=== PATIENT | male | born 1950 | race African-American/Black ===

== ENCOUNTER 2022-12-01 08:36 | Outpatient (REF) | payer BC, MEDICARE, SELFPAY ==
--- NOTE | ~2022-12-01 | XR_ITS ---
EXAMINATION: XR KNEE, LEFT CLINICAL INFORMATION: Left knee pain. COMPARISON: None available. TECHNIQUE: Three views of the left knee. FINDINGS: Examination demonstrates moderate to severe tricompartmental osteoarthritis with joint space narrowing, sclerosis, and osteophyte formation, with relative sparing of the lateral compartment. No fracture or dislocation is seen. Bony mineralization appears preserved. No effusion is noted. Severe calcification of the popliteal artery. XR/XR knee LT 3V IMPRESSION: Osteoarthritis. Severe calcification of the popliteal artery.
== END 2022-12-01 08:37 | disposition home or self-care (01) ==
LOC: HO.HOSX 08:36
PROVIDERS: Visit Provider Orthopaedic Surgery
DX: M17.12 Unilateral primary osteoarthritis, left knee (principal); Z96.651 Presence of right artificial knee joint
CPT/HCPCS: 73562

== ENCOUNTER 2022-12-01 12:52 | Outpatient (AMB) | payer MEDICARE, BC, SELFPAY ==
--- NOTE | 2022-12-01 13:19 | MHC.OFFVIS ---
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 Ley with complaints of left knee swelling. Patient reports intermittent swelling in his left knee but no concerns of pain today. Hx of cortisone injection about 4-5 months that has helped. The patient underwent right total knee replacement surgery on 07/07/2022. He reports minimal discomfort in his right knee. He denies any fevers or chills. He does take Tylenol as needed for his left knee pain. Allergies adhesive tape Allergy (Verified 12/01/22 13:24) rash NSAIDS (Non-Steroidal Anti-Inflamma Allergy (Verified 12/01/22 13:24) Kidney replacement [facility] Social History Patient Tobacco Use Status: Former Tobacco user Current occupational status: retired Physical Exam Const Other: Well-nourished well-developed very friendly male awake alert and oriented x3 in no acute distress Extrem Other: Bilateral lower extremity examination shows good capillary refill, no skin lesions noted, normal sensation light touch Left knee examination shows a minimal effusion, palpable crepitus with range of motion, pain with range of motion, range of motion from -3 degrees to 115 degrees Right knee examination shows that the surgical incision is well healed, no erythema, full active extension and flexion to 120 degrees, his patella tracks well Results Reviewed Results Reviewed: X-rays of the patient's left knee show moderate diffuse joint space narrowing, subchondral sclerosis, no acute bony abnormalities Assessment & Plan Assessment & Plan (1) Arthritis of left knee: Code(s): M17.12 - Unilateral primary osteoarthritis, left knee Plan Mr. Birch continues to do well after undergoing right total knee replacement surgery on 07/07/2002. He does have intermittent discomfort in his left knee due to degenerative joint disease. I had a lengthy discussion regarding the treatment options. At this point the patient's symptoms are tolerable to him. He will continue taking Tylenol as needed. He does know to take antibiotics before any dental work. He will call me prior to his annual follow-up appointment should his symptoms worsen in any way. Feel free to call me at any time should questions regarding his orthopedic management arise. I spent 22 minutes in reviewing the patient's records and imaging studies, seeing the patient and documenting in the medical record. Orders: Orders XR knee LT 3V Today M25.562 - Pain in left knee Coding Level of Care Code Est Pt Level 2 (73498) Diagnoses Arthritis of left knee M17.12
[2022-12-01 13:22] VITALS: BMI 29.6
== END 2022-12-01 13:41 | disposition home or self-care (01) ==
PROVIDERS: PCP Internal Medicine; Visit Provider Orthopaedic Surgery
DX: M17.12 Unilateral primary osteoarthritis, left knee (principal)
CPT/HCPCS: 99212

== ENCOUNTER 2023-05-05 13:22 | Outpatient (AMB) | payer MEDICARE, BC, SELFPAY ==
--- NOTE | 2023-05-05 13:23 | MHC.OFFVIS ---
Intake Vital Signs 05/05/23 13:24 Height 5 ft 7 in Weight 189 lb BMI 29.6 Intake Visit Reasons: OV-Back left knee pain-feels like pull muscle Intake Note: Randy is a 73 year old male who presents with Left posterior knee pain as well as pain in his left lower leg when he walks significant distances. The patient denies any locking or giving way. He has taken Tylenol and anti-inflammatory medicines which gave him only mild relief. Allergies adhesive tape Allergy (Verified 05/05/23 13:30) rash NSAIDS (Non-Steroidal Anti-Inflamma Allergy (Verified 05/05/23 13:30) Kidney replacement [facility] Social History (Updated 12/01/22 @ 13:26 by MARIA ELENA Watson) Patient Tobacco Use Status: Former Tobacco user Current occupational status: retired Physical Exam Vital Signs: BMI result Body Mass Index 29.6 Const Other: Well-nourished well-developed very friendly male awake alert and oriented x3 in no acute distress Extrem Other: Bilateral lower extremity examination shows good capillary refill, no skin lesions noted, normal sensation light touch Left knee examination shows a moderate effusion, palpable crepitus with range of motion, pain with range of motion, no instability Office Procedures Joint Injection/Drain Joint Injection/Drain Primary Site: left knee Prep: site was prepped using aseptic technique Injected: 40 mg of, DepoMedrol and 1% plain lidocaine Procedure: The patient tolerated the procedure well Coding 41740 - Large joint Procedure code (CPT) selection complete Results Reviewed Results Reviewed: X-rays of the patient's left knee show joint space narrowing, subchondral sclerosis, calcification of the popliteal artery, no acute bony Assessment & Plan Assessment & Plan (1) Claudication in peripheral vascular disease: Code(s): I73.9 - Peripheral vascular disease, unspecified (2) Arthritis of left knee: Code(s): M17.12 - Unilateral primary osteoarthritis, left knee Plan Mr. Birch presents with left knee pain due to degenerative joint disease as well as symptoms of left lower leg claudication possibly due to calcifications within his popliteal artery. I had a lengthy discussion with the patient regarding the treatment options. The risks and benefits of a left knee cortisone injection were discussed at length with the patient. The patient wished to proceed. Prior to the injection 15 cc of clear fluid were aspirated from the patient's left knee. He tolerated the injection well. He will continue with his activity modifications. I will also arrange for the patient to have an evaluation in the vascular surgery Department here at [facility] for further information regarding possible left lower extremity vascular claudication. The patient will contact me prior to his follow-up appointment in 3 months should any questions or concerns arise. Feel free to call me at any time should questions regarding his orthopedic management arise. I spent 22 minutes in reviewing the patient's records and imaging studies, seeing the patient and documenting in the medical record. Orders: Orders AMB Joint Injection/Aspiration Today M17.12 - Unilateral primary osteoarthritis, left knee Referrals Vascular Surgery Referral I73.9 - Peripheral vascular disease, unspecified Coding Level of Care Code Est Pt Level 2 (66956) Diagnoses Claudication in peripheral vascular disease I73.9 Arthritis of left knee M17.12 CPT Codes Coding - 61289 Large joint: 98662 - Large joint ([id number])
[2023-05-05 13:24] VITALS: BMI 29.6
== END 2023-05-05 14:07 | disposition home or self-care (01) ==
PROVIDERS: PCP Internal Medicine; Visit Provider Orthopaedic Surgery
DX: M17.12 Unilateral primary osteoarthritis, left knee (principal); I73.9 Peripheral vascular disease, unspecified
CPT/HCPCS: 20610; 99213

== ENCOUNTER → 2023-05-05 13:22 | Outpatient (BNVA) | payer MEDICARE, BC, SELFPAY | PROVIDERS: PCP Internal Medicine; Visit Provider Orthopaedic Surgery | DX: M17.12 Unilateral primary osteoarthritis, left knee (principal); I73.9 Peripheral vascular disease, unspecified | CPT/HCPCS: 20610; 99212; J1020 ==

== ENCOUNTER 2023-06-22 14:31 | Outpatient (AMB) | payer MEDICARE, BC, SELFPAY ==
--- NOTE | 2023-06-22 14:35 | MHC.OFFVIS ---
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 Pt states that Left LE has cramping. States its bad when he is more active, states he can go up stairs slowly but going down is more difficult. No certain distance. 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 Reports it is more so on his left lower extremity. He reports that he can walk approximately a block and experiences left lower extremity cramping. It is relieved by rest. He also takes occasional [id number] analgesia including Tylenol. He was seen by Orthopedics. He now presents to us for vascular evaluation. Of note he is being maintained on an aspirin and statin. [facility] Surgical History Prostate cancer (~2011) History of heart bypass surgery (~2010) Social History Patient Tobacco Use Status: Former Tobacco user Current occupational status: retired Review of Systems Const All systems reviewed & are unremarkable except as noted in HPI and below Reports no additional complaints ENT Reports Normal hearing present Card Denies chest pain, Denies chest pain at rest, Denies chest pain with activity and Denies pedal edema Resp Denies cough GI Denies abdominal pain Musc Denies abnormal gait, Denies muscle cramps and Denies radiating pain into limb Skin/Breast Denies skin ulcer and Denies wounds Neuro Reports Normal hearing present and Denies abnormal gait Psych Reports no additional complaints Physical Exam Vital Signs: BMI result Body Mass Index 29.6 Const General: cooperative, healthy appearing and comfortable Orientation/consciousness: oriented to person, oriented to place and oriented to time HEENT Head: Yes normal to inspection Neck Neck: Yes normal visual inspection Carotids: no bruits Chest Chest palpation & inspection: normal inspection of the chest Resp Effort & Inspection: normal respiratory effort and able to speak in complete sentences Auscultation: clear to auscultation bilaterally, no crackles, no rales, no rhonchi and no wheezes Cardio Other: Bilateral DP signals Rate: regular rate Rhythm: regular rhythm Heart sounds: S1 normal heart sound present and S2 normal heart sound present Bruits: no carotid bruits GI Inspection: Yes normal to inspection Skin Wounds: no wounds Hair: normal Neuro General: oriented to person, oriented to place and oriented to time Cranial nerves: Yes CN's II-XII intact bilaterally and Yes Normal hearing present Cognition (Neuro): normal cognition Motor exam (neuro): 5/5 motor strength present throughout Extrem Other: venous exam: No significant superficial varicosities or spider telangiectasias, minimal edema General: No clubbing, No cyanosis and No edema Psych Appearance: grossly normal Mental Status: mental status grossly normal Speech and movement: Normal speech and movement present Assessment & Plan Assessment & Plan (1) Kidney transplant candidate: Code(s): Z76.82 - Awaiting organ transplant status Plan: See below (2) PAD (peripheral artery disease): Code(s): I73.9 - Peripheral vascular disease, unspecified Category: Medical Plan: In short patient has lower extremity pain on ambulation. Does appear to be symptomatology of a claudicant. We did discuss routine risk factor modification. We also did discuss the importance of ambulation. I have taken the liberty of ordering noninvasive arterial testing. He will follow up with us after testing. Thank you for allowing us to assist in his care. If there are any questions or concerns please do not hesitate to contact us Orders: Orders US arterial duplex LE BI 1 Week I73.9 - Peripheral vascular disease, unspecified Coding Level of Care Code Est Pt Level 4 (80558) Diagnoses Kidney transplant candidate Z76.82 PAD (peripheral artery disease) I73.9
[2023-06-22 14:36] VITALS: BMI 29.6
== END 2023-06-22 15:32 | disposition home or self-care (01) ==
PROVIDERS: PCP Internal Medicine; Visit Provider Surgery Vascular Surgery
DX: Z76.82 Awaiting organ transplant status (principal); I73.9 Peripheral vascular disease, unspecified
CPT/HCPCS: 99213

== ENCOUNTER → 2023-06-22 14:31 | Outpatient (BNVA) | payer MEDICARE, BC, SELFPAY | PROVIDERS: PCP Internal Medicine; Visit Provider Surgery Vascular Surgery | DX: I73.9 Peripheral vascular disease, unspecified (principal); Z76.82 Awaiting organ transplant status | CPT/HCPCS: 99212 ==

== ENCOUNTER 2023-07-07 14:40 | Outpatient (REF) | payer MEDICARE, BC, SELFPAY ==
--- NOTE | ~2023-07-07 | US_ITS ---
EXAMINATION: US arterial duplex LE BI, US NANCY complete CLINICAL INFORMATION: PVD COMPARISON: None TECHNIQUE: Ankle pulse volume recordings, ankle pressure measurements and ankle brachial indices were obtained of the lower extremity arterial system bilaterally in addition to duplex Doppler techniques with wave form analysis and measurement of velocities in the common femoral, profunda femoral, superficial femoral, popliteal, tibial and peroneal arteries. The study was performed only at rest. FINDINGS: RIGHT LE. THE RIGHT ANKLE-BRACHIAL INDEX IS: 0.61 noncompressibility/calcification. >0.97-1.25 = normal - no significant arterial disease 0.75-0.96 = mild peripheral arterial disease 0.5-0.74 = moderate peripheral arterial disease <0.50 = severe peripheral arterial disease <0.30 = critical arterial disease 2. SEGMENTAL PRESSURES (mmHg): Ankle: PT 111, DP 103 3. PVR WAVEFORMS: Ankle: Abnormal 4. DIRECT DUPLEX: Common femoral artery: 111 cm/s, biphasic, mild stenosis Profunda femoris artery: 96 cm/s, biphasic, mild stenosis Superficial femoral artery (proximal): 147 cm/s, biphasic, mild stenosis Superficial femoral artery (mid): 109 cm/s, Multiphasic, mild stenosis Superficial femoral artery (distal): 46 cm/s, monophasic, mild stenosis Distal Popliteal artery: 349 cm/s, monophasic, severe stenosis Mid posterior tibial artery: 72 cm/s, monophasic, mild stenosis Peroneal artery: Not visualized Dorsalis pedis artery: 26 cm/sec, monophasic Anterior tibial artery: 21 cm/sec, monophasic LEFT LE. THE LEFT ANKLE-BRACHIAL INDEX IS: 0.74 (higher of the DP/PT) >0.97-1.25 = normal - no significant arterial disease 0.75-0.96 = mild peripheral arterial disease 0.5-0.74 = moderate peripheral arterial disease <0.50 = severe peripheral arterial disease <0.30 = critical arterial disease 2. SEGMENTAL PRESSURES: Ankle: PT 135, DP 105 3. PVR WAVEFORMS: Ankle: Abnormal 4. DIRECT DUPLEX: Common femoral artery: 120 cm/s, biphasic, mild stenosis Profunda femoris artery: 109 cm/s, biphasic, mild stenosis Superficial femoral artery (proximal): 165 cm/s, biphasic, mild stenosis Superficial femoral artery (mid): 110 cm/s, biphasic, mild stenosis Superficial femoral artery (distal): 256 cm/s, monophasic, moderate stenosis Proximal Popliteal artery: 275 cm/s, monophasic, moderate stenosis Mid posterior tibial artery: 93 cm/s, monophasic, mild stenosis Peroneal artery: Not visualized Dorsalis pedis artery: 19 cm/sec, monophasic Anterior tibial artery: 28 cm present, monophasic US/US arterial duplex LE BI IMPRESSION: 1. Right lower extremity with moderate peripheral arterial disease by NANCY. Severe stenosis at the distal popliteal artery. 2. Left lower extremity with moderate peripheral arterial disease by NANCY. Moderate stenosis of the distal superficial femoral artery and proximal popliteal artery. 3. Monophasic waveforms in the below-knee arteries bilaterally.
== END 2023-07-07 14:41 | disposition home or self-care (01) ==
LOC: HO.US 14:40
PROVIDERS: PCP Internal Medicine; Visit Provider Surgery Vascular Surgery
DX: I73.9 Peripheral vascular disease, unspecified (principal)
CPT/HCPCS: 93923; 93925

== ENCOUNTER 2023-07-09 11:21 | Outpatient (AMB) | payer MEDICARE, BC, SELFPAY ==
[2023-07-09 11:26] VITALS: BP 160/68; PULSE 60; O2SAT 98; BMI 30.4
--- NOTE | 2023-07-09 11:26 | HO.NEPHOV ---
Vital Signs 07/09/23 11:26 Height 5 ft 7 in Weight 194 lb BMI 30.4 BP 160/68 H Blood Pressure Location Rt brachial Position Sitting Pulse 60 Pulse Source Pulse Oximeter Pulse Oximetry (%) 98 Oxygen Delivery Method Room Air Intake Visit Reasons: Previous patient/ Confirmed Talcer Required: No Accompanied by: Spouse Allergies adhesive tape Allergy (Verified 07/09/23 11:28) rash NSAIDS (Non-Steroidal Anti-Inflamma Allergy (Verified 07/09/23 11:28) Kidney replacement HPI Comments Details: I had the pleasure of seeing Randy in consultation and transfer care for his kidney transplant. 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 His serum creatinine has been stable around 0.9. He is gained some weight. He has peripheral arterial symptoms and had seen vascular surgeon. He thinks he likely will need stenting of his arteries on the left lower extremity. He continues to have left upper extremity AV fistula. He applies sunscreen when he goes out and maintains good hydration. He does not take any nonsteroidal anti-inflammatories and is compliant with his medications. His appetite is good. He does not have any chest pain, shortness of breath, paroxysmal nocturnal dyspnea, orthopnea, urinary symptoms. He had no recent medication changes. He was accompanied by his Siomara during this office visit. He feels well. [facility] Medical History (Updated 07/09/23 @ 13:32 by Jim Ibrahim MD) FHx: total knee replacement (~06/2022) Osteoarthritis Hyperlipidemia Hypertension History of congestive heart failure Gout GERD (gastroesophageal reflux disease) Surgical History (Updated 07/09/23 @ 12:11 by Jim Ibrahim MD) Prostate cancer (~2011) History of heart bypass surgery (~2010) Social History Patient Tobacco Use Status: Former Tobacco user Current occupational status: retired Physical Exam Vital Signs: Last Vital Signs Pulse 60 07/09/23 11:26 BP 160/68 H 07/09/23 11:26 Pulse Ox 98 07/09/23 11:26 Oxygen Delivery Method Room Air 07/09/23 11:26 BMI result Body Mass Index 30.4 Const General: comfortable and no acute distress Orientation/consciousness: patient oriented x3 HEENT Head: Yes normocephalic Mouth: Normal oral and palatal mucosa present Eyes EOM: EOMs intact bilaterally Neck Neck: Yes supple Resp Auscultation: clear to auscultation bilaterally Cardio Jugular venous distension: no JVD Rate: regular rate GI Palpation (GI): Soft to palpation Auscultation: normal bowel sounds General: Yes no CVA tenderness Back/Spine/Pelvis Back: no CVA tenderness Skin General skin exam: no rashes or lesions noted Neuro General: patient oriented x3 and moves all extremities Extrem General: Yes no pedal edema Results Reviewed Nephrology Results: No Data to Display Assessment & Plan Assessment & Plan (1) Renal transplant recipient: Code(s): Z94.0 - Kidney transplant status Category: Surgical (2) Hypertension: Code(s): I10 - Essential (primary) hypertension Category: Medical Qualifiers: Hypertension type: primary hypertension Qualified Code(s): I10 - Essential (primary) hypertension Plan Randy had ESRD from hypertension and received a donor renal transplant in 2017. His serum creatinine is at baseline of 0.9. He has no history of rejection. His blood pressure is at goal. His hemoglobin A1c is 6.1. His lipid profile is at goal. He clearly needs to lose weight. He has no side effects from calcineurin inhibitor. He is compliant with his medications. 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 He has a follow-up with vascular surgery for his peripheral arterial disease. He is going to discuss with vascular surgeon regarding his left upper extremity AV fistula which can be either reduced in size or tied off. He has no clinical signs of heart failure. I did not make any medication changes today. All his and his 's questions were answered. Follow-up appointment given. Orders: Orders Complete Blood Count Auto Diff Today I10 - Essential (primary) hypertension, Z94.0 - Kidney transplant status Tacrolimus Prograf Today I10 - Essential (primary) hypertension, Z94.0 - Kidney transplant status Calcium Today I10 - Essential (primary) hypertension, Z94.0 - Kidney transplant status Protein Creatinine Ratio, Ur Today I10 - Essential (primary) hypertension, Z94.0 - Kidney transplant status Creatinine Today I10 - Essential (primary) hypertension, Z94.0 - Kidney transplant status Blood Urea Nitrogen Today I10 - Essential (primary) hypertension, Z94.0 - Kidney transplant status Electrolytes Today I10 - Essential (primary) hypertension, Z94.0 - Kidney transplant status Phosphorus Today I10 - Essential (primary) hypertension, Z94.0 - Kidney transplant status Magnesium Today I10 - Essential (primary) hypertension, Z94.0 - Kidney transplant status Alanine Aminotransferase Today I10 - Essential (primary) hypertension, Z94.0 - Kidney transplant status Aspartate Amino Transferase Today I10 - Essential (primary) hypertension, Z94.0 - Kidney transplant status Coding Level of Care Code New Pt Level 4 (60540) Diagnoses Renal transplant recipient Z94.0 Primary hypertension I10 Hypertension type: primary hypertension
== END 2023-07-09 12:19 | disposition home or self-care (01) ==
PROVIDERS: PCP Internal Medicine; Visit Provider Internal Medicine Nephrology
DX: Z94.0 Kidney transplant status (principal); I10 Essential (primary) hypertension
CPT/HCPCS: 99204; 99214

== ENCOUNTER → 2023-07-09 11:21 | Outpatient (BNVA) | payer MEDICARE, BC, SELFPAY | PROVIDERS: PCP Internal Medicine; Visit Provider Internal Medicine Nephrology | DX: I10 Essential (primary) hypertension (principal); Z94.0 Kidney transplant status | CPT/HCPCS: 99202 ==

== ENCOUNTER 2023-08-05 13:06 | Outpatient (AMB) | payer MEDICARE, BC, SELFPAY ==
--- NOTE | 2023-08-05 13:11 | A.OFFVIS_ITS ---
Intake Visit Reasons: OV-Back LT knee pain-follow up Intake Note: Randy is a 73 year old male who presents with complaints of left knee pain and swelling. The patient has had injections in the past which gave him fairly good relief. He did undergo right total knee replacement surgery in the past. He reports minimal discomfort in his right knee. He would like to hold off on left total knee replacement surgery for as long as possible. He has done physical therapy exercises which aggravated his pain. Has also tried Tylenol and aspirin which gave him only mild relief. Allergies adhesive tape Allergy (Verified 08/05/23 13:11) rash NSAIDS (Non-Steroidal Anti-Inflamma Allergy (Verified 08/05/23 13:11) Kidney replacement Medication List - Last Reconciled 08/06/23 by Matthew Ley MD alendronate 70 mg PO QWEEK allopurinol mg PO DAILY aspirin 81 mg PO DAILY coenzyme Q10 (Co Q-10) 50 mg PO DAILY doxazosin 2 mg PO DAILY lorazepam mg PO losartan 100 mg PO DAILY mycophenolate mofetil 750 mg PO DAILY nifedipine ER 60 mg PO BID nitroglycerin mg sublingual PRN omega-3 fatty acids-fish oil 300-500 mg (Fish Oil) 1 cap PO DAILY omeprazole 20 mg PO DAILY prednisone 5 mg PO DAILY rosuvastatin 20 mg PO BEDTIME tacrolimus 5 mg PO DAILY [facility] Medical History (Updated 07/09/23 @ 13:32 by Jim Ibrahim MD) FHx: total knee replacement (~06/2022) Osteoarthritis Hyperlipidemia Hypertension History of congestive heart failure Gout GERD (gastroesophageal reflux disease) Surgical History (Updated 07/09/23 @ 12:11 by Jim Ibrahim MD) Prostate cancer (~2011) History of heart bypass surgery (~2010) Social History Patient Tobacco Use Status: Former Tobacco user Current occupational status: retired Physical Exam Const Other: Well-nourished well-developed very friendly male awake alert and oriented x3 in no acute distress Extrem Other: Bilateral lower extremity examination shows good capillary refill, no skin lesions noted, normal sensation light touch Left knee examination shows a moderate effusion, palpable crepitus with range of motion, pain with range of motion, no instability Office Procedures Joint Injection/Drain Joint Injection/Drain Primary Site: left knee Prep: site was prepped using aseptic technique Injected: 40 mg of, DepoMedrol and 1% plain lidocaine Procedure: The patient tolerated the procedure well Coding 30731 - Large joint Procedure code (CPT) selection complete Results Reviewed Results Reviewed: X-rays of the patient's left knee show joint space narrowing, subchondral sclerosis, no acute bony abnormalities Assessment & Plan Assessment & Plan (1) Arthritis of left knee: Code(s): M17.12 - Unilateral primary osteoarthritis, left knee Category: Medical Plan Mr. Birch presents with progressively worsening left knee pain due to degenerative joint disease. I had a lengthy discussion with the patient regarding the treatment options. He wishes to hold off on left total knee replacement surgery for as long as possible. I agree with this plan. The risks and benefits of a left knee cortisone injection were discussed at length with the patient. The patient wished to proceed. Prior to the injection I aspirated 8 cc of clear fluid from his left knee. He will continue with his activity modifications. He will follow up with me on an as-needed basis should his symptoms not plateau at an unacceptable level over the next few months. Feel free to call me at any time should questions regarding his orthopedic management arise. I spent 20 minutes in reviewing the patient's records and imaging studies, seeing the patient and documenting in the medical record. Orders: Orders AMB Joint Injection/Aspiration 08/05/23 M17.12 - Unilateral primary osteoarthritis, left knee Coding Level of Care Code Est Pt Level 3 (24997) Diagnoses Arthritis of left knee M17.12 CPT Codes Coding - Large joint: 58939 - Large joint ([id number])
== END 2023-08-05 13:46 | disposition home or self-care (01) ==
PROVIDERS: PCP Internal Medicine; Visit Provider Orthopaedic Surgery
DX: M17.12 Unilateral primary osteoarthritis, left knee (principal)
CPT/HCPCS: 20610; 99214

== ENCOUNTER → 2023-08-05 13:06 | Outpatient (BNVA) | payer MEDICARE, BC, SELFPAY | PROVIDERS: PCP Internal Medicine; Visit Provider Orthopaedic Surgery | DX: M17.12 Unilateral primary osteoarthritis, left knee (principal); Z96.651 Presence of right artificial knee joint | CPT/HCPCS: 20610; 99212; J3301 ==

== ENCOUNTER 2023-08-24 14:08 | Outpatient (AMB) | payer MEDICARE, BC, SELFPAY ==
--- NOTE | 2023-08-24 14:12 | A.OFFVIS_ITS ---
Vital Signs 08/24/23 14:13 Height 5 ft 7 in Weight 194 lb BMI 30.4 Intake Visit Reasons: f/u s/p ART US 07/07/23 Intake Note: follow up Arterial US 07/07/23 for Left LE cramping. Pt states he had an injection in his left knee by and states it feels somewhat better. Accompanied by: Self / Same As Patient Allergies adhesive tape Allergy (Verified 08/24/23 14:15) rash NSAIDS (Non-Steroidal Anti-Inflamma Allergy (Verified 08/24/23 14:15) Kidney replacement HPI HPI f/u s/p ART US 07/07/23: Details: Very pleasant 73-year-old gentleman presents for follow-up regarding peripheral vascular disease. Most recently he has undergone left knee cortisone injection on 08/05/2023. He reports his leg has been doing fairly well after that. He is able to ambulate several blocks with no significant difficulty. Of note he has had a renal transplant nearly 7 years ago. Quit smoking over 40 years prior. In addition he currently has a functioning left upper extremity fistula as well. He now presents for routine follow-up. [facility] Medical History FHx: total knee replacement (~06/2022) Osteoarthritis Hyperlipidemia Hypertension History of congestive heart failure Gout GERD (gastroesophageal reflux disease) Surgical History Prostate cancer (~2011) History of heart bypass surgery (~2010) Social History Patient Tobacco Use Status: Former Tobacco user Current occupational status: retired Review of Systems Const All systems reviewed & are unremarkable except as noted in HPI and below Reports no additional complaints ENT Reports Normal hearing present Card Denies chest pain, Denies chest pain at rest, Denies chest pain with activity and Denies pedal edema Resp Denies cough GI Denies abdominal pain Musc Denies abnormal gait, Denies muscle cramps and Denies radiating pain into limb Skin/Breast Denies skin ulcer and Denies wounds Neuro Reports Normal hearing present and Denies abnormal gait Psych Reports no additional complaints Physical Exam Vital Signs: BMI result Body Mass Index 30.4 Const General: cooperative, healthy appearing and comfortable Orientation/consciousness: oriented to person, oriented to place and oriented to time HEENT Head: Yes normal to inspection Neck Neck: Yes normal visual inspection Carotids: no bruits Chest Chest palpation & inspection: normal inspection of the chest Resp Effort & Inspection: normal respiratory effort and able to speak in complete sentences Auscultation: clear to auscultation bilaterally, no crackles, no rales, no rhonchi and no wheezes Cardio Other: Bilateral DP signals Rate: regular rate Rhythm: regular rhythm Heart sounds: S1 normal heart sound present and S2 normal heart sound present Bruits: no carotid bruits GI Inspection: Yes normal to inspection Skin Wounds: no wounds Hair: normal Neuro General: oriented to person, oriented to place and oriented to time Cranial nerves: Yes CN's II-XII intact bilaterally and Yes Normal hearing present Cognition (Neuro): normal cognition Motor exam (neuro): 5/5 motor strength present throughout Extrem Other: venous exam: No significant superficial varicosities or spider telangiectasias, minimal edema General: No clubbing, No cyanosis and No edema Psych Appearance: grossly normal Mental Status: mental status grossly normal Speech and movement: Normal speech and movement present Results Reviewed Results Reviewed: Noninvasive arterial testing dated 07/07/2023 demonstrates NANCY on the right of 0.61 and on the left of 0.74. Written report and images were reviewed. Assessment & Plan Assessment & Plan (1) PAD (peripheral artery disease): Code(s): I73.9 - Peripheral vascular disease, unspecified Category: Medical Plan: In short patient has stable claudication. I did review the pathophysiology of peripheral vascular disease with the patient. In addition we did discuss routine conservative measures including a healthy diet and the importance of exercise and ambulation. We did discuss risk factor modification. I think it would be prudent to manage him as conservatively as possible due to his renal transplant as well. The patient will continue to to follow-up with surveillance follow-up in approximately 6 months. Thank you for allowing us to participate in this patient's care. If there are any questions or concerns please do not hesitate to contact us. (2) Renal transplant recipient: Code(s): Z94.0 - Kidney transplant status Category: Surgical Plan: He does have a very well functioning left upper extremity fistula. There is 1 small aneurysmal portion. When I did examine it and I tried to reduce it it did seem to affect the fistula. At the current time it does appear to be stable. I would not plicate the aneurysmal areas at the current time. We did discuss this in detail should this dialysis become important in the future if his transplant failed. He is in agreement. We will re-evaluate this fistula in approximately 6 months when he comes back for arterial testing. Thank you for allowing us to assist in his care. If there are any questions or concerns please do not hesitate to contact us. Orders: Orders US arterial duplex LE BI 6 Months I73.9 - Peripheral vascular disease, unspecified Coding Level of Care Code Est Pt Level 4 (88286) Diagnoses PAD (peripheral artery disease) I73.9 Renal transplant recipient Z94.0
[2023-08-24 14:13] VITALS: BMI 30.4
== END 2023-08-24 14:45 | disposition home or self-care (01) ==
PROVIDERS: PCP Internal Medicine; Visit Provider Surgery Vascular Surgery
DX: I73.9 Peripheral vascular disease, unspecified (principal); Z94.0 Kidney transplant status
CPT/HCPCS: 99213

== ENCOUNTER → 2023-08-24 14:08 | Outpatient (BNVA) | payer MEDICARE, BC, SELFPAY | PROVIDERS: PCP Internal Medicine; Visit Provider Surgery Vascular Surgery | DX: I73.9 Peripheral vascular disease, unspecified (principal); Z94.0 Kidney transplant status | CPT/HCPCS: 99212 ==

== ENCOUNTER → 2023-11-04 15:26 | Outpatient (BNVA) | payer MEDICARE, BC, SELFPAY | PROVIDERS: PCP Internal Medicine; Visit Provider Orthopaedic Surgery | DX: M17.12 Unilateral primary osteoarthritis, left knee (principal) | CPT/HCPCS: 20610; 99212; J1010 ==

== ENCOUNTER 2023-11-04 15:31 | Outpatient (AMB) | payer MEDICARE, BC, SELFPAY ==
[2023-11-04 15:40] VITALS: BMI 30.4
--- NOTE | 2023-11-04 15:40 | MHC.OFFVIS ---
Vital Signs 11/04/23 15:40 Height 5 ft 7 in Weight 194 lb BMI 30.4 Intake Visit Reasons: Left knee pain and swelling Intake Note: Randy is a 73 year old male that presents with complaints of left knee pain and swelling. The patient describes his pain as sharp in nature. His pain has gotten worse over the last few months in spite of continued non operative treatments. He has done physical therapy exercises which aggravated his pain. He has also tried Tylenol and anti-inflammatory medicines which gave him minimal relief. He would like to hold off on surgery for as long as possible. Allergies adhesive tape Allergy (Verified 11/04/23 15:40) rash NSAIDS (Non-Steroidal Anti-Inflamma Allergy (Verified 11/04/23 15:40) Kidney replacement Medication List - Last Reconciled 11/05/23 by Matthew Ley MD alendronate 70 mg PO QWEEK allopurinol mg PO DAILY aspirin 81 mg PO DAILY coenzyme Q10 (Co Q-10) 50 mg PO DAILY doxazosin 2 mg PO DAILY lorazepam mg PO losartan 100 mg PO DAILY mycophenolate mofetil 750 mg PO DAILY nifedipine ER 60 mg PO BID nitroglycerin mg sublingual PRN omega-3 fatty acids-fish oil 300-500 mg (Fish Oil) 1 cap PO DAILY omeprazole 20 mg PO DAILY prednisone 5 mg PO DAILY rosuvastatin 20 mg PO BEDTIME tacrolimus 5 mg PO DAILY [facility] Medical History FHx: total knee replacement (~06/2022) Osteoarthritis Hyperlipidemia Hypertension History of congestive heart failure Gout GERD (gastroesophageal reflux disease) Surgical History Prostate cancer (~2011) History of heart bypass surgery (~2010) Social History Patient Tobacco Use Status: Former Tobacco user Current occupational status: retired Physical Exam Vital Signs: BMI result Body Mass Index 30.4 Const Other: Well-nourished well-developed very friendly male awake alert and oriented x3 in no acute distress Extrem Other: Bilateral lower extremity examination shows good capillary refill, no skin lesions noted, normal sensation light touch Left knee examination shows a moderate effusion, palpable crepitus with range of motion, pain with range of motion, no instability Office Procedures Joint Injection/Aspiration Joint Injection/Aspiration Primary Site: left knee Injected: 40 mg of, DepoMedrol and 1% plain lidocaine Procedure: The patient tolerated the procedure well Coding - Large joint Procedure code (CPT) selection complete Results Reviewed Results Reviewed: X-rays of the patient's left knee show joint space narrowing, subchondral sclerosis, no acute bony abnormalities Assessment & Plan Assessment & Plan (1) Arthritis of left knee: Code(s): M17.12 - Unilateral primary osteoarthritis, left knee Category: Medical Plan Mr. Birch presents with left knee pain due to degenerative joint disease. I had a lengthy discussion with the patient regarding the treatment options. The risks and benefits of a right knee cortisone injection were discussed at length with the patient. The patient wished to proceed. Prior to the injection I aspirated 9 cc of clear fluid from his left knee. The patient will continue with his activity modifications. He will contact me prior to his follow-up appointment in 3 months should any questions or concerns arise. Feel free to call me at any time should questions regarding his orthopedic management arise. I spent 22 minutes in reviewing the patient's records and imaging studies, seeing the patient and documenting in the medical record. Orders: Orders AMB Joint Injection/Aspiration 11/04/23 M17.12 - Unilateral primary osteoarthritis, left knee Coding Level of Care Code Est Pt Level 3 (76819) Complex EM visit Add On G2211 Diagnoses Arthritis of left knee M17.12 CPT Codes Coding - Large joint: 80722 - Large joint ([id number])
== END 2023-11-04 16:03 | disposition home or self-care (01) ==
PROVIDERS: PCP Internal Medicine; Visit Provider Orthopaedic Surgery
DX: M17.12 Unilateral primary osteoarthritis, left knee (principal)
CPT/HCPCS: 20610; 99213

== ENCOUNTER 2024-02-03 14:59 | Outpatient (AMB) | payer MEDICARE, BC, SELFPAY ==
--- NOTE | 2024-02-03 15:05 | MHC.OFFVIS ---
Vital Signs 02/03/24 15:11 Height 5 ft 7 in Weight 194 lb BMI 30.4 Intake Visit Reasons: OV-Back LT knee pain Intake Note: Randy is a 74 year old male that presents with complaints of left knee pain and swelling. The patient describes his pain as sharp in nature. He has had cortisone injections in the past which gave him fairly good relief. He has undergone right total knee replacement surgery in the past. He reports minimal discomfort in his right knee. Wishes to hold off on left total knee replacement surgery for as long as possible. He has done physical therapy exercises which aggravated his pain. He has also tried Tylenol and anti-inflammatory medicines which gave him minimal relief. Allergies adhesive tape Allergy (Verified 02/03/24 15:12) rash NSAIDS (Non-Steroidal Anti-Inflamma Allergy (Verified 02/03/24 15:12) Kidney replacement Medication List - Last Reconciled 02/04/24 by Matthew Ley MD alendronate 70 mg PO QWEEK allopurinol mg PO DAILY aspirin 81 mg PO DAILY clopidogrel mg PO coenzyme Q10 (Co Q-10) 50 mg PO DAILY doxazosin 2 mg PO DAILY hydralazine mg PO lorazepam mg PO losartan 100 mg PO DAILY mycophenolate mofetil 750 mg PO DAILY nifedipine ER 60 mg PO BID nitroglycerin mg sublingual PRN omega-3 fatty acids-fish oil 300-500 mg (Fish Oil) 1 cap PO DAILY omeprazole 20 mg PO DAILY prednisone 5 mg PO DAILY rosuvastatin 20 mg PO BEDTIME tacrolimus 5 mg PO DAILY [facility] Medical History FHx: total knee replacement (~06/2022) Osteoarthritis Hyperlipidemia Hypertension History of congestive heart failure Gout GERD (gastroesophageal reflux disease) Surgical History Prostate cancer (~2011) History of heart bypass surgery (~2010) Social History Patient Tobacco Use Status: Former Tobacco user Current occupational status: retired Physical Exam Vital Signs: BMI result Body Mass Index 30.4 Extrem Other: Left knee examination shows a moderate effusion, palpable crepitus with range of motion, pain with range of motion, no instability Office Procedures AMB Joint Injection/Aspiration Joint Injection/Aspiration Primary Site: left knee Prep: site was prepped using aseptic technique Injected: 40 mg of, DepoMedrol and 1% plain lidocaine Procedure: The patient tolerated the procedure well Coding 97844 - Large joint Procedure code (CPT) selection complete Results Reviewed Results Reviewed: X-rays of the patient's left knee taken previously show joint space narrowing, subchondral sclerosis, no acute bony abnormalities Assessment & Plan Assessment & Plan (1) Arthritis of left knee: Code(s): M17.12 - Unilateral primary osteoarthritis, left knee Category: Medical Plan Mr. Birch presents with progressively worsening left knee pain and swelling due to degenerative joint disease. The risks and benefits of a left knee cortisone injection were discussed at length with the patient. The patient wished to proceed. The patient tolerated the injection well. Prior to the injection I aspirated 8 cc of clear fluid from his left knee. He will continue with his activity modifications. He will contact me prior to his follow-up appointment in 3 months should any questions or concerns arise. Feel free to call me at any time should questions regarding his orthopedic management arise. I spent 22 minutes in reviewing the patient's records and imaging studies, seeing the patient and documenting in the medical record. Orders: Orders AMB Joint Injection/Aspiration 02/03/24 M17.12 - Unilateral primary osteoarthritis, left knee Coding Level of Care Code Est Pt Level 3 (18081) Complex EM visit Add On G2211 Diagnoses Arthritis of left knee M17.12 CPT Codes Coding - 78072 Large joint: 17521 - Large joint ([id number])
--- OUTSIDE RECORDS SUMMARY | 2024-02-03 15:08 | XMS_ITS | Continuity of Care Document ---
Author Organization [facility] ter Address [address] [place] [id number] Care Team Providers Care Production Team Manager Name Role Phone Shazia GODOY, Maria D D Primary Care Physician [place] [facility] [place] - 01/13/[address] [id number] Discharge Disposition: A-D/C Home Attending Physician: Kirill Ahmadi MD Admitting Physician: Eric Mantilla DO Referring Physician: Not on Staff, Referring MD Encounter Type: Disch IP Allergies, Adverse Reactions, Alerts Substance Criticality Severity Reaction Reaction Severity Status Zestril not sure Active Contrast Dye caused kidney failure Active NSAIDs can not take d/t kidney problems Active Adhesive Bandage skin breakdown Active Latex Unable to assess criticality Persistent Moderate Rash Active Immunizations Given and Recorded Vaccine Date Status Refusal Reason pneumococcal 13-valent vaccine 1 08/01/14 Given influenza virus vaccine, inactivated 11/20/13 Give n Zostavax (oldterm) 09/10/13 Given tetanus/diphtheria/pertussis, acel(Tdap) 05/17/13 Given pneumococcal 23-valent vaccine 02/21/08 Given 1Admin Note: prevnar 13 given by Brad Jones RN Medications alendronate 70 mg oral tablet Every week, 0 Refills, Maintenance, 03/27/21 3:56:00 PM EST, Partial fill upon patient request if theprescription is for a schedule II opioid drug. Start Date: 03/27/21 Status: Ordered Repeat number: 1 allopurinol 100 mg oral tablet 1 tablet = 100 mg, By Mouth, Daily, 0 Refills, Maintenance, 06/02/11 7:52:51 AM EDT Start Date: 06/02/11 Status: Ordered Repeat number: 1 aspirin 81 mg oral delayed release tablet 1 tablet = 81 mg, By Mouth, Daily, take for 90 days only then stop , you do not need to continue aspirin as per Nerurology recommendation, # 90 tablet, 0 Refills, Maintenance, 01/13/24 11:54:00 AM EST, EC Tablet, Partial fill upon patient request if the prescription is for a schedule II opioid drug. Start Date: 01/13/24 Stop Date: 04/12/24 Status: Ordered Quantity: 90.0 Unit: tablet Repeat number: 1 CellCept 250 mg oral capsule 1 capsule = 250 mg, By Mouth, 2 times a day, # 120 capsule, 0 Refills, Maintenance, 04/18/21 10:56:00 AM EST, Capsule, Partial fill upon patient request if the prescription is for a schedule II opioiddrug. Start Date: 04/18/21 Status: Ordered Quantity: 120.0 Unit: capsule Repeat number: 1 Co Q-10 = 100 mg, By Mouth, Daily, 0 Refills, Maintenance, 04/19/13 9:52:48 AM EST Start Date: 04/19/13 Status: Ordered Repeat number: 1 doxazosin 2 mg oral tablet 2 mg, 1, tablet, By Mouth, Daily at bedtime, TAKE 1 TABLET BY MOUTH EVERY DAY AT NIGHT Start Date: 01/11/24 Status: Ordered Repeat number: 1 Fish Oil By Mouth, 0 Refills, Maintenance, 04/19/13 9:52:38 AM EST Start Date: 04/19/13 Status: Ordered Repeat number: 1 lorazepam 1 mg oral tablet 1 tablet = 1 mg, By Mouth, PRN as needed for anxiety, 0 Refills, Maintenance, 09/14/14 3:39:26 PM EDT Start Date: 09/14/14 Status: Ordered Repeat number: 1 losartan 100 mg oral tablet 0 Refills, Maintenance, 03/27/21 3:56:00 PM EST, Partial fill upon patient request if the prescription is for a schedule II opioid drug. Start Date: 03/27/21 Status: Ordered Repeat number: 1 losartan 50 mg oral tablet 100 mg, Tablet, By Mouth, 01/13/24 9:00:00 AM EST Start Date: 01/13/24 Stop Date: 01/13/24 Status: Completed Repeat number: 1 Multivitamin By Mouth, Daily, 0 Refills, Maintenance, 06/02/10 2:37:39 PM EDT Start Date: 06/02/10 Status: Ordered Repeat number: 1 NIFEdipine (Eqv-Procardia XL) 60 mg oral tablet, extended release 1 tablet = 60 mg, By Mouth, Daily, # 90 tablet, 0 Refills, Maintenance, 01/11/24 4:31:00 PM EST, ERTablet, Partial fill upon patient request if the prescription is for a schedule II opioid drug. Start Date: 01/11/24 Status: Ordered Quantity: 90.0 Unit: tablet Repeat number: 1 Nitrostat 0.3 mg sublingual tablet 1 tablet = 0.3 mg, Sublingual, Every 5 minutes, PRN for chest pain, # 100 tablet, 0 Refills, Maintenance, 11/11/11 4:03:21 PM EDT, Tablet Start Date: 11/11/11 Status: Ordered Quantity: 100.0 Unit: tablet Repeat number: 1 omeprazole 20 mg oral enteric coated capsule 1 capsule = 20 mg, By Mouth, Daily, # 30 capsule, 0 Refills, Maintenance, 01/11/24 4:31:00 PM EST, EC Capsule, Partial fill upon patient request if the prescription is for a schedule II opioid drug. Start Date: 01/11/24 Status: Ordered Quantity: 30.0 Unit: capsule Repeat number: 1 Plavix 75 mg oral tablet 75 mg, By Mouth, Daily, # 90 tablet, Refills 0, Tot. Refills 0, Maintenance, 01/13/24 11:53:00 AM EST, Do Not Route, Partial fill upon patient request if the prescription is for a schedule II opioid drug. Start Date: 01/13/24 Stop Date: 04/12/24 Status: Ordered Quantity: 90.0 Unit: tablet Repeat number: 1 Prograf 1 mg oral capsule See Instructions, 3 capsule in morning, 2 capsule in evening, 0 Refills, Maintenance, 04/09/21 9:59:00 AM EST, Partial fill upon patient request if the prescription is for a schedule II opioid drug. Start Date: 04/09/21 Status: Ordered Repeat number: 1 rosuvastatin 20 mg oral tablet 1 tablet = 20 mg, By Mouth, Daily, # 60 tablet, 0 Refills, Maintenance, 01/11/24 4:31:00 PM EST, Tablet, Partial fill upon patient request if the prescription is for a schedule II opioid drug. Start Date: 01/11/24 Status: Ordered Quantity: 60.0 Unit: tablet Repeat number: 1 sildenafil 100 mg oral tablet 0 Refills, Maintenance, 03/27/21 3:56:00 PM EST, Partial fill upon patient request if the prescription is for a schedule II opioid drug. Start Date: 03/27/21 Status: Ordered Repeat number: 1 Problem List Condition Confirmation Course Effective Dates Status H ealth Status Informant Chronic Kidney disease Confirmed Active History of Congestive heart failure Confirmed Active Coronary arteriosclerosis, Coronary artery bypass grafts x 3 Confirmed Active Ex-smoker Confirmed Active Gastroesophageal reflux disease Confirmed Active Gout Confirmed Active HTN - Hypertension Confirmed Active Hyperlipidemia Confirmed Active Old myocardial infarction, Inferolateral Wall, Initial Episode of Care Confirmed 02/17/10 Active Osteoarthritis, knees Confirmed Active Primary malignant neoplasm of prostate Confirmed Active Prostate cancer Confirmed Active Procedures Procedure Date Related Diagnosis Body Site Status CABG - Coronary artery bypass graft Completed Herniorrhaphy Completed Kidney transplant Complet ed Knee replacement Complete d Results Radiology Reports * Exam Date Time Procedure Performing Provider Status 01/12/24 5:33 AM MRI Brain W/O Contrast Dwayne Stone; Tiana (Verified) Notes: (MRI Brain W/O Contrast) Reason For Exam: Right arm weakness, facial droop;TIA RESULT: MRI Brain W/O Contrast MRI Brain W/O Contrast INDICATION / CLINICAL QUESTION: Reason: TIA; Right arm weakness, facial droop; Clinical Question(s): Infarction; Order Comment: Please see Reference Text for complete list of contraindications Infarction TECHNIQUE: MRI of the brain was performed without contrast utilizing sagittal T1, axial T2, axial FLAIR, axial SWAN, and axial DWI sequences. COMPARISON: CT and CTA head 01/11/2024. FINDINGS: BRAIN and EXTRA-AXIAL SPACES: There is linear diffusion restriction in the left bethany, with mild corresponding T2 prolongation. The ventral margin of the bethany bilaterally is somewhat distorted by susceptibility artifact from adjacent gas in the sphenoid sinus, but there is no corresponding T2 prolongation anteriorly. No other site of true diffusion restriction is seen. There is no evidence of intracranial hemorrhage on susceptibility sensitive sequence. There is no mass effect, midline shift, oreffacement of the basal cisterns. Major intracranial flow voids are present. Mild scattered foci of T2 prolongation are seen in the subcortical, deep, and periventricular whitematter. Small chronic lacunar infarcts are present in the left garcia radiata/basal ganglia, as well as small foci in the right thalamus and right putamen. Ventricles, cisterns, and sulci are mildly prominent, consistent with volume loss, without hydrocephalus. No abnormal extra-axial fluid collections are seen. Meningeal surfaces are normal. The midline structures, including sella, corpus callosum, and craniocervical junction, are unremarkable. EXTRACRANIAL SOFT TISSUES: Orbits are unremarkable. There is complete opacification of the right maxillary sinus by a combination of T2 hyperintense mucosal thickening and T2 intermediate inspissatedsecretions. Mild scattered mucosal thickening is seen in the remaining paranasal sinuses. Mastoids are unremarkable. BONES: Marrow signal is preserved. IMPRESSION: 1. Acute infarct in the left paramedian bethany. No mass effect or hemorrhage. 2. Several chronic lacunar infarcts, as above, as well as mild chronic small vessel disease of the white matter. WSN: [id number] Ordering Physician: Zaida Macias Dictated By: Jeni Saldivar MD Dictated Date/Time: 01/12/24 7:58 am Reviewed By: Jeni Saldivar MD Signed By: Jeni Saldivar MD Signed Date/Time: 01/12/24 7:58 am Transcribed By: OWEN Transcribed Date/Time: 01/12/24 7:46 am * Exam Date Time Procedure Performing Provider Status 01/11/24 3:[address] Angio Neck Terri Garcia; Auth (Verified) Notes: (CT Angio Neck) Reason For Exam: Aneurysm, neck vessel(s);Other: RESULT: CT Angio Neck CT Angio Head, CT Angio Neck Reason: Other:; Transient ischemic attack (TIA); Clinical Question(s): Other:; Hematoma Aneurysm; Order Comment: / Other: Additional history per EMR: Right-sided weakness, now resolved. TECHNIQUE: CT angiogram of the head and neck was performed after bolus administration of intravenous contrast. 100 mL of Isovue 300 was administered intravenously. Coronal and sagittal MIP reformatted images were obtained. Additional 3-D images were created on a separate workstation under concurrent supervision by the attending radiologist. All stenoses are measured using NASCET criteria. Weight-based protocol using automatic tube modulation was used to optimize exposure parameters. CTDIvol Body: 16.47 mGy, DLP Body: 660 mGy*cm. COMPARISON: Noncontrast CT head performed concurrently. FINDINGS: CTA OF THE NECK: Arch: There is a three vessel aortic arch. There is moderate atherosclerotic plaque of the aortic arch, but origins of the supra aortic vessels are patent. Right carotid system: The common carotid and cervical internal carotid arteries are patent. There is calcified atherosclerotic plaque at the carotid bifurcation, resulting in mild ICA stenosis (40%) by NASCET criteria. There is moderate narrowing of the proximal external carotid artery. There is no dissection or aneurysm. Left carotid system: The common carotid and cervical internal carotid arteries are patent. There iscalcified atherosclerotic plaque at the carotid bifurcation, resulting in mild ICA stenosis (25%) by NASCET criteria. There is no dissection or aneurysm. There is a right-dominant vertebral artery system. Right vertebral: There is calcified atherosclerotic plaque at the origin with minimal narrowing. Noother significant stenosis. There is no dissection or aneurysm. Left vertebral: The nondominant left vertebral artery is diminutive throughout its course. No superimposed stenosis, dissection, or aneurysm is identified. Other: Soft tissues and bones: No evidence of lymphadenopathy or mass. Subcentimeter thyroid nodularity, not requiring follow-up given the small size. Visualized lungs are blurred by motion artifact, without significant superimposed airspace opacity. Multilevel degenerative changes of the spine are noted,without acute osseous abnormality. Median sternotomy wires are present. CTA OF THE HEAD: Anterior circulation: Bilateral intracranial ICAs demonstrate atherosclerotic calcification, mild during the cavernous ICAs on each side. Bilateral JENNIFER and MCA branches are patent. There is no significant stenosis, proximal cutoff, aneurysm, or vascular malformation. Posterior circulation: The nondominant left vertebral artery is markedly diminutive and poorly visualized in the V4 segment. Left vertebral artery is widely patent. The basilar artery, bilateral AICA-PICA complexes, and bilateral SCA and INTERVENTIONAL PHYSICIAN branches are patent. There is severe stenosis of bilateral aircraft accessories mechanic and the proximal P2 segments, with preserved distal filling. There is predominantly supply to the right INTERVENTIONAL PHYSICIAN with hypoplastic right P1 segment. No high-grade stenosis or proximal cutoff isseen. There is no evidence of aneurysm or vascular malformation. Veins: Major dural venous sinuses are patent. Other: Soft tissues and bones: No midline shift or effacement of the basal cisterns. No space-occupying hemorrhage. No acute territorial loss of beltrán-white matter differentiation. Orbits are unremarkable. The right maxillary sinus is completely opacified, likely due to a combination of mucosal thickening and fluid. Opacity extends to the middle meatus which may reflect antral polyp. There is mild scattered mucosal thickening in the remaining paranasal sinuses without fluid levels. IMPRESSION: 1. No large vessel occlusion in the head or neck. 2. Severe stenosis of bilateral INTERVENTIONAL PHYSICIAN P2 segments, with preserved distal filling. 3. Mild narrowing of bilateral cervical ICAs, as well as mild narrowing of the cavernous ICAs on each side. WSN: [id number] Ordering Physician: Adam Rockwell Dictated By: Jeni Saldivar MD Dictated Date/Time: 01/11/24 4:57 pm Reviewed By: Jeni Saldivar MD Signed By: Jeni Saldivar MD Signed Date/Time: 01/11/24 4:57 pm Transcribed By: OWEN Transcribed Date/Time: 01/11/24 4:13 pm * Exam Date Time Procedure Performing Provider Status 01/11/24 3:[address] Angio Head Terri Garcia; Tiana (Verified) Notes: (CT Angio Head) Reason For Exam: Transient ischemic attack (TIA);Other: RESULT: CT Angio Head CT Angio Head, CT Angio Neck Reason: Other:; Transient ischemic attack (TIA); Clinical Question(s): Other:; Hematoma Aneurysm; Order Comment: / Other: Additional history per EMR: Right-sided weakness, now resolved. TECHNIQUE: CT angiogram of the head and neck was performed after bolus administration of intravenous contrast. 100 mL of Isovue 300 was administered intravenously. Coronal and sagittal MIP reformatted images were obtained. Additional 3-D images were created on a separate workstation under concurrent supervision by the attending radiologist. All stenoses are measured using NASCET criteria. Weight-based protocol using automatic tube modulation was used to optimize exposure parameters. CTDIvol Body: 16.47 mGy, DLP Body: 660 mGy*cm. COMPARISON: Noncontrast CT head performed concurrently. FINDINGS: CTA OF THE NECK: Arch: There is a three vessel aortic arch. There is moderate atherosclerotic plaque of the aortic arch, but origins of the supra aortic vessels are patent. Right carotid system: The common carotid and cervical internal carotid arteries are patent. There is calcified atherosclerotic plaque at the carotid bifurcation, resulting in mild ICA stenosis (40%) by NASCET criteria. There is moderate narrowing of the proximal external carotid artery. There is no dissection or aneurysm. Left carotid system: The common carotid and cervical internal carotid arteries are patent. There iscalcified atherosclerotic plaque at the carotid bifurcation, resulting in mild ICA stenosis (25%) by NASCET criteria. There is no dissection or aneurysm. There is a right-dominant vertebral artery system. Right vertebral: There is calcified atherosclerotic plaque at the origin with minimal narrowing. Noother significant stenosis. There is no dissection or aneurysm. Left vertebral: The nondominant left vertebral artery is diminutive throughout its course. No superimposed stenosis, dissection, or aneurysm is identified. Other: Soft tissues and bones: No evidence of lymphadenopathy or mass. Subcentimeter thyroid nodularity, not requiring follow-up given the small size. Visualized lungs are blurred by motion artifact, without significant superimposed airspace opacity. Multilevel degenerative changes of the spine are noted,without acute osseous abnormality. Median sternotomy wires are present. CTA OF THE HEAD: Anterior circulation: Bilateral intracranial ICAs demonstrate atherosclerotic calcification, mild during the cavernous ICAs on each side. Bilateral JENNIFER and MCA branches are patent. There is no significant stenosis, proximal cutoff, aneurysm, or vascular malformation. Posterior circulation: The nondominant left vertebral artery is markedly diminutive and poorly visualized in the V4 segment. Left vertebral artery is widely patent. The basilar artery, bilateral AICA-PICA complexes, and bilateral SCA and INTERVENTIONAL PHYSICIAN branches are patent. There is severe stenosis of bilateral aircraft accessories mechanic and the proximal P2 segments, with preserved distal filling. There is predominantly supply to the right INTERVENTIONAL PHYSICIAN with hypoplastic right P1 segment. No high-grade stenosis or proximal cutoff isseen. There is no evidence of aneurysm or vascular malformation. Veins: Major dural venous sinuses are patent. Other: Soft tissues and bones: No midline shift or effacement of the basal cisterns. No space-occupying hemorrhage. No acute territorial loss of beltrán-white matter differentiation. Orbits are unremarkable. The right maxillary sinus is completely opacified, likely due to a combination of mucosal thickening and fluid. Opacity extends to the middle meatus which may reflect antral polyp. There is mild scattered mucosal thickening in the remaining paranasal sinuses without fluid levels. IMPRESSION: 1. No large vessel occlusion in the head or neck. 2. Severe stenosis of bilateral INTERVENTIONAL PHYSICIAN P2 segments, with preserved distal filling. 3. Mild narrowing of bilateral cervical ICAs, as well as mild narrowing of the cavernous ICAs on each side. WSN: [id number] Ordering Physician: Adam Rockwell Dictated By: Jeni Saldivar MD Dictated Date/Time: 01/11/24 4:57 pm Reviewed By: Jeni Saldivar MD Signed By: Jeni Saldivar MD Signed Date/Time: 01/11/24 4:57 pm Transcribed By: OWEN Transcribed Date/Time: 01/11/24 4:13 pm * Exam Date Time Procedure Performing Provider Status 01/11/24 1:14 PM Chest 2 Views Frontal and Lat Dereje Eason; Tiana (Verified) Notes: (Chest 2 Views Frontal and Lat) Reason For Exam: TIA, C/Q CHF;Other: RESULT: Chest 2 Views Frontal and Lat Chest 2 Views Frontal and Lat Hx of Present Illness: patient woke up this morning and noticed he had numbness on the R side.; Reason: Other:; TIA, C Q CHF; Clinical Question(s): Pneumonia; Order Comment: pt not ready to come overto xray. DE 01 11 2024 11:12:03 EST COMPARISON: Multiple prior chest radiographs with the most recent dated 05/16/2010. FINDINGS: LINES AND TUBES: None. LUNGS AND PLEURA: Clear lungs. Normal pulmonary vascularity. No pleural effusion. No pneumothorax. HEART, MEDIASTINUM AND WANDY: Heart is normal in size. Status post median sternotomy probably related to prior CABG. BONES AND SOFT TISSUES: No acute abnormality. IMPRESSION: No acute abnormality. WSN: [id number] Ordering Physician: Adam Rockwell Dictated By: Colten Evangelista MD, V Dictated Date/Time: 01/11/24 1:32 pm Reviewed By: Colten Evangelista MD, V Signed By: Colten Evangelista MD, V Signed Date/Time: 01/11/24 1:32 pm Transcribed By: OWEN Transcribed Date/Time: 01/11/24 1:31 pm * Exam Date Time Procedure Performing Provider Status 01/11/24 11:[address] Head/Brain W/O Contrast Regan Lobo; Auth (Verified) Notes: (CT Head/Brain W/O Contrast) Reason For Exam: Transient ischemic attack (TIA);Other: RESULT: CT Head/Brain W/O Contrast Examination: Noncontrast head CT performed on 01/11/2024. History: Right hand numbness. Technique and findings: Contiguous 5 mm axial images were obtained from the skull base to the vertex without intravenous contrast. A dose modulated weight-based protocol was used. Comparison is made to a prior study dated 03/15/10. There is complete opacification of the right maxillary sinus. The ventricular system and subarachnoid spaces are within normal limits. There is no intracranial hemorrhage, mass effect, or midline shift. No intra- or extra-axial fluid collections are identified. The osseous structures are unremarkable. Impression: There is no acute intracranial abnormality. WSN: [id number] Ordering Physician: Adam Rockwell Dictated By: Jennifer Edwards MD Dictated Date/Time: 01/11/24 12:04 p Reviewed By: Jennifer Edwards MD Signed By: Jennifer Edwards MD Signed Date/Time: 01/11/24 12:04 pm Transcribed By: OWEN Transcribed Date/Time: 01/11/24 12:03 pm Vital Signs Most recent to oldest [Reference Range]: 1 2 3 Oxygen Saturation [94-100 %] 97 % (01/13/24 11:04 AM) 98 % (01/13/24 7:08 AM) 97 % (01/13/24 3:25 AM) Pulse Rate [55-90 bpm] 52 bpm *L* (01/13/24 11:04 AM) 60 bpm (01/13/24 7:08 AM) 57 bpm (01/13/24 3:25 AM) Blood Pressure [90-138/55-84 mm Hg] 143/63mm Hg *H* (01/13/24 11:04 AM) 148/79mm Hg *H* (01/13/24 9:53 AM) 148/79mm Hg *H* (01/13/24 7:08 AM) Respiratory Rate [16-30 br/min] 17 br/min (01/13/24 11:13 AM) 16 br/min (01/13/24 11:04 AM) 18 br/min (01/13/24 7:08 AM) Temperature [96.8-100.4 DegF] 97.9 DegF (01/13/24 11:04 AM) 97.6 DegF (01/13/24 7:08 AM) 97.7 DegF (01/13/24 3:25 AM) Mode of Delivery (Oxygen) Room air (01/13/24 11:04 AM) Room air (01/13/24 7:08 AM) Room air (01/13/24 3:25 AM) Blood pressure sites Arm, right (01/13/24 11:04 AM) Arm, right (01/13/24 7:08 AM) Arm, right (01/13/24 3:25 AM) Temperature Route Oral (01/13/24 11:04 AM) Oral (01/13/24 7:08 AM) Oral (01/13/24 3:25 AM) Social History Social History Type Response Smoking Status Former smoker; Type: Cigarettes; Tobacco use times per day: 1 pack per year; Number of years: 18; Total pack years: 18; Started at age: 11; Stopped at age: 29; entered on: 09/16/15 Sex Sex Representation Male (finding) Admission evaluation note * Gilberto SHOEMAKER, Zaida Pagan: PERFORM Event Display: Admission Note Authored Date: Patient: ??RANDY TATE ? Age:??74 Years?Sex:??Male?:??1950?? Chief Complaint/Reason for Consultation Right arm weakness, right sided facial droop, and slurred speech this morning History of Present Illness Mr. Tate is a??74-year-old male with past medical history of prior kidney transplant, hypertension, hyperlipidemia, CAD with prior [place] status post CABG, history of prostate cancer, GERD, gout, who presents to the emergency department today with right upper extremity weakness, right-sided facial droop, and slurred speech.?? He reports that over the past week he has had some cold symptoms, and back pain.?? Yesterday he had a poor appetite, and felt fatigued.?? He woke up at about 2:30 AM this morning to use the bathroom, and felt that he had some trouble walking back to bed, but thought that it was due to being tired.?? This morning at about 9:15 AM he got up and went to the bathroom to shave, and noticed that his right arm was not obeying commands, was very weak, and he was not able to use it normally.?? He called his , who came to the bathroom, and she noticed right-sided facial droop, and slurred speech.?? She called 911, and EMS transported him to the hospital, however by the time they arrived, his symptoms had completely resolved.?? He was not activated as an acute stroke alert due to last known well time being before bed last night, 9:30 PM.?? On arrival, blood pressure was 146/81, pulse 50, laboratory studies showed WBC 3.5, hemoglobin A1c 6.1.?? Head CT showed no acute intracranial normality.?? Chest x- ray showed no acute abnormality.?? CTA of the head and neck showed no large vessel occlusion, did show severe stenosis of bilateral INTERVENTIONAL PHYSICIAN P2 segments, with preserved distal filling, and mild narrowing of bilateral cervical ICAs, as well as mild narrowing of the cavernous ICAs on each side.?? Request was made for admission for TIA versus stroke. At the time of my evaluation, patient is resting comfortably.?? He does also report that he felt dizzy last night.?? His upper respiratory symptoms have resolved from earlier in the week.?? He does endorse that he had some trouble ambulating this morning and felt that his right leg was mildly weak,in addition to his right arm severe weakness, both of which have resolved.?? His facial droop has resolved and he denies trouble swallowing. Review of Systems General: Endorses dizziness HEENT:?? Denies headache, runny nose, sore throat Cardiac:?? Denies chest pain or palpitations Respiratory:?? Denies SOB or cough Abdomen:?? Denies nausea, vomiting, abdominal pain, diarrhea, or constipation :?? Denies hematuria or dysuria Skin:?? Denies rashes or wounds Neuro:?? Endorses right sided facial??droop, right arm weakness, mild right leg weakness, difficulty walking,??slurred speech, denies dysphagia Objective ? Vital Signs?? Temperature: 98 DegF (01/11/24 19:32:00) Temperature Route: Oral (01/11/24 19:32:00) Pulse Rate:??52 bpm??Low (01/11/24 19:32:00) Respiratory Rate: 22 br/min (01/11/24 19:32:00) Systolic Blood Pressure:??176 mm Hg??High (01/11/24 19:58:00) Diastolic Blood Pressure: 62 mm Hg (01/11/24 19:58:00) Blood pressure sites: Arm, right (01/11/24 19:32:00) Mean Arterial Pressure: 100 mm Hg (01/11/24 19:32:00) Pulse Pressure: 114 mm Hg (01/11/24 19:32:00) Oxygen Saturation: 99 % (01/11/24 19:32:00) Mode of Delivery (Oxygen): Room air (01/11/24 19:32:00) Early Warning Score: 8 (01/11/24 19:59:38) ? Intake/Output? 01/10 10:24 01/10 07:00 01/09 07:00 01/08 07:00 01/07 07:00 ?? 01/10 20:10 01/10 20:10 01/10 06:59 01/09 06:59 01/08 06:59 Intake ? 1000 ? 1000 ?0 ?0 ?0 Output ?400 ?400 ?0 ?0 ?0 Net Total ?600 ?600 ?0 ?0 ?0 ? Precautions No Precautions documented.? Physical Exam Physical Exam: General: No apparent distress, appears stated age, awake, alert, cooperative with exam Head/Neck/Throat: Normocephalic, atraumatic, moist mucous membranes Eyes: Sclera anicteric, EOMI, PERRL Thorax: Clear to auscultation bilaterally, no respiratory distress Cardiovascular: Regular rate and rhythm,??systolic murmur present, no peripheral edema Abdomen: Soft, nontender, non-distended, normoactive bowel sounds Musculoskeletal: No gross bony deformities Skin: No rashes or wounds noted on exposed skin Neurologic: Alert and oriented x3, no focal neurological deficits, no facial droop, strength equal in bilateral upper and lower extremities, negative pronator drift Psychiatric: Normal affect Assessment/Plan Diagnoses 1. ??TIA (transient ischemic attack) ??(G45.9) 2. ??Prediabetes ??(R73.03) 3. ??Leukopenia ??(D72.819) 4. ??HTN - Hypertension ??(I10) 5. ??Hyperlipidemia ??(E78.5) 6. ??Coronary arteriosclerosis, Coronary artery bypass grafts x 3 ??(I25.10) 7. ??Chronic Kidney disease ??(N18.9) ?? Assessment:??74-year-old male with past medical history of prior kidney transplant, hypertension, hyperlipidemia, CAD with prior [place] status post CABG, history of prostate cancer, GERD, gout, who presents to the emergency department today with right upper extremity weakness, right-sided facial droop,and slurred speech, admitted for TIA vs stroke ?? TIA (transient ischemic attack) (G45.9):??Patient with??right facial droop, right upper extremity weakness,??mild right lower extremity weakness, slurred speech,??which resolved??while in the ambulance on the way to the ED Suspect TIA, versus stroke CTs??did show??intracranial??stenosis:??severe stenosis of bilateral INTERVENTIONAL PHYSICIAN P2 segments, with preserved distal filling, and mild narrowing of bilateral cervical ICAs, as well as mild narrowing of the cavernous ICAs on each side -Brain MRI??without contrast -Echocardiogram -Cardiac telemetry -Neurochecks -Neurology consult -Continue aspirin 80 mg daily -Continue rosuvastatin 20 mg daily Symptoms have resolved at this time, patient asymptomatic??at time of my physical exam ?? Prediabetes (R73.03):??Patient's A1c is elevated, 6.1,??putting him in the??classification for prediabetes Consider initiating metformin, defer to daytime team ?? Hyperlipidemia (E78.5):??Lipid panel was checked today, within normal limits Continue rosuvastatin 20 mg daily pending neurology recommendations ?? Coronary arteriosclerosis, Coronary artery bypass grafts x 3 (I25.10):??Continue home aspirin and rosuvastatin ?? Chronic Kidney disease (N18.9):??This patient is status post kidney transplant, continue tacrolimus??and??mycophenolate ?? Leukopenia (D72.819):??WBC is 3.5, recheck CBC in the morning ?? HTN - Hypertension (I10):??Continue home losartan 100 mg daily,??nifedipine 60 mg daily at bedtime,doxazosin??2 mg at bedtime ?? VTE Prophylaxis:??Lovenox 40 mg subcu daily ?VTE Prophylaxis Assessment:??VTE Prophylaxis Ordered ?? Discharge Planning:??Pending brain MRI,??neurology consultation ?? Code Status:??Full CODE STATUS, confirmed with patient ?Order Code Status:??Code Status Ordered ?? Patient's and son were at bedside, their questions were answered and plan was discussed. ?? I personally spent a total of??80 minutes reviewing the chart, notes, images, and labs, speakingwith nurses, examining and interviewing the patient, placing orders, reconciling medications, and documenting in the medical record. ? Histories Allergies Allergies ?(Active and Proposed Allergies Only) Contrast Dye? (Severity: Unknown severity, Onset: Unknown) ?Reactions: caused kidney failure Zestril? (Severity: Unknown severity, Onset: Unknown) ?Reactions: not sure NSAIDs? (Severity: Unknown severity, Onset: Unknown) ?Reactions: can not take d/t kidney problems Latex? (Severity: Persistent Moderate, Onset: Unknown) ?Reactions: Rash Adhesive Bandage? (Severity: Unknown severity, Onset: Unknown) ?Reactions: skin breakdown ? Past Medical History/Problem List Active Problems(12) Chronic Kidney disease Coronary arteriosclerosis, Coronary artery bypass grafts x 3 Ex-smoker Gastroesophageal reflux disease Gout History of Congestive heart failure HTN - Hypertension Hyperlipidemia Old myocardial infarction, Inferolateral Wall, Initial Episode of Care Osteoarthritis, knees Primary malignant neoplasm of prostate Prostate cancer ? Past Surgical History Knee replacement Kidney transplant Herniorrhaphy CABG - Coronary artery bypass graft ? Social History Alcohol Details:??Use: Current. ??Frequency: 1-2 times per week. ??Binge drinking: No. Employment/School Details:??Status: Retired. ??Previous employment/school: [employer]. Exercise Details:??Self assessment: Fair condition. Home/Environment Details:??Living situation: Home/Independent. ??Lives with: Spouse. ??Feels unsafe at home: No. ??Safe place to go: Yes. Nutrition/Health Details:??Diet: Renal. ??Feels highly stressed: No. Substance Abuse Details:??Use: Never. ??Substance abuse in household: No. Tobacco Details:??Former smoker, Type: Cigarettes. ??Tobacco use times per day: 1 pack per year. ??18 Number of years:. ??Total pack years: 18. ??Started at age: 11 Years. ??Stopped at age: 29 Years. ? Family History Father: Heart attack Brother: Heart attack Denies family history of stroke ? Medications Home Medications Alendronate (alendronate 70 mg oral tablet)?Every week Allopurinol (allopurinol 100 mg oral tablet)?1?tab(s)?100?Milligram?By Mouth?Daily Aspirin (aspirin 81 mg oral delayed release tablet)?1?tab(s)?81?Milligram?By Mouth?Daily Doxazosin (doxazosin 2 mg oral tablet)?2?Milligram?1?tablet?By Mouth?Daily at bedtime?TAKE 1 TABLET BY MOUTH EVERY DAY AT NIGHT Lorazepam (lorazepam 1 mg oral tablet)?1?tab(s)?1?Milligram?By Mouth?as needed?as needed for anxiety Multivitamin?By Mouth?Daily Mycophenolate Mofetil (CellCept 250 mg oral capsule)?4?capsule?1,000?Milligram?By Mouth?2 times a day?1?250 NIFEdipine (NIFEdipine (Eqv-Procardia XL) 60 mg oral tablet, extended release)?1?tab(s)?60?Milligram?By Mouth?Daily Nitroglycerin (Nitrostat 0.3 mg sublingual tablet)?1?tab(s)?0.3?Milligram?Sublingual?Every 5 minutes?as needed?for chest pain [place]-3 Polyunsaturated Fatty Acids (Fish Oil)?By Mouth Omeprazole (omeprazole 20 mg oral enteric coated capsule)?1?capsule?20?Milligram?By Mouth?Daily Rosuvastatin (rosuvastatin 20 mg oral tablet)?1?tab(s)?20?Milligram?By Mouth?Daily Tacrolimus (Prograf 1 mg oral capsule)?3?capsule?3?Milligram?By Mouth?2 times a day?See Instructions?3 capsule in morning, 2 capsule in evening Ubiquinone (Co Q-10)?100?Milligram?By Mouth?Daily ? Inpatient Medications Medications (19) Active SCHEDULED: (12) Allopurinol 100 mg Tablet (allopurinol 100 mg oral tablet) ??100 mg, By Mouth, Daily Aspirin 81 mg EC Tablet (aspirin 81 mg oral delayed release tablet) ??81 mg, By Mouth, Daily Doxazosin 2 mg Tablet (doxazosin 2 mg oral tablet) ??2 mg, By Mouth, Daily at bedtime Enoxaparin 40 mg Inj (Enoxaparin Inj) ??40 mg 0.4 mL, Subcutaneous Injection, Daily Losartan 50 mg Tablet (losartan 50 mg oral tablet) ??100 mg, By Mouth, Daily Mycophenolate 250 mg Capsule (CellCept 250 mg oral capsule) ??250 mg, By Mouth, 2 times a day NaCl 0.9% Flush 3ml (NaCL 0.9% Flush) ??3 mL, IV Push, Every 8 hours NIFEdipine 60 mg ER Tablet (NIFEdipine 60 mg oral tablet, extended release) ??60 mg, By Mouth, Daily at bedtime Pantoprazole 20 mg EC Tablet (pantoprazole 20 mg oral delayed release tablet) ??20 mg, By Mouth, Daily Rosuvastatin 20 mg Tablet (rosuvastatin 20 mg oral tablet) ??20 mg, By Mouth, Daily at bedtime Tacrolimus 1 mg Capsule (Prograf 1 mg oral capsule) ??3 mg, By Mouth, Daily Tacrolimus 1 mg Capsule (tacrolimus 1 mg oral capsule) ??2 mg, By Mouth, Daily at bedtime CONTINUOUS: (0) PRN: (7) Acetaminophen 325 mg Tablet (Acetaminophen Tablet) ??650 mg, By Mouth, Every 4 hours Docusate Sodium 100 mg Capsule (Docusate Sodium Capsule) ??100 mg 1 capsule, By Mouth, 2 times a day Lorazepam 1 mg Tablet (LORazepam 1 mg oral tablet) ??1 mg, By Mouth, 2 times a day Melatonin 3 mg Tablet (Melatonin Tablet) ??3 mg, By Mouth, Daily at bedtime NaCl 0.9% Flush 3ml (NaCL 0.9% Flush) ??3 mL, IV Push, Every 8 hours Polyethylene Glycol 17 Gm Powder (MiraLax Powder) ??17 Gm 1 pack/packet, By Mouth, Daily Senna Tablet ??8.6 mg 1 tablet, By Mouth, 2 times a day ? Results Recent Labs BLOOD COUNT & DIFF WBC 3.5 k/mm3 (Low)?? 01/11/2024 11:00 RBC 4.92 m/mm3 ()?? 01/11/2024 11:00 Hgb 14.2 Gm/dL ()?? 01/11/2024 11:00 Hct 43.0 % ()?? 01/11/2024 11:00 MCV 87.4 femtoliters ()?? 01/11/2024 11:00 MCH 28.9 pg ()?? 01/11/2024 11:00 MCHC 33.0 Gm/dL ()?? 01/11/2024 11:00 Platelet Count 129 k/mm3 (Low)?? 01/11/2024 11:00 RDW-SD 43.2 femtoliters ()?? 01/11/2024 11:00 MPV 10.7 femtoliters ()?? 01/11/2024 11:00 Nucleated RBC (Automated) 0.0 #/100 WBC'S ()?? 01/11/2024 11:00 Abs. NRBC 0.0 k/mm3 ()?? 01/11/2024 11:00 Abs. Neut 1.8 k/mm3 ()?? 01/11/2024 11:00 Abs. Lymph 0.9 k/mm3 ()?? 01/11/2024 11:00 Abs. Burnet 0.5 k/mm3 ()?? 01/11/2024 11:00 Abs. Eo 0.2 k/mm3 ()?? 01/11/2024 11:00 Abs. Baso 0.0 k/mm3 ()?? 01/11/2024 11:00 Neut % 52.0 % ()?? 01/11/2024 11:00 Lymph % 26.7 % ()?? 01/11/2024 11:00 Burnet % 15.3 % (High)?? 01/11/2024 11:00 Eos % 4.5 % ()?? 01/11/2024 11:00 Baso % 0.9 % ()?? 01/11/2024 11:00 Imm Gran 0.6 % ()?? 01/11/2024 11:00 Abs. Imm Gran 0.0 k/mm3 ()?? 01/11/2024 11:00 ?? CARDIAC High Sensitivity Troponin (HSTnT) 30 ng/L (High)?? 01/11/2024 19:04 ?? CHEM GENERAL Sodium 142 mmol/L ()?? 01/11/2024 11:00 Potassium 3.6 mmol/L ()?? 01/11/2024 11:00 Chloride 107 mmol/L ()?? 01/11/2024 11:00 Bicarbonate Level 21 mmol/L (Low)?? 01/11/2024 11:00 Anion Gap 14 ()?? 01/11/2024 11:00 Glucose Level 109 mg/dL (High)?? 01/11/2024 11:00 Hemoglobin A1C (Monitoring) 6.1 % (High)?? 01/11/2024 11:00 BUN 20 mg/dL ()?? 01/11/2024 11:00 Creatinine-Blood 0.92 mg/dL ()?? 01/11/2024 11:00 Estimated GFR Creatinine 87 ML/MIN/1.73 M2 ()?? 01/11/2024 11:00 Calcium 9.3 mg/dL ()?? 01/11/2024 11:00 ?? COAG INR 1.0 ()?? 01/11/2024 11:00 Protime (PT) 10.9 seconds ()?? 01/11/2024 11:00 ?? LIPID STUDIES Cholesterol 133 mg/dL ()?? 01/11/2024 11:00 Triglycerides 59 mg/dL ()?? 01/11/2024 11:00 HDL Cholesterol 65 mg/dL ()?? 01/11/2024 11:00 LDL Cholesterol 56 mg/dL ()?? 01/11/2024 11:00 Non HDL Cholesterol 68 mg/dL ()?? 01/11/2024 11:00 ?? MISC. CHEMISTRY Hold Gel Top SPECIMEN DISCARDED AFTER 1 WEEK ()?? 01/11/2024 11:00 ? Image ?CT Head/Brain W/O Contrast??01/11/2024 11:53 by Ana Lobo ?Impression: There is no acute intracranial abnormality. ?XR Chest 2 Views Frontal and Lat??01/11/2024 13:14 by Dereje Eason ?IMPRESSION: No acute abnormality. ?12 Lead ECG??01/11/2024 10:28 by Graham Montero MD ?CT Angio Neck??01/11/2024 15:59 by Terri Garcia ?IMPRESSION: 1. No large vessel occlusion in the head or neck. 2. Severe stenosis of bilateral INTERVENTIONAL PHYSICIAN P2 segments, with preserved distal filling. 3. Mild narrowing of bilateral cervical ICAs, as well as mild narrowing of the cavernous ICAs on each side. ?CT Angio Head??01/11/2024 15:59 by Terri Garcia ?IMPRESSION: 1. No large vessel occlusion in the head or neck. 2. Severe stenosis of bilateral INTERVENTIONAL PHYSICIAN P2 segments, with preserved distal filling. 3. Mild narrowing of bilateral cervical ICAs, as well as mild narrowing of the cavernous ICAs on each side. ?? EKG study * Event Display: ECG 12-Lead Authored Date: Please click on pdf link to open report * Event Display: ECG 12-Lead Authored Date: Ventricular Rate: 51 BPM Atrial Rate: 51 BPM P-R Interval: 232 ms QRS Duration: 90 ms Q-T Interval: 452 ms QTC Calculation(Bazett): 416 ms P [place]: 86 degrees R [place]: -2 degrees T [place]: 175 degrees Poor data quality, interpretation may be adversely affected Sinus bradycardia with 1st degree A-V block Left ventricular hypertrophy with repolarization abnormality ( R in aVL , Sokolow-Harman , Henry product , Romhilt-Celeste ) Abnormal ECG When compared with ECG of 18-APR-2021 22:21, ND interval has increased Poor data quality in current ECG precludes serial comparison Confirmed by GRAHAM MONTERO MD ([id number]) on 01/11/2024 5:43:51 PM [place]: GRAHAM MONTERO MD US Heart * Event Display: Echocardiogram - Complete Authored Date: [id number] Transthoracic Echocardiography Report (TTE) Patient Demographics Patient Name RANDY TATE Date of Study 01/12/2024 Corporate Gender Male Facility Race Black Ethnicity Date of 1950 Height: 68.11 inches Age 74 year(s) Weight: 191.8 pounds Accession Number [id number] BSA: 2.01 m2 Room Number [id number] BMI: 29.07 kg/m2 Referring Physician UNASSIGNED Interpreting Cindy Saul UNASSIGNED Physician Soldering Technician Robin Chirinos Fellow Tarun Salazar MD Indications TIA. Clinical History CABG kidney transplant prostate ca. Hyperlipidemia. Hypertension Study Data Type of Study TTE procedure:Echo Complete-Doppler, Colorflow, M-Mode. Study Date01/12/2024 Start Time: 08:39 AM Study [place] [facility] [place] Status: Echo lab Patient Status: Routine Technical Quality: Adequate Blood Pressure:148/82 mmHg EKG: Sinus bradycardia HR: 54 bpm 2D Measurements LV Diastolic Dimension: 4.9 cm LV Systolic Dimension: 3.5 cm LV Septum Diastolic: 1.2 cm LV PW Diastolic: 0.8 cm AO Root Dimension: 4.1 cm LA ESV (BP):86.9 ml LVOT Stroke Volume: 108.97 ml LA ESV Index: 43 ml/m2 Stroke Volume Index54.21 ml/m2 LVOT: 2.4 cm Cardiac Index:2.93 l/min/m2 Ascending Aorta:3.4 cm Doppler Measurements AV Peak Velocity: 221 cm/s MV Peak E-Wave: 60 cm/s AV Peak Gradient: 19.54 mmHg MV Peak A-Wave: 96.4 cm/s AV Mean Gradient: 11 mmHg MV E/A Ratio: 0.62 AV VTI:51.6 cm LVOT Peak Velocity: 95.2 cm/s LVOT VTI24.1 cm MV Deceleration Time: 298 msec AV Area (Continuity):2.11 cm2 TR Velocity:162 cm/s PV Peak Velocity: 126 cm/s TR Gradient:10.5 mmHg PV Peak Gradient: 6.35 mmHg Cardiac Anatomy Left Ventricle/Interventricular Septum The left ventricle is normal in size and wall thickness. Normal LV systolic function. Ejection fraction is 65-70% by Fink's biplane. There are no definite regional wall motion abnormalities. Unable to assess diastolic function due to technical limitation . Left Atrium/Interatrial Septum The left atrium is severely dilated. Aortic Valve The aortic valve is trileaflet . The aortic valve appears sclerosed. There is mild aortic stenosis (V-max 2.3m/s, mean gradient 12 mmHg, aortic valve area by continuity equation 2.1 cm2). No aortic regurgitation. Mitral Valve There is mild to moderate mitral annular calcification. The mitral valve is normal in structure and function. There is no mitral stenosis or insufficiency. Aorta The ascending aorta and aortic root are normal in size. Right Ventricle The right ventricular size is at the upper limits of normal. Right ventricular systolic function is reduced. Right Atrium The right atrium is dilated. Pulmonic Valve The pulmonic valve is normal in function. There is trace pulmonic regurgitation. Tricuspid Valve The tricuspid valve is grossly normal. There is trace severely eccentric tricuspid regurgitation. Pumonary Artery The pulmonary artery pressure is equal to 11 mmHg plus RA pressure. Venous Structures The inferior vena cava is poorly visualized. Pericardium/Extracardiac There is trivial posterior pericardial effusion. Summary -The left ventricle is normal in size and wall thickness. Normal LV systolic function. Ejection fraction is 65-70% by Fink's biplane. There are no definite regional wall motion abnormalities. Unable to assess diastolic function due to technical limitation. -The right ventricle is borderline dilated with mildly reduced systolic function. -The left atrium is severely dilated. The right atrium is dilated. -The aortic valve appears sclerosed and has mild aortic stenosis (V-max 2.3m/s, mean gradient 12 mmHg, aortic valve area by continuity equation 2.1 cm2). -There is trace severely eccentric tricuspid regurgitation. -There is mild to moderate mitral annular calcification without mitral stenosis or regurgitation. -The ascending aorta and aortic root are normal in size. -No significant pulmonary hypertension noted. -The inferior vena cava is poorly visualized. -There is trivial posterior pericardial effusion. Comparison No recent studies for comparison. Signature * Event Display: Echocardiogram - Complete Authored Date: [id number] Hospital Progress note * Lianna Sharif RN: PERFORM, SIGN, VERIFY Event Display: Progress Note Hospital Authored Date: Patient: RANDY TATE Age: 74 years Sex: Male : 1950 Associated Diagnoses: None Author: Lianna Sharif RN Findings Evaluation Assumed care at 0700, A/0x4, SBP in 140's, denies any pain or discomfort. earlier in the after, pt.fammily stated pt had slurred speech and difficulty expressing him self with resolve quickly. MD was made awae and bedside eval as completed. per MAR continue to monitor. medicated per mar. fall and safety protocol maintained.. * Shayy GODOY, Robinson: PERFORM Event Display: Progress Note Hospital Authored Date: [id number] Patient: ??RANDY TATE ? Age:??74 Years?Sex:??Male?:??1950?? Subjective No acute events This patient admitted with concern for a stroke. ??MRI done, which shows acute??stroke in left bethany Discussed with neurology, neurology recommending to monitor overnight Starting on plavix and aspirin Pt mentions his symptoms have been better??than his initial presentation Denies any lightheadedness, dizziness, fever, chills ?? Review of Systems neg ??except above Objective Vital Signs?? Temperature: 98 DegF (01/12/24 10:19:00) Temperature Route: Oral (01/12/24 10:19:00) Pulse Rate:??50 bpm??Low (01/12/24 10:19:00) Respiratory Rate: 20 br/min (01/12/24 10:19:00) Systolic Blood Pressure:??151 mm Hg??High (01/12/24 10:19:00) Diastolic Blood Pressure: 65 mm Hg (01/12/24 10:19:00) Blood pressure sites: Arm, right (01/12/24 10:19:00) Mean Arterial Pressure: 94 mm Hg (01/12/24 10:19:00) Pulse Pressure: 86 mm Hg (01/12/24 10:19:00) Oxygen Saturation: 98 % (01/12/24 10:19:00) Mode of Delivery (Oxygen): Room air (01/12/24 10:19:00) Early Warning Score: 7 (01/12/24 11:) ? Intake/Output? 01/11 11:43 01/11 07:00 01/10 07:00 01/09 07:00 01/08 07:00 ?? 01/11 13:00 01/11 13:00 01/11 06:59 01/10 06:59 01/09 06:59 Intake ? 1000 ?0 ? 1000 ?0 ?0 Output ?400 ?0 ?400 ?0 ?0 Net Total ?600 ?0 ?600 ?0 ?0 ? Physical Exam General: Awake, oriented, not in distress HEENT: No pallor, icterus Respiratory: Normal breath sound. ??No edition Cardiovascular:??Normal rate rhythm. ??No murmur Abdomen: Soft, nontender bowel sound present Extremities:??No peripheral edema.?? Fistula in left upper extremity. Neuro:??EOM intact.?? No facial droop or dysarthria.?? Sensory: Intact in all extremities.?? Shoulder shrug intact. ??Uvula and tongue midline. _ Inpatient Medications Medications (20) Active SCHEDULED: (13) Allopurinol 100 mg Tablet (allopurinol 100 mg oral tablet) ??100 mg, By Mouth, Daily Aspirin 81 mg EC Tablet (aspirin 81 mg oral delayed release tablet) ??81 mg, By Mouth, Daily Clopidogrel 75 mg Tablet (Plavix 75 mg oral tablet) ??75 mg, By Mouth, Daily Doxazosin 2 mg Tablet (doxazosin 2 mg oral tablet) ??2 mg, By Mouth, Daily at bedtime Enoxaparin 40 mg Inj (Enoxaparin Inj) ??40 mg 0.4 mL, Subcutaneous Injection, Daily Losartan 50 mg Tablet (losartan 50 mg oral tablet) ??100 mg, By Mouth, Daily Mycophenolate 250 mg Capsule (CellCept 250 mg oral capsule) ??250 mg, By Mouth, 2 times a day NaCl 0.9% Flush 3ml (NaCL 0.9% Flush) ??3 mL, IV Push, Every 8 hours NIFEdipine 60 mg ER Tablet (NIFEdipine 60 mg oral tablet, extended release) ??60 mg, By Mouth, Daily at bedtime Pantoprazole 20 mg EC Tablet (pantoprazole 20 mg oral delayed release tablet) ??20 mg, By Mouth, Daily Rosuvastatin 20 mg Tablet (rosuvastatin 20 mg oral tablet) ??20 mg, By Mouth, Daily at bedtime Tacrolimus 1 mg Capsule (Prograf 1 mg oral capsule) ??3 mg, By Mouth, Daily Tacrolimus 1 mg Capsule (tacrolimus 1 mg oral capsule) ??2 mg, By Mouth, Daily at bedtime CONTINUOUS: (0) PRN: (7) Acetaminophen 325 mg Tablet (Acetaminophen Tablet) ??650 mg, By Mouth, Every 4 hours Docusate Sodium 100 mg Capsule (Docusate Sodium Capsule) ??100 mg 1 capsule, By Mouth, 2 times a day Lorazepam 1 mg Tablet (LORazepam 1 mg oral tablet) ??1 mg, By Mouth, 2 times a day Melatonin 3 mg Tablet (Melatonin Tablet) ??3 mg, By Mouth, Daily at bedtime NaCl 0.9% Flush 3ml (NaCL 0.9% Flush) ??3 mL, IV Push, Every 8 hours Polyethylene Glycol 17 Gm Powder (MiraLax Powder) ??17 Gm 1 pack/packet, By Mouth, Daily Senna Tablet ??8.6 mg 1 tablet, By Mouth, 2 times a day ? Results Recent Labs BLOOD COUNT & DIFF WBC 3.3 k/mm3 (Low)?? 01/12/2024 04:44 RBC 4.49 m/mm3 (Low)?? 01/12/2024 04:44 Hgb 12.7 Gm/dL (Low)?? 01/12/2024 04:44 Hct 38.7 % (Low)?? 01/12/2024 04:44 MCV 86.2 femtoliters ()?? 01/12/2024 04:44 MCH 28.3 pg ()?? 01/12/2024 04:44 MCHC 32.8 Gm/dL (Low)?? 01/12/2024 04:44 Platelet Count 120 k/mm3 (Low)?? 01/12/2024 04:44 RDW-SD 42.7 femtoliters ()?? 01/12/2024 04:44 MPV 10.5 femtoliters ()?? 01/12/2024 04:44 Nucleated RBC (Automated) 0.0 #/100 WBC'S ()?? 01/12/2024 04:44 Abs. NRBC 0.0 k/mm3 ()?? 01/12/2024 04:44 Abs. Neut 1.8 k/mm3 ()?? 01/11/2024 11:00 Abs. Lymph 0.9 k/mm3 ()?? 01/11/2024 11:00 Abs. [place] 0.5 k/mm3 ()?? 01/11/2024 11:00 Abs. Eo 0.2 k/mm3 ()?? 01/11/2024 11:00 Abs. Baso 0.0 k/mm3 ()?? 01/11/2024 11:00 Neut % 52.0 % ()?? 01/11/2024 11:00 Lymph % 26.7 % ()?? 01/11/2024 11:00 [place] % 15.3 % (High)?? 01/11/2024 11:00 Eos % 4.5 % ()?? 01/11/2024 11:00 Baso % 0.9 % ()?? 01/11/2024 11:00 Imm Gran 0.6 % ()?? 01/11/2024 11:00 Abs. Imm Gran 0.0 k/mm3 ()?? 01/11/2024 11:00 ?? CARDIAC High Sensitivity Troponin (HSTnT) 28 ng/L (High)?? 01/12/2024 04:44 ?? CHEM GENERAL Sodium 139 mmol/L ()?? 01/12/2024 04:44 Potassium 3.9 mmol/L ()?? 01/12/2024 04:44 Chloride 107 mmol/L ()?? 01/12/2024 04:44 Bicarbonate Level 20 mmol/L (Low)?? 01/12/2024 04:44 Anion Gap 12 ()?? 01/12/2024 04:44 Glucose Level 83 mg/dL ()?? 01/12/2024 04:44 Hemoglobin A1C (Monitoring) 6.1 % (High)?? 01/11/2024 11:00 BUN 15 mg/dL ()?? 01/12/2024 04:44 Creatinine-Blood 0.88 mg/dL ()?? 01/12/2024 04:44 Estimated GFR Creatinine 90 ML/MIN/1.73 M2 ()?? 01/12/2024 04:44 Calcium 8.9 mg/dL ()?? 01/12/2024 04:44 Magnesium 1.8 mg/dL ()?? 01/12/2024 04:44 ?? COAG INR 1.0 ()?? 01/11/2024 11:00 Protime (PT) 10.9 seconds ()?? 01/11/2024 11:00 ?? LIPID STUDIES Cholesterol 133 mg/dL ()?? 01/11/2024 11:00 Triglycerides 59 mg/dL ()?? 01/11/2024 11:00 HDL Cholesterol 65 mg/dL ()?? 01/11/2024 11:00 LDL Cholesterol 56 mg/dL ()?? 01/11/2024 11:00 Non HDL Cholesterol 68 mg/dL ()?? 01/11/2024 11:00 ?? MISC. CHEMISTRY Hold Gel Top SPECIMEN DISCARDED AFTER 1 WEEK ()?? 01/11/2024 11:00 ? Assessment/Plan Diagnoses 1. ??TIA (transient ischemic attack) ??(G45.9) 2. ??Prediabetes ??(R73.03) 3. ??Leukopenia ??(D72.819) 4. ??HTN - Hypertension ??(I10) 5. ??Hyperlipidemia ??(E78.5) 6. ??Coronary arteriosclerosis, Coronary artery bypass grafts x 3 ??(I25.10) 7. ??Chronic Kidney disease ??(N18.9) ?? Discharge Planning:? Estimated Discharge Date ?74-year-old male with past medical history of prior kidney transplant, hypertension, hyperlipidemia, CAD with prior [place] status post CABG, history of prostate cancer, GERD, gout, who presents to the emergency department today with right upper extremity weakness, right-sided facial droop, and slurred speech, admitted for TIA vs stroke ?? Acute infarct in the left paramedian bethany Patient with??right facial droop, right upper extremity weakness,??mild right lower extremity weakness, slurred speech,??which resolved??while in the ambulance on the way to the ED CTs??did show??intracranial??stenosis:??severe stenosis of bilateral INTERVENTIONAL PHYSICIAN P2 segments, with preserved distal filling, and mild narrowing of bilateral cervical ICAs, as well as mild narrowing of the cavernous ICAs on each side MRI showed acute infarct in left paramedian bethany and??chronic ischemic changes Neurology consulted. ??Discussed with neurology team today, recommended to start aspirin and Plavix??for 90 days followed by??Plavix only Neurology will set up outpatient Zio patch??following discharge Outpatient neurology follow-up Neurology recommending to monitor??overnight??given the location of his??stroke Continue monitoring with frequent neurochecks Stat CT for any??neurochanges Continue with rosuvastatin 20 Echocardiogram done PT OT evaluation ? Prediabetes (R73.03):??Patient's A1c is elevated, 6.1,??putting him in the??classification for prediabetes Outpatient follow-up ?? Hyperlipidemia (E78.5):??Lipid panel was checked Continue rosuvastatin 20 mg daily? Coronary arteriosclerosis, Coronary artery bypass grafts x 3 (I25.10):??Continue home aspirin and rosuvastatin ?? Chronic Kidney disease (N18.9):??This patient is status post kidney transplant, continue tacrolimus??and??mycophenolate. Check tac level. Outpt follow??up with nephrology ?? Leukopenia (D72.819):??WBC is 3.3. Outpt follow p ?? HTN - Hypertension (I10):??Continue home losartan 100 mg daily,??nifedipine 60 mg daily at bedtime,doxazosin??2 mg at bedtime ?? VTE Prophylaxis:??Lovenox 40 mg subcu daily ?VTE Prophylaxis Assessment:??VTE Prophylaxis Ordered ?? Discharge Planning:??Patient with acute stroke, monitor overnight with frequent neurochecks.?? Obtain PT evaluation. ??Possible discharge tomorrow??if stable from neurology standpoint. ?? Code Status:??Full CODE STATUS, confirmed with patient ?Order Code Status:??Code Status Ordered Note * Event Display: Provider Clarification Note Please click on pdf link to open report * Sejal Leyva RN: PERFORM Event Display: Discharge/Transfer Note Hospital Authored Date: Nursing Discharge Note Entered On: 01/13/2024 15:00 EST Performed On: 01/13/2024 15:00 EST by Sejal Leyva RN Nursing Discharge Note 2 Discharge Time : 01/13/2024 12:02 EST Discharge Level of Care at Discharge : Inpatient Rehab Facility/Unit Discharge Nursing [facility] Patient Left Unit Via : Wheelchair Patient Accompanied Off Unit with : Responsible adult DC Instructions Provided & Signed by Pt : Yes Patient Understands D/C Instructions : Yes Patient Instructions Discharge Signed : Yes Did Pt have Specialty Bed or Wound Vac : No Sejal Leyva RN - 01/13/2024 15:00 EST * Kirill Ahmadi MD: PERFORM Event Display: Discharge/Transfer Note Hospital Authored Date: Patient: ??TATERANDY ? Age:??74 Years?Sex:??Male?:??1950?? Patient Information Discharge Location: [facility] Primary Care Physician: Maria D Mccray MD Admit Date/Time: 01/12/2024 11:43 Discharge Disposition Discharge Disposition: Intermediate Facility/Rehab Discharge Diagnosis TIA (transient ischemic attack) (G45.9) Prediabetes (R73.03) Leukopenia (D72.819) HTN - Hypertension (I10) Hyperlipidemia (E78.5) Coronary arteriosclerosis, Coronary artery bypass grafts x 3 (I25.10) Chronic Kidney disease (N18.9) _ Discharge Medications Alendronate (alendronate 70 mg oral tablet)?Every week Allopurinol (allopurinol 100 mg oral tablet)?1?tab(s)?100?Milligram?By Mouth?Daily Aspirin (aspirin 81 mg oral delayed release tablet)?1?tab(s)?81?Milligram?By Mouth?Daily?for 90?Days?take for 90 days only then stop , you do not need to continue aspirin as per Neurology recommendation Clopidogrel (Plavix 75 mg oral tablet)?75?Milligram?By Mouth?Daily?for 90?Days Doxazosin (doxazosin 2 mg oral tablet)?2?Milligram?1?tablet?By Mouth?Daily at bedtime?TAKE 1 TABLET BY MOUTH EVERY DAY AT NIGHT Lorazepam (lorazepam 1 mg oral tablet)?1?tab(s)?1?Milligram?By Mouth?as needed?as needed for anxiety Multivitamin?By Mouth?Daily Mycophenolate Mofetil (CellCept 250 mg oral capsule)?4?capsule?1,000?Milligram?By Mouth?2 times a day?1?250 NIFEdipine (NIFEdipine (Eqv-Procardia XL) 60 mg oral tablet, extended release)?1?tab(s)?60?Milligram?By Mouth?Daily Nitroglycerin (Nitrostat 0.3 mg sublingual tablet)?1?tab(s)?0.3?Milligram?Sublingual?Every 5 minutes?as needed?for chest pain Newington-3 Polyunsaturated Fatty Acids (Fish Oil)?By Mouth Omeprazole (omeprazole 20 mg oral enteric coated capsule)?1?capsule?20?Milligram?By Mouth?Daily Rosuvastatin (rosuvastatin 20 mg oral tablet)?1?tab(s)?20?Milligram?By Mouth?Daily Tacrolimus (Prograf 1 mg oral capsule)?3?capsule?3?Milligram?By Mouth?2 times a day?See Instructions?3 capsule in morning, 2 capsule in evening Ubiquinone (Co Q-10)?100?Milligram?By Mouth?Daily ? Vaccinations and Immunoprophylaxis influenza virus vaccine, inactivated: 0.5 mL (11/20/13 14:47:00) pneumococcal 13-valent vaccine: 1 mL (08/01/14 12:51:00) pneumococcal 23-valent vaccine: 0.5 mL (02/21/08 14:50:00) tetanus/diphtheria/pertussis, acel(Tdap): 0.5 mL (05/17/13 14:48:00) Zostavax (oldterm): 0.5 mL (09/10/13 14:47:00) ? Medications Started aspirin and plavix Medications Discontinued none Doses Changed none Allergies Allergies ?(Active and Proposed Allergies Only) Contrast Dye? (Severity: Unknown severity, Onset: Unknown) ?Reactions: caused kidney failure Zestril? (Severity: Unknown severity, Onset: Unknown) ?Reactions: not sure NSAIDs? (Severity: Unknown severity, Onset: Unknown) ?Reactions: can not take d/t kidney problems Latex? (Severity: Persistent Moderate, Onset: Unknown) ?Reactions: Rash Adhesive Bandage? (Severity: Unknown severity, Onset: Unknown) ?Reactions: skin breakdown ? Future Appointments Wednesday 1:00 PM EST ?? With: Divina Toledo MD, [facility] Where: [facility] [address] [place] [address], [address] [place], [place] [id number]- Status: Pending Hospital Course ??74-year-old male with past medical history of prior kidney transplant, hypertension, hyperlipidemia, CAD with prior [place] status post [place]G, history of prostate cancer, GERD, gout, who presents to the emergency department today with right upper extremity weakness, right-sided facial droop, and slurred speech, admitted for TIA vs stroke ?? Acute infarct in the left paramedian bethany Patient with??right facial droop, right upper extremity weakness,??mild right lower extremity weakness, slurred speech,??which resolved??while in the ambulance on the way to the ED CTs??did show??intracranial??stenosis:??severe stenosis of bilateral INTERVENTIONAL PHYSICIAN P2 segments, with preserved distal filling, and mild narrowing of bilateral cervical ICAs, as well as mild narrowing of the cavernous ICAs on each side MRI showed acute infarct in left paramedian bethany and??chronic ischemic changes Neurology consulted. ??Discussed with neurology team today, recommended to start aspirin and Plavix??for 90 days followed by??Plavix only Neurology will set up outpatient Zio patch??following discharge Outpatient neurology follow-up Continue with rosuvastatin 20 Echocardiogram done and reviewed PT OT evaluation recommned rehab ? Prediabetes (R73.03):??Patient's A1c is elevated, 6.1,??putting him in the??classification for prediabetes Outpatient follow-up ?? Hyperlipidemia (E78.5):??Lipid panel was checked Continue rosuvastatin 20 mg daily? Coronary arteriosclerosis, Coronary artery bypass grafts x 3 (I25.10):??Continue home aspirin and rosuvastatin ?? Chronic Kidney disease (N18.9):??This patient is status post kidney transplant, continue tacrolimus??and??mycophenolate. Check tac level. Outpt follow??up with nephrology ?? Leukopenia (D72.819):??WBC is 3.3. Outpt follow p ?? HTN - Hypertension (I10):??Continue home losartan 100 mg daily,??nifedipine 60 mg daily at bedtime,doxazosin??2 mg at bedtime ? I discussed plan of care to the patient at bedside,??although he would like to go home??he is okay to go to a rehab. ??He verbalized understanding and agrees to it I called Siomara,??she did not answer. Objective Assessment and Plan Discharge Planning:? Vital Signs?? Temperature: 97.9 DegF (01/13/24 11:04:00) Temperature Route: Oral (01/13/24 11:04:00) Pulse Rate:??52 bpm??Low (01/13/24 11:04:00) Respiratory Rate: 17 br/min (01/13/24 11:13:00) Systolic Blood Pressure:??143 mm Hg??High (01/13/24 11:04:00) Diastolic Blood Pressure: 63 mm Hg (01/13/24 11:04:00) Blood pressure sites: Arm, right (01/13/24 11:04:00) Mean Arterial Pressure: 90 mm Hg (01/13/24 11:04:00) Pulse Pressure: 80 mm Hg (01/13/24 11:04:00) Oxygen Saturation: 97 % (01/13/24 11:04:00) Mode of Delivery (Oxygen): Room air (01/13/24 11:04:00) Early Warning Score: 8 (01/13/24 11:14:02) ? . Physical Exam General: Awake, oriented, not in distress HEENT: No pallor, icterus Respiratory: Normal breath sound. ??No edition Cardiovascular:??Normal rate rhythm. ??No murmur Abdomen: Soft, nontender bowel sound present Extremities:??No peripheral edema.?? Fistula in left upper extremity. Neuro:??EOM intact.?? No facial droop or dysarthria.?? Sensory: Intact in all extremities.?? Shoulder shrug intact. ??Uvula and tongue midline. Pending Results Add On Lab Order ordered on 01/13/2024 Tacrolimus Level ordered on 01/12/2024 Follow-Up Appointments Added Follow Up ?Time Frame ?Comments Divina Toledo MD, Lynette Patient Instructions You were evaluated for stroke and found to have?? left paramedian pontine ischemic stroke which likely started sometime Wednesday night, 01/09. 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 Neurology evaluated and recommend aspirin and plavix for??next 90 days and only Plavix??there after? Neurology will arrange for Zio patch outpatient I did not change any other medication please continue taking all the medication prescribed by PCP and follow-up with PCP ?? Transplant team already aware Home Health Face to Face ^HomeHealthFTF Results Discharge Labs BLOOD COUNT & DIFF WBC 3.3 k/mm3 (Low)?? 01/12/2024 04:44 RBC 4.49 m/mm3 (Low)?? 01/12/2024 04:44 Hgb 12.7 Gm/dL (Low)?? 01/12/2024 04:44 Hct 38.7 % (Low)?? 01/12/2024 04:44 MCV 86.2 femtoliters ()?? 01/12/2024 04:44 MCH 28.3 pg ()?? 01/12/2024 04:44 MCHC 32.8 Gm/dL (Low)?? 01/12/2024 04:44 Platelet Count 120 k/mm3 (Low)?? 01/12/2024 04:44 RDW-SD 42.7 femtoliters ()?? 01/12/2024 04:44 MPV 10.5 femtoliters ()?? 01/12/2024 04:44 Nucleated RBC (Automated) 0.0 #/100 WBC'S ()?? 01/12/2024 04:44 Abs. NRBC 0.0 k/mm3 ()?? 01/12/2024 04:44 Abs. Neut 1.8 k/mm3 ()?? 01/11/2024 11:00 Abs. Lymph 0.9 k/mm3 ()?? 01/11/2024 11:00 Abs. Burnet 0.5 k/mm3 ()?? 01/11/2024 11:00 Abs. Eo 0.2 k/mm3 ()?? 01/11/2024 11:00 Abs. Baso 0.0 k/mm3 ()?? 01/11/2024 11:00 Neut % 52.0 % ()?? 01/11/2024 11:00 Lymph % 26.7 % ()?? 01/11/2024 11:00 Burnet % 15.3 % (High)?? 01/11/2024 11:00 Eos % 4.5 % ()?? 01/11/2024 11:00 Baso % 0.9 % ()?? 01/11/2024 11:00 Imm Gran 0.6 % ()?? 01/11/2024 11:00 Abs. Imm Gran 0.0 k/mm3 ()?? 01/11/2024 11:00 ?? CARDIAC High Sensitivity Troponin (HSTnT) 28 ng/L (High)?? 01/12/2024 04:44 ? CHEM GENERAL Sodium 139 mmol/L ()?? 01/12/2024 04:44 Potassium 3.9 mmol/L ()?? 01/12/2024 04:44 Chloride 107 mmol/L ()?? 01/12/2024 04:44 Bicarbonate Level 20 mmol/L (Low)?? 01/12/2024 04:44 Anion Gap 12 ()?? 01/12/2024 04:44 Glucose Level 83 mg/dL ()?? 01/12/2024 04:44 Hemoglobin A1C (Monitoring) 6.1 % (High)?? 01/11/2024 11:00 BUN 15 mg/dL ()?? 01/12/2024 04:44 Creatinine-Blood 0.88 mg/dL ()?? 01/12/2024 04:44 Estimated GFR Creatinine 90 ML/MIN/1.73 M2 ()?? 01/12/2024 04:44 Calcium 8.9 mg/dL ()?? 01/12/2024 04:44 Magnesium 1.8 mg/dL ()?? 01/12/2024 04:44 ?? COAG INR 1.0 ()?? 01/11/2024 11:00 Protime (PT) 10.9 seconds ()?? 01/11/2024 11:00 ?? LIPID STUDIES Cholesterol 133 mg/dL ()?? 01/11/2024 11:00 Triglycerides 59 mg/dL ()?? 01/11/2024 11:00 HDL Cholesterol 65 mg/dL ()?? 01/11/2024 11:00 LDL Cholesterol 56 mg/dL ()?? 01/11/2024 11:00 Non HDL Cholesterol 68 mg/dL ()?? 01/11/2024 11:00 ? MISC. CHEMISTRY Hold Gel Top SPECIMEN DISCARDED AFTER 1 WEEK ()?? 01/11/2024 11:00 ? TOXICOLOGY/TDM Tacrolimus Level 4.7 ng/mL (Low)?? 01/12/2024 04:44 ? Image ?CT Head/Brain W/O Contrast??01/11/2024 11:53 by Ana Loob ?Impression: There is no acute intracranial abnormality. ?XR Chest 2 Views Frontal and Lat??01/11/2024 13:14 by Dereje Eason ?IMPRESSION: No acute abnormality. ?CT Angio Neck??01/11/2024 15:59 by Terri Garcia ?IMPRESSION: 1. No large vessel occlusion in the head or neck. 2. Severe stenosis of bilateral INTERVENTIONAL PHYSICIAN P2 segments, with preserved distal filling. 3. Mild narrowing of bilateral cervical ICAs, as well as mild narrowing of the cavernous ICAs on each side. ?CT Angio Head??01/11/2024 15:59 by Terri Garcia ?IMPRESSION: 1. No large vessel occlusion in the head or neck. 2. Severe stenosis of bilateral INTERVENTIONAL PHYSICIAN P2 segments, with preserved distal filling. 3. Mild narrowing of bilateral cervical ICAs, as well as mild narrowing of the cavernous ICAs on each side. ?? _32 minutes spent on discharge * Sejal Leyva RN: PERFORM Event Display: Patient Education/Instruction Authored Date: [id number] Inpatient Adult Discharge Instructions. [address] [address] Name: RANDY TATE : 1950?? Visit: 01/12/2024 11:43?? Current Date: 01/13/2024 12:45 ?? Account: [id number]?? Inpatient Adult Discharge Instructions We would like to thank you for allowing us to assist you with your healthcare needs. The following includes patient education materials and information regarding your injury/illness. Our entire staffstrives to provide an excellent experience for our patients and their families. PLEASE ENSURE YOU FOLLOW-UP PER THE INSTRUCTIONS BELOW! ?? YOUR OPINION IS IMPORTANT TO US! Please complete the survey you may receive by mail or email. Your feedback will be used to make improvements to the healthcare experiences of our patients and their families. Surveys are administered by [employer] ?? If further treatment with your primary care physician or another doctor is recommended, it is important for you to keep the appointment. Call your primary care physician or return to the Emergency Department immediately if your condition worsens, fails to improve, or new symptoms develop. If you need to find a doctor, you can call [facility] [employer] for a referral at [phone] or toll free at [phone] [phone]) or log in to [email or web address].. ?? [facility], in keeping with [facility] guidance, no longer requires face masks for staff, patientsor visitors in most situations. Similiar to time spent indoors at other locations, there is the chance that you were exposed to repiratory viruses during your time with us (such as flu or COVID-19). If you develop symptoms concerning for a viral respiratory infection, please seek testing (and treatment if indicated) from your medical provider or home test kit. ?? You can view and manage your care through the patient portal or by using a health care jatin of your choosing. [email or web address] is a website that allows you to securely view your medical information including your hospital discharge summary, office visit summaries, medications and follow-up visits. You can also request appointments, renew medications, and request access to your medical information using a health care jatin of your choosing, or just ask a question. You can enroll at [email or web address] or register during your next office visit. You have been discharged from [facility], Patient Care Unit: D3B??. If you have any questions regarding these instructions, including results of studies pending, afteryou leave, please call us and we will be happy to assist you 14/09. [facility] Your Care Team Attending Physician Kirill Ahmadi MD?? Consulting Providers Kirill Ahmadi MD?? Discharging Providers Kirill Ahmadi MD Reason for Your Visit Right arm weakness, right sided facial droop, and slurred speech this morning?? Your Diagnosis TIA (transient ischemic attack) Prediabetes Leukopenia HTN - Hypertension Hyperlipidemia Coronary arteriosclerosis, Coronary artery bypass grafts x 3 Chronic Kidney disease Tests Performed Below is a partial list of the tests performed during your hospitalization. You may have had other tests and procedures not included in this list. Please discuss all test results with your provider. Basic Metabolic Panel CBC CBC w/ Differential Hemoglobin A1C (Monitoring) High??Sensitivity??Troponin T HOLD GEL TUBE HOMOCYSTEINE, PLASMA?-- Results Pending -- Lipid Panel Magnesium Level PT (INR) Tacrolimus Level?-- Results Pending -- Troponin T, High Sensitivity Brain MRI W/O Contrast CT Angio Head CT Angio Neck CT Head/Brain W/O Contrast XR Chest 2 Views Frontal and Lat Add On Lab Order?? Basic Metabolic Panel?? CBC?? CBC w/ Differential?? CT Angio Head?? CT Angio Neck?? CT Head/Brain W/O Contrast?? Hemoglobin A1C (Monitoring)?? High??Sensitivity??Troponin T (Troponin T, High Sensitivity)?? Hold Gel Top Tube (HOLD GEL TUBE)?? Homocysteine Level (HOMOCYSTEINE, PLASMA)?? INR (PT (INR))?? Lipid Panel?? MRI Brain W/O Contrast (Brain MRI W/O Contrast)?? Magnesium Level?? Tacrolimus Level (TACROLIMUS)?? Chest 2 Views Frontal and Lat (XR Chest 2 Views Frontal and Lat)?? Primary Care Provider Maria D Mccray MD? Advance Directive Health Care Proxy on File Yes - Health Care Proxy Discharge Vitals Temperature: 97.9 DegF Pulse Rate:??52 bpm??Low Respiratory Rate: 17 br/min Systolic Blood Pressure:??143 mm Hg??High Diastolic Blood Pressure: 63 mm Hg Oxygen Saturation: 97 % Studies Pending All studies ordered during this hospital stay have been completed unless listed below. Please discuss all pending results with your provider listed above in these instructions. ?? Add On Lab Order?? Homocysteine Level (HOMOCYSTEINE, PLASMA)?? Tacrolimus Level?? What to do next Instructions From Your Doctor You were evaluated for stroke and found to have?? left paramedian pontine ischemic stroke which likely started sometime Wednesday night, 01/09. 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 Neurology evaluated and recommend aspirin and plavix for??next 90 days and only Plavix??there after? Neurology will arrange for Zio patch outpatient I did not change any other medication please continue taking all the medication prescribed by PCP and follow-up with PCP ?? Transplant team already aware ?? Orders? 01/13/24 12:02:00 EST?? Scheduled Follow-Up Appointments Wednesday 1:00 PM EST ?? With: Lynette Pablo MD Where: [facility] [address] [facility] 3rd Floor, [address] [place] [id number] Status: Pending You Need to Schedule the Following Appointments Follow Up with??Lynette Pablo MD Where: [address] [place] [address], 3rd Floor, [address] [place] [id number]- Discharge Medications RANDY TATE :1950 Visit Date:01/12/2024 Medications: Please continue your medications until treatment is completed or stopped by your provider. Medications not listed below should be discontinued. Discuss any questions related to medications with your provider. What How Much When Instructions Next Dose New Clopidogrel (Plavix 75 mg oral tablet) 75 Milligram Oral Daily Duration: 90 Days 01/13 AM Changed Aspirin (aspirin 81 mg oral delayed release tablet) 1 tab(s) Oral Daily Duration: 90 Days take for 90 days only then stop , you do not need to continue aspirin as per Nerurology recommendation ?? 01/13 AM Unchanged Alendronate (alendronate 70 mg oral tablet) Every week Resume as Taken previously Unchanged Allopurinol (allopurinol 100 mg oral tablet) 1 tab(s) Oral Daily 01/13 Unchanged Doxazosin (doxazosin 2 mg oral tablet) 1 tab(s) Oral Daily at Bedtime TAKE 1 TABLET BY MOUTH EVERY DAY AT NIGHT ?? 01/12 PM Unchanged Lorazepam (lorazepam 1 mg oral tablet) 1 tab(s) Oral As needed for as needed for anxiety As Needed Unchanged Losartan (losartan 100 mg oral tablet) 01/13 AM Unchanged Multivitamin Oral Daily 01/13 Unchanged Mycophenolate Mofetil (CellCept 250 mg oral capsule) 1 capsule Oral Twice a day 01/12 PM Unchanged NIFEdipine (NIFEdipine (Eqv-Procardia XL) 60 mg oral tablet, extended release) 1 tab(s) Oral Daily 01/13 Unchanged Nitroglycerin (Nitrostat 0.3 mg sublingual tablet) 1 tab(s) Sublingual Every 5 minutes as needed for for chest pain As Needed Unchanged Newington-3 Polyunsaturated Fatty Acids (Fish Oil) Oral 01/12 AM Unchanged Omeprazole (omeprazole 20 mg oral enteric coated capsule) 1 capsule Oral Daily 01/13 AM Unchanged Rosuvastatin (rosuvastatin 20 mg oral tablet) 1 tab(s) Oral Daily 01/13 AM Unchanged Sildenafil (sildenafil 100 mg oral tablet) Unchanged Tacrolimus (Prograf 1 mg oral capsule) See instructions 3 capsule in morning, 2 capsule in evening ?? 01/12 PM Unchanged Ubiquinone (Co Q-10) 100 Milligram Oral Daily 01/13 AM Prescription Given During Visit Aspirin (aspirin 81 mg oral delayed release tablet) - 1 tablet = 81 mg, By Mouth, Daily, # 90 tablet, 0 Refills, take for 90 days only then stop , you do not need to continue aspirin as per Nerurology recommendation?? Clopidogrel (Plavix 75 mg oral tablet) - 75 mg, By Mouth, Daily, # 90 tablet, 0 Refills?? Laboratory Results Below is a partial list of the most recent Laboratory test results done prior to this discharge. You may have had other tests and procedures not included in this list. Please discuss all test resultswith your provider. Basic Metabolic Panel (01/12/2024) ???Sodium - 139 mmol/L???Potassium - 3.9 mmol/L???Chloride - 107 mmol/L???Bicarbonate Level - 20 mmol/L???Anion Gap - 12???Glucose Level - 83 mg/dL???BUN - 15 mg/dL???Creatinine-Blood - 0.88 mg/dL???Estimated GFR Creatinine - 90 ML/MIN/1.73 M2???Calcium - 8.9 mg/dL CBC (01/12/2024) ???WBC - 3.3 k/mm3???RBC - 4.49 m/mm3???Hgb - 12.7 Gm/dL???Hct - 38.7 %???MCV - 86.2 femtoliters???MCH - 28.3 pg???MCHC - 32.8 Gm/dL???Platelet Count - 120 k/mm3???RDW-SD - 42.7 femtoliters???MPV - 10.5 femtoliters???Nucleated RBC (Automated) - 0.0 #/100 WBC'S???Abs. NRBC - 0.0 k/mm3 CBC w/ Differential (01/11/2024) ???WBC - 3.5 k/mm3???RBC - 4.92 m/mm3???Hgb - 14.2 Gm/dL???Hct - 43.0 %???MCV - 87.4 femtoliters???MCH - 28.9 pg???MCHC - 33.0 Gm/dL???Platelet Count - 129 k/mm3???RDW-SD - 43.2 femtoliters???MPV - 10.7 femtoliters???Nucleated RBC (Automated) - 0.0 #/100 WBC'S???Abs. NRBC - 0.0 k/mm3???Abs. Neut - 1.8 k/mm3???Abs. Lymph - 0.9 k/mm3???Abs. Burnet - 0.5 k/mm3???Abs. Eo - 0.2 k/mm3???Abs. Baso - 0.0 k/mm3???Neut % - 52.0 %???Lymph % - 26.7 %???Burnet % - 15.3 %???Eos % - 4.5 %???Baso % - 0.9 %???Imm Gran - 0.6 %???Abs. Imm Gran - 0.0 k/mm3 Hemoglobin A1C (Monitoring) (01/11/2024) ???Hemoglobin A1C (Monitoring) - 6.1 % High??Sensitivity??Troponin T (01/11/2024) ???High Sensitivity Troponin (HSTnT) - 30 ng/L HOLD GEL TUBE (01/11/2024) ???Hold Gel Top - SPECIMEN DISCARDED AFTER 1 WEEK Lipid Panel (01/11/2024) ???Cholesterol - 133 mg/dL???Triglycerides - 59 mg/dL???HDL Cholesterol - 65 mg/dL???LDL Cholesterol - 56 mg/dL???Non HDL Cholesterol - 68 mg/dL Magnesium Level (01/12/2024) ???Magnesium - 1.8 mg/dL PT (INR) (01/11/2024) ???INR - 1.0???Protime (PT) - 10.9 seconds Troponin T, High Sensitivity (01/12/2024) ???High Sensitivity Troponin (HSTnT) - 28 ng/L You will be contacted within 72 hours with your results. Allergies (NKA means No Known Allergies) Latex??(Rash) Adhesive Bandage??(skin breakdown) Contrast Dye??( caused kidney failure ) NSAIDs??(can not take d/t kidney problems) Zestril??( not sure ) Problems Active Problems??(15) Chronic Kidney disease?? Coronary arteriosclerosis, Coronary artery bypass grafts x 3?? diverticulosis?? Ex-smoker?? fialed avf?? Gastroesophageal reflux disease?? Gout?? History of Congestive heart failure?? History of polyps?? HTN - Hypertension?? Hyperlipidemia?? Old myocardial infarction, Inferolateral Wall, Initial Episode of Care?? Osteoarthritis, knees?? Primary malignant neoplasm of prostate?? Prostate cancer?? Education Materials Below is the list of Educational Leaflet Providered with your Discharge Instructions. Valuables and Belongings I fully understand and agree that [facility] accepts no responsibility for all my personal property including clothing, toilet articles, radios, jewelry, dentures, hearing aids, rings, money, or any other property that is in my possession or is brought to me after admission. I understand certain valuables may be placed in a hospital safe for a short period of time. I understand that the hospital is not liable for loss or damage due to accident, fire, or other natural occurrence while said property is in the safe. I accept full responsibility for any personal property that I keep with me, and will not hold the hospital responsible in case of loss or disappearance. I acknowledge that i have been encouraged to send valuables and belongings home. ?? Date for Pt to Sign Valuables/Belongings: 01/11/24 16:51:00 ?? Other Discharge Information ? Case Management Discharge Plan?? Discharge Plan?? Discharge Agency Information?? Discharge Level of Care at Discharge: Inpatient Rehab Facility/Unit [facility] of [facility] ??Ady Service Comments #1: [facility]. ?? Pulmonary Rehab Status?? Pulmonary Rehab Discharge Status?? Respiratory Rate: 17 br/min ? Common Emergency Awareness Tips IS IT A STROKE? Act FAST and Check for these signs: FACE Does the face look uneven? ARM Does one arm drift down? SPEECH Does their speech sound strange? TIME Call at any sign of stroke ?? Heart Attack Signs Chest discomfort: Most heart attacks involve discomfort in the center of the chest and lasts more than a few minutes, or goes away and comes back. It can feel like uncomfortable pressure, squeezing, fullness or pain. Discomfort in upper body: Symptoms can include pain or discomfort in one or both arms, back, neck, jaw or stomach. Shortness of breath: With or without discomfort. Other signs: Breaking out in a cold sweat, nausea, or lightheaded. Remember, MINUTES DO MATTER. If you experience any of these heart attack warning signs, call to get immediate medical attention! ?? Smoking can increase your chances of developing chronic health problems and can cause harmful effects to other family members in your house. If you smoke, you are strongly encouraged to quit. Please call [facility] [employer] [facility] at [phone] or [phone] ([phone]) or log in to [email or web address] for referrals to smoking cessation programs. ?? 451 Suicide & Crisis Lifeline is available 14/09 if you or someone you know needs to find a reason to keep living. By calling 139 you'll be connected to a skilled, trained counselor at a crisis center in your area. INPATIENT DISCHARGE INSTRUCTIONS SIGNATURE PAGE TATE RANDY Location:[facility] Registration Date and Time:01/12/2024 11:43 EST Primary Care Physician: Shazia GODOY, Maria D Kapadia, Attending Physician: Kirill Ahmadi MD, I ARNDY TATE, have received the above patient education materials/instructions and have verbalized understanding. If ambulance or transport services are being used I further acknowledge being given a choice of service. ?? If you need to contact me, please call me at this number: . Patient/Supervisor [employer] Name: Patient/Supervisor [employer] Signature: Relationship to Patient: Witness Name/Signature: Date: Consult note * Yuli Poon MD: MODIFY Yuli Poon MD: ADEN MODIFY Event Display: Consultation Note Authored Date: Patient: ??RANDY TATE ? Age:??74 Years?Sex:??Male?:??1950?? Chief Complaint/Reason for Consult Right arm weakness, right sided facial droop, and slurred speech this morning History of Present Illness Randy Tate is a 74 year old male with a past medical history of kidney transplant on tacrolimus and mycophenolate, HTN, HLD, CAD w/ prior [place] s/p CABG, prostate cancer, GERD, and gout who originally presented to the ED on 01/10 for right upper extremity weakness, right facial droop, and slurred speech. His last known well was the night prior, 01/09 at around 9:30 pm. The family stated that he had a poor appetite and was feeling fatigued that night, so went to bed earlier than usual. He reports waking up around 2:30 am to use the bathroom and feeling off with some difficulty walking, but thought it was due to being tired and went back to sleep. The next morning he noted at around 9:15 am that he was unable to hold his razor with his right hand, and his noticed that he had a rightfacial droop and slurred speech, which prompted her to call an ambulance. He states that his symptoms completely resolved while in the ambulance. Code stroke was not called due to last known well being the night prior.??On arrival, blood pressure was 146/81, pulse 50, laboratory studies showed WBC 3.5, hemoglobin A1c 6.1.??Head CT showed no acute intracranial normality.??Chest x- ray showed no acute abnormality.?? CTA??head/neck showed no large vessel occlusion, but??did show severe stenosis of bilateral INTERVENTIONAL PHYSICIAN P2 segments with preserved distal filling, and mild narrowing of bilateral cervical and cavernous ICAs.?? Request was made for admission for TIA versus stroke, for which neurology was consulted. ?? MRI brain w/o contrast overnight showed acute infarct in the left paramedian bethany with no mass effect or hemorrhage. ?? Patient was seen resting comfortably this morning 01/11. His , son, granddaughter, and grandson are all in the room with him. He corroborated the same history as mentioned above. He reports not sleeping too well overnight but has no new complaints otherwise. He believes that he is back to baseline at this point. He reports that he had been having some back pain for the past week which had made him feel more fatigued than usual. His family reports he is usually constantly up and moving, so this past week was unusual for him. He was able to do some house and yard work on Sunday 01/07, but felt very tired after that.??He has been taking his medications as prescribed and reports his blood pressure has been well controlled at home. Denies any chest pain or??palpitations leading up to the onset of symptoms. Currently denies headache, dizziness, numbness, weakness, tingling, changes in vision or hearing. Review of Systems Pertinent positives as listed in subjective. Otherwise, remainder of review of systems negative. Physical Exam Vitals & Measurements T:??98.0?F?? HR:??50??(Peripheral)?? RR:??20?? BP:??151/65?? SpO2:??98%?? Constitutional: Sitting comfortably in the room in no acute distress. Good nutritional status. Appears stated age.?? Psych: Calm and cooperative. Maintains good eye contact. Good insight Skin: Warm and dry. No rashes, lesions or ulcers Eyes: [place] conjunctiva, no ptosis. Sclera anicteric. PERRLA ENMT: Moist mucus membranes, oropharynx clear CV: AV fistula noted on left posterior forearm.?? MSK: No swelling or tenderness of the joints, neck supple. No clubbing, cyanosis or edema of the extremities. ?? Neurologic Examination ?? Mental Status: Alert and oriented to person, place, and time with fluent and appropriate language. No neglect or left/right confusion. Attention, registration and recall intact. Fund of knowledge good.? Cranial Nerves: Pupils 4??mm react to 2 mm, equal and round bilaterally. Visual giron full. EOMI with no nystagmus or diplopia. Facial sensation intact. Face activates symmetrically, palate elevatessymmetrically and tongue protrudes midline. Hearing is intact to friction rub on right sight, not on left side due to chronic deafness.??No weakness in SCM or trapezius muscles.? Motor: Normal muscle bulk and tone throughout. No adventitious movements. No pronator drift. Mild decreased??orbiting of right extremity noted. Symmetric rapid movements. Strength 4/5 at right shoulder abduction, otherwise 5/5 to manual muscle testing everywhere else. does have mild orbiting of theleft hand over the right. ?? Reflexes: 2+ at right triceps, 1+ at left triceps, bilateral biceps,??brachioradialis,??patella andankle. Plantar response flexor bilaterally. Barajas's negative bilaterally. ?? Sensory:??Decreased temperature sensation in lower extremities to mid??broussard bilaterally, likely dueperipheral neuropathy.??Otherwise sensation intact to light touch, pin prick, vibration and proprioception. ?? Coordination: Finger to nose and heel to broussard testing within normal. ?? Gait:??Not visualized ambulating. Assessment/Plan Assessment:??Randy Tate is a 74 year old male with a past medical history of kidney transplant on tacrolimus and mycophenolate, HTN, HLD, CAD w/ prior [place] s/p CABG, prostate cancer, GERD, and gout who originally presented to the ED on 01/10 for right upper extremity weakness, right facial droop, and slurred speech. His last known well was the night prior, 01/09 at around 9:30 pm. The family stated that he had a poor appetite and was feeling fatigued that night, so went to bed earlier than usual. He reports waking up around 2:30 am to use the bathroom and feeling off with some difficulty walking, but thought it was due to being tired and went back to sleep. The next morning he noted at around 9:15 am that he was unable to hold his razor with his right hand, and his noticed that he had a right facial droop and slurred speech, which prompted her to call an ambulance. He states that his symptoms completely resolved while in the ambulance. Code stroke was not called due to last known well being the night prior.??On arrival, blood pressure was 146/81, pulse 50, laboratory studies showed WBC 3.5, hemoglobin A1c 6.1.??Head CT showed no acute intracranial normality.??Chest x-ray showed no acute abnormality.??CTA??head/neck showed no large vessel occlusion, but??did show severe stenosis of bilateral INTERVENTIONAL PHYSICIAN P2 segments with preserved distal filling, and mild narrowing of bilateralcervical and cavernous ICAs.??MRI brain w/o contrast overnight showed acute infarct in the left paramedian bethany with no mass effect or hemorrhage.??Patient was admitted for TIA versus stroke, for which neurology was consulted. ?? Based on our evaluation, the patient's presentation is consistent with a left paramedian pontine ischemic stroke which likely started sometime Wednesday night, 01/09. Right sided hemiplegia with dysarthria is consistent with median pontine syndrome, and MRI showed evidence of infarction suggestive of stroke over TIA. The patient's neurological exam today was mostly unremarkable other than mild weakness of the right shoulder and mild right sided orbiting, however symptoms can commonly fluctuate over the first few days with a pontine stroke, so we would recommend the patient remain in the hospitalfor one more day to continue to monitor for changes in neurological symptoms. He no longer requirespermissive hypertension. Prior to discharge, we recommend checking homocysteine levels and having PT/OT evaluate the patient. ?? For management, he should remain on aspirin 81 mg and be started on Plavix 75 mg daily. He should stay on aspirin and Plavix for the next 90 days, then discontinue aspirin and remain on Plavix only going forward. He should also continue rosuvastatin 20 mg daily. ?? Additionally, given evidence of atrial dilation on TTE, neurology will set him up with a two week Zio patch to monitor for evidence of a-fib. The patient should follow-up in the outpatient stroke clinic in two weeks. ?? Diagnoses: Paramedian pontine infarction- Likely etiology of small vessel disease. ?? Recommendations: -Overnight monitoring of symptoms -Check homocysteine levels. -PT/OT evaluation. -Continue aspirin 81 mg and start Plavix 75 mg daily x 90 days. Then discontinue aspirin??and remain on Plavix only going forward. ? - If appropriate based on platelet levels -Continue rosuvastatin 20 mg daily. -Zio patch cardiac monitoring (Neurology will manage). -Follow-up in outpatient stroke clinic in two weeks. (Neurology will reach out to schedule with patient.) ?? Thank you for allowing us to participate in this patient???s care. We will sign off at this time. ?? Note written with assistance from Dereje Boothe, MS3. Case and plan discussed with attending neurologist,??Dr. Yuli Poon. Recommendations??conveyed to Dr. Robinson Lucas via [employer]. ?? Reggie Connors D.O. PGY-1 Department of Psychiatry [facility] [employer] Pager [phone] ?Attending Attestation:??This note was completed with the aid of a resident. ??I personally performed all components of the visit including the history of present illness, examination and medical decision making. ? Yuli Poon M.D Vascular Neurology Department of Neurosciences Problem List/Past Medical History Ongoing Chronic Kidney disease Coronary arteriosclerosis, Coronary artery bypass grafts x 3 Ex-smoker Gastroesophageal reflux disease Gout History of Congestive heart failure HTN - Hypertension Hyperlipidemia Old myocardial infarction, Inferolateral Wall, Initial Episode of Care Osteoarthritis, knees Primary malignant neoplasm of prostate Prostate cancer Procedure/Surgical History Knee replacement Kidney transplant Herniorrhaphy CABG - Coronary artery bypass graft Home Medications Alendronate: Every week Allopurinol: 100 mg = 1 tablet, By Mouth, Daily Aspirin: 81 mg = 1 tablet, By Mouth, Daily Doxazosin: 2 mg = 1 tablet, By Mouth, Daily at bedtime, TAKE 1 TABLET BY MOUTH EVERY DAY AT NIGHT Lorazepam: 1 mg = 1 tablet, By Mouth, PRN (as needed for anxiety) Losartan Multivitamin: By Mouth, Daily Mycophenolate Mofetil: 250 mg = 1 capsule, By Mouth, 2 times a day NIFEdipine: 60 mg = 1 tablet, By Mouth, Daily Nitroglycerin: 0.3 mg = 1 tablet, Sublingual, Every 5 minutes, PRN (for chest pain) [place]-3 Polyunsaturated Fatty Acids: By Mouth Omeprazole: 20 mg = 1 capsule, By Mouth, Daily Rosuvastatin: 20 mg = 1 tablet, By Mouth, Daily Sildenafil Tacrolimus: See Instructions, 3 capsule in morning, 2 capsule in evening Ubiquinone: 100 mg, By Mouth, Daily Allergies Latex??(Rash) Adhesive Bandage??(skin breakdown) Contrast Dye??( caused kidney failure ) NSAIDs??(can not take d/t kidney problems) Zestril??( not sure ) Social History Alcohol Use: Current. Frequency: 1-2 times per week. Binge drinking: No. Employment/School Status: Retired. Previous employment/school: [employer]. Exercise Self assessment: Fair condition. Home/Environment Living situation: Home/Independent. Lives with: Spouse. Feels unsafe at home: No. Safe place to go:Yes. Nutrition/Health Diet: Renal. Feels highly stressed: No. Substance Abuse Use: Never. Substance abuse in household: No. Tobacco Former smoker, Type: Cigarettes. Tobacco use times per day: 1 pack per year. 18 Number of years:. Total pack years: 18. Started at age: 11 Years. Stopped at age: 29 Years. Family History Father: Heart attack Brother: Heart attack Patient Care team information Care Team Personnel Name: Lianna Sharif RN Position: [facility] RN Member Role: Primary Care Nurse Name: Maria D Mccray MD Position: Reference Physician Member Role: PCP Address: [address] [place] [address], [address] [place] [address]- [place] [employer]: Name: Jim Ibrahim MD Position: [facility] Renal MD Member Role: Lifetime Consulting Physician Address: [address] [place] [address] [address] [facility] [address]- Telecom: Name: Guille Dennis RN Position: S RN Member Role: Primary Care Nurse Name: Teri Stoll NP Position: [facility] Associate Professional Member Role: Primary Care Nurse Address: [address] [place] [address], [place] [address]- Telecom: Name: Ambrocio Foley RN Position: [facility] RN Member Role: Primary Care Nurse Care Team Related Persons Name: LEA RANDY Name: LEA RANDY ELLIOTT Name: SIOMARA TATE Insurance Providers Guarantor name: RANDY TATE Health Plan Information #: 3 Payer: MEDICARE HMO BLUE 65 REPLC Member Number: [id number] Policy Number: NA Group Number: NA Health Plan Information #: 4 Payer: BLUE MEDICARE SUPPL Member Number: [id number] Policy Number: NA Group Number: [id number] Health Plan Information #: 5 Payer: BLUE MEDICARE SUPPL Member Number: [id number] Policy Number: NA Group Number: [id number] Health Plan Information #: 2 Payer: MEDICARE PART B OUTPT Member Number: [id number] Policy Number: NA Group Number: NA Health Plan Information #: 1 Payer: MEDICARE A INPT 25 Member Number: [id number] Policy Number: NA Group Number: NA Health Plan Information #: 6 Payer: BLUE CARE ELECT Member Number: NA Policy Number: NA Group Number: NA
--- OUTSIDE RECORDS SUMMARY | 2024-02-03 15:08 | XMS_ITS ---
Author Name [facility] Organization Unknown History of Medication Use Medication Directions Dispensed Refills Start Date End Date Stat omeprazole 20 mg capsule,delayed release 07/19/2022 active rosuvastatin 20 mg tablet 07/12/2022 active naloxone 4 mg/actuation nasal spray ADMINISTER 1 SPRAY INTO ONE NOSTRIL. CALL 911. REPEAT AFTER 2-3 MIN IF NO OR MINIMAL RESPONSE 07/19/2022 active allopurinol 100 mg tablet 07/19/2022 active alendronate 70 mg tablet 07/19/2022 active alendronate 70 mg tablet 07/12/2022 active naloxone 4 mg/actuation nasal spray ADMINISTER 1 SPRAY INTO ONE NOSTRIL. CALL 911. REPEAT AFTER 2-3 MIN IF NO OR MINIMAL RESPONSE 07/12/2022 active amoxicillin 500 mg tablet Take 4 tablets 1 hour prior to dental appointment 07/19/2022 active rosuvastatin 20 mg tablet 07/19/2022 active lidocaine (PF) 10 mg/mL (1 %) injection solution Take 2 mL by injection route. 07/19/2022 active oxycodone 5 mg tablet Take 1-2 tabs p.o. every 4 to 6 hours as needed for pain. May fill for lesser quantity. 07/19/2022 active alendronate 70 mg tablet 07/19/2022 active alendronate 70 mg tablet 07/12/2022 active doxazosin 2 mg tablet TAKE 1 TABLET BY MOUTH EVERY NIGHT. 07/12/2022 active methocarbamol 750 mg tablet Take 1 tablet 3 times a day by oral route. 07/19/2022 active oxycodone 5 mg tablet Take 1-2 tabs p.o. every 4 to 6 hours as needed for pain. May fill for lesser quantity. 07/12/2022 active lidocaine (PF) 10 mg/mL (1 %) injection solution Take 2 mL by injection route. 07/12/2022 active docusate sodium 100 mg capsule TAKE 1 CAPSULE BY MOUTH EVERY DAY 07/12/2022 active losartan 100 mg tablet 07/19/2022 active lorazepam 1 mg tablet TAKE 1 TABLET BY MOUTH EVERY DAY AT BEDTIME NEEDED ANXIETY 07/19/2022 active Kenalog 40 mg/mL suspension for injection Take 1 mL by injection route. 07/19/2022 active amoxicillin 500 mg capsule TAKE ONE CAPSULE BY MOUTH THREE TIMES DAILY 07/19/2022 active losartan 100 mg tablet 07/12/2022 active doxazosin 2 mg tablet TAKE 1 TABLET BY MOUTH EVERY NIGHT. 07/19/2022 active docusate sodium 100 mg capsule TAKE 1 CAPSULE BY MOUTH EVERY DAY 07/19/2022 active omeprazole 20 mg capsule,delayed release 07/12/2022 active lorazepam 1 mg tablet TAKE 1 TABLET BY MOUTH EVERY DAY AT BEDTIME NEEDED ANXIETY 07/12/2022 active nifedipine ER 60 mg tablet,extended release 24 hr 07/19/2022 active amoxicillin 500 mg tablet Take 4 tablets 1 hour prior to dental appointment 07/12/2022 active methocarbamol 750 mg tablet Take 1 tablet 3 times a day by oral route. 07/12/2022 active amoxicillin 500 mg capsule TAKE ONE CAPSULE BY MOUTH THREE TIMES DAILY 07/12/2022 active allopurinol 100 mg tablet 07/12/2022 active Adult Low Dose Aspirin 81 mg tablet,delayed release Take 1 tablet twice a day by oral route for 30 days. 07/12/2022 active Adult Low Dose Aspirin 81 mg tablet,delayed release Take 1 tablet twice a day by oral route for 30 days. 07/19/2022 active Kenalog 40 mg/mL suspension for injection Take 1 mL by injection route. 07/12/2022 active nifedipine ER 60 mg tablet,extended release 24 hr 07/12/2022 active Problems Problem Status Onset Date Problem Type Date of Resolution Source Effusion of right knee joint active 2022-07-21 ProblemAct [facility] Pain of right calf active 2022-05-21 ProblemAct [facility] Kidney replaced by transplant active EncounterDiagnosisAct [facility] Abscess of skin and/or subcutaneous tissue active 2022-07-21 ProblemAct [facility] Postoperative pain active 2022-05-08 ProblemAct [facility] Osteoarthritis of left knee joint active 2022-07-10 ProblemAct [facility]
[2024-02-03 15:11] VITALS: BMI 30.4
== END 2024-02-03 15:41 | disposition home or self-care (01) ==
PROVIDERS: PCP Internal Medicine; Visit Provider Orthopaedic Surgery
DX: M17.12 Unilateral primary osteoarthritis, left knee (principal)
CPT/HCPCS: 20610; 99213

== ENCOUNTER → 2024-02-03 14:59 | Outpatient (BNVA) | payer MEDICARE, BC, SELFPAY | PROVIDERS: PCP Internal Medicine; Visit Provider Orthopaedic Surgery | DX: M17.12 Unilateral primary osteoarthritis, left knee (principal) | CPT/HCPCS: 20610; 99212; J1010; J2003 ==

== ENCOUNTER 2024-02-24 12:02 | Outpatient (AMB) | payer MEDICARE, BC, SELFPAY ==
--- NOTE | 2024-02-24 12:22 | HO.NEPHOV ---
Vital Signs 02/24/24 12:32 Height 5 ft 7 in Weight 190 lb 6 oz BMI 29.8 BP 140/60 H Blood Pressure Location Rt brachial Position Sitting Intake Visit Reasons: Oneal lora w/ labs- Kidney transpalnt-Conf Control Supervisor Required: No Accompanied by: Spouse Allergies adhesive tape Allergy (Verified 02/24/24 12:25) rash NSAIDS (Non-Steroidal Anti-Inflamma Allergy (Verified 02/24/24 12:25) Kidney replacement HPI Comments Details: Randy was seen in follow up of his kidney transplant. 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 His BP medications have been adjusted recently. He monitors his BP closely. 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 His serum creatinine has been stable around 0.9. He has been having edema from Nifedipine. He had peripheral arterial symptoms and had seen vascular surgeon. He thinks he likely will need stenting of his arteries on the left lower extremity. He continues to have left upper extremity AV fistula. He applies sunscreen when he goes out and maintains good hydration. He does not take any nonsteroidal anti-inflammatories and is compliant with his medications. His appetite is good. He does not have any chest pain, shortness of breath, paroxysmal nocturnal dyspnea, orthopnea, urinary symptoms. He was accompanied by his Siomara during this office visit. He feels well. [facility] Medical History FHx: total knee replacement (~06/2022) Osteoarthritis Hyperlipidemia Hypertension History of congestive heart failure Gout GERD (gastroesophageal reflux disease) Surgical History Prostate cancer (~2011) History of heart bypass surgery (~2010) Social History Patient Tobacco Use Status: Former Tobacco user Current occupational status: retired Review of Systems Const All systems reviewed & are unremarkable except as noted in HPI and below Physical Exam Vital Signs: Last Vital Signs BP 140/60 H 02/24/24 12:32 BMI result Body Mass Index 29.8 Const General: comfortable and no acute distress Orientation/consciousness: patient oriented x3 HEENT Head: Yes normocephalic Mouth: Normal oral and palatal mucosa present Eyes EOM: EOMs intact bilaterally Neck Neck: Yes supple Resp Auscultation: clear to auscultation bilaterally Cardio Jugular venous distension: no JVD Rate: regular rate GI Palpation (GI): Soft to palpation Auscultation: normal bowel sounds General: Yes no CVA tenderness Back/Spine/Pelvis Back: no CVA tenderness Skin General skin exam: no rashes or lesions noted Neuro General: patient oriented x3 and moves all extremities Extrem Other: UE AVF + General: Yes edema Results Reviewed Nephrology Results: No Data to Display Assessment & Plan Assessment & Plan (1) Hypertension: Code(s): I10 - Essential (primary) hypertension Category: Medical Qualifiers: Hypertension type: primary hypertension Qualified Code(s): I10 - Essential (primary) hypertension (2) Renal transplant recipient: Code(s): Z94.0 - Kidney transplant status Category: Surgical (3) Edema: Code(s): R60.9 - Edema, unspecified Category: Medical Qualifiers: Edema type: unspecified Qualified Code(s): R60.9 - Edema, unspecified Plan Randy had ESRD from hypertension and received a donor renal transplant in 2017. His serum creatinine is at baseline of 0.9. He has no history of rejection. His blood pressure is at goal. His hemoglobin A1c is good. His lipid profile is at goal. He clearly needs to lose weight. He has no side effects from calcineurin inhibitor. He is compliant with his medications. He applies sunscreen when he goes out and follows up with a event operations manager once a year. He has a follow-up with vascular surgery for his peripheral arterial disease. He is going to discuss with vascular surgeon regarding his left upper extremity AV fistula which can be either reduced in size or tied off. He has no clinical signs of heart failure. I started him on lasix 20 mg daily. His tacrolimus dose has been adjusted recently. I may back off on Nifedipine if edema persists . All his and his 's questions were answered. Follow-up appointment given Orders: Orders Tacrolimus Prograf 1 Month I10 - Essential (primary) hypertension, Z94.0 - Kidney transplant status Blood Urea Nitrogen 1 Month I10 - Essential (primary) hypertension, Z94.0 - Kidney transplant status Electrolytes 1 Month I10 - Essential (primary) hypertension, Z94.0 - Kidney transplant status Creatinine 1 Month I10 - Essential (primary) hypertension, Z94.0 - Kidney transplant status Medications: New furosemide (Lasix) 20 mg PO DAILY 30 tabs 3RF Changed From hydralazine 100 mg PO TID To hydralazine 100 mg (2 x 50 mg) PO TID 30 days 180 tabs 5RF Coding Level of Care Code Est Pt Level 4 (84391) Diagnoses Primary hypertension I10 Hypertension type: primary hypertension Renal transplant recipient Z94.0 Edema, unspecified type R60.9 Edema type: unspecified
[2024-02-24 12:32] VITALS: BP 140/60; BMI 29.8
--- OUTSIDE RECORDS SUMMARY | 2024-02-24 13:12 | XMS_ITS | Data Portability ---
Author Organization [place] [facility] Valentine [address] Address [address] [place] [address] Care Team Providers Care Outdoor Studies Professor Name Role Phone PRATIBHA MERAZ Primary Care Provider Assessment Encounter Date Assessment Date Assessment LastModified by Organization Details LastModified Time 07/08/2022 07/08/2022 This is a pleasant 72-year-old male following up on his right knee replacement for which she is doing well. He will continue his stretching exercise regimen. I would like to see him back in 3 months time for repeat clinical exam. He understands will take antibiotic prophylaxis. Regarding his left knee he opted for cortisone injection at today's visit. After verbal consent was obtained. The procedure was carried out the left knee. The patient tolerated the procedure well. Aftercare instructions were discussed in detail. Indirect care and treatment in conjunction with Dr. Schilling Additional treatment plan discussed with the patient in detail included the following; - Provider focused nonsteroidal anti-inflammator y regimen (discussed were the pros, cons, benefits and risks as well as any black box warnings) in patients over 60 years old they should be very cautious in taking these medications due to potential decreased kidney function and or elevated blood pressure. - Analgesic pain medication for pain suppression (discussed were the pros, cons, benefits and risks as well as any black box warnings) - The use of topical pain relieving medication were discussed - The use of ice to decrease inflammation and pain - The use of assistive ambulatory devices for ambulation and fall prevention - Formal specific guided physical therapy program I reviewed my findings at length with the patient today. ??We discussed the nature and etiology of this problem along with current treatment options. We discussed the expected course and outcomes and what to expect. We also discussed risks and benefits. ?? All of their questions were answered today, and there was exhibited understanding and comprehension of all that was discussed. Time Spent: 10 minutes were spent reviewing previous imaging and charting. ??10 minutes were spent obtaining patient history. ??5 minutes were spent on physical exam. ??5??minutes were spent explaining diagnosis and assessment. Today's documentation was made using voice recognition software. This note may contain grammatical errors secondary to the software. Not available 07/10/2022 07:57:40 07/16/2022 07/16/2022 Randy is status post right total knee replacement by Dr. Ley on 05/07/2022. He felt a tearing sensation under his skin and has had an area bloody discharge. He does have swelling in his leg with mild redness. He does continue on daily aspirin. The skin around the drainage point was cleaned with alcohol. After the alcohol dried, a culture was obtained. Call despite a Steri-Strip and bandage, he did have ongoing slow bleeding. He will continue with his aspirin. He will follow-up with Dr. Schilling tomorrow for recheck. All questions answered to his satisfaction. [email or web address] Not available 07/16/2022 13:44:10 07/17/2022 07/17/2022 Assessment & Plan Status post right total knee replacement by Dr. Ley on 05/07/2022. He felt a tearing sensation under his skin and has had an area bloody discharge. He does have swelling in his leg with mild redness. He does continue on daily aspirin. Seen in our orthopedic urgent care 07/16/2022 with cultures pending. This is likely due to a suture abscess with small seroma. Suture tail was erupted this is then removed without complication. Silver nitrate was applied for chemical cautery with satisfactory hemostasis. Dry sterile bandage was applied. Aspiration with Synovasure was carried out by Dr. Schilling which was sent off for analysis. Patient will have a follow-up appointment accordingly if surgical intervention is required he will be seen by Dr. Schilling. Should the patient occur any signs of fevers, chills, flulike symptoms or warmth overlying the right knee joint he should contact our office immediately. Patient agrees with the above-noted plan he was discharged in stable condition. Indirect care and treatment in conjunction with Dr. Schilling Additional treatment plan discussed with the patient in detail included the following; - Provider focused nonsteroidal anti-inflammator y regimen (discussed were the pros, cons, benefits and risks as well as any black box warnings) in patients over 60 years old they should be very cautious in taking these medications due to potential decreased kidney function and or elevated blood pressure. - Analgesic pain medication for pain suppression (discussed were the pros, cons, benefits and risks as well as any black box warnings) - The use of topical pain relieving medication were discussed - The use of ice to decrease inflammation and pain - The use of assistive ambulatory devices for ambulation and fall prevention - Formal specific guided physical therapy program I reviewed my findings at length with the patient today. ??We discussed the nature and etiology of this problem along with current treatment options. We discussed the expected course and outcomes and what to expect. We also discussed risks and benefits. ?? All of their questions were answered today, and there was exhibited understanding and comprehension of all that was discussed. Time Spent: 10 minutes were spent reviewing previous imaging and charting. ??10 minutes were spent obtaining patient history. ??5 minutes were spent on physical exam. ??5??minutes were spent explaining diagnosis and assessment. Today's documentation was made using voice recognition software. This note may contain grammatical errors secondary to the software. Not available 07/21/2022 06:35:08 07/22/2022 07/22/2022 Status post right total knee replacement by Dr. Ley on 05/07/2022. Patient with notable improvement regarding his suture abscess. His Synovasure came back negative. He has notable improvement regarding his range of motion since his aspiration on 07/17/2022. He will continue with his physical therapy as well as his home exercise program. I would like to see him back in 2 weeks for wound check reevaluation. Should he have return or worsening of symptoms he should contact my office immediately. The patient agrees with the above-noted plan. Indirect care and treatment in conjunction with Dr. Schilling Additional treatment plan discussed with the patient in detail included the following; - Provider focused nonsteroidal anti-inflammator y regimen (discussed were the pros, cons, benefits and risks as well as any black box warnings) in patients over 60 years old they should be very cautious in taking these medications due to potential decreased kidney function and or elevated blood pressure. - Analgesic pain medication for pain suppression (discussed were the pros, cons, benefits and risks as well as any black box warnings) - The use of topical pain relieving medication were discussed - The use of ice to decrease inflammation and pain - The use of assistive ambulatory devices for ambulation and fall prevention - Formal specific guided physical therapy program I reviewed my findings at length with the patient today. ??We discussed the nature and etiology of this problem along with current treatment options. We discussed the expected course and outcomes and what to expect. We also discussed risks and benefits. ?? All of their questions were answered today, and there was exhibited understanding and comprehension of all that was discussed. Time Spent: 10 minutes were spent reviewing previous imaging and charting. ??10 minutes were spent obtaining patient history. ??5 minutes were spent on physical exam. ??5??minutes were spent explaining diagnosis and assessment. Today's documentation was made using voice recognition software. This note may contain grammatical errors secondary to the software. Not available 07/23/2022 07:30:39 08/05/2022 08/05/2022 Status post right total knee replacement by Dr. Ley on 05/07/2022. Has been followed for suture abscess. He returns with complete resolution. He has a well-healed surgical scar he can resume his full physical therapy regimen. We will see him back in 3 months for repeat exam should he have any questions or concerns he should contact my office. The patient agrees with the above-noted plan. Indirect care and treatment in conjunction with Dr. Schilling Additional treatment plan discussed with the patient in detail included the following; - Provider focused nonsteroidal anti-inflammator y regimen (discussed were the pros, cons, benefits and risks as well as any black box warnings) in patients over 60 years old they should be very cautious in taking these medications due to potential decreased kidney function and or elevated blood pressure. - Analgesic pain medication for pain suppression (discussed were the pros, cons, benefits and risks as well as any black box warnings) - The use of topical pain relieving medication were discussed - The use of ice to decrease inflammation and pain - The use of assistive ambulatory devices for ambulation and fall prevention - Formal specific guided physical therapy program I reviewed my findings at length with the patient today. ??We discussed the nature and etiology of this problem along with current treatment options. We discussed the expected course and outcomes and what to expect. We also discussed risks and benefits. ?? All of their questions were answered today, and there was exhibited understanding and comprehension of all that was discussed. Time Spent: 10 minutes were spent reviewing previous imaging and charting. ??10 minutes were spent obtaining patient history. ??5 minutes were spent on physical exam. ??5??minutes were spent explaining diagnosis and assessment. Today's documentation was made using voice recognition software. This note may contain grammatical errors secondary to the software. Not available 08/07/2022 07:39:15 Plan of Treatment Reminders Order Date Submit Date Provider Last Modified By Organization Details Last Modified Time Details Appointments None recorded. Lab culture, wound 2022 023 LUC Not available 07:55:24 Referral None recorded. Procedures None recorded. Surgeries None recorded. Imaging None recorded. Medication Orders Kenalog 40 mg/mL suspension for injection [address]/[id number], [address] [place], [address], 3 07:59:15 lidocaine (PF) 10 mg/mL (1 %) injection solution [id number], [address] [place], [address], 3 07:59:15 Patient TargetsNo targets recorded. Patient Instructions Encounter Date Encounter Id Patient Instructions Last Modified By Organization Details Last Modified Time 07/08/2022 [id number] You have been provided with a cortisone injection in order to reduce the pain and inflammation that you are experiencing. The injection consists of two medications. Cortisone (an anti-inflammatory that will take 48-72 hours to take effect) and Lidocaine (a numbing agent that will last 2-3 hours). Please note that not everyone will have a lasting response following the injection. PATIENT INSTRUCTIONS Once the Lidocaine wears off, you may have an increase in your pain. I recommend icing the affected area for 20 minutes 3-4 times per day. It is recommended that you refrain from any high level activities using the joint or limb that was injected for approximately 24-48 hours. Normal day-to-day activities are generally not a problem. POSSIBLE SIDE EFFECTS Individuals with dark complexions may experience some skin discoloration locally at the site of the injection. There is the possibility of an increase in discomfort within 48 hours following the injection. This is called a ? flare? . To help minimize the chances of this, please see the post-injection instructions above. There is a less than 1% chance of an infection. If you notice any signs of infection (redness, warmth, drainage, fever greater than 100 degrees) please call our office or contact us through the portal DANDRE. Not available 07/10/2022 07:57:44 Reason for Referral None Reported. Results Created Date Observation Date Name Description Value Unit Range Abnormal Flag Note LastModifiedBy Organization Detail LastModifiedTime Result Notes None recorded. Problems Name Problem SNOMED Code Status Onset Date Resolution Date Notes Provider Name and Address Organization Details Recorded Time Pain of right calf 8140637233999 103 Active 2022 JAKE PEARSON PA-C [address], [place], [address], [place] [facility] 3 13:30:23 Postoperati ve pain 377809501 Active 2022 JAKE PEARSON PA-C [address], [place], [address], [place] [facility] 3 16:05:43 Acute postoperati ve pain 4505991946567 05 Active 2022 JAKE PEARSON PA-C [address], [place], [address], [place] [facility] 3 16:10:11 Osteoarthri tis of left knee joint 6237666438454 09 Active 2022 JAKE PEARSON PA-C [address], [place], [address], [place] [facility] 3 07:58:19 Abscess of skin and/or subcutaneou s tissue 94450955 Active 2022 JAKE PEARSON PA-C [address], [place], [address], [facility] 3 06:35:15 Effusion of joint of right knee 4551035554086 04 Active 2022 JAKE PEARSON PA-C [address], [place], [address], [facility] 3 06:35:29 Problem Notes None recorded. Procedures Surgical History Date Name Laterality Status Provider Name and Address Organization Details Recorded Time 07/18/19 23 Knee Joint/Bursa Asp & Inj completed JAKE PEARSON PA-C [address], [place], [address], [facility] 07/21/2022 06:31:55 07/09/19 23 Knee Joint/Bursa Asp & Inj completed JAKE PEARSON PA-C [address], [place], [address], [facility] 07/10/2022 07:56:35 transplant of kidney completed [facility] 05/21/2022 12:53:39 operation on prostate completed [facility] 05/21/2022 12:53:55 coronary artery bypass graft completed [facility] 05/21/2022 12:54:04 Total knee arthroplasty [facility], 05/21/2022 12:54:13 Imaging Results None recorded. Procedure Notes None recorded. Medical Equipment None Reported. Allergies No known drug allergies Medications Name Sig Start Date Stop Date Status Note LastModified by Organization Details LastModified Time amoxicillin 500 mg capsule TAKE ONE CAPSULE BY MOUTH THREE TIMES DAILY active Not Available Not Available Not Available alendronate 70 mg tablet active Not Available Not Available Not Available allopurinol 100 mg tablet active Not Available Not Available Not Available amoxicillin 500 mg tablet Take 4 tablets 1 hour prior to dental appointment active Not Available Not Available Not Available Kenalog 40 mg/mL suspension for injection Take 1 mL by injection route. 2022 active Not Available Not Available Not Avai lable methocarbamo l 750 mg tablet Take 1 tablet 3 times a day by oral route. active Not Available Not Available No t Available nifedipine ER 60 mg tablet,exten ded release 24 hr active Not Available Not Available Not Available docusate sodium 100 mg capsule TAKE 1 CAPSULE BY MOUTH EVERY DAY active Not Available Not Available No t Available omeprazole 20 mg capsule,bereket yed release active Not Available Not Available Not Available lorazepam 1 mg tablet TAKE 1 TABLET BY MOUTH EVERY DAY AT BEDTIME NEEDED ANXIETY active Not Available Not Available No t Available losartan 100 mg tablet active Not Available Not Available No t Available doxazosin 2 mg tablet TAKE 1 TABLET BY MOUTH EVERY NIGHT. active Not Available Not Available No t Available oxycodone 5 mg tablet Take 1-2 tabs p.o. every 4 to 6 hours as needed for pain. May fill for lesser quantity. active Not Available Not Available No t Available Adult Low Dose Aspirin 81 mg tablet,delay ed release Take 1 tablet twice a day by oral route for 30 days. active Not Available Not Available No t Available rosuvastatin 20 mg tablet active Not Available Not Available Not Available lidocaine (PF) 10 mg/mL (1 %) injection solution Take 2 mL by injection route. 2022 active Not Available Not Available Not Avai lable naloxone 4 mg/actuation nasal spray ADMINISTER 1 SPRAY INTO ONE NOSTRIL. CALL 911. REPEAT AFTER 2-3 MIN IF NO OR MINIMAL RESPONSE active Not Available Not Available No t Available Vitals Date Recorded Body height Provider Name an d Address Organization Details Last Updated DateTime 07/08/[address] [place] [facility] 07/08/2022 15:20:28 Date Recorded Body height Provider Name an d Address Organization Details Last Updated DateTime 07/16/[address] [facility] 07/16/2022 11:24:57 Date Recorded Body height Provider Name an d Address Organization Details Last Updated DateTime 07/17/[address] [facility] 07/17/2022 13:09:43 Date Recorded Body height Provider Name an d Address Organization Details Last Updated DateTime 07/22/[address] [facility] 07/22/2022 11:41:07 Date Recorded Body height Provider Name an d Address Organization Details Last Updated DateTime 08/05/[address] [facility] 08/05/2022 11:32:48 Social History None recorded. Functional Status None recorded. Mental Status None recorded. Family History Relationship Description Onset Age of this Age Resolved Age Notes LastModified by Organization Details LastModified Time Brother Heart disease [email or web address] Not available 2022 12:53:26 Father Heart disease [email or web address] Not available 2022 12:53:26 Mother Heart disease [email or web address] Not available 2022 12:53:26 Medical History Condition Response Gout Y Heart Disease Y Cancer Y Hypertension Y Kidney Disease Y Past Encounters Encounter ID Performer Location Encounter Start Date Encounter Closed Date Diagnosis/Indication Diagnosis SNOMED-CT Code Diagnosis ICD10 Code [id number] [address] [facility] [address] [facility] [address] [place] [address] 05/21/2022 12:47:49 05/21/2022 13:31:03 History of right total knee replacement 0001362093 002535 Z96.651 Postoperative pain 99583 9007 G89.18 Pain of right calf 39801 11106 837585 M79.661 [id number] MD RYLAN Cochranjuni claudio [address] [place] [address] 07/08/2022 15:09:11 07/08/2022 16:00:05 Postoperative pain 153416271 G89.18 Osteoarthr itis of left knee joint 1933121793 08821 M17.12 [id number] MD RYLAN Cochran [place] [address] [facility] [address] [place] [address] 07/16/2022 11:11:01 07/16/2022 13:26:06 History of total knee arthroplasty 2534380198 105 Z96.651 Postoperative care 77005 9007 Z48.89 [id number] [facility] [address] [facility] [address] [place] [address] 07/17/2022 13:06:16 07/17/2022 13:54:06 Acute postoperative pain 3812177984 34484 G89.18 Abscess of skin and/or subcutaneous tissue 69144284 L02.91 Effusion o f joint of right knee 5112602314 50954 M25.461 [id number] [facility] [address] [facility] [address] [place] [address] 07/22/2022 11:35:32 07/22/2022 11:53:12 Follow-up visit [id number] Z09 [id number] [facility] [address] [facility] [address] [place] [address] 08/05/2022 11:29:31 08/05/2022 11:38:15 Postoperative visit 906762610 Z09 Health Concerns Section Related Observation LastModified by Organization Detai ls LastModified Time None Recorded Concern Status LastModified by Organization Details LastModified Time None Recorded Advance Directives Directive None Recorded Payers Encounter Date Sequence Insurance Name Policy Number Policy Motta Covered Member ID Motta Member ID Guarantor Name 07/08/2022 1 [place] [employer] Randy Pena Eyal [id number] Randy Pena Eyal 07/08/2022 2 [place] [id number] K Randy Jean Eyal [id number] Randy Pena Eyal 07/16/2022 2 [place] [id number] K Randy Jean Eyal [id number] Randy Pena Eyal 07/16/2022 1 [place] Randy Pena Eyal [id number] Randy Pena Eyal 07/17/2022 1 [place] Randy Jean Eyal [id number] Randy Pena Eyal 07/17/2022 2 [place] [id number] K Randy Jean Eyal [id number] Randy Pena Eyal 07/22/2022 1 [place] Randy Jean Eyal [id number] Randy Pena Eyal 07/22/2022 2 [place] [id number] K Randy Birch [id number] Randy Birch 08/05/2022 1 [place] Randy Birch [id number] Randy Birch 08/05/2022 2 [place] [id number] K Randy Birch [id number] Randy Birch Notes Date Note Type Note Provider Name and Address Organization Details Recorded Time 07/08/2022 text/html This is a pleasa nt 72-year-old male here for follow-up on his right total knee arthroplasty was performed by Dr. Ley on 05/07/2022. He states that he tends to do his stretching exercises as much as possible. He does feel stiff when he does not perform these. He is doing physical therapy once per week approximately 3 days ago he had an area of his incision that appeared to be scabbed over however there is no oozing at this point. He also complains of left knee pain for which she compensates for his right operative knee. He does have arthritis in the left knee is inquiring about a cortisone injection at today's visit. Denies fevers chills flulike symptoms JAKE PEARSON PA-C [address] [place] [address], [address], [place] [facility] 07/10/2022 07:59:18 07/16/2022 text/html Patient is a ple asant 72-year-old male who presents today for follow-up of right total knee replacement. Procedure was performed by Dr. Correa on 05/07/2022. Overall the patient been doing well. He was seen on 07/08/2022 by Jake Pearson PA-C. He was noted to have a small scab over the inner aspect of his knee which was very small with no drainage. He had noted some swelling in the area, and only mild discomfort. Unfortunate since that visit, the scab came off and he has had ongoing drainage from his knee. He admits he felt some type of a tearing sensation under his skin. He states that it is more bloody without any white or apparent purulent drainage. Unfortunately he is soaking through bandage quickly. He presents today for evaluation. No fever or chills. No focal calf pain. He does feel his leg has swollen to some degree. WAYNE COVARRUBIAS PA-C [address], [place], [address], [place] [facility] 07/16/2022 13:45:14 07/17/2022 text/html Assessment & Sangita n: Patient seen by Wayne Covarrubias PA-C on 07/16/2022 urgent care Randy is status post right total knee replacement by Dr. Ley on 05/07/2022. He felt a tearing sensation under his skin and has had an area bloody discharge. He does have swelling in his leg with mild redness. He does continue on daily aspirin.The skin around the drainage point was cleaned with alcohol. After the alcohol dried, a culture was obtained. Call despite a Steri-Strip and bandage, he did have ongoing slow bleeding.He will continue with his aspirin. He will follow-up with Dr. Schilling tomorrow for recheck. All questions answered to his satisfaction.postopera tive carehistory of total knee arthroplastyCheck culture, wound HPI: Patient notes decrease in bloody discharge from his right total knee arthroplasty here for reevaluation Labs pending. Patient denies fevers, chills, flulike symptoms denies any warmth overlying the knee operative right knee joint. Denies calf pain. States some swelling JAKE PEARSON PA-C 299 [facility] [address], [place], [phone], [place] - [facility] 07/21/2022 06:36:13 07/22/2022 text/html Assessment & Sangita n: Date of visit 07/17/2022Status post right total knee replacement by Dr. Ley on 05/07/2022. He felt a tearing sensation under his skin and has had an area bloody discharge. He does have swelling in his leg with mild redness. He does continue on daily aspirin. Seen in our orthopedic urgent care 07/16/2022 with cultures pending. This is likely due to a suture abscess with small seroma. Suture tail was erupted this is then removed without complication. Silver nitrate was applied for chemical cautery with satisfactory hemostasis. Dry sterile bandage was applied. Aspiration with Synovasure was carried out by Dr. Schilling which was sent off for analysis. Patient will have a follow-up appointment accordingly if surgical intervention is required he will be seen by Dr. Schilling. Should the patient occur any signs of fevers, chills, flulike symptoms or warmth overlying the right knee joint he should contact our office immediately. Patient agrees with the above-noted plan he was discharged in stable condition. HPI: 72-year-old male seen on 07/17/2022 with suture abscess of right total knee replacement with wound care at that time. He also had a Synovasure aspiration by Dr. Schilling which came back negative. He is here for follow-up. Patient states notable improvement with only occasional very scant drainage noted on small Band-Aid. Region of suture abscess on the distal third of the incision. He states notable improvement regarding swelling. Denies fevers, chills, flulike symptoms or warmth overlying the right knee.. JAKE PEARSON PA-C [address], [phone], [place] - [facility] 07/23/2022 07:33:21 08/05/2022 text/html Status post righ t total knee replacement by Dr. Ley on 05/07/2022. Patient has been followed for suture abscess here for follow-up. Patient states he is completely healed he is doing well. JAKE PEARSON PA-C 299 [facility],[place] [address], [place], [phone], [place] - [facility] 08/07/2022 07:41:00
== END 2024-02-24 13:04 | disposition home or self-care (01) ==
PROVIDERS: PCP Internal Medicine; Visit Provider Internal Medicine Nephrology
DX: I10 Essential (primary) hypertension (principal); Z94.0 Kidney transplant status; R60.9 Edema, unspecified
CPT/HCPCS: 99214

== ENCOUNTER → 2024-02-24 12:02 | Outpatient (BNVA) | payer MEDICARE, BC, SELFPAY | PROVIDERS: PCP Internal Medicine; Visit Provider Internal Medicine Nephrology | DX: I10 Essential (primary) hypertension (principal); R60.9 Edema, unspecified; Z94.0 Kidney transplant status | CPT/HCPCS: 99212 ==

== ENCOUNTER 2024-04-11 11:22 | Outpatient (AMB) | payer MEDICARE, BC, SELFPAY ==
--- NOTE | 2024-04-11 11:36 | HO.NEPHOV ---
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 His BP medications have been adjusted recently. He monitors his BP closely. 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 His serum creatinine has been stable around 0.9. He has been having edema from Nifedipine. He had peripheral arterial symptoms and had seen vascular surgeon. He thinks he likely will need stenting of his arteries on the left lower extremity. He continues to have left upper extremity AV fistula. He applies sunscreen when he goes out and maintains good hydration. He does not take any nonsteroidal anti-inflammatories and is compliant with his medications. His appetite is good. He does not have any chest pain, shortness of breath, paroxysmal nocturnal dyspnea, orthopnea, urinary symptoms. He was accompanied by his Siomara during this office visit. He feels well. [facility] Medical History FHx: total knee replacement (~06/2022) Osteoarthritis Hyperlipidemia Hypertension History of congestive heart failure Gout GERD (gastroesophageal reflux disease) Surgical History Prostate cancer (~2011) History of heart bypass surgery (~2010) Social History Patient Tobacco Use Status: Former Tobacco user Current occupational status: retired Review of Systems Const All systems reviewed & are unremarkable except as noted in HPI and below Physical Exam Vital Signs: Last Vital Signs Pulse 57 04/11/24 11:37 BP 162/70 H 04/11/24 11:37 Pulse Ox 96 04/11/24 11:37 Oxygen Delivery Method Room Air 04/11/24 11:37 BMI result Body Mass Index 28.7 Const General: comfortable and no acute distress Orientation/consciousness: patient oriented x3 HEENT Head: Yes normocephalic Mouth: Normal oral and palatal mucosa present Eyes EOM: EOMs intact bilaterally Neck Neck: Yes supple Resp Auscultation: clear to auscultation bilaterally Cardio Jugular venous distension: no JVD Rate: regular rate GI Palpation (GI): Soft to palpation Auscultation: normal bowel sounds General: Yes no CVA tenderness Back/Spine/Pelvis Back: no CVA tenderness Skin General skin exam: no rashes or lesions noted Neuro General: patient oriented x3 and moves all extremities Results Reviewed Nephrology Results: No Data to Display Assessment & Plan Assessment & Plan (1) Renal transplant recipient: Code(s): Z94.0 - Kidney transplant status Category: Surgical (2) Hypertension: Code(s): I10 - Essential (primary) hypertension Category: Medical Qualifiers: Hypertension type: primary hypertension Qualified Code(s): I10 - Essential (primary) hypertension Plan Randy had ESRD from hypertension and received a donor renal transplant in 2017. His serum creatinine is at baseline of 0.9. He has no history of rejection. His blood pressure is at goal. His hemoglobin A1c is good. His lipid profile is at goal. He clearly needs to lose weight. He has no side effects from calcineurin inhibitor. He is compliant with his medications. He applies sunscreen when he goes out and follows up with a brush holder assembler once a year. He has a follow-up with vascular surgery for his peripheral arterial disease. He is going to discuss with vascular surgeon regarding his left upper extremity AV fistula which can be either reduced in size or tied off. He has no clinical signs of heart failure. I started him on lasix 20 mg daily. His tacrolimus dose has been adjusted recently. I increased his Doxazosin to 4 mg daily. All his and his 's questions were answered. Follow-up appointment given Orders: Orders Complete Blood Count Auto Diff 2 Months I10 - Essential (primary) hypertension, Z94.0 - Kidney transplant status Creatinine 2 Months I10 - Essential (primary) hypertension, Z94.0 - Kidney transplant status Blood Urea Nitrogen 2 Months I10 - Essential (primary) hypertension, Z94.0 - Kidney transplant status Electrolytes 2 Months I10 - Essential (primary) hypertension, Z94.0 - Kidney transplant status Protein Creatinine Ratio, Ur 2 Months I10 - Essential (primary) hypertension, Z94.0 - Kidney transplant status Tacrolimus Prograf 2 Months I10 - Essential (primary) hypertension, Z94.0 - Kidney transplant status Coding Level of Care Code Est Pt Level 4 (73449) Diagnoses Renal transplant recipient Z94.0 Primary hypertension I10 Hypertension type: primary hypertension
[2024-04-11 11:37] VITALS: BP 162/70; PULSE 57; O2SAT 96; BMI 28.7
--- OUTSIDE RECORDS SUMMARY | 2024-04-11 12:37 | XMS_ITS | Clinical Summary ---
Author Organization [facility] Address [address] [place] [address] Care Team Providers Care Wardrobe Attendant Name Role Phone Maria D Mccray MD Primary Care Provider [phone] Social History Tobacco Use Types Packs/Day Years Used Date Smoking Tobacco: Never Assessed Sex and Gender Information Value Date Recorded Sex Assigned at Not on file Gender Identity Not on file Sexual Orientation Not on file Plan of Treatment Health Maintenance Due Date Last Done Comments Hepatitis C Virus Screening 1950 DTaP/Tdap/Td Vaccines (1 - Tdap) 01/06/1968 Colonoscopy 1994 Pneumococcal Vaccines 50+ (1 of 1 - PCV) 1999 Zoster (Shingles) Vaccine (1 of 2) 1999 Influenza Vaccine 09/23/2023 12/12/2020, 10/29/2019, 11/20/2013 COVID-19 Vaccine ( - 2023-2 5 season) 2023 RSV Vaccine 60 years and older and Patients (1 - 1-dose 75+ series) 01/06/2024 Hepatitis B Vaccines Aged Out No long er eligible based on patient's age to complete this topic Care Teams Wardrobe Attendant Relationship Specialty Start Date End Date Maria D Mccray MD [address] [place] [address] PCP - General 03/19/22
--- OUTSIDE RECORDS SUMMARY | 2024-04-11 12:38 | XMS_ITS | Encounter Summary ---
Author Organization [facility] Address [address] [place] [address] Care Team Providers Care Front Attendant Name Role Phone Maria D Mccray MD Primary Care Provider Encounter Details Date Type Department Care Team (Late st Contact Info) Description 01/19/[address] [facility] - Main Lab [address] [place] [phone] Keri Cuevas MD [address] [place] [id number] Encounter for other general examination Social History Tobacco Use Types Packs/Day Years Used Date Smoking Tobacco: Former Cigarettes Smokeless Tobacco: Never Alcohol Use Standard Drinks/Week Comments Yes 0 (1 standard drink = 0.6 oz pur e alcohol) Sex and Gender Information Value Date Recorded Sex Assigned at Not on file Legal Sex Male 4:23 AM EST Gender Identity Not on file Sexual Orientation Not on file documented as of this encounter Plan of Treatment Upcoming Encounters Date Type Department Care Team (Late st Contact Info) Description 07/12/2024 10:45 AM EDT Office Visit Internal Medicine - [place] [address] [facility] [address] [place] [phone] Amado [facility] NP [address] [facility] [address] [place] [address] documented as of this encounter Procedures Procedure Name Priority Date/Time Associated Diagnosis Comments MYCOPHENOLIC ACID Routine 01/19/2024 7:1 7 AM EST Encounter for other general examination TACROLIMUS LEVEL Routine 01/19/2024 7:17 AM EST Encounter for other general examination COMPLETE BLOOD COUNT Routine 01/19/2024 7:17 AM EST Encounter for other general examination COMPREHENSIVE METABOLIC PANEL Routine 01/19/2024 7:17 AM EST Encounter for other general examination documented in this encounter Results * (ABNORMAL) Mycophenolic acid and metabolite (01/19/2024 7:17 AM EST) [facility] Mycophenolic Acid 1.1 1.0 - 3.5 ug/mL 01/25/2024 7:36 AM EST [facility] Mycophenolic Acid Glucuronide 13(L) 35 - 100 ug/mL 01/25/2024 7:36 AM EST [facility] Comment: ?Combined Therapy with ??Trough Level (ug/mL) Mycophenolic Acid ?Cyclosporine ? 1.0 - 3.5 ? Tacrolimus ? 1.9 - 4.0 Toxic Level ? >25 ng/mL Mycophenolic Acid Glucuronide ? 35 - 100 Toxic level ?Not established Mycophenolic acid and mycophenolic acid glucuronide determined by a LC-MS/MS procedure. If applicable, any drug confirmation testing reported here was developed and the performance characteristics determined by [facility]. This confirmation testing has not been cleared or approved by the FDA. The laboratory is regulated under CLIA as qualified to perform high-complexity testing. This test is used for patient testing purposes. It should not be regarded as investigational or for research. Test performed at [facility], [address], [place], [place] ??[address] ? [phone] Cassie Aguiar MD, PhD - Mussel [employer]er Blood Venous blood specimen / Unknown Venipuncture / Unknown 01/19/2024 7:17 AM EST 01/19/2024 10:47 AM EST us Keri Cuevas MD LAB BLOOD ORDERABLES Final Res ult [facility] [address] [place] [address] * Tacrolimus level (01/19/2024 7:17 AM EST) Tacrolimus Level 5.9 5.0 - 20.0 ng/mL 01/24/2024 12:27 PM EST [facility] Comment: Additional Information: Toxic Level ?> 26 ng/mL Organ ?Post Transp. (months) ?Trough Level (ng/mL) Kidney ? Up to 3 ?7.0 - 20.0 ? >3 ? 5.0 - 15.0 Heart ?Up to 3 ?10.0 - 20.0 ? >3 ? 5.0 - 15.0 Liver ?Up to 12 ? 5.0 - 20.0 Tacrolimus determined by a LC-MS/MS procedure. If applicable, any drug confirmation testing reported here was developed and the performance characteristics determined by [facility]. This confirmation testing has not been cleared or approved by the FDA. The laboratory is regulated under CLIA as qualified to perform high-complexity testing. This test is used for patient testing purposes. It should not be regarded as investigational or for research. Test performed at [facility], [address] , [place], [place] ??[address] ? [phone] Cassie Aguiar MD, PhD - Mussel Opener Blood Venous blood specimen / Unknown Venipuncture / Unknown 01/19/2024 7:17 AM EST 01/19/2024 10:47 AM EST us Krei Cuevas MD LAB BLOOD ORDERABLES Final Res ult [facility] [address] [place] [address] * (ABNORMAL) Complete blood count (01/19/2024 7:17 AM EST) WBC 3.4(L) 4.8 - 10.8 K/mcL LAB HEMETOLOGY METHOD 01/19/2024 2:45 PM [facility] RBC 4.70 4.50 - 5.50 M/[facility] LAB HEMETOLOGY METHOD 01/19/2024 2:45 PM [facility] Hemoglobin 13.4(L) 13.5 - 17.5 g/dL LAB HEMETOLOGY METHOD 01/19/2024 2:45 PM [facility] Hematocrit 41.3(L) 42.0 - 54.0 % LAB HEMETOLOGY METHOD 01/19/2024 2:45 PM [facility] MCV 88.4 79.0 - 98.0 FL LAB HEMETOLOGY METHOD 01/19/2024 2:45 PM [facility] MCH 28.7 27.0 - 32.0 pcg LAB HEMETOLOGY METHOD 01/19/2024 2:45 PM [facility] MCHC 32.4 32.0 - 37.0 g/dL LAB HEMETOLOGY METHOD 01/19/2024 2:45 PM EST [facility] RDW 13.6 11.0 - 15.0 % LAB HEMETOLOGY METHOD 01/19/2024 2:45 PM [facility] Platelets 150 130 - 400 K/mcL LAB HEMETOLOGY METHOD 01/19/2024 2:45 PM EST [facility] MPV 11.6(H) 7.0 - 11.0 FL LAB HEMETOLOGY METHOD 01/19/2024 2:45 PM EST [facility] NRBC 0.0 <1.0 % LAB HEMETOLOGY METHOD 01/19/2024 2:45 PM EST [facility] NRBC Absolute 0.00 <0.10 K/mcL LAB HEMETOLOGY METHOD 01/19/2024 2:45 PM EST [facility] Blood Venous blood specimen / Unknown Venipuncture / Unknown 01/19/2024 7:17 AM EST 01/19/2024 10:47 AM EST us Keri Cuevas MD LAB BLOOD ORDERABLES Final Res ult [facility] [address] [place] [address], * Comprehensive metabolic panel (01/19/2024 7:17 AM EST) Sodium 141 133 - 145 mmol/L LAB CHEMISTRY METHOD 01/19/2024 1:42 PM EST [facility] Potassium 3.7 3.5 - 5.5 mmol/L LAB CHEMISTRY METHOD 01/19/2024 1:42 PM [facility] Chloride 110 96 - 110 mmol/L LAB CHEMISTRY METHOD 01/19/2024 1:42 PM EST [facility] CO2 22 21 - 32 mmol/L LAB CHEMISTRY METHOD 01/19/2024 1:42 PM [facility] Anion Gap 9 3 - 11 LAB CHEMISTRY METHOD 01/19/2024 1:42 PM [facility] Glucose 77 70 - 100 mg/dL LAB CHEMISTRY METHOD 01/19/2024 1:42 PM [facility] BUN 13 5 - 25 mg/dL LAB CHEMISTRY METHOD 01/19/2024 1:42 PM [facility] Creatinine 0.82 0.70 - 1.30 mg/dL LAB CHEMISTRY METHOD 01/19/2024 1:42 PM [facility] eGFR 92 >=60 mL/min/1. 73m2 LAB CHEMISTRY METHOD 01/19/2024 1:42 PM [facility] Comment:Calculation based on the??Chronic Kidney Disease Epidemiology Collaboration (CKD-EPI) equation refit??without adjustment for race. BUN/Creatinine Ratio 15.9 LAB CHEMISTRY METHOD 01/19/2024 1:42 PM [facility] Calcium 9.1 8.5 - 10.5 mg/dL LAB CHEMISTRY METHOD 01/19/2024 1:42 PM [facility] AST (SGOT) 30 10 - 42 unit/L LAB CHEMISTRY METHOD 01/19/2024 1:42 PM [facility] ALT (SGPT) 29 10 - 60 unit/L LAB CHEMISTRY METHOD 01/19/2024 1:42 PM [facility] Alkaline Phosphatase 59 42 - 121 unit/L LAB CHEMISTRY METHOD 01/19/2024 1:42 PM [facility] Total Protein 6.1 6.0 - 8.0 g/dL LAB CHEMISTRY METHOD 01/19/2024 1:42 PM [facility] Albumin 3.8 3.2 - 5.0 g/dL LAB CHEMISTRY METHOD 01/19/2024 1:42 PM [facility] Total Bilirubin 1.2 0.0 - 1.4 mg/dL LAB CHEMISTRY METHOD 01/19/2024 1:42 PM EST [facility] Blood Venous blood specimen / Unknown Venipuncture / Unknown 01/19/2024 7:17 AM EST 01/19/2024 10:47 AM EST us Keri Cuevas MD LAB BLOOD ORDERABLES Final Res ult [facility] [address] [place] [address], documented in this encounter Visit Diagnoses Diagnosis Encounter for other general examination documented in this encounter Additional Health Concerns Assessment Noted Time PHQ-9 Depression Total Score: 0 01/10/20 24 2:13 PM EST A fall risk assessment has been complete d for the patient 01/10/2024 2:13 PM EST documented as of this encounter Care Teams Front Attendant Relationship Specialty Start Date End Date Maria D Mccray MD [address] [place] [phone] PCP - General Internal Medicine 02/01/12 documented as of this encounter
--- OUTSIDE RECORDS SUMMARY | 2024-04-11 12:38 | XMS_ITS | Data Portability ---
Author Organization [place] [facility] Brad Valentine AONE Larsen Address [address] [place] [address] Care Team Providers Care Restaurant Lead Name Role Phone PRATIBHA MERAZ Primary Care [...] findings at length with the patient today. ? ? ?We discussed the nature and etiology of this problem along with current treatment options. We discussed the expected course and outcomes and what to expect. We also discussed risks and benefits. ? ? ? All of their questions were answered today, and there was exhibited understanding and comprehension of all that was discussed. Time Spent: 10 minutes were spent reviewing previous imaging and charting. ? ? ?10 minutes were spent obtaining patient history. ? ? ?5 minutes were spent on physical exam. ? ? ?5? ? ?minutes were spent explaining diagnosis and assessment. Today's [...] recheck. All questions answered to his satisfaction. Not available 07/16/2022 13:44:10 07/17/2022 07/17/2022 Assessment [...] findings at length with the patient today. ? ? ?We discussed the nature and etiology of this problem along with current treatment options. We discussed the expected course and outcomes and what to expect. We also discussed risks and benefits. ? ? ? All of their questions were answered today, and there was exhibited understanding and comprehension of all that was discussed. Time Spent: 10 minutes were spent reviewing previous imaging and charting. ? ? ?10 minutes were spent obtaining patient history. ? ? ?5 minutes were spent on physical exam. ? ? ?5? ? ?minutes were spent explaining diagnosis and assessment. Today's [...] findings at length with the patient today. ? ? ?We discussed the nature and etiology of this problem along with current treatment options. We discussed the expected course and outcomes and what to expect. We also discussed risks and benefits. ? ? ? All of their questions were answered today, and there was exhibited understanding and comprehension of all that was discussed. Time Spent: 10 minutes were spent reviewing previous imaging and charting. ? ? ?10 minutes were spent obtaining patient history. ? ? ?5 minutes were spent on physical exam. ? ? ?5? ? ?minutes were spent explaining diagnosis and assessment. Today's [...] findings at length with the patient today. ? ? ?We discussed the nature and etiology of this problem along with current treatment options. We discussed the expected course and outcomes and what to expect. We also discussed risks and benefits. ? ? ? All of their questions were answered today, and there was exhibited understanding and comprehension of all that was discussed. Time Spent: 10 minutes were spent reviewing previous imaging and charting. ? ? ?10 minutes were spent obtaining patient history. ? ? ?5 minutes were spent on physical exam. ? ? ?5? ? ?minutes were spent explaining diagnosis and assessment. Today's [...] 40 mg/mL suspension for injection 2022 023 [id number], [address] [place], [address], 3 07:59:15 lidocaine (PF) 10 mg/mL (1 %) injection solution 2022 023 [employer] [facility] #[id number], [address] [place], [address], 3 07:59:15 Patient TargetsNo targets recorded. Patient Instructions Encounter Date Encounter Id Patient Instructions Last Modified By Organization Details Last Modified Time 07/08/2022 [id number] You have been provided with a cortisone [...] the injection. This is called a ? f lare? . To help minimize the chances of [...] Details Recorded Time Pain of right calf 6820387236474 103 Active 2022 AJKE PEARSON PA-C [address], [place], [address], [place] [facility] [place] 3 13:30:23 Postoperati ve pain 817402207 Active 2022 JAKE PEARSON PA-C [address], [place], [address], [place] [facility] [place], [facility] 3 16:05:43 Acute postoperati ve pain 4198766334369 05 Active 2022 JAKE PEARSON PA-C [address], [place], [address], [place] [facility] [place] [facility], [facility] 3 16:10:11 Osteoarthri tis of left knee joint 9367098063011 09 Active 2022 JAKE PEARSON PA-C [address], [place], [address], [place] [facility] [place], [facility] 3 07:58:19 Abscess of skin and/or subcutaneou s tissue 34052794 Active 2022 JAKE PEARSON PA-C [address], [place], [address], [place] [facility] [place] [facility], [facility] 3 06:35:15 Effusion of joint of right knee 2884978371496 04 Active 2022 JAKE PEARSON PA-C [address], [place], [address], [place] [facility], [facility] 3 06:35:29 Problem Notes None recorded. Procedures Surgical History Date Name Laterality Status Provider Name and Address Organization Details Recorded Time 07/18/19 23 Knee Joint/Bursa Asp & Inj completed JAKE PEARSON PA-C [address] [facility], [place], [address], [place] [facility], [facility] 07/21/2022 06:31:55 07/09/19 23 Knee Joint/Bursa Asp & Inj completed JAKE PEARSON PA-C [address], [place], [address], [facility] [place] [facility] 07/10/2022 07:56:35 transplant of kidney [facility] 05/21/2022 12:53:39 operation on prostate completed [facility] [place] 05/21/2022 12:53:55 coronary artery bypass graft completed [facility] [place] [facility] [place], [facility] 05/21/2022 12:54:04 Total knee arthroplasty completed [facility] [place] 05/21/2022 12:54:13 Imaging Results None recorded. Procedure [...] Updated DateTime 07/08/2022 172.72 cm [place] - [facility], [facility] 07/08/2022 15:20:28 Date Recorded Body height Provider Name an d Address Organization Details Last Updated DateTime 07/16/2022 172.72 cm [place] - [facility], [facility] 07/16/2022 11:24:57 Date Recorded Body height Provider Name an d Address Organization Details Last Updated DateTime 07/17/2022 172.72 cm Peri Figuero[place] - [facility] [place], [facility] 07/17/2022 13:09:43 Date Recorded Body height Provider Name an d Address Organization Details Last Updated DateTime 07/22/2022 [address] [place] - [facility] [place] [facility], [facility] 07/22/2022 11:41:07 Date Recorded Body height Provider Name an d Address Organization Details Last Updated DateTime 08/05/2022 172[address] [place] - [facility], [facility] 08/05/2022 11:32:48 Social History None recorded. Functional Status None recorded. Mental Status None recorded. Family History Relationship Description Onset Age of this Age Resolved Age Notes LastModified by Organization Details LastModified Time Brother Heart disease [email or web address] Not available 2022 12:53:26 Father Heart disease [email or web address] Not available 2022 12:53:26 Mother Heart disease [email or web address] Not available 2022 12:53:26 Medical History Condition Response Gout Y Cancer Y Kidney Disease Y Heart Disease Y Hypertension Y Past Encounters Encounter ID Performer Location Encounter Start Date Encounter Closed Date Diagnosis/Indication Diagnosis SNOMED-CT Code Diagnosis ICD10 Code Diagnosis Note [id number] MD RYLAN Mylesjuni [address] [address] 05/21/2022 12:47:49 05/21/2022 13:31:03 History of right total knee replacement 0603451230 356677 Z96.651 Postoperative pain 07939 9007 G89.18 Pain of right calf 21837 40600 025766 M79.661 [id number] MD RYLAN Cochranjuni [address] [address] 07/08/2022 15:09:11 07/08/2022 16:00:05 Postoperative pain 471913725 G89.18 Osteoarthr itis of left knee joint 1559352985 98744 M17.12 [id number] MD RYLAN Cochran [place] [address] [facility] [address] [place] [address] 07/16/2022 11:11:01 07/16/2022 13:26:06 History of total knee arthroplasty 7708167491 105 Z96.651 Postoperative care 59223 9007 Z48.89 [id number] MD RYLAN Cochran [place] 299 [facility] [address] [place] [address] 07/17/2022 13:06:16 07/17/2022 13:54:06 Acute postoperative pain 6221104365 63895 G89.18 Abscess of skin and/or subcutaneous tissue 93932172 L02.91 Effusion o f joint of right knee 6656617937 14401 M25.461 [id number] MD [facility]YLAN [facility] 299 [facility] [address] [place] [address] 07/22/2022 11:35:32 07/22/2022 11:53:12 Follow-up visit [id number] Z09 [id number] MD RYLAN Cochran [facility] 299 [facility] [address] [place] [address] 08/05/2022 11:29:31 08/05/2022 11:38:15 Postoperative visit 691039680 Z09 Health Concerns Section Related Observation LastModified by Organization Detai ls LastModified Time None Recorded Concern Status LastModified by Organization Details LastModified Time None Recorded Advance Directives Directive None Recorded Payers Encounter Date Sequence Insurance Name Policy Number Policy Motta Covered Member ID Motta Member ID Guarantor Name 07/08/2022 1 [place] [employer] Randy Birch [id number] Randy Jean Eyal 07/08/2022 2 [place] [id number] K Randy Birch [id number] Randy Jean Eyal 07/16/2022 2 [place] [id number] K Randy Birch [id number] Randy Birch 07/16/2022 1 MED[place]ARE [place]: [place] Randy Birch [id number] Randy Birch 07/17/2022 1 [place] [facility] Randy Birch [id number] Randy Birch 07/17/2022 2 [place] [id number] K Randy Birch [id number] Randy Birch 07/22/2022 1 [place] [employer] Randy Birch [id number] Randy Birch 07/22/2022 2 [place] [id number] K Randy Birch [id number] Randy Birch 08/05/2022 1 [place] [facility] Randy Birch [id number] Randy Birch 08/05/2022 2 [place] [id number] K Randy Birch [id number] Randy Birch Notes Date Note Type Note Provider Name and Address Organization Details Recorded Time 07/08/2022 text/html This is a theresa nt 72-year-old male here for follow-up on [...] fevers chills flulike symptoms JAKE PEARSON PA-C [address] [place] [address], [address], [place] [facility] 07/10/2022 07:59:18 07/16/2022 text/html Patient is [...] to some degree. WAYNE COVARRUBIAS PA-C [address], [place], [address], [place] [facility], [facility] 07/16/2022 13:45:14 07/17/2022 text/html Assessment & [...] States some swelling JAKE PEARSON PA-C [address] [facility],[address], [place], [address], [place] [facility], [facility] 07/21/2022 06:36:13 07/22/2022 text/html Assessment & [...] the right knee.. JAKE PEARSON PA-C [address], [place], [address], [place] [facility], [facility] 07/23/2022 07:33:21 08/05/2022 text/html Status post righ t total knee replacement by Dr. Ley on 05/07/2022. Patient has been followed for suture abscess here for follow-up. Patient states he is completely healed he is doing well. JAKE PEARSON PA-C [address], [place], [address], [place] [facility], [facility] 08/07/2022 07:41:00
--- OUTSIDE RECORDS SUMMARY | 2024-04-11 12:38 | XMS_ITS | Encounter Summary ---
[facility] Organization [facility] Address [address] [place] [address] Care Team Providers Care Message And Delivery Service Pricer Name Role Phone Maria D Mccray MD Primary Care Provider [phone] Encounter Details Date Type Department Care Team (Late st Contact Info) Description 01/14/2024 Lab Requisition [facility] - Main Lab [address] [place] [phone] Keri Cuevas MD [address] [place] [address] Encounter for other general examination Social History [...] AM EDT Office Visit Internal Medicine - [place] [address] [facility] [address] [place] [phone] Amado Morgan NP 175 [facility] [address] [place] [address] documented as of this encounter Procedures Procedure Name Priority Date/Time Associated Diagnosis Comments MYCOPHENOLIC ACID Routine 01/14/2024 5:2 3 AM EST Encounter for other general examination CBC WITH AUTO DIFFERENTIAL Routine 01/14/2024 5:23 AM EST Encounter for other general examination TACROLIMUS LEVEL Routine 01/14/2024 5:23 AM EST Encounter for other general examination CBC AND DIFFERENTIAL Routine 01/14/2024 5:23 AM EST Encounter for other general examination MAGNESIUM Routine 01/14/2024 5:23 AM EST Encounter for other general examination COMPREHENSIVE METABOLIC PANEL Routine 01/14/2024 5:23 AM EST Encounter for other general examination documented in this encounter Results * (ABNORMAL) CBC auto differential (01/14/2024 5:23 AM EST) [facility] WBC 3.0(L) 4.8 - 10.8 K/mcL LAB HEMETOLOGY METHOD 01/14/2024 8:36 AM [facility] RBC 4.50 4.50 - 5.50 M/mcL LAB HEMETOLOGY METHOD 01/14/2024 8:36 AM [facility] Hemoglobin 12.9(L) 13.5 - 17.5 g/dL LAB HEMETOLOGY METHOD 01/14/2024 8:36 AM [facility] Hematocrit 40.2(L) 42.0 - 54.0 % LAB HEMETOLOGY METHOD 01/14/2024 8:36 AM [facility] MCV 89.1 79.0 - 98.0 FL LAB HEMETOLOGY METHOD 01/14/2024 8:36 AM [facility] MCH 28.6 27.0 - 32.0 pcg LAB HEMETOLOGY METHOD 01/14/2024 8:36 AM [facility] MCHC 32.1 32.0 - 37.0 g/dL LAB HEMETOLOGY METHOD 01/14/2024 8:36 AM [facility] RDW 13.7 11.0 - 15.0 % LAB HEMETOLOGY METHOD 01/14/2024 8:36 AM [facility] Platelets 129(L) 130 - 400 K/mcL LAB HEMETOLOGY METHOD 01/14/2024 8:36 AM [facility] MPV 11.3(H) 7.0 - 11.0 FL LAB HEMETOLOGY METHOD 01/14/2024 8:36 AM [facility] NRBC 0.0 <1.0 % LAB HEMETOLOGY METHOD 01/14/2024 8:36 AM [facility] NRBC Absolute 0.00 <0.10 K/mcL LAB HEMETOLOGY METHOD 01/14/2024 8:36 AM [facility] Neutrophils Relative 48.6 % LAB HEMETOLOGY METHOD 01/14/2024 8:36 AM [facility] Lymphocytes Relative 23.2 % LAB HEMETOLOGY METHOD 01/14/2024 8:36 AM [facility] Monocytes Relative 20.9 % LAB HEMETOLOGY METHOD 01/14/2024 8:36 AM [facility] Eosinophils Relative 5.6 % LAB HEMETOLOGY METHOD 01/14/2024 8:36 AM [facility] Basophils Relative 1.0 % LAB HEMETOLOGY METHOD 01/14/2024 8:36 AM [facility] Immature Granulocytes Relative 0.7 % LAB HEMETOLOGY METHOD 01/14/2024 8:36 AM [facility] Neutrophils Absolute 1.47(L) 1.50 - 7.00 K/mcL LAB HEMETOLOGY METHOD 01/14/2024 8:36 AM [facility] Lymphocytes Absolute 0.70(L) 1.00 - 5.00 K/mcL LAB HEMETOLOGY METHOD 01/14/2024 8:36 AM [facility] Monocytes Absolute 0.63 0.20 - 1.00 K/mcL LAB HEMETOLOGY METHOD 01/14/2024 8:36 AM EST [facility] Eosinophils Absolute 0.17 0.00 - 0.50 K/[facility] LAB HEMETOLOGY METHOD 01/14/2024 8:36 AM EST [facility] Basophils Absolute 0.03 0.00 - 0.20 K/[facility] LAB HEMETOLOGY METHOD 01/14/2024 8:36 AM EST [facility] Immature Granulocytes Absolute 0.02 0.00 - 0.03 K/[facility] LAB HEMETOLOGY METHOD 01/14/2024 8:36 AM EST [facility] Blood Venous blood specimen / Unknown Venipuncture / Unknown 01/14/2024 5:23 AM EST 01/14/2024 7:39 AM EST Keri Cuevas MD LAB BLOOD ORDERABLES Final Res ult [facility]) [facility] [address] [place] [address], * (ABNORMAL) Mycophenolic acid and metabolite (01/14/2024 5:23 AM EST) Mycophenolic Acid 0.8(L) 1.0 - 3.5 ug/mL 01/18/2024 5:50 AM EST [facility] Mycophenolic Acid Glucuronide 11(L) 35 - 100 ug/mL 01/18/2024 5:50 AM EST [facility] Comment: ?Combined Therapy with ??Trough Level [...] developed and the performance characteristics determined by [facility]. This confirmation testing has not been cleared or approved by the FDA. The laboratory is regulated under CLIA as qualified to perform high-complexity testing. This test is used for patient testing purposes. It should not be regarded as investigational or for research. Test performed at [facility], [address], [place], [place] ??[address] ? [phone] Cassie Aguiar MD, PhD - Lead Assistant Manager Blood Venous blood specimen / Unknown Venipuncture / Unknown 01/14/2024 5:23 AM EST 01/14/2024 7:39 AM EST us Keri Cuevas MD LAB BLOOD ORDERABLES Final Res ult [facility] [address] [place] [address] * Tacrolimus level (01/14/2024 5:23 AM EST) Tacrolimus Level 6.1 5.0 - 20.0 ng/mL 01/17/2024 12:22 PM EST [facility] Comment: Additional Information: Toxic Level ?> 26 [...] developed and the performance characteristics determined by [facility]. This confirmation testing has not been cleared or approved by the FDA. The laboratory is regulated under CLIA as qualified to perform high-complexity testing. This test is used for patient testing purposes. It should not be regarded as investigational or for research. Test performed at [facility], [address] [place] ? [phone] Cassie Aguiar MD, PhD - Lead Assistant Manager Blood Venous blood specimen / Unknown Venipuncture / Unknown 01/14/2024 5:23 AM EST 01/14/2024 7:39 AM EST Keri Cuevas MD LAB BLOOD ORDERABLES Final Res ult [facility] [address] [place] [address] * Magnesium (01/14/2024 5:23 AM EST) [facility] Magnesium 1.9 1.9 - 2.6 mg/dL LAB CHEMISTRY METHOD 01/14/2024 9:45 AM EST [facility] Blood Venous blood specimen / Unknown Venipuncture / Unknown 01/14/2024 5:23 AM EST 01/14/2024 7:39 AM EST us Keri Cuevas MD LAB BLOOD ORDERABLES Final Res ult [facility] [address] [place] [address], [place] [phone] * (ABNORMAL) Comprehensive metabolic panel (01/14/2024 5:23 AM EST) Sodium 140 133 - 145 mmol/L LAB CHEMISTRY METHOD 01/14/2024 9:46 AM EST [facility] Potassium 3.8 3.5 - 5.5 mmol/L LAB CHEMISTRY METHOD 01/14/2024 9:46 AM [facility] Chloride 111(H) 96 - 110 mmol/L LAB CHEMISTRY METHOD 01/14/2024 9:46 AM [facility] CO2 22 21 - 32 mmol/L LAB CHEMISTRY METHOD 01/14/2024 9:46 AM [facility] Anion Gap 7 3 - 11 LAB CHEMISTRY METHOD 01/14/2024 9:46 AM [facility] Glucose 77 70 - 100 mg/dL LAB CHEMISTRY METHOD 01/14/2024 9:46 AM [facility] BUN 16 5 - 25 mg/dL LAB CHEMISTRY METHOD 01/14/2024 9:46 AM [facility] Creatinine 0.84 0.70 - 1.30 mg/dL LAB CHEMISTRY METHOD 01/14/2024 9:46 AM [facility] eGFR 91 >=60 mL/min/1. 73m2 LAB CHEMISTRY METHOD 01/14/2024 9:46 AM [facility] Comment:Calculation based on the??Chronic Kidney Disease Epidemiology Collaboration (CKD-EPI) equation refit??without adjustment for race. BUN/Creatinine Ratio 19.0 LAB CHEMISTRY METHOD 01/14/2024 9:46 AM [facility] Calcium 8.6 8.5 - 10.5 mg/dL LAB CHEMISTRY METHOD 01/14/2024 9:46 AM [facility] AST (SGOT) 19 10 - 42 unit/L LAB CHEMISTRY METHOD 01/14/2024 9:46 AM [facility] ALT (SGPT) 16 10 - 60 unit/L LAB CHEMISTRY METHOD 01/14/2024 9:46 AM [facility] Alkaline Phosphatase 59 42 - 121 unit/L LAB CHEMISTRY METHOD 01/14/2024 9:46 AM [facility] Total Protein 5.8(L) 6.0 - 8.0 g/dL LAB CHEMISTRY METHOD 01/14/2024 9:46 AM [facility] Albumin 3.5 3.2 - 5.0 g/dL LAB CHEMISTRY METHOD 01/14/2024 9:46 AM [facility] Total Bilirubin 1.1 0.0 - 1.4 mg/dL LAB CHEMISTRY METHOD 01/14/2024 9:46 AM [facility] Blood Venous blood specimen / Unknown Venipuncture / Unknown 01/14/2024 5:23 AM EST 01/14/2024 7:39 AM EST us Keri Cuevas MD LAB BLOOD ORDERABLES Final Res ult [facility] [address] [place] [address], documented in this encounter Visit Diagnoses Diagnosis Encounter for other general examination documented in this encounter Additional Health Concerns Assessment Noted Time PHQ-9 Depression Total Score: 0 01/10/20 24 2:13 PM EST A fall risk assessment has been complete d for the patient 01/10/2024 2:13 PM EST documented as of this encounter Care Teams Message And Delivery Service Pricer Relationship Specialty Start Date End Date Maria D Mccray MD [address] [address] PCP - General Internal Medicine 02/01/12 documented as of this encounter
--- OUTSIDE RECORDS SUMMARY | 2024-04-11 12:38 | XMS_ITS | Clinical Summary ---
Author Organization [facility] Address [address] [place] [address] Care Team Providers Care Fire Claims Adjuster Name Role Phone Maria D Mccray Primary Care Provider [phone] Allergies Active Allergy Reactions Criticality Noted Date Comments Adhesive Tape-Silicones Rash 11/25/2016 Latex Rash 12/03/2021 Lisinopril Unknown,Other (see comments) 05/13/2020 Other reaction(s): not sure Nsaids (Non-Steroidal Anti-Inflammatory Drug) Liver disorder,Other (see comments) 05/13/2020 Medications omega-3 fatty acids 300 mg capsule Take 550 mg by mouth daily. 4 Active nitroglycerin (NITROSTAT) 0.[address] 0.4 mg under the tongue as needed for chest pain. 2 Active acetaminophen (TYLENOL) 500 mg tablet Take 500 mg by mouth every 6 hours as needed for mild pain (pain score 1-3). Active LORazepam (ATIVAN) 1 mg tablet Take 1 mg by mouth. 5 7 Active sildenafiL (VIAGRA) 100 mg tablet 0 Refills, Maintenance, 03/27/21 15:56:00 EST, Partial fill upon patient request if the prescription is for a schedule II opioid drug. 1 Active coenzyme Q10 400 mg capsule Take 400 mg (1 capsule) by mouth daily. 30 each 1 2 Active multivitamin (THERAGRAN) tablet Take 1 tablet by mouth daily. 30 tablet 1 2 Active NIFEdipine XL (PROCARDIA XL) 60 mg tablet Take 1 Tablet by mouth 2 times daily for 360 days. 180 tablet 3 12/31/2022 7:09 AM EST 2 Active nitroglycerin (NITROSTAT) 0.[address] 1 Tablet under the tongue every 5 minutes as needed for Chest pain (take every 5 min for 3 doses for chest pain). 50 tablet 2 Active rosuvastatin (CRESTOR) 20 mg tablet Take 1 tablet (20 mg total) by mouth daily. 30 tablet 1 07/10/2022 6:55 AM EDT 3 Active aspirin 81 mg EC tablet Take 1 Tablet by mouth daily. 30 tablet 1 02/08/2023 11:28 AM EST 3 Active LORazepam (ATIVAN) 1 mg tablet Take 1 tablet (1 mg total) by mouth at bed time as needed for anxiety. 28 tablet 08/16/2023 9:00 AM EDT 4 Active predniSONE (DELTASONE) 5 mg tabletIndication s:Kidney transplant recipient Take 1 tablet (5 mg total) by mouth daily. 30 tablet 11 04/11/2024 12:18 PM EST 4 025 Active alendronate (FOSAMAX) 70 mg tablet Take 1 tablet (70 mg total) by mouth once a week (every 7 days) 12 tablet 1 04/11/2024 12:18 PM EST 4 Active NIFEdipine XL (PROCARDIA XL) 60 mg tabletIndication s:Essential hypertension Take 1 tablet (60 mg total) by mouth 2 times a day. 60 tablet 11 04/11/2024 12:18 PM EST 4 025 Active mycophenolate mofetil (CELLCEPT) 250 mg capsuleIndicatio ns:Kidney replaced by transplant Take 2 capsules (500 mg total) by mouth every morning AND 1 capsule (250 mg total) every evening. 90 capsule 11 04/11/2024 12:18 PM EST 4 Active omeprazole (PriLOSEC) 20 mg capsule Take 1 capsule (20 mg total) by mouth daily. 30 capsule 5 04/11/2024 12:18 PM EST 4 Active losartan (COZAAR) 100 mg tablet Take 1 tablet (100 mg total) by mouth daily. 30 tablet 5 04/11/2024 12:18 PM EST 4 Active allopurinoL (ZYLOPRIM) 100 mg tablet Take 1 tablet (100 mg total) by mouth 1 (one) time each day. 30 tablet 5 04/11/2024 12:18 PM EST 4 Active famotidine (PEPCID) 20 mg tablet Take 1 tablet (20 mg total) by mouth 2 (two) times a day. 60 tablet 3 4 Active rosuvastatin (CRESTOR) 20 mg tablet Take 1 tablet (20 mg total) by mouth 1 (one) time each day. 30 tablet 5 04/11/2024 12:18 PM EST 4 Active Prograf 1 mg capsuleIndicatio ns:Kidney replaced by transplant Take 4 capsules (4 mg total) by mouth in the morning AND 3 capsules (3 mg total) every evening. 210 capsule 11 04/11/2024 12:18 PM EST 4 Active LORazepam (ATIVAN) 1 mg tablet Take 1 tablet (1 mg total) by mouth at bedtime as needed for anxiety, max daily amount: 1mg 28 tablet 04/11/2024 12:18 PM EST 5 Active doxazosin (CARDURA) 2 mg tablet Take 1 tablet (2 mg total) by mouth nightly. 90 tablet 04/11/2024 12:18 PM EST 5 Active Active Problems Problem Noted Date Diagnosed Date COVID 07/25/2021 Nasal congestion 07/25/2021 Cough 07/25/2021 Fever 07/25/2021 Sore throat 07/25/2021 Current chronic use of systemic steroids 018 Throat mass 03/03/2017 Mixed hyperlipidemia 12/21/2016 Overview (12/21/2016): Patient on statin pre transplant. Assessment & Plan (01/20/2017 2:34 PM EST): Continue with Crestor. Assessment & Plan (2017 9:25 AM EST): Start crestor 20 mg at bedtime. Assessment & Plan (12/21/2016 12:47 PM EDT): Statins on hold for now. Will resume during next visit. LDL 116 on 11/30. Chronic kidney disease-mineral and bone disorder 12/21/2016 Assessment & Plan (12/21/2016 12:46 PM EDT): Ca x phos stable. Will check Vitamin D and PTH level during next visit. Increased infection risk sta tus post immunosuppressive therapy 12/16/2016 Overview (12/21/2016): CMV status: D-/R+ EBV status: D-/R+ Assessment & Plan (01/20/2017 2:34 PM EST): He is intermediate risk for CMV. Valcyte 900 mg daily for 3 months and Bactrim DS 1 tablets daily for 1 year. Assessment & Plan (2017 9:24 AM EST): Patient is intermediate risk for CMV. Valcyte 900 daily for 3 months and bactrim DS for 1 year. Assessment & Plan (12/21/2016 12:42 PM EDT): Patient is on bactrim DS daily and Valcyte for 3 months(D-/R+). Kidney transplant recipient 12/16/2016 Overview (12/21/2016): Donor Information: The UNOS donor ID number is [id number]. The match run ID number is [id number]. The donor ABO is O. The donor is a 37 year old male with a KDPI (Kidney Donor Profile Index) of 41%. The donor is a PHS high risk, DCD (donor after cardiac ). Terminal Cr 1.0. Donor serologies include: CMV negative, EBV positive, all hepatitis and HIV serologies negative. A right kidney is being offered from this donor.This was a right kidney with 1 artery and 1 vein. There was surgical damage in the middle of the renal artery with bruise and arteriotomy or arterial tear of 30% of the artery circumference. This kidney was not biopsied. The pump parameters are 75 mL per minute with a resistance of 0.3. Crossclamp time was 2024 on 11/06/2016. Crossmatch results were negative. 18 minutes of relative warm ischemia and 8 minutes of absolute warm ischemia. Recipient Information: Randy Birch is a 66 year old male with hypertensive nephropathy and a history of prostate cancer, s/p prostatectomy and coronary artery disease, s/p coronary artery bypass grafting. His ABO is O and was confirmed X 2. His CMV and EBV serologies are positive. His hepatitis serologies are negative. The referring physician is Jim Ibrahim MD. The recipient panel reactive antibody is 0%. 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 Assessment & Plan (01/20/2017 1:54 PM EST): Currently allograft function stable. Continue follow-up labs every week. No fluid overload or uremic features. Not requiring any diuretics. Currently labs every week, we will spaced out every 2 weeks. Assessment & Plan (2017 9:19 AM EST): Allograft function stable. Continue to monitor every week for now. Will plan to space out labs after next visit. Assessment & Plan (12/21/2016 12:31 PM EDT): Allograft function stable. Continue to monitor weekly at this time. Immunosuppression 11/12/2016 Overview (12/21/2016): Thymo induction Assessment & Plan (01/20/2017 2:36 PM EST): On triple immunosuppressive therapy. We will continue with tacrolimus 4 mg twice daily. His recent tacrolimus level 11.2, we will adjust his dose with next level of tacrolimus. TAC goal 8-10. He just reduced his dose from 10 mg to 8 mg on last Wednesday. Continue with CellCept 500 mg twice daily and prednisone 5 mg daily. Assessment & Plan (2017 9:14 AM EST): Triple IS; Continue tac 5 BID( tac goal 8-10), MMF 500 BID and prednisone 5 mg daily. Assessment & Plan (12/21/2016 2:46 PM EDT): On Tac, MMF and prednisone. Will reduce the dose of prednisone to 5 mg daily. Tac goal 8-10. MMF 500 BID CMV (cytomegalovirus infection) status positive 11/11/2016 Essential hypertension 06/02/2013 Assessment & Plan (01/20/2017 1:57 PM EST): Blood pressure currently stable and repeat blood pressure in the office was 140/65. Continue with Procardia 30 mg twice daily, metoprolol 25 twice a day. Request to keep blood pressure measurement at home to show in next visit. No change of medications today Assessment & Plan (2017 9:20 AM EST): BP stable on current regimen. I have discontinued lasix for now and advised patient to monitor for edema or weight gain. Assessment & Plan (12/21/2016 12:43 PM EDT): BP stable on current regimen. Goal <140/90. Coronary artery disease 06/01/2013 Prostate cancer 06/01/2013 Resolved Problems Problem Noted Date Diagnosed Date Resolved Date Kidney transplant recipient 11/08/2016 12/16/2016 History of end stage renal disease 04/29/2016 12/16/2016 CKD (chronic kidney disease), stage 5 07/31/2015 12/16/2016 Awaiting organ transplant 02/08/2014 Screening examination for infectious disease 4 12/21/2016 Chronic kidney disease, stage IV (severe) 07/14/2013 12/16/2016 Pre-transplant evaluation fo r chronic kidney disease 07/14/2013 11/25/2016 Hypertensive nephrosclerosis 06/01/2013 12/16/2016 Encounters Date Type Department Care Team Description 04/06/2024 Refill [facility] Transplant Department [address] [place] [id number] Tessy Walton Kidney transplant recipient (Primary Dx) 02/18/2024 Orders Only [facility] [address] [place] [id number] [place]: Gurjit Conroy MD 02/11/2024 Refill [facility] Department [address] [place] [address] Tessy Walton Kidney transplant recipient (Primary Dx); Kidney replaced by transplant 02/10/2024 Telephone [facility] Department [address] [place] [address] Renée Sahu, MISA 01/28/2024 Telephone [facility] Department [address] [place] [address] Renée Sahu, MISA 01/11/2024 Telephone [facility]plant Department [address] [place] [address] Indy Prince, MISA from Last 3 Months Immunizations Immunization Administration Dates Next Due Hepatitis B Vaccine, Dialysis Patient Dosage Influenza, High Dose Seasonal, Preservative Free 11/20/2018,11/24/2017 Influenza, Injectable, Quadrivalent Preservative Free 12/12/2020,10/29/2019 Pneumococcal Conjugate Vaccine, 13 Valent 2014,07/14/2013 Pneumococcal Polysaccharide Vaccine, 23 Valent 0 02/22/2009 Zoster Vaccine, Live 08/13/2013 Family History Medical History Relation Name Comments Other Brother 1 Family History of cardiac disorder Other Brother 2 Family history of High cholesterol Other Brother 3 Family History of cerebrovascular accident Other Father Family history of Other Mother Family history of Other Sister Family History of cardiac disorder Relation Name Status Comments Brother 1 Brother 2 Brother 3 Father Mother Sister Social History Tobacco Use Types Packs/Day Years Used Date Smoking Tobacco: Former Smokeless Tobacco: Never Comments:: Alcohol Use Standard Drinks/Week Comments Yes 0 (1 standard drink = 0.6 oz pur e alcohol) occasional glass of wine Sex and Gender Information Value Date Recorded Sex Assigned at Male 01/03/2021 8:23 AM EST Legal Sex Male 10:14 AM EDT Gender Identity Male 01/03/2021 8:23 AM EST Sexual Orientation Straight 01/03/2021 8: 23 AM EST Last Filed Vital Signs Vital Sign Reading Time Taken Comments Blood Pressure 160/61 10/05/2023 11:11 AM EDT Pulse 58 10/05/2023 11:11 AM EDT Temperature 36.3 ??C (97.3 ??F) 10/05/2023 11:11 AM E DT Respiratory Rate 18 10/05/2023 11:11 AM EDT Oxygen Saturation 97% 10/05/2023 11:11 AM EDT Inhaled Oxygen Concentration - - Weight 85.7 kg (188 lb 15 oz) 10/05/2023 11:11 A M EDT Height 172.7 cm (5' 8 ) 02/28/2019 11:21 AM EST Body Mass Index 28.73 02/28/2019 11:21 AM EST Plan of Treatment Upcoming Encounters Date Type Department Care Team (Late st Contact Info) Description 07/18/2024 11:40 AM EDT Follow-Up [facility] Transplant [address] [place] [address] Gurjit Olsen MD [address] [place] [address] Health Maintenance Due Date Last Done Comments Cologuard 1950 Colon Cancer Screening 1950 Colonoscopy 1949 FOBT / Fit Test [address] Lung Cancer Screening (Baseline) 1999 Hepatitis B Vaccines (2 of 3 - 19+ 3-dose series) 08/11/2013 07/14/2013 Zoster Vaccines (1 of 2) 11/05/2013 09/10/2013, 07/24 Abdominal Aortic Aneurysm (A AA) Screening 2014 DTaP,Tdap,and Td Vaccines (3 - Td or Tdap) 05/18/2023 05/17/2013, 05/17/2013 Alcohol/Substance Use Screening 02/23/2024 Depression Screening and Follow-Up 02/23/2024 Fall Risk Screening 02/23/2024 Health Care Proxy Review 02/23/2024 Social Drivers of Health Shweta ual Screening 02/23/2024 COVID-19 Vaccine (9 - Modern a risk season) 2024 11/29/2023, 05/26/2023, 05/26/2023, Additional history exists Basic Metabolic Panel 03/24/2025 03/24/2024 , 02/18/2024, 02/07/2024, Additional history exists Tobacco Screening 02/22/2042 10/05/2023 Hepatitis C Screening Completed 10/27/2017 , 10/27/2017, 12/30/2016, Additional history exists Pneumococcal Vaccine: 50+ Years Completed 01/15/2021, 02/21/2016, 11/27/2014, Additional history exists RSV Vaccine (60+ years old a nd patients) Completed 11/11/2022 Influenza Vaccine Completed 10/27/2023, , 10/28/2021, Additional history exists Statin Therapy Completed 01/28/2024 Procedures * Due to [place] state law, this organization might not be sharing negative HIV tests. Procedure Name Priority Date/Time Associated Diagnosis Comments TACROLIMUS LEVEL Routine 03/24/2024 8:33 AM EST Kidney transplant recipient Immunosuppression (HCC) CBC AUTO DIFFERENTIAL Routine 03/24/2024 8:33 AM EST Kidney transplant recipient Immunosuppression (HCC) PHOSPHORUS Routine 03/24/2024 8:33 AM EST Kidney transplant recipient Immunosuppression (HCC) MAGNESIUM Routine 03/24/2024 8:33 AM EST Kidney transplant recipient Immunosuppression (HCC) COMPREHENSIVE METABOLIC PANEL Routine 03/24/2024 8:33 AM EST Kidney transplant recipient Immunosuppression (HCC) TACROLIMUS LEVEL Routine 02/18/2024 8:39 AM EST CBC AUTO DIFFERENTIAL Routine 02/18/2024 8:39 AM EST PHOSPHORUS Routine 02/18/2024 8:39 AM EST MAGNESIUM Routine 02/18/2024 8:39 AM EST COMPREHENSIVE METABOLIC PANEL Routine 02/18/2024 8:39 AM EST TACROLIMUS LEVEL Routine 02/07/2024 8:52 AM EST Kidney transplant recipient Immunosuppression (HCC) CBC AUTO DIFFERENTIAL Routine 02/07/2024 8:52 AM EST Kidney transplant recipient Immunosuppression (HCC) PHOSPHORUS Routine 02/07/2024 8:52 AM EST Kidney transplant recipient Immunosuppression (HCC) MAGNESIUM Routine 02/07/2024 8:52 AM EST Kidney transplant recipient Immunosuppression (HCC) COMPREHENSIVE METABOLIC PANEL Routine 02/07/2024 8:52 AM EST Kidney transplant recipient Immunosuppression (HCC) HEPATITIS C RNA, QUANTITATIVE, PCR Routine 10/27/2017 2:34 PM EDT Increased infection risk status post immunosuppressive therapy from Last 3 Months or Most Recently Relevant to Health Maintenance Results * Due to [place] state law, this organization might not be sharing negative HIV tests. * (ABNORMAL) CBC Auto Differential (03/24/2024 8:33 AM EST) Only the most recent of3 resultswithin the time period is included. White Blood Cell Count 3.5(L) 3.8 - 10.8 Thousand/ uL 03/24/2024 8:44 PM EST [facility] Red Blood Cell Count 4.29 4.20 - 5.80 Million/u L 03/24/2024 8:44 PM EST [facility] Hemoglobin 12.1(L) 13.2 - 17.1 g/dL 03/24/2024 8:44 PM EST [facility] Hematocrit 37.8(L) 38.5 - 50.0 % 03/24/2024 8:44 PM EST [facility] MCV 88.1 80.0 - 100.0 fL 03/24/2024 8:44 PM EST [facility] MCH 28.2 27.0 - 33.0 pg 03/24/2024 8:44 PM EST [facility] MCHC 32.0 32.0 - 36.0 g/dL 03/24/2024 8:44 PM EST [facility] Comment: For adults, a slight decrease in the calculated MCHC value (in the range of 30 to 32 g/dL) is most likely not clinically significant; however, it should be interpreted with caution in correlation with other red cell parameters and the patient's clinical condition. RDW 12.5 11.0 - 15.0 % 03/24/2024 8:44 PM EST [facility] Platelet Count 133(L) 140 - 400 Thousand/ uL 03/24/2024 8:44 PM EST [facility] MPV 12.1 7.5 - 12.5 fL 03/24/2024 8:44 PM EST [facility] Absolute Neutrophils 1,691 1,500 - 7,800 cells/uL 03/24/2024 8:44 PM EST [facility] Absolute Lymphocytes 921 850 - 3,900 cells/uL 03/24/2024 8:44 PM EST [facility] Absolute Monocytes 728 200 - 950 cells/uL 03/24/2024 8:44 PM EST [facility] Absolute Eosinophils 112 15 - 500 cells/uL 03/24/2024 8:44 PM EST [facility] Absolute Basophils 49 0 - 200 cells/uL 03/24/2024 8:44 PM EST [facility] Neutrophils 48.3 % 03/24/2024 8:44 PM EST [facility] Lymphocytes 26.3 % 03/24/2024 8:44 PM EST [facility] Monocytes 20.8 % 03/24/2024 8:44 PM EST [facility] Eosinophils 3.2 % 03/24/2024 8:44 PM EST [facility] Basophils 1.4 % 03/24/2024 8:44 PM EST [facility] Blood Structure of peripheral vein / Unknown 03/24/2024 8:33 AM EST 03/24/2024 7:45 PM EST N[facility] - 03/25/2024 8:10 AM EST FASTING:YES ?? CONTACT HISTORY: DATE ?TIME ? CONTACT 03/25/2024 ?12:32 AM ? TEST NAME ?ACTION TAKEN ?DO NOT NOTIFY CLIENT WHEN RESULTS RELEASED us Gurjit Olsen MD LAB BLOOD ORDERABLES Chiqui jarvis Result [facility] [address] [facility] [address], [place] [address], [facility] [address] [place] [address] * (ABNORMAL) Tacrolimus Level (03/24/2024 8:33 AM EST) Only the most recent of3 resultswithin the time period is included. [facility] Tacrolimus, Highly Sensitive 3.7(L) mcg/L 03/25/2024 12:32 AM EST [facility] Comment: No definitive therapeutic or toxic ranges have been established. Optimal blood drug levels are influenced by type of transplant, patient response, time post- transplant, co-administration of other drugs, and drug formulation. The following trough range is a suggested guideline: 5.0-20.0 mcg/L. This test was developed and its analytical performance characteristics have been determined by [employer]. It has not been cleared or approved by the FDA. This assay has been validated pursuant to the CLIA regulations and is used for clinical purposes. Blood Structure of peripheral vein / Unknown 03/24/2024 8:33 AM EST 03/24/2024 7:57 PM EST Narrative [facility] - 03/25/2024 8:10 AM EST FASTING:YES ?? CONTACT HISTORY: DATE ?TIME ? CONTACT 03/25/2024 ?12:32 AM ? TEST NAME ?ACTION TAKEN ?DO NOT NOTIFY CLIENT WHEN RESULTS RELEASED Gurjit Olsen MD LAB BLOOD ORDERABLES Chiqui l Result Performing Organization Address [facility] de Phone Number [facility] [address], [place] [address], [place] [phone] [facility] [address] [place] [address] * Phosphorus (03/24/2024 8:33 AM EST) Only the most recent of3 resultswithin the time period is included. Phosphate 2.9 2.1 - 4.3 mg/dL 03/25/2024 8:05 AM EST [facility] Blood Structure of peripheral vein / Unknown 03/24/2024 8:33 AM EST 03/25/2024 3:46 AM EST Narrative [facility] - 03/25/2024 8:10 AM EST FASTING:YES ?? CONTACT HISTORY: DATE ?TIME ? CONTACT 03/25/2024 ?12:32 AM ? TEST NAME ?ACTION TAKEN ?DO NOT NOTIFY CLIENT WHEN RESULTS RELEASED Gurjit Olsen MD LAB BLOOD ORDERABLES Chiqui jarvis Result Performing Organization Address [facility] Co de Phone Number [facility] [address], [place] [address], [place] [phone] [facility] [address] [place] [address] * Magnesium (03/24/2024 8:33 AM EST) Only the most recent of3 resultswithin the time period is included. Magnesium 1.9 1.5 - 2.5 mg/dL 03/25/2024 8:05 AM EST [facility] Blood Structure of peripheral vein / Unknown 03/24/2024 8:33 AM EST 03/25/2024 3:46 AM EST Narrative [facility] - 03/25/2024 8:10 AM EST FASTING:YES ?? CONTACT HISTORY: DATE ?TIME ? CONTACT 03/25/2024 ?12:32 AM ? TEST NAME ?ACTION TAKEN ?DO NOT NOTIFY CLIENT WHEN RESULTS RELEASED us Gurjit Olsen MD LAB BLOOD ORDERABLES Chiqui jarvis Result [facility] [address] [facility] [address], [place] [address], [facility] [address] [place] [address] * (ABNORMAL) Comprehensive Metabolic Panel (03/24/2024 8:33 AM EST) Only the most recent of3 resultswithin the time period is included. Pathologist [facility] Glucose 83 65 - 99 mg/dL 03/25/2024 8:05 AM EST [facility] Comment: ? Fasting reference interval BUN 20 7 - 25 mg/dL 03/25/2024 8:05 AM EST [facility] Creatinine 0.94 0.70 - 1.28 mg/dL 03/25/2024 8:05 AM EST [facility] eGFR 85 > OR = 60 mL/min/1. 73m2 03/25/2024 8:05 AM [facility] Bun/Creatinine Ratio SEE NOTE: 6 - 22 (calc) 03/25/2024 8:05 AM [facility] Comment: ?? Not Reported: BUN and Creatinine are within ?? reference range. ? Sodium 139 135 - 146 mmol/L 03/25/2024 8:05 AM [facility] Potassium 3.8 3.5 - 5.3 mmol/L 03/25/2024 8:05 AM [facility] Chloride 106 98 - 110 mmol/L 03/25/2024 8:05 AM [facility] Carbon Dioxide 23 20 - 32 mmol/L 03/25/2024 8:05 AM [facility] Calcium 9.2 8.6 - 10.3 mg/dL 03/25/2024 8:05 AM [facility] Protein, Total 6.4 6.1 - 8.1 g/dL 03/25/2024 8:05 AM [facility] Albumin 4.6 3.6 - 5.1 g/dL 03/25/2024 8:05 AM [facility] Globulin 1.8(L) 1.9 - 3.7 g/dL (calc) 03/25/2024 8:05 AM [facility] Albumin/Globuli n Ratio 2.6(H) 1.0 - 2.5 (calc) 03/25/2024 8:05 AM [facility] Bilirubin, Total 1.2 0.2 - 1.2 mg/dL 03/25/2024 8:05 AM [facility] Alkaline Phosphatase 46 35 - 144 U/L 03/25/2024 8:05 AM [facility] AST 19 10 - 35 U/L 03/25/2024 8:05 AM [facility] ALT 12 9 - 46 U/L 03/25/2024 8:05 AM [facility] Blood Structure of peripheral vein / Unknown 03/24/2024 8:33 AM EST 03/25/2024 3:46 AM EST [facility] 03/25/2024 8:10 AM EST FASTING:YES ?? CONTACT HISTORY: DATE ?TIME ? CONTACT 03/25/2024 ?12:32 AM ? TEST NAME ?ACTION TAKEN ?DO NOT NOTIFY CLIENT WHEN RESULTS RELEASED us Gurjit Olsen MD LAB BLOOD ORDERABLES Chiqui jarvis Result [facility] [address] [facility] [address], [place] [address], [facility] [address] [place] [address] * Hepatitis C RNA, quantitative, PCR (10/27/2017 2:34 PM EDT) [facility] Hcv RNA, Quantitative Real Time PCR <15 NOT DETECTED NOT DETECTED IU/mL 10/28/2017 12:53 PM EDT [facility] Hepatitis C Quantitative PCR Log IU/mL <1.18 NOT DETECTED NOT DETECTED Log IU/mL 10/28/2017 12:53 PM EDT [facility] Comment: This test was performed using Real-Time Polymerase Chain Reaction. Reportable Range: 15 IU/mL to 100,000,000 IU/mL (1.18 Log IU/mL to 8.00 Log IU/mL). The analytical performance characteristics of this assay have been determined by [employer]. The modifications have not been cleared or approved by the FDA. This assay has been validated pursuant to the CLIA regulations and is used for clinical purposes. ?? For more information on this test, go to: http://education.Face-Me/faq/HVJ15w7 (This link is being provided for informational/ educational purposes only.) Blood specimen (specimen) Structure of peripheral vein / Unknown Venipuncture / Unknown 10/27/2017 2:34 PM EDT 10/27/2017 2:44 PM EDT [facility] 10/28/2017 12:53 PM EDT [facility] Received Date: Destiny Noel MD LAB BLOOD ORDERABLES Final R esult [facility] [address] [facility] [address], [place] [address], [place] [phone] [facility] [address] [facility] [address], [place] [address], [place] [phone] from Last 3 Months or Most Recently Relevant to Health Maintenance Insurance MEDICARE [facility] OUT OF STATE O MEDICARE Advance Directives Documents on File Type Date Recorded Patient Artificial Glass Eye Maker Expl anation Advance Directive 02/07/2014 12:00 AM sf Medical Dec Making (Adv.Dir) Advance Directive 06/30/2010 12:00 AM sf Me dical Dec Making (Adv.Dir) Care Teams Fire Claims Adjuster Relationship Specialty Start Date End Date Maria D Mccray [address] [place] [address] PCP - General Internal Medicine 05/05/17
--- OUTSIDE RECORDS SUMMARY | 2024-04-11 12:38 | XMS_ITS | Clinical Summary ---
Author Organization [facility] Address [address] [place] [address] Phone Care Team Providers Care Switchboard Mechanic Name Role Phone Maria D Mccray MD Primary Care Provider [phone] Allergies Active Allergy Reactions Criticality Noted Date Comments Adhesive Tape Rash Low 12/31/2017 rash Latex Rash,Other (see comments) Low 12/03/2021 Lisinopril Other (see comments) 05/13/2020 Nsaids Other (see comments) 05/13/2020 Medications Calcium Acetate 667 MG tablet Comments: Filled Date: Sep 24 2016 12:00AM Patient Notes: TAKE 3 TABS BY MOUTH 3 TIMES A DAY WITH MEALS AND 1 TABLET BY MOUTH WI TH SNACKS Duration: 30 06/22/2016 Active omega-3 (FISH OIL) 1000 MG capsule Take 1 capsule by mouth 1 (one) time each day Active alendronate (FOSAMAX) 70 MG tablet Take 1 tablet by mouth 1 (one) time per week Active allopurinol (ZYLOPRIM) 100 MG tablet Take 1 tablet by mouth 1 (one) time each day 06/15/2016 Active aspirin (ST REMEDIOS) 81 MG EC tablet Take 1 tablet by mouth 1 (one) time each day Active LORazepam (ATIVAN) 0.5 MG tablet Take by mouth 1 (one) time each day Active losartan (COZAAR) 100 MG tablet Take 1 tablet by mouth 1 (one) time each day 02/06/2019 Active mycophenolate (CELLCEPT) 250 MG capsule Take 2 capsules by mouth in the morning and 2 capsules in the evening. Take 3 tablets in morning and 2 tabs in evening. Active nitroglycerin (NITROSTAT) 0.[address] 1 tablet under the tongue 1 (one) time Active omeprazole (PriLOSEC) [address] capsule Take 1 capsule by mouth 1 (one) time each day Active predniSONE (DELTASONE) 5 MG tablet Take 1 tablet by mouth 1 (one) time each day Active LORazepam (ATIVAN) 1 MG tablet TAKE 1 TABLET BY MOUTH EVERY DAY AT BEDTIME NEEDED FOR ANXIETY 04/26/2020 Active NIFEdipine XL (PROCARDIA XL) 60 MG 24 hr tablet 04/30/2020 Active sildenafil (VIAGRA) 100 MG tablet Take 100 mg by mouth 1 (one) time each day if needed 12/18/2020 Active rosuvastatin (CRESTOR) 20 MG tabletIndicatio ns:Kidney replaced by transplant Take 1 tablet (20 mg total) by mouth 1 (one) time each day 30 tablet 1 01/06/2022 Active tacrolimus (PROGRAF) 1 MG capsule Take 1 mg by mouth in the morning and 1 mg in the evening. 3 tablets in the am and 2 tablets in the pm . Active doxazosin (CARDURA) 2 MG tablet TAKE 1 TABLET BY MOUTH EVERY NIGHT. 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 Will check Vitamin D and PTH level during next visit. At increased risk for infection 12/16/2016 Overview (07/08/2022): CMV status: D-/R+ EBV status: D-/R+ Last Assessment & Plan: He is intermediate risk for CMV. Valcyte 900 mg daily for 3 months and Bactrim DS 1 tablets daily for 1 year. Cytomegalovirus infection 11/11/2016 Gastroesophageal reflux disease 10/27/2016 Hyperlipidemia 10/27/2016 Osteoarthritis 10/27/2016 Polyp 10/27/2016 Benign hypertensive renal disease 02/20/2016 Coronary bypass graft finding 02/20/2016 Ex-smoker 02/20/2016 Gout 02/20/2016 Kidney replaced by transplant 02/20/2016 Atherosclerotic heart diseas e of algaaciq coronary artery without angina pectoris 06/01/2013 Carcinoma of prostate 02/24/2011 Prostatectomy 02/24/2011 Old myocardial infarction 02/19/2010 Resolved Problems Problem Noted Date Diagnosed Date Resolved Date Anemia of chronic disease 02/20/2016 Immunizations Name Administration Dates Next Due Hep B, Dialysis 07/14/2013 Influenza Split High Dose Preservative Free IM 0 11/20/2018,11/22/2017 Influenza Vaccine, Quadrivalent, Adjuvanted 11/23,10/29/2019 Influenza, Unspecified 11/20/2013 Pneumococcal Conjugate 13-Valent 08/01/2014,06/23 Pneumococcal Polysaccharide 02/22/2009, 8 Tdap 05/17/2013 Zoster 09/10/2013,08/13/2013 Family History Medical History Relation Comments Hypertension Father Stroke Father Hypertension Mother Heart disease Sibling 1 brother and sist er Cancer Sibling 2 brother - stomac h Stroke Sibling 3 2 brothers Hypertension Sibling 4 Relation Status Comments Father Mother Sibling 1 Sibling 2 Sibling 3 Sibling 4 Social History Tobacco Use Types Packs/Day Years Used Date Smoking Tobacco: Former Cigarettes 0 02/22/1959 - 02/22/1969 Smokeless Tobacco: Never Tobacco Cessation:Counseling Given: Not Answered Alcohol Use Standard Drinks/Week Comments Yes 0 (1 standard drink = 0.6 oz pure alcohol) Alcoholic Drinks/day: 1-2 drinks per day Sex and Gender Information Value Date Recorded Sex Assigned at Not on file Legal Sex Male 5:03 PM EST Gender Identity Not on file Sexual Orientation Not on file Occupation Industry Job Start Date Job End Date Retired Not on file Not on file Not on file Last Filed Vital Signs Vital Sign Reading Time Taken Comments Blood Pressure 138/64 03/10/2023 10:34 AM EST Pulse 59 03/10/2023 10:34 AM EST Temperature - - Respiratory Rate - - Oxygen Saturation 97% 03/10/2023 10:34 AM EST Inhaled Oxygen Concentration - - Weight 88.1 kg (194 lb 3.2 oz) 03/10/2023 10:34 AM EST Height 172.7 cm (5' 8 ) 01/06/2023 10:59 AM EST Body Mass Index 29.53 01/06/2023 10:59 AM EST Plan of Treatment Health Maintenance Due Date Last Done Comments Pneumococcal Vaccine: 65+ Years (4 of 4 - PPSV23 or PCV20) 08/02/2015 08/01/2014, 07/14/2013, 02/22/2009, Additional history exists Colonoscopy (Post-Transplant Patient) 05/13/2020 Influenza Vaccine (#1) 2023 , 10/29/2019, 11/20/2018, Additional history exists Hepatitis B Vaccine Aged Out 07/14/2013 No longe r eligible based on patient's age to complete this topic Insurance MEDICARE [facility] MEDICARE [facility] Care Teams Switchboard Mechanic Relationship Specialty Start Date End Date Maria D Mccray MD [address] [phone] PCP - General 03/04/20
--- OUTSIDE RECORDS SUMMARY | 2024-04-11 12:38 | XMS_ITS | Encounter Summary ---
Author Organization [facility] Address [address] [place] [address] Care Team Providers Care Services Tech Name Role Phone Maria D Mccray MD Primary Care Provider [phone] Reason for Visit * Reason Onset Date Comments VNA 02/22/2024 VNA reported mis sed visit Encounter Details Date Type Department Care Team (Late st Contact Info) Description 02/22/2024 Telephone Internal Medicine [facility] [address] [phone] Maria D Mccray MD 175 [facility] [address] [address] [phone] VNA (VNA reported missed visit) Social History Tobacco Use Types Packs/Day Years [...] on file documented as of this encounter Progress Notes * Aida Johnson - 02/22/2024 1:58 PM EST Fyi missed visit today - reported from Cinthia BYNUM @ [facility] documented in this encounter Plan of Treatment Upcoming Encounters Date Type Department Care Team (Late st Contact Info) Description 07/12/2024 10:45 AM EDT Office Visit Internal Medicine [facility] 175 [facility] [address] [place] [address] Amado Morgan, JEANIE 175 [facility] [address] [place] [phone] documented as of this encounter Visit Diagnoses Not on filedocumented in this encounter Additional Health Concerns Assessment Noted Time PHQ-9 Depression Total Score: 0 01/10/20 2:13 PM EST A fall risk assessment has been complete d for the patient 01/10/2024 2:13 PM EST documented as of this encounter Care Teams Services Tech Relationship Specialty Start Date End Date Marai D Mccray MD 175 [facility] [address] [place] [phone] PCP - General Internal Medicine 02/01/12 documented as of this encounter
--- OUTSIDE RECORDS SUMMARY | 2024-04-11 12:38 | XMS_ITS | Continuity of Care Document ---
Author Organization [facility] Address [address] [facility], [address] d Floor, [address] [place] [address]- Care Team Providers Care Tube Cutter Name Role Phone Shazia GODOY, Maria D D Primary Care Physician Encounter [facility] Date(s): 01/13/24 - 04/09/24 [facility] [address], [address] [place] [address]- Attending Physician: Lynette Pablo MD Admitting Physician: Lynette Pablo MD Encounter Type: Pre-OutPatient One Time Allergies, Adverse Reactions, Alerts Substance Criticality Severity Reaction Reaction Severity Status Zestril not sure Active Adhesive Bandage skin breakdown Active Contrast Dye caused kidney failure Active Latex Unable to assess criticality Persistent Moderate Rash Active NSAIDs can not take d/t kidney problems Active Immunizations Given and Recorded Vaccine Date [...] Date: 03/27/21 Status: Ordered Repeat number: 1 Multivitamin By Mouth, Daily, [...] prostate Confirmed Active Prostate cancer Confirmed Active Social History Social History Type Response Smoking Status Former smoker; Type: Cigarettes; Tobacco use times per day: 1 pack per year; Number of years: 18; Total pack years: 18; Started at age: 11; Stopped at age: 29; entered on: 09/16/15 Sex Sex Representation Male (finding) Patient Care team information Care Team Personnel Name: Shazia GODOY, Maria D Kapadia Position: Reference Physician Member Role: PCP Address: [address] [place] [address], [facility] [address] [place] [address]- Telecom: Name: Jim Ibrahim MD Position: [facility] Renal MD Member Role: Lifetime Consulting Physician Address: [address] [place] [address] [address] [facility] [place] [address]- Telecom: Name: Guille Dennis RN Position: [facility] RN Member Role: Primary Care Nurse Name: Teri Stoll NP Position: [facility] Associate Professional Member Role: Primary Care Nurse Address: [address] [place] [address]- Telecom: Name: Ambrocio Foley RN Position: [facility] RN Member Role: Primary Care Nurse Care Team Related Persons Name: KAT TATE Name: KAT TATE JR Name: JUNIE TATE Insurance Providers Guarantor name: KAT TATE Health Plan Information #: 1 Payer: MEDICARE PART B OUTPT Member Number: [id number] Policy Number: ECTOR Group Number: NA Health Plan Information #: 4 Payer: [employer] ELECT Member Number: [id number] Policy Number: ECTOR Group Number: [id number] Health Plan Information #: 3 Payer: [address] Member Number: [id number] Policy Number: ECTOR Group Number: NA Health Plan Information #: 2 Payer: [employer]UE MED[employer]ARE SUPPL Member Number: [id number] Policy Number: ECTOR Group Number: [id number]
--- OUTSIDE RECORDS SUMMARY | 2024-04-11 12:38 | XMS_ITS | Encounter Summary ---
Author Organization [facility] Address [address] [place] [address] Care Team Providers Care Income Tax Investigator Name Role Phone Maria D Mccray Primary Care Provider [phone] Encounter Details Date Type Department Care Team (Late st Contact Info) Description 07/25/2021 Documentation [facility] [address] [place] [address] Whitney Moon RN Social History Tobacco Use Types Packs/Day Years [...] Orientation Straight 01/03/2021 8: 23 AM EST documented as of this encounter Progress Notes * Whitney Moon RN - 07/25/2021 3:10 PM EDT Called to screen for COVID treatment, confirmed COVID positive. Sx onset: 07/23 Positive test: 07/25 DPH criteria: Age, HTN Vaccination status: Vac & boosted 1x Pt agreeable to treatment, will come in 07/26 for Bebtelovimab documented in this encounter Plan of Treatment Upcoming Encounters Date Type Department Care Team (Late st Contact Info) Description 07/18/2024 11:40 AM EDT Follow-Up [facility] [address] [place] [address] Gurjit Olsen MD [address] [place] [address] documented as of this encounter Visit Diagnoses Not on filedocumented in this encounter Additional Health Concerns Infection Onset Date Last Indicated Resolved Time COVID-19 - Confirmed infecti on Comment:Received hard copied of negative PCR testing done 08/13/2021 and 08/14/2021 at an outside facility. Patient meet criteria for immunosuppressed patient to be cleared in system. 07/25/2021 07/25/2021 08/15/2021 3:13 PM E DT COVID-19 - Confirmed infecti on Comment:Dates of re test 02/18 and 02/19-Neg [facility] X 08/1502/08/2023 02/08/2023 02/23/2023 2: 40 PM EST documented as of this encounter Care Teams Income Tax Investigator Relationship Specialty Start Date End Date Maria D Mccray [address] [place] [address] PCP - General Internal Medicine 05/05/17 documented as of this encounter
--- OUTSIDE RECORDS SUMMARY | 2024-04-11 12:38 | XMS_ITS | Referral Summary ---
Author Organization [facility] Address [address] [place] [address] Care Team Providers Care Hiv Prevention Specialist Name Role Phone Maria D Mccray Steffi Primary Care Provider [phone] Encounters Date Type Department Care Team Description 04/06/2024 Refill [facility] Transplant Department [address] [place] [address] [phone] Tessy Walton Kidney transplant recipient (Primary Dx) 02/18/2024 Orders Only [facility] [address] [place] [phone] Social Science Instructor: Gurjit Conroy MD 02/11/2024 Refill [facility] Transplant Department [address] [place] [address] [phone] Tessy Walton Kidney transplant recipient (Primary Dx); Kidney replaced by transplant 02/10/2024 Telephone [facility] [address] [place] [address] [phone] Renée Sahu, RN 01/28/2024 Telephone [facility] [address] [place] [address] [phone] Renée Sahu, RN 01/11/2024 Telephone [facility] [address] [place] [address] [phone] Indy Prince, MISA from Last 3 Months Allergies Active Allergy Reactions Criticality Noted Date [...] Information: The UNOS donor ID number is [id number]. The match run ID number is [id number]. The donor ABO is O. 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 12/16/2016 Immunizations Immunization Administration Dates Next Due Hepatitis B Vaccine, Dialysis Patient Dosage Influenza, High Dose Seasonal, Preservative Free 11/20/2018,11/24/2017 Influenza, Injectable, Quadrivalent Preservative Free 12/12/2020,10/29/2019 Pneumococcal Conjugate Vaccine, 13 Valent 2014,07/14/2013 Pneumococcal Polysaccharide Vaccine, 23 Valent 0 02/22/2009 Zoster Vaccine, Live 08/13/2013 Social History Tobacco Use Types Packs/Day Years [...] Info) Description 07/18/2024 11:40 AM EDT Follow-Up [facility] Renal Transplant [address] [place] [address] Gurjit Olsen MD [address] [place] [address] Procedures * Due to [place] state law, this organization might not be [...] to Health Maintenance Results * Due to [place] state law, this organization might not be sharing negative HIV tests. * (ABNORMAL) CBC Auto Differential (03/24/2024 8:33 AM EST) Only the most recent of3 resultswithin the time period is included. White Blood Cell Count 3.5(L) 3.8 - 10.8 Thousand/ uL 03/24/2024 8:44 PM EST [facility] Red Blood Cell Count 4.29 4.20 - 5.80 Million/u L 03/24/2024 8:44 PM EST [facility] Hemoglobin 12.1(L) 13.2 - 17.1 g/dL 03/24/2024 8:44 PM EST [facility] Hematocrit 37.8(L) 38.5 - 50.0 % 03/24/2024 8:44 [address] [facility] MCV 88.1 80.0 - 100.0 fL 03/24/2024 8:[address] [facility] MCH 28.2 27.0 - 33.0 pg 03/24/2024 8:44 PM EST [facility] MCHC 32.0 32.0 - 36.0 g/dL 03/24/2024 8:44 PM [address] [facility] Comment: For adults, a slight decrease in the calculated MCHC value (in the range of 30 to 32 g/dL) is most likely not clinically significant; however, it should be interpreted with caution in correlation with other red cell parameters and the patient's clinical condition. RDW 12.5 11.0 - 15.0 % 03/24/2024 8:44 PM EST [facility] Platelet Count 133(L) 140 - 400 Thousand/ uL 03/24/2024 8:44 PM EST [facility] MPV 12.1 7.5 - 12.5 fL 03/24/2024 8:44 PM EST [facility] Absolute Neutrophils 1,691 1,500 - 7,800 cells/uL 03/24/2024 8:44 PM EST [facility] Absolute Lymphocytes 921 850 - 3,900 cells/uL 03/24/2024 8:44 PM EST [facility] Absolute Monocytes 728 200 - 950 cells/uL 03/24/2024 8:44 PM EST [facility] Absolute Eosinophils 112 15 - 500 cells/uL 03/24/2024 8:44 PM EST [facility] Absolute Basophils 49 0 - 200 cells/uL 03/24/2024 8:44 PM EST [facility] Neutrophils 48.3 % 03/24/2024 8:44 PM EST [facility] Lymphocytes 26.3 % 03/24/2024 8:44 PM EST [facility] Monocytes 20.8 % 03/24/2024 8:44 PM EST [facility] Eosinophils 3.2 % 03/24/2024 8:44 PM EST [facility] Basophils 1.4 % 03/24/2024 8:44 PM EST [facility] Blood Structure of peripheral vein / Unknown 03/24/2024 8:33 AM EST 03/24/2024 7:45 PM EST Narrative [facility] - 03/25/2024 8:10 AM EST FASTING:YES ?? CONTACT HISTORY: DATE ?TIME ? CONTACT 03/25/2024 ?12:32 AM ? TEST NAME ?ACTION TAKEN ?DO NOT NOTIFY CLIENT WHEN RESULTS RELEASED Gurjit Olsen MD LAB BLOOD ORDERABLES Chiqui jarvis Result [facility] [address] [facility] 3rd Floor, [place] [address], [place] [phone] [facility] [address] [place] [address] * (ABNORMAL) Tacrolimus Level (03/24/2024 8:33 AM EST) Only the most recent of3 resultswithin the time period is included. [facility] Tacrolimus, Highly Sensitive 3.7(L) mcg/L 03/25/2024 12:32 AM EST [facility] Comment: No definitive therapeutic or toxic ranges have been established. Optimal blood drug levels are influenced by type of transplant, patient response, time post- transplant, co-administration of other drugs, and drug formulation. The following trough range is a suggested guideline: 5.0-20.0 mcg/L. This test was developed and its analytical performance characteristics have been determined by [facility]. It has not been cleared or approved [...] ORDERABLES Chiqui l Result Performing Organization Address [facility] de Phone Number [facility] [address], [place] [address], [facility] [address] [place] [address] * Phosphorus (03/24/2024 8:33 AM EST) Only the most recent of3 resultswithin the time period is included. Phosphate 2.9 2.1 - 4.3 mg/dL 03/25/2024 8:05 AM EST [facility] Blood Structure of peripheral vein / Unknown 03/24/2024 8:33 AM EST 03/25/2024 3:46 AM EST Narrative [facility] - 03/25/2024 8:10 AM EST FASTING:YES ?? CONTACT HISTORY: DATE ?TIME ? CONTACT 03/25/2024 ?12:32 AM ? TEST NAME ?ACTION TAKEN ?DO NOT NOTIFY CLIENT WHEN RESULTS RELEASED Gurjit Olsen MD LAB BLOOD ORDERABLES Chiqui jarvis Result Performing Organization Address [facility] Co de Phone Number [facility] [address], [place] [address], [facility] [address] [place] [address] * Magnesium (03/24/2024 8:33 AM EST) Only the most recent of3 resultswithin the time period is included. Magnesium 1.9 1.5 - 2.5 mg/dL 03/25/2024 8:05 AM EST [facility] Blood Structure of peripheral vein / Unknown 03/24/2024 8:33 AM EST 03/25/2024 3:46 AM EST Narrative [facility] - 03/25/2024 8:10 AM EST FASTING:YES ?? CONTACT HISTORY: DATE ?TIME ? CONTACT 03/25/2024 ?12:32 AM ? TEST NAME ?ACTION TAKEN ?DO NOT NOTIFY CLIENT WHEN RESULTS RELEASED Gurjit Olsen MD LAB BLOOD ORDERABLES Chiqui jarvis Result [facility] [address] [facility] [address]rd Floor, [place] [address], [facility] [address] [place] [address] * (ABNORMAL) Comprehensive Metabolic Panel (03/24/2024 8:33 AM EST) Only the most recent of3 resultswithin the time period is included. Glucose 83 65 - 99 mg/dL 03/25/2024 8:05 AM EST [facility] Comment: ? Fasting reference interval BUN 20 7 - 25 mg/dL 03/25/2024 8:05 AM EST [facility] Creatinine 0.94 0.70 - 1.28 mg/dL 03/25/2024 8:05 AM EST [facility] eGFR 85 > OR = 60 mL/min/1. 73m2 03/25/2024 8:05 AM [facility] Bun/Creatinine Ratio SEE NOTE: 6 - 22 (calc) 03/25/2024 8:05 AM [facility] Comment: ?? Not Reported: BUN and Creatinine are within ?? reference range. ? Sodium 139 135 - 146 mmol/L 03/25/2024 8:05 AM [facility] Potassium 3.8 3.5 - 5.3 mmol/L 03/25/2024 8:05 AM [facility] Chloride 106 98 - 110 mmol/L 03/25/2024 8:05 AM [facility] Carbon Dioxide 23 20 - 32 mmol/L 03/25/2024 8:05 AM [facility] Calcium 9.2 8.6 - 10.3 mg/dL 03/25/2024 8:05 AM [facility] Protein, Total 6.4 6.1 - 8.1 g/dL 03/25/2024 8:05 AM [facility] Albumin 4.6 3.6 - 5.1 g/dL 03/25/2024 8:05 AM [facility] Globulin 1.8(L) 1.9 - 3.7 g/dL (calc) 03/25/2024 8:05 AM [facility] Albumin/Globuli n Ratio 2.6(H) 1.0 - 2.5 (calc) 03/25/2024 8:05 AM [facility] Bilirubin, Total 1.2 0.2 - 1.2 mg/dL 03/25/2024 8:05 AM [facility] Alkaline Phosphatase 46 35 - 144 U/L 03/25/2024 8:05 AM [facility] AST 19 10 - 35 U/L 03/25/2024 8:05 AM [facility] ALT 12 9 - 46 U/L 03/25/2024 8:05 AM [facility] Blood Structure of peripheral vein / Unknown 03/24/2024 8:33 AM EST 03/25/2024 3:46 AM EST Narrative [facility] - 03/25/2024 8:10 AM EST FASTING:YES ?? CONTACT HISTORY: DATE ?TIME ? CONTACT 03/25/2024 ?12:32 AM ? TEST NAME ?ACTION TAKEN ?DO NOT NOTIFY CLIENT WHEN RESULTS RELEASED us Gurjit Olsen MD LAB BLOOD ORDERABLES Chiqui jarvis Result [facility] [address] [facility] [address]rd [address], [place] [address], [facility] [address] [place] [address] * Hepatitis C RNA, quantitative, PCR (10/27/2017 2:34 PM EDT) [facility] Hcv RNA, Quantitative Real Time PCR <15 NOT DETECTED NOT DETECTED IU/mL 10/28/2017 12:53 PM EDT [facility] Hepatitis C Quantitative PCR Log IU/mL <1.18 NOT DETECTED NOT DETECTED Log IU/mL 10/28/2017 12:53 PM EDT [facility] Comment: This test was performed using Real-Time Polymerase Chain Reaction. Reportable Range: 15 IU/mL to 100,000,000 IU/mL (1.18 Log IU/mL to 8.00 Log IU/mL). The analytical performance characteristics of this assay have been determined by [facility]. The modifications have not been cleared or approved by the FDA. This assay has been validated pursuant to the CLIA regulations and is used for clinical purposes. ?? For more information on this test, go to: http://education.Goomeo/faq/SPQ51s0 (This link is being provided for informational/ educational purposes only.) Blood specimen (specimen) Structure of peripheral vein / Unknown Venipuncture / Unknown 10/27/2017 2:34 PM EDT 10/27/2017 2:44 PM EDT Narrative [facility] - 10/28/2017 12:53 PM EDT [facility] Received Date: Destiny Noel MD LAB BLOOD ORDERABLES Final R esult SON[facility] ORDONEZ [address] [facility] [address]rd Floor, [place] [address], [place] [phone] [facility] [address] [facility] [address]rd [address], [place] [address], [place] [phone] from Last 3 Months or Most Recently Relevant to Health Maintenance Insurance MEDICARE BCBS OUT OF STATE PPO MEDICARE Advance Directives Documents on File Type Date Recorded Patient Anesthesiologist And Critical Care Expl anation Advance Directive 02/07/2014 12:00 AM sf Medical Dec Making (Adv.Dir) Advance Directive 06/30/2010 12:00 AM Me dical Dec Making (Adv.Dir) Care Teams Hiv Prevention Specialist Relationship Specialty Start Date End Date Maria D Mccray [address] [place] [address] PCP - General Internal Medicine 05/05/17
--- OUTSIDE RECORDS SUMMARY | 2024-04-11 12:39 | XMS_ITS | Encounter Summary ---
Author Organization [facility] Address [address] [place] [address] Care Team Providers Care Mortgage Field Inspector Name Role Phone Maria D Mccray Primary Care Provider [phone] Encounter Details Date Type Department Care Team (Late st Contact Info) Description 11/25/2016 Transplant Conversio n Encounter [facility] Health Information Management [address] [place] [address] Provider, Historical [facility] Social History Tobacco Use Types Packs/Day Years Used Date Smoking Tobacco: Former Smokeless Tobacco: Never Comments:: Sex and Gender Information Value Date Recorded Sex Assigned at Male 01/03/2021 8:23 AM EST Legal Sex Male 10:14 AM EDT Gender Identity Male 01/03/2021 8:23 AM EST Sexual Orientation Straight 01/03/2021 8: 23 AM EST documented as of this encounter Plan of Treatment Upcoming Encounters Date Type Department Care Team (Late st Contact Info) Description 07/18/2024 11:40 AM EDT Follow-Up [facility] Renal Transplant [address] [place] [address] Gurjit Olsen MD [address] [place] [address] documented as of this encounter Visit Diagnoses [...] documented as of this encounter Care Teams Mortgage Field Inspector Relationship Specialty Start Date End Date Maria D Mccray [address] [place] [address] PCP - General Internal Medicine 05/05/17 documented as of this encounter
--- OUTSIDE RECORDS SUMMARY | 2024-04-11 12:39 | XMS_ITS | Encounter Summary ---
Author Organization [facility] Address [address] [place] [address] Care Team Providers Care Parachute Line Tier Name Role Phone Maria D Mccray MD Primary Care Provider [phone] Reason for Visit * Reason Onset Date Comments Shazia: DIPAK 03/03/2024 Encounter Details Date Type Department Care Team ([facility] st Contact Info) Description 03/03/2024 Telephone Internal Medicine - [place] [address] [place] [phone] Maria D Mccray MD [address] [place] [address] [place] [phone] Shazia: Social History Tobacco Use Types Packs/Day Years [...] encounter Progress Notes * Aida Johnson - 03/09/2024 10:00 AM EST Patient called reached his limits from [facility]-physical Question will she refer him to AT to continue Out patient physical therapy * Paulina Laurent - 03/03/2024 4:30 PM EST Claudia from [facility] called to report that they are discharging the patient next week for speech therapy because patient would like outpatient services for PT and speech therapy. Cb# [phone] documented in this encounter Plan of Treatment Upcoming Encounters Date Type Department Care Team (Late st Contact Info) Description 07/12/2024 10:45 AM EDT Office Visit Internal Medicine - [place] [address] [address] Amado Morgan NP [address] [address] documented as of this encounter Visit Diagnoses Not on filedocumented in this encounter Additional Health Concerns Assessment Noted Time PHQ-9 Depression Total Score: 0 01/10/20 24 2:13 PM EST A fall risk assessment has been complete d for the patient 01/10/2024 2:13 PM EST documented as of this encounter Care Teams Parachute Line Tier Relationship Specialty Start Date End Date Maria D Mccray MD [address] [address] PCP - General Internal Medicine 02/01/12 documented as of this encounter
--- OUTSIDE RECORDS SUMMARY | 2024-04-11 12:39 | XMS_ITS | Clinical Summary ---
Author Organization [facility] Address [address] [place] [address] Phone Care Team Providers Care Hand Funnel Coater Name Role Phone Maria D Mccray MD Primary Care Provider [phone] Allergies Active Allergy Reactions Criticality Noted Date Comments Adhesive Tape-Silicones Rash Low 12/31/2017 rash Lisinopril Unknown Medium 05/13/2020 Other reaction(s): cough Nsaids (Non-Steroidal Anti-Inflammatory Drug) Unknown 12/31/2017 Medications alendronate (FOSAMAX) 70 mg tablet Take 1 tablet (70 mg total) by mouth once a week (every 7 days) 05/19/19 24 Active nitroglycerin (NITROSTAT) 0.[address] 1 Tablet under the tongue every 5 minutes as needed for Chest pain (take every 5 min for 3 doses for chest pain). 12/04/19 23 Active NIFEdipine CC (ADALAT CC) 60 mg 24 hr tablet Take 1 Tablet by mouth 2 times daily for 360 days. 01/12/20 22 Active multivitamin (Multiple Vitamins) tablet Take 1 Tablet by mouth daily. 01/03/20 22 Active acetaminophen (TYLENOL) 500 mg tablet Take 1 Tablet by mouth every 6 hours as needed (Take 1 tablet every 6 hours as neeeded for pain.). Active mycophenolate (CELLCEPT) 250 mg capsule Take 1 capsule (250 mg total) by mouth 2 (two) times a day. 2 caps in the morning & 1 cap in the evening 01/03/20 22 Active tacrolimus (PROGRAF) 1 mg capsule Take 1 capsule (1 mg total) by mouth 2 (two) times a day. 3 caps in the morning & 2 caps in the afternoon 03/12/19 22 Active coenzyme Q10 400 mg capsule Take 1 capsule by mouth 1 (one) time each day. 01/03/20 22 Active docosahexaeno ic acid/epa (FISH OIL ORAL) 1 Tablet daily. Active aspirin 81 mg EC tablet Take 1 Tablet by mouth daily. 30 tablet 1 01/05/20 24 Active allopurinoL (ZYLOPRIM) 100 mg tablet Take 1 tablet (100 mg total) by mouth 1 (one) time each day. 30 tablet 5 01/28/20 24 Active omeprazole (PriLOSEC) [address] capsule Take 1 capsule (20 mg total) by mouth daily. 30 capsule 5 01/28/20 24 Active losartan (COZAAR) 100 mg tablet Take 1 tablet (100 mg total) by mouth daily. 30 tablet 5 01/28/20 24 Active rosuvastatin (CRESTOR) 20 mg tablet Take 1 tablet (20 mg total) by mouth 1 (one) time each day. 30 tablet 5 01/28/20 24 Active famotidine (Pepcid) 20 mg tablet Take 1 tablet (20 mg total) by mouth 2 (two) times a day. 60 each 3 01/30/20 24 025 Active Additional Information Patient not taking.Reported on 03/14/2024 clopidogreL (PLAVIX) 75 mg tablet Take 1 tablet (75 mg total) by mouth 1 (one) time each day. 90 tablet 1 02/09/20 24 Active predniSONE (DELTASONE) 5 mg tablet Take 1 tablet (5 mg total) by mouth 1 (one) time each day. Active furosemide (LASIX) 20 mg tablet Take 1 tablet (20 mg total) by mouth 1 (one) time each day. 02/23/19 25 Active hydrALAZINE (APRESOLINE) 50 mg tablet Take 2 tablets (100 mg total) by mouth 3 (three) times a day. Active doxazosin (CARDURA) 2 mg tablet Take 1 tablet (2 mg total) by mouth at bedtime. 30 tablet 1 03/18/19 25 Active LORazepam (ATIVAN) 1 mg tablet Take 1 tablet (1 mg total) by mouth daily at bedtime as needed for anxiety. Max Daily Amount: 1mg 28 tablet 04/12/19 25 Active bisacodyL (DULCOLAX) 5 mg EC tablet Take 2 tablets by mouth right before your first dose of liquid prep. 08/02/19 24 025 Discontinued(Ex pired) polyethylene glycol (GoLYTELY) 236-22.74-6.7 4 -5.86 gram solution Take 240 mL by mouth once for 1 dose. Take 4L by mouth once for one dose. May substitue any PEG. Starting at 6PM the night before your procedure drink 1 8oz glasses at your own pace until rectals run clear. 08/02/19 24 025 Discontinued(Ex pired) doxazosin (CARDURA) 2 mg tablet Take 1 tablet (2 mg total) by mouth daily. 03/02/19 24 025 Discontinued(Re order) hydrALAZINE (APRESOLINE) 50 mg tablet Take 1 tablet (50 mg total) by mouth every 6 (six) hours. 30 tablet 2 02/18/20 24 025 Discontinued(Ex pired) LORazepam (ATIVAN) 1 mg tablet Take 1 tablet (1 mg total) by mouth at bedtime as needed for anxiety. 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 02/18/2024 Dysarthria following cerebral infarction 024 Facial weakness following cerebral infarction Hypertensive chronic kidney disease with stage 1 through stage 4 chronic kidney disease, or unspecified chronic kidney disease 02/18/2024 Kidney transplant status 02/18/2024 Atherosclerotic heart diseas e of [place] coronary artery without angina pectoris 02/18/2024 Nonrheumatic aortic valve stenosis 04/21/2022 Aneurysm of ascending aorta without rupture 03/26 Hypertension 05/14/2017 Assessment & Plan (01/10/2024 2:15 PM EST): Hyperlipidemia 05/14/2017 Assessment & Plan (01/10/2024 2:15 PM EST): Renal transplant, status post 05/14/2017 Edema 01/29/2017 End stage renal disease on dialysis 11/27/2016 GERD (gastroesophageal reflux disease) 7 Assessment & Plan (01/10/2024 2:15 PM EST): Coronary artery disease invo lving [place] heart without angina pectoris 07/26/2016 Anemia 02/21/2016 Leukopenia 02/04/2016 Thrombocytopenia 02/04/2016 Anxiety 11/27/2014 Erectile dysfunction 05/17/2013 Internal hemorrhoids 10/27/2012 Benign colonic polyp 10/27/2012 Diverticulosis 10/27/2012 Gouty arthropathy 09/09/2010 Assessment & Plan (01/10/2024 2:15 PM EST): Encounters Date Type Department Care Team Description 03/28/2024 Telephone Internal Medicine [address] [phone] Karyna Graham MA faxed form (ATI) 03/21/2024 Telephone Internal Medicine [address] [phone] Rebecca Moody MA Request For Order(s) ([facility] Missed Visit /) 03/14/2024 9:45 AM EST Office Visit Internal Medicine [address] [phone] Maria D Mccray MD Hemiplga following cerebral infrc aff right dominant side (CMS/HCC) (Primary Dx); Speech disturbance, unspecified type; Mixed hyperlipidemia; Primary hypertension; End stage renal disease on dialysis (CMS/HCC) 03/06/2024 Telephone Internal Medicine [address] [address] Maria D Mccray MD Hypertension (Elevated blood pressure reading this am) 03/03/2024 Telephone Internal Medicine [address] [address] Maria D Mccray MD [place]: FYI 02/22/2024 Telephone Internal Medicine [address] [phone] Maria D Mccray MD VNA (VNA reported missed visit) 02/22/[address] [facility] [address] [phone] Rebecca Moody MA Request For Order(s) ([facility] Order # [id number]/) 02/18/2024 Billing Patient Not Present Internal [address] [address] Maria D Mccray MD Hemiplga following cerebral infrc aff right dominant side (CMS/HCC) (Primary Dx); Dysarthria following cerebral infarction; Facial weakness following cerebral infarction; Hypertensive chronic kidney disease with stage 1 through stage 4 chronic kidney disease, or unspecified chronic kidney disease; Kidney transplant status; Atherosclerosis of [place] coronary artery of [place] heart without angina pectoris 02/11/2024 [place] Internal [address] [phone] Maria D Mccray MD VNA 02/11/2024 [place] Internal [address] [phone] Maria D Mccray MD vna (Vna called with bp reading) 02/09/2024 [facility] Internal [address] [phone] Maria D Mccray MD Hypertension 02/07/2024 [facility] Internal [address] [phone] Maria D Mccray MD 02/07/[address] [facility] [address] [phone] Maria D Mccray MD Hypertension (Reading from RN Claudia-) 02/07/2024 [place] Internal [address] [phone] Rebecca Moody MA Request For Order(s) ([facility] Cert 01/27/24-03/26/24 Plan of Care /) 02/04/2024 Telephone Internal Medicine [address] [place] [address] Maria D Mccray MD VNA 01/31/2024 2:15 PM EST Office Visit Internal [address] [phone] Maria D Mccray MD Left pontine stroke (CMS/HCC) (Primary Dx); Edema, unspecified type; Primary hypertension; Renal transplant, status post 01/31/[address] [facility] [address] [phone] Maria D Mccray MD VNA 01/28/2024 Telephone Internal [address] [phone] Maria D Mccray MD VNA; Hypertension 01/28/[address] [address] Maria D Mccray MD VNA; Medication interaction 01/25/2024 Telephone Internal [address] [phone] Maria D Mccray MD Hospital Follow-up 01/19/2024 Lab Requisition [facility] [address] [place] [address] Keri Cuevas MD Encounter for other general examination 01/14/2024 Lab Requisition [facility] [address] [place] [address] Keri Cuevas MD Encounter for other general examination 01/10/2024 1:15 PM EST Office Visit Internal [address] [phone] Maria D Mccray MD Primary hypertension (Primary Dx); Mixed hyperlipidemia; Gastroesophageal reflux disease with esophagitis and hemorrhage; Encounter for subsequent annual wellness visit (AWV) in Medicare patient; Gouty arthropathy from Last 3 Months Immunizations Name Administration Dates Next Due Influenza trivalent, 0.5mL ( Fluzone High-dose) 65yo and older 11/20/2018 Pneumococcal conjugate 13 va lent (Prevnar 13, PCV13) 2mo and older 02/21/2016,08/01/2014 Pneumococcal polysaccharide 23 valent (Pneumovax 23) 2yo and older 01/15/2021,11/27/2014,01/23/2008 Td Tetanus diptheria (Tdvax) 7yo and older 05/17 Zoster Live 08/11/2013 Surgical History Surgery Date Site/Laterality Comments OTHER SURGICAL HISTORY PROCEDURE: AV FISTULA OR GRAFT VENOUS CORONARY ARTERY BYPASS GRAFT PROCEDURE: HISTORICAL CABG OTHER SURGICAL HISTORY PROCEDURE: ID RENAL [id number] GRF W/O BLOCK SEALER NEPHRECTOMY HERNIA REPAIR PROCEDURE: ID REPAIR FIRST ABDOMINAL WALL HERNIA Medical History Medical History Date Comments Anemia 02/21/2016 DX:Anemia Anxiety 11/27/2014 DX:Anxiety Benign colonic polyp 10/27/2012 DX:Benign c olonic polyp Coronary artery disease 07/26/2016 DX:Coron maxwell artery disease Diverticulosis 10/27/2012 DX:Diverticulosi s Edema 01/29/2017 DX:Edema End stage renal disease on d ialysis ([facility]/HCC) 11/27/2016 DX:End stage renal disease o n dialysis ([facility]) Erectile dysfunction 05/17/2013 DX:Erectile dysfunction GERD (gastroesophageal reflux disease) 09/23/2016 DX:GERD (gastroesophageal reflux disease) Gouty arthropathy 09/09/2010 DX:Gouty arthr opathy History of prostate cancer 02/08/2012 DX:Hi story of prostate cancer Hyperlipidemia 05/14/2017 DX:Hyperlipidemi a Hypertension 05/14/2017 DX:Hypertension Internal hemorrhoids 10/27/2012 DX:Internal hemorrhoids Kidney transplant recipient 05/14/2017 DX:K idney transplant recipient Leukopenia 02/04/2016 DX:Leukopenia Thrombocytopenia ([facility]/HCC) 02/04/2016 DX:Th rombocytopenia ([facility]) Social History Tobacco Use Types Packs/Day Years Used Date Smoking Tobacco: Former Cigarettes Smokeless Tobacco: Never Tobacco Cessation:Counseling Given: Not Answered Alcohol Use Standard Drinks/Week Comments Yes 0 (1 standard drink = 0.6 oz pur e alcohol) Sex and Gender Information Value Date Recorded Sex Assigned at Not on file Legal Sex Male 4:23 AM EST Gender Identity Not on file Sexual Orientation Not on file Obstetrics History Last Filed Vital Signs Vital Sign Reading Time Taken Comments Blood Pressure 130/60 03/14/2024 9:29 AM EST Pulse 61 03/14/2024 9:29 AM EST Temperature 36.4 ??C (97.5 ??F) 03/14/2024 9:29 AM ES T Respiratory Rate - - Oxygen Saturation 97% 03/14/2024 9:29 AM EST Inhaled Oxygen Concentration - - Weight 81.2 kg (179 lb) 03/14/2024 9:29 AM EST Height 172.7 cm (5' 8 ) 01/31/2024 3:29 PM EST Body Mass Index 27.22 01/31/2024 3:29 PM EST Plan of Treatment Upcoming Encounters Date Type Department Care Team (Late st Contact Info) Description 07/12/2024 10:45 AM EDT Office Visit Internal Medicine - [place] [address] [facility] [address] [place] [address] Amado Morgan, JEANIE [address] [facility] [address] [place] [address] Health Maintenance Due Date Last Done Comments Hepatitis B Vaccines (2 of 3 - 19+ 3-dose series) 08/11/2013 07/14/2013 Zoster Vaccines (1 of 2) 11/05/2013 09/10/2013, 07/24 Abdominal Aortic Aneurysm (AAA) Screen 01/31/2022 Colorectal Cancer Screening: Colonoscopy 01/31/2022 Social Influencers of Health Screening 01/31/2022 DTaP,Tdap,and Td Vaccines (2 - Td or Tdap) 05/18/2023 05/17/2013, 05/17/2013 Depression Screening 01/09/2025 01/10/2024 Falls Risk Assessment 01/09/2025 01/10/2024 Medicare Annual Wellness Visit 01/09/2025 01/10/2024 Hypertension/CHF/CAD Annual BMP Blood Test 02/17/2025 02/18/2024, 02/07/2024, 01/19/2024, Additional history exists Cholesterol Screening (Lipid Panel) 05/16/2028 05/17/2023 Hepatitis C Screening Completed 10/27/2017 Pneumococcal Vaccine: 50+ Years Completed 01/15/2021, 02/21/2016, 11/27/2014, Additional history exists RSV Immunization Patients 60+ Years Old Completed 11/11/2022 Influenza Vaccine Completed 10/27/2023, , 10/28/2021, Additional history exists COVID-19 Vaccine Completed 11/29/2023, 04/2023, 11/16/2022, Additional history exists HIB Vaccines Aged Out No longer eligi ble based on patient's age to complete this topic HPV Vaccines Aged Out No longer eligi ble based on patient's age to complete this topic Hepatitis A Vaccines Aged Out No long er eligible based on patient's age to complete this topic IPV Vaccines Aged Out No longer eligi ble based on patient's age to complete this topic MMR Vaccines Aged Out No longer eligi ble based on patient's age to complete this topic Meningococcal ACWY Vaccine Aged Out N o longer eligible based on patient's age to complete this topic Meningococcal B Vacine Aged Out No lo nger eligible based on patient's age to complete this topic RSV Immunization Patients Under 20 months Aged Out No longer eligible based on patient's age to complete this topic Varicella Vaccines Aged Out No longer eligible based on patient's age to complete this topic Medical Devices Implanted Type Area Package Worker Device Identifier Shelf Expiration Date Model / Serial / Lot Cement Bone Surg Simplex Radiopq Stry-Howm [id number] Implanted:Qty: 1 on 05/07/2022 by Matthew Ley MD Right: Knee [employer] 08/21/2024 6191-1-010 / / [id number] Cement Bone Surg Simplex Radiopq Stry-Howm [id number] Implanted:Qty: 1 on 05/07/2022 by Matthew Ley MD Right: Knee [employer] 08/21/2024 6191-1-010 / / [id number] Knee Fem Joao Ps Trthln Rt #5 Stry-Howm [id number] Implanted:Qty: 1 on 05/07/2022 by Matthew Ley MD Right: Knee [employer] [id number] 11/13/2026 5515-F-502 / / [id number] Knee Baseplt Tib Cmnt Sz5 Stry-Howm 3120-[id number]-[id number] 191 Implanted:Qty: 1 on 05/07/2022 by Matthew Ley MD Right: Knee [employer] [id number] 01/07/2027 5520-B-500 / / [id number] Peg Fix Femoral Distal Stry-Howm [id number]-[id number] Implanted:Qty: 1 on 05/07/2022 by Matthew Ley MD Right: Knee [employer] [id number] 12/21/2026 5575-X-000 / / [id number] Knee Tib Insrt Ps-X3 2f8c15ol Stry-Howm 1855-[id number] [id number] Implanted:Qty: 1 on 05/07/2022 by Matthew Ley MD Right: Knee [employer] [id number] 12/09/2026 5532-G-513 / / [id number] Knee Pat Asymmetric X3 [id number] Stry-Howm 9950-[id number]-[id number] Implanted:Qty: 1 on 05/07/2022 by Matthew Ley MD Right: Knee [employer] [id number] 01/20/2027 5551-G-320 -E / / [id number] Procedures Procedure Name Priority Date/Time Associated Diagnosis [...] AM EST Encounter for other general examination MYCOPHENOLIC ACID Routine 01/14/2024 5:2 3 AM EST Encounter for other general examination TACROLIMUS LEVEL Routine 01/14/2024 5:23 AM EST Encounter for other general examination MAGNESIUM Routine 01/14/2024 5:23 AM EST Encounter for other general examination CBC AND DIFFERENTIAL Routine 01/14/2024 5:23 AM EST Encounter for other general examination COMPREHENSIVE METABOLIC PANEL Routine 01/14/2024 5:23 AM EST Encounter for other general examination LIPID PANEL Routine 05/17/2023 from Last 3 Months or Most Recently Relevant to Health Maintenance Results * (ABNORMAL) Mycophenolic acid and metabolite (01/19/2024 7:17 AM EST) Only the most recent of2 resultswithin the time period is included. Mycophenolic Acid 1.1 1.0 - 3.5 ug/mL 01/25/2024 7:36 AM EST [facility] Mycophenolic Acid Glucuronide 13(L) 35 - 100 ug/mL 01/25/2024 7:36 AM EST [facility] Comment: ?Combined Therapy [...] developed and the performance characteristics determined by [facility]. This confirmation testing has not been cleared or approved by the FDA. The laboratory is regulated under CLIA as qualified to perform high-complexity testing. This test is used for patient testing purposes. It should not be regarded as investigational or for research. Test performed at [facility], [address], [place], [place] ??[address] ? [phone] Cassie Aguiar MD, PhD - Coffee Sommelier Blood Venous blood specimen / Unknown Venipuncture / Unknown 01/19/2024 7:17 AM EST 01/19/2024 10:47 AM EST us Keri Cuevas MD LAB BLOOD ORDERABLES Final Res ult [facility] [address] [place] [address] * Tacrolimus level (01/19/2024 7:17 AM EST) Only the most recent of2 resultswithin the time period is included. Tacrolimus Level 5.9 5.0 - 20.0 ng/mL 01/24/2024 12:27 PM EST [facility] Comment: Additional Information: Toxic Level ?> [...] developed and the performance characteristics determined by [facility]. This confirmation testing has not been cleared or approved by the FDA. The laboratory is regulated under CLIA as qualified to perform high-complexity testing. This test is used for patient testing purposes. It should not be regarded as investigational or for research. Test performed at [facility], [address] , [place], [place] ??[address] ? [phone] Cassie Aguiar MD, PhD - Coffee Sommelier Blood Venous blood specimen / Unknown Venipuncture / Unknown 01/19/2024 7:17 AM EST 01/19/2024 10:47 AM EST us Keri Cuevas MD LAB BLOOD ORDERABLES Final Res ult [facility] [address] [place] [address] * (ABNORMAL) Complete blood count (01/19/2024 7:17 AM EST) WBC 3.4(L) 4.8 - 10.8 K/mcL LAB HEMETOLOGY METHOD 01/19/2024 2:45 PM EST [facility] RBC 4.70 4.50 - 5.50 M/mcL LAB HEMETOLOGY METHOD 01/19/2024 2:45 PM EST [facility] Hemoglobin 13.4(L) 13.5 - 17.5 g/dL LAB HEMETOLOGY METHOD 01/19/2024 2:45 PM EST [facility] Hematocrit 41.3(L) 42.0 - 54.0 % LAB HEMETOLOGY METHOD 01/19/2024 2:45 PM EST [facility] MCV 88.4 79.0 - 98.0 FL LAB HEMETOLOGY METHOD 01/19/2024 2:45 PM EST [facility] MCH 28.7 27.0 - 32.0 pcg LAB HEMETOLOGY METHOD 01/19/2024 2:45 PM EST [facility] MCHC 32.4 32.0 - 37.0 g/dL LAB HEMETOLOGY METHOD 01/19/2024 2:45 PM EST [facility] RDW 13.6 11.0 - 15.0 % LAB HEMETOLOGY METHOD 01/19/2024 2:[address] [facility] Platelets 150 130 - 400 K/mcL LAB HEMETOLOGY METHOD 01/19/2024 2:45 PM EST [facility] MPV 11.6(H) 7.0 - 11.0 FL LAB HEMETOLOGY METHOD 01/19/2024 2:45 PM EST [facility] NRBC 0.0 <1.0 % LAB HEMETOLOGY METHOD 01/19/2024 2:45 PM EST [facility] NRBC Absolute 0.00 <0.10 K/mcL LAB HEMETOLOGY METHOD 01/19/2024 2:45 PM EST [facility] Blood Venous blood specimen / Unknown Venipuncture / Unknown 01/19/2024 7:17 AM EST 01/19/2024 10:47 AM EST us Keri Cuevas MD LAB BLOOD ORDERABLES Final Res ult [facility] [address] [place] [address], * Comprehensive metabolic panel (01/19/2024 7:17 AM EST) Only the most recent of2 resultswithin the time period is included. Sodium 141 133 - 145 mmol/L LAB CHEMISTRY METHOD 01/19/2024 1:[address] [facility] Potassium 3.7 3.5 - 5.5 mmol/L LAB CHEMISTRY METHOD 01/19/2024 1:[address] [facility] Chloride 110 96 - 110 mmol/L LAB CHEMISTRY METHOD 01/19/2024 1:[address] [facility] CO2 22 21 - 32 mmol/L LAB CHEMISTRY METHOD 01/19/2024 1:[address] [facility] Anion Gap 9 3 - 11 LAB CHEMISTRY METHOD 01/19/2024 1:[address] [facility] Glucose 77 70 - 100 mg/dL LAB CHEMISTRY METHOD 01/19/2024 1:[address] [facility] BUN 13 5 - 25 mg/dL LAB CHEMISTRY METHOD 01/19/2024 1:[address] [facility] Creatinine 0.82 0.70 - 1.30 mg/dL LAB CHEMISTRY METHOD 01/19/2024 1:[address] [facility] eGFR 92 >=60 mL/min/1. 73m2 LAB CHEMISTRY METHOD 01/19/2024 1:[address] [facility] Comment:Calculation based on the??Chronic Kidney Disease Epidemiology Collaboration (CKD-EPI) equation refit??without adjustment for race. BUN/Creatinine Ratio 15.9 LAB CHEMISTRY METHOD 01/19/2024 1:[address] [facility] Calcium 9.1 8.5 - 10.5 mg/dL LAB CHEMISTRY METHOD 01/19/2024 1:[address] [facility] AST (SGOT) 30 10 - 42 unit/L LAB CHEMISTRY METHOD 01/19/2024 1:[address] [facility] ALT (SGPT) 29 10 - 60 unit/L LAB CHEMISTRY METHOD 01/19/2024 1:42 PM EST [facility] Alkaline Phosphatase 59 42 - 121 unit/L LAB CHEMISTRY METHOD 01/19/2024 1:[address] [facility] Total Protein 6.1 6.0 - 8.0 g/dL LAB CHEMISTRY METHOD 01/19/2024 1:[address] [facility] Albumin 3.8 3.2 - 5.0 g/dL LAB CHEMISTRY METHOD 01/19/2024 1:[address] [facility] Total Bilirubin 1.2 0.0 - 1.4 mg/dL LAB CHEMISTRY METHOD 01/19/2024 1:[address] [facility] Blood Venous blood specimen / Unknown Venipuncture / Unknown 01/19/2024 7:17 AM EST 01/19/2024 10:47 AM EST Keri Cuevas MD LAB BLOOD ORDERABLES Final Res ult [facility] [address] [place] [address], [place] [phone] * (ABNORMAL) CBC auto differential (01/14/2024 5:23 AM EST) WBC 3.0(L) 4.8 - 10.8 K/mcL LAB HEMETOLOGY METHOD 01/14/2024 8:[address] [facility] RBC 4.50 4.50 - 5.50 M/[facility] HEMETOLOGY METHOD 01/14/2024 8:[address] [facility] Hemoglobin 12.9(L) 13.5 - 17.5 g/dL LAB HEMETOLOGY METHOD 01/14/2024 8:[address] [facility] Hematocrit 40.2(L) 42.0 - 54.0 % LAB HEMETOLOGY METHOD 01/14/2024 8:[address] [facility] MCV 89.1 79.0 - 98.0 FL LAB HEMETOLOGY METHOD 01/14/2024 8:[address] [facility] MCH 28.6 27.0 - 32.0 pcg LAB HEMETOLOGY METHOD 01/14/2024 8:[address] [facility] MCHC 32.1 32.0 - 37.0 g/dL LAB HEMETOLOGY METHOD 01/14/2024 8:[address] [facility] RDW 13.7 11.0 - 15.0 % LAB HEMETOLOGY METHOD 01/14/2024 8:[address] [facility] Platelets 129(L) 130 - 400 K/mcL LAB HEMETOLOGY METHOD 01/14/2024 8:[address] [facility] MPV 11.3(H) 7.0 - 11.0 FL LAB HEMETOLOGY METHOD 01/14/2024 8:[address] [facility] NRBC 0.0 <1.0 % LAB HEMETOLOGY METHOD 01/14/2024 8:[address] [facility] NRBC Absolute 0.00 <0.10 K/mcL LAB HEMETOLOGY METHOD 01/14/2024 8:[address] [facility] Neutrophils Relative 48.6 % LAB HEMETOLOGY METHOD 01/14/2024 8:[address] [facility] Lymphocytes Relative 23.2 % LAB HEMETOLOGY METHOD 01/14/2024 8:[address] [facility] Monocytes Relative 20.9 % LAB HEMETOLOGY METHOD 01/14/2024 8:[address] [facility] Eosinophils Relative 5.6 % LAB HEMETOLOGY METHOD 01/14/2024 8:[address] [facility] Basophils Relative 1.0 % LAB HEMETOLOGY METHOD 01/14/2024 8:[address] [facility] Immature Granulocytes Relative 0.7 % LAB HEMETOLOGY METHOD 01/14/2024 8:36 AM EST [facility] Neutrophils Absolute 1.47(L) 1.50 - 7.00 K/[facility] HEMETOLOGY METHOD 01/14/2024 8:36 AM EST [facility] Lymphocytes Absolute 0.70(L) 1.00 - 5.00 K/mcL LAB HEMETOLOGY METHOD 01/14/2024 8:36 AM EST [facility] Monocytes Absolute 0.63 0.20 - 1.00 K/[facility] HEMETOLOGY METHOD 01/14/2024 8:36 AM EST [facility] Eosinophils Absolute 0.17 0.00 - 0.50 K/[facility] HEMETOLOGY METHOD 01/14/2024 8:36 AM EST [facility] Basophils Absolute 0.03 0.00 - 0.20 K/mcL LAB HEMETOLOGY METHOD 01/14/2024 8:36 AM EST [facility] Immature Granulocytes Absolute 0.02 0.00 - 0.03 K/[facility] HEMETOLOGY METHOD 01/14/2024 8:36 AM EST [facility] Blood Venous blood specimen / Unknown Venipuncture / Unknown 01/14/2024 5:23 AM EST 01/14/2024 7:39 AM EST us Keri Cuevas MD LAB BLOOD ORDERABLES Final Res ult [facility] [address] [place] [address], * Magnesium (01/14/2024 5:23 AM EST) Magnesium 1.9 1.9 - 2.6 mg/dL LAB CHEMISTRY METHOD 01/14/2024 9:45 AM EST [facility] Blood Venous blood specimen / Unknown Venipuncture / Unknown 01/14/2024 5:23 AM EST 01/14/2024 7:39 AM EST Keri Cuevas MD LAB BLOOD ORDERABLES Final Res ult [facility] ([facility] [address] [place] [address], * Lipid panel (05/17/2023) Triglycerides 0 mg/dL Comment:no interpretation Cholesterol 0 mg/dL Comment:no interpretation HDL 0 mg/dL Comment:no interpretation LDL Cholesterol 0 mg/dL Comment:no interpretation Blood Venous blood specimen / Unknown Historical Provider LAB BLOOD ORDERABLES Chiqui l Result from Last 3 Months or Most Recently Relevant to Health Maintenance Insurance MEDICARE [facility]) MEDICARE ADVANTAGE Advance Directives Documents on File Type Date Recorded Patient Cashier Credit Expl anation Health Care Decision (hx) 05/07/2022 ADVANCE DIRECTIVE AN D LIVING WILL Care Teams Hand Funnel Coater Relationship Specialty Start Date End Date Chaganti, Maria D D, MD [address] [place] [phone] PCP - General Internal Medicine 02/01/12
--- OUTSIDE RECORDS SUMMARY | 2024-04-11 12:39 | XMS_ITS | Encounter Summary ---
Author Organization [facility] Address [address] [place] [address] Care Team Providers Care Senior It Project Manager Name Role Phone Maria D Mccray MD Primary Care Provider [phone] Reason for Visit * Reason Onset Date Comments Request For Order(s) 03/21/2024 [facility] Missed Visit Encounter Details Date Type Department Care Team (Late st Contact Info) Description 03/21/2024 Telephone Internal Medicine - [place] [address] [place] [phone] Rebecca Moody MA Request For Order(s) ([facility] Missed Visit /) Social History Tobacco Use Types Packs/Day Years [...] as of this encounter Progress Notes * Rebecca Moody MA - 03/23/2024 12:14 PM EST Scanned into chart and faxed to [facility] [phone] * Rebecca Moody MA - 03/21/2024 7:10 AM EST [facility] Missed Visit Please sign & fax [phone] documented in this encounter Plan of Treatment Upcoming Encounters Date Type Department Care Team (Late st Contact Info) Description 07/12/2024 10:45 AM EDT Office Visit Internal Medicine - [place] [address] [place] [phone] Amado Morgan, JEANIE [address] [place] [address] documented as of this encounter Visit Diagnoses Not on filedocumented in this encounter Additional Health Concerns Assessment Noted Time PHQ-9 Depression Total Score: 0 01/10/20 2:13 PM EST A fall risk assessment has been complete d for the patient 01/10/2024 2:13 PM EST documented as of this encounter Care Teams Senior It Project Manager Relationship Specialty Start Date End Date Maria D Mccray MD [address] [place] [phone] PCP - General Internal Medicine 02/01/12 documented as of this encounter
--- OUTSIDE RECORDS SUMMARY | 2024-04-11 12:39 | XMS_ITS | Encounter Summary ---
Author Organization [facility] Address [address] [place] [address] Care Team Providers Care Unit Controller Name Role Phone Maria D Mccray MD Primary Care Provider Reason for Referral * Consultation (Routine) - Authorized Specialty Diagnoses / Procedures Referred By Mark ferguson Referred To Contact Speech Pathology / Speech Therapy Diagnoses Hemiplga following cerebral infrc aff right dominant side (CMS/HCC) Speech disturbance, unspecified type Maria D Mccray MD [address] [address] Phone: tel: fax: Referral ID Status Reason Start Date Expiration Date Visits Requested Visits Authorized [id number] Authorized Specialty Services Required 03/14/2024 03/14/2025 1 1 * Consultation (Routine) - Authorized Specialty Diagnoses / Procedures Referred By Mark efrguson Referred To Contact Physical Therapy Diagnoses Hemiplga following cerebral infrc aff right dominant side (CMS/HCC) Maria D Mccray MD [address] [address] Phone: tel: fax: Referral ID Status Reason Start Date Expiration Date Visits Requested Visits Authorized [id number] Authorized Specialty Services Required 03/14/2024 03/14/2025 1 1 Reason for Visit * Reason Comments Follow-up Encounter Details Date Type Department Care Team ([facility] st Contact Info) Description 03/14/2024 9:45 AM EST Office Visit Internal Medicine - [place] [address] [place] [address] Maria D Mccray MD [address] [place] [address] Hemiplga following cerebral infrc aff right dominant side (CMS/HCC) (Primary Dx); Speech disturbance, unspecified type; Mixed hyperlipidemia; Primary hypertension; End stage renal disease on dialysis (CMS/HCC) Social History Tobacco Use Types Packs/Day Years [...] on file documented as of this encounter Last Filed Vital Signs Vital Sign Reading Time Taken Comments Blood Pressure 130/60 03/14/2024 9:29 AM EST Pulse 61 03/14/2024 9:29 AM EST Temperature 36.4 ??C (97.5 ??F) 03/14/2024 9:29 AM ES T Respiratory Rate - - Oxygen Saturation 97% 03/14/2024 9:29 AM EST Inhaled Oxygen Concentration - - Weight 81.2 kg (179 lb) 03/14/2024 9:29 AM EST Height - - Body Mass Index 27.22 01/31/2024 3:29 PM EST documented in this encounter Progress Notes * Maria D Mccray MD - 03/14/2024 9:45 AM EST CHIEF COMPLAINT: Follow-up IDENTIFIER: Randy Birch is a 74 y.o. old male. HPI:S/p kidney transplant 2017, osteoporosis, gout, hypertension, hyperlipidemia, history of CABG, anxiety, GERD, history of prostate cancer. Recent pontine stroke with residual balance issues and difficulty with motor speech Patient was evaluated by neurology, follow-up in 3 months again. Patient is waiting for a physical therapy appointment ROS: GENERAL: No malaise, significant weight loss or fever NECK: No lumps, goiter, pain or significant neck swelling RESPIRATORY: No cough, wheezing or shortness of breath CARDIOVASCULAR: No chest pain, leg swelling or palpitations GI: No abdominal discomfort, blood in stools or black stools PSYCH: No sleep disturbance, mood disorder or recent psychosocial stressors. PAST MEDICAL HISTORY: Patient Active Problem List Diagnosis Date Noted Hemiplga following cerebral infrc aff right dominant side ([facility]) 02/18/2024 Dysarthria following cerebral infarction 02/18/2024 Facial weakness following cerebral infarction 02/18/2024 Hypertensive chronic kidney disease with stage 1 through stage 4 chronic kidney disease, or unspecified chronic kidney disease 02/18/2024 Kidney transplant status 02/18/2024 Atherosclerotic heart disease of [place] coronary artery without angina pectoris 02/18/2024 Nonrheumatic aortic valve stenosis 04/21/2022 Aneurysm of ascending aorta without rupture ([facility]) 04/21/2022 Hypertension 05/14/2017 Hyperlipidemia 05/14/2017 Renal transplant, status post 05/14/2017 Edema 01/29/2017 End stage renal disease on dialysis ([facility]) 11/27/2016 GERD (gastroesophageal reflux disease) 09/23/2016 Coronary artery disease involving [place] heart without angina pectoris 07/26/2016 Anemia 02/21/2016 Leukopenia 02/04/2016 Thrombocytopenia ([facility]) 02/04/2016 Anxiety 11/27/2014 Erectile dysfunction 05/17/2013 Internal hemorrhoids 10/27/2012 Benign colonic polyp 10/27/2012 Diverticulosis 10/27/2012 Gouty arthropathy 09/09/2010 Past Surgical History: Procedure Laterality Date CORONARY ARTERY BYPASS GRAFT PROCEDURE: HISTORICAL CABG HERNIA REPAIR PROCEDURE: OR REPAIR FIRST ABDOMINAL WALL HERNIA OTHER SURGICAL HISTORY PROCEDURE: AV FISTULA OR GRAFT VENOUS OTHER SURGICAL HISTORY PROCEDURE: OR RENAL ALTRNSPLJ IMPLTJ GRF W/O PURCHASE ORDER CHECKER NEPHRECTOMY SOCIAL HISTORY: Social History Tobacco Use Smoking status: Former Current packs/day: 1.00 Types: Cigarettes Smokeless tobacco: Never Substance Use Topics Alcohol use: Yes FAMILY HISTORY: No family history on file. No family status information on file. MEDICATIONS DISCONTINUED/REORDERED: Medications Discontinued During This Encounter Medication Reason bisacodyL (DULCOLAX) 5 mg EC tablet hydrALAZINE (APRESOLINE) 50 mg tablet polyethylene glycol (GoLYTELY) 236-22.74-6.74 -5.86 gram solution ACTIVE MEDICATIONS: Outpatient Medications Marked as Taking for the 03/14/24 encounter (Office Visit) with Maria D Mccray MD Medication Sig Dispense Refill alendronate (FOSAMAX) 70 mg tablet Take 1 tablet (70 mg total) by mouth once a week (every 7 days) allopurinoL (ZYLOPRIM) 100 mg tablet Take 1 tablet (100 mg total) by mouth 1 (one) time each day. 30 tablet 5 aspirin 81 mg EC tablet Take 1 Tablet by mouth daily. 30 tablet 1 clopidogreL (PLAVIX) 75 mg tablet Take 1 tablet (75 mg total) by mouth 1 (one) time each day. 90 tablet 1 doxazosin (CARDURA) 2 mg tablet Take 1 tablet (2 mg total) by mouth daily. furosemide (LASIX) 20 mg tablet Take 1 tablet (20 mg total) by mouth 1 (one) time each day. LORazepam (ATIVAN) 1 mg tablet Take 1 tablet (1 mg total) by mouth at bedtime as needed for anxiety. Take 1 tablet (1 mg total) by mouth nightly as needed for anxiety Max Daily Amount: 1 mg 28 tablet0 losartan (COZAAR) 100 mg tablet Take 1 tablet (100 mg total) by mouth daily. 30 tablet 5 mycophenolate (CELLCEPT) 250 mg capsule Take 1 capsule (250 mg total) by mouth 2 (two) times a day.2 caps in the morning & 1 cap in the evening NIFEdipine CC (ADALAT CC) 60 mg 24 hr tablet Take 1 Tablet by mouth 2 times daily for 360 days. nitroglycerin (NITROSTAT) 0.[address] 1 Tablet under the tongue every 5 minutes as needed for Chest pain (take every 5 min for 3 doses for chest pain). omeprazole (PriLOSEC) [address] capsule Take 1 capsule (20 mg total) by mouth daily. 30 capsule 5 predniSONE (DELTASONE) 5 mg tablet Take 1 tablet (5 mg total) by mouth 1 (one) time each day. rosuvastatin (CRESTOR) 20 mg tablet Take 1 tablet (20 mg total) by mouth 1 (one) time each day. 30 tablet 5 tacrolimus (PROGRAF) 1 mg capsule Take 1 capsule (1 mg total) by mouth 2 (two) times a day. 3 caps in the morning & 2 caps in the afternoon [DISCONTINUED] hydrALAZINE (APRESOLINE) 50 mg tablet Take 1 tablet (50 mg total) by mouth every 6 (six) hours. 30 tablet 2 ALLERGIES: Allergies Allergen Reactions Lisinopril Unknown Other reaction(s): cough Nsaids (Non-Steroidal Anti-Inflammatory Drug) Unknown Adhesive Tape-Silicones Rash rash PHYSICAL EXAM: Visit Vitals BP 130/60 (BP Location: Right arm, Patient Position: Sitting, BP Cuff Size: Large adult) Pulse 61 Temp 36.4 ??C (97.5 ??F) (Temporal) Wt 81.2 kg (179 lb) SpO2 97% BMI 27.22 kg/m?? Smoking Status Former BSA 1.95 m?? APPEARANCE: Alert and in no acute distress NECK: Neck supple, no adenopathy, thyroid symmetric and of normal size HEART: RRR with normal S1 and S2, no murmurs, no gallops, no JVD appreciated LUNG: clear to auscultation ABDOMEN: Bowel sounds normoactive, no bruits, soft, non-tender, without organomegaly or palpable masses SKIN: Skin color, texture, turgor normal. No rashes or lesions. LABS/IMAGING: Lab Requisition on 01/19/2024 Component Date Value Ref Range Status Sodium 01/19/2024 141 133 - 145 mmol/L Final Potassium 01/19/2024 3.7 3.5 - 5.5 mmol/L Final Chloride 01/19/2024 110 96 - 110 mmol/L Final CO2 01/19/2024 22 21 - 32 mmol/L Final Anion Gap 01/19/2024 9 3 - 11 Final Glucose 01/19/2024 77 70 - 100 mg/dL Final BUN 01/19/2024 13 5 - 25 mg/dL Final Creatinine 01/19/2024 0.82 0.70 - 1.30 mg/dL Final eGFR 01/19/2024 92 >=60 mL/min/1.73m2 Final BUN/Creatinine Ratio 01/19/2024 15.9 Final Calcium 01/19/2024 9.1 8.5 - 10.5 mg/dL Final AST (SGOT) 01/19/2024 30 10 - 42 unit/L Final ALT (SGPT) 01/19/2024 29 10 - 60 unit/L Final Alkaline Phosphatase 01/19/2024 59 42 - 121 unit/L Final Total Protein 01/19/2024 6.1 6.0 - 8.0 g/dL Final Albumin 01/19/2024 3.8 3.2 - 5.0 g/dL Final Total Bilirubin 01/19/2024 1.2 0.0 - 1.4 mg/dL Final WBC 01/19/2024 3.4 (L) 4.8 - 10.8 K/mcL Final RBC 01/19/2024 4.70 4.50 - 5.50 M/mcL Final Hemoglobin 01/19/2024 13.4 (L) 13.5 - 17.5 g/dL Final Hematocrit 01/19/2024 41.3 (L) 42.0 - 54.0 % Final MCV 01/19/2024 88.4 79.0 - 98.0 FL Final MCH 01/19/2024 28.7 27.0 - 32.0 pcg Final MCHC 01/19/2024 32.4 32.0 - 37.0 g/dL Final RDW 01/19/2024 13.6 11.0 - 15.0 % Final Platelets 01/19/2024 150 130 - 400 K/mcL Final MPV 01/19/2024 11.6 (H) 7.0 - 11.0 FL Final NRBC 01/19/2024 0.0 <1.0 % Final NRBC Absolute 01/19/2024 0.00 <0.10 K/mcL Final Tacrolimus Level 01/19/2024 5.9 5.0 - 20.0 ng/mL Final Mycophenolic Acid 01/19/2024 1.1 1.0 - 3.5 ug/mL Final Mycophenolic Acid Glucuronide 01/19/2024 13 (L) 35 - 100 ug/mL Final Lab Requisition on 01/14/2024 Component Date Value Ref Range Status Sodium 01/14/2024 140 133 - 145 mmol/L Final Potassium 01/14/2024 3.8 3.5 - 5.5 mmol/L Final Chloride 01/14/2024 111 (H) 96 - 110 mmol/L Final CO2 01/14/2024 22 21 - 32 mmol/L Final Anion Gap 01/14/2024 7 3 - 11 Final Glucose 01/14/2024 77 70 - 100 mg/dL Final BUN 01/14/2024 16 5 - 25 mg/dL Final Creatinine 01/14/2024 0.84 0.70 - 1.30 mg/dL Final eGFR 01/14/2024 91 >=60 mL/min/1.73m2 Final BUN/Creatinine Ratio 01/14/2024 19.0 Final Calcium 01/14/2024 8.6 8.5 - 10.5 mg/dL Final AST (SGOT) 01/14/2024 19 10 - 42 unit/L Final ALT (SGPT) 01/14/2024 16 10 - 60 unit/L Final Alkaline Phosphatase 01/14/2024 59 42 - 121 unit/L Final Total Protein 01/14/2024 5.8 (L) 6.0 - 8.0 g/dL Final Albumin 01/14/2024 3.5 3.2 - 5.0 g/dL Final Total Bilirubin 01/14/2024 1.1 0.0 - 1.4 mg/dL Final Magnesium 01/14/2024 1.9 1.9 - 2.6 mg/dL Final Tacrolimus Level 01/14/2024 6.1 5.0 - 20.0 ng/mL Final Mycophenolic Acid 01/14/2024 0.8 (L) 1.0 - 3.5 ug/mL Final Mycophenolic Acid Glucuronide 01/14/2024 11 (L) 35 - 100 ug/mL Final WBC 01/14/2024 3.0 (L) 4.8 - 10.8 K/mcL Final RBC 01/14/2024 4.50 4.50 - 5.50 M/mcL Final Hemoglobin 01/14/2024 12.9 (L) 13.5 - 17.5 g/dL Final Hematocrit 01/14/2024 40.2 (L) 42.0 - 54.0 % Final MCV 01/14/2024 89.1 79.0 - 98.0 FL Final MCH 01/14/2024 28.6 27.0 - 32.0 pcg Final MCHC 01/14/2024 32.1 32.0 - 37.0 g/dL Final RDW 01/14/2024 13.7 11.0 - 15.0 % Final Platelets 01/14/2024 129 (L) 130 - 400 K/mcL Final MPV 01/14/2024 11.3 (H) 7.0 - 11.0 FL Final NRBC 01/14/2024 0.0 <1.0 % Final NRBC Absolute 01/14/2024 0.00 <0.10 K/mcL Final Neutrophils Relative 01/14/2024 48.6 % Final Lymphocytes Relative 01/14/2024 23.2 % Final Monocytes Relative 01/14/2024 20.9 % Final Eosinophils Relative 01/14/2024 5.6 % Final Basophils Relative 01/14/2024 1.0 % Final Immature Granulocytes Relative 01/14/2024 0.7 % Final Neutrophils Absolute 01/14/2024 1.47 (L) 1.50 - 7.00 K/mcL Final Lymphocytes Absolute 01/14/2024 0.70 (L) 1.00 - 5.00 K/mcL Final Monocytes Absolute 01/14/2024 0.63 0.20 - 1.00 K/mcL Final Eosinophils Absolute 01/14/2024 0.17 0.00 - 0.50 K/mcL Final Basophils Absolute 01/14/2024 0.03 0.00 - 0.20 K/mcL Final Immature Granulocytes Absolute 01/14/2024 0.02 0.00 - 0.03 K/mcL Final Abstract on 11/29/2023 Component Date Value Ref Range Status Annual BMP Blood Test 04/15/2022 abstracted Final Triglycerides 05/17/2023 0 mg/dL Final Cholesterol 05/17/2023 0 mg/dL Final HDL 05/17/2023 0 mg/dL Final LDL Cholesterol 05/17/2023 0 mg/dL Final Hemoglobin A1C 06/04/2023 0.0 % Final Medication and lab orders: Orders Placed This Encounter Procedures Ambulatory referral to Physical Therapy and Athletic Training Ambulatory referral to Speech Therapy Other orders: AMB REFERRAL TO PHYSICAL THERAPY AND ATHLETIC TRAINING AMB REFERRAL TO SPEECH THERAPY IMPRESSION: 1. Hemiplga following cerebral infrc aff right dominant side ([facility]) 2. Speech disturbance, unspecified type 3. Mixed hyperlipidemia 4. Primary hypertension 5. End stage renal disease on dialysis ([facility]) PLAN: Stroke--patient is having imbalance while walking and also speech difficulty, will refer to physical therapy and speech therapy Patient is following neurology at [facility] Will continue hydralazine 100 mg 3 times a day managed by nephrology Will continue aspirin and Plavix for 90 days and then only Plavix per neurology recommendation at [facility]. Imaging and labs reviewed Will follow-up in 4 months Maria D Mccray MD on 03/14/2024 at 11:06 AM EST documented in this encounter Plan of Treatment Upcoming Encounters Date Type Department Care Team (Late st Contact Info) Description 07/12/2024 10:45 AM EDT Office Visit Internal Medicine - [place] [address] [place] [address] Amado Morgan NP [address] [place] [address] Scheduled Referrals Name Type Priority Associated Diagnoses Order Schedule Ambulatory referral to Physical Therapy and Athletic Training Outpatient Referral Routine Hemiplga following cerebral infrc aff right dominant side (CMS/HCC) 1 Occurrences starting 03/14/2024 until 03/14/2025 Ambulatory referral to Speech Therapy Outpatient Referral Routine Hemiplga following cerebral infrc aff right dominant side (CMS/HCC) Speech disturbance, unspecified type 1 Occurrences starting 03/14/2024 until 03/14/2025 documented as of this encounter Visit Diagnoses Diagnosis Hemiplga following cerebral infrc aff right dominant side (CMS/HCC)- Primary Speech disturbance, unspecified type Mixed hyperlipidemia Primary hypertension Unspecified essential hypertension End stage renal disease on dialysis (CMS/HCC) End stage renal disease documented in this encounter Discontinued Medications Medication Sig Discontinue Reason Start Date End Da te bisacodyL (DULCOLAX) 5 mg EC tablet Take 2 tablets by mouth right before your first dose of liquid prep. 08/02/2023 03/14/2024 hydrALAZINE (APRESOLINE) 50 mg tablet Take 1 tablet (50 mg total) by mouth every 6 (six) hours. 02/18/2024 03/14/2024 polyethylene glycol (GoLYTELY) 236-22.74-6.74 -5.86 gram solution Take 240 mL by mouth once for 1 dose. Take 4L by mouth once for one dose. May substitue any PEG. Starting at 6PM the night before your procedure drink 1 8oz glasses at your own pace until rectals run clear. 08/02/2023 03/14/2024 documented as of this encounter Historical Medications * This list may reflect changes made after this encounter. hydrALAZINE (APRESOLINE) 50 mg tablet Take 2 tablets (100 mg total) by mouth 3 (three) times a day. furosemide (LASIX) 20 mg tablet Take 1 tablet (20 mg total) by mouth 1 (one) time each day. 02/24/2024 predniSONE (DELTASONE) 5 mg tablet Take 1 tablet (5 mg total) by mouth 1 (one) time each day. added in this encounter Additional Health Concerns Assessment Noted Time PHQ-9 Depression Total Score: 0 01/10/20 24 2:13 PM EST A fall risk assessment has been complete d for the patient 01/10/2024 2:13 PM EST documented as of this encounter Care Teams Unit Controller Relationship Specialty Start Date End Date Maria D Mccray MD [address] [place] [phone] PCP - General Internal Medicine 02/01/12 documented as of this encounter
--- OUTSIDE RECORDS SUMMARY | 2024-04-11 12:39 | XMS_ITS | Encounter Summary ---
Author Organization [facility] Address [address] [place] [address] Care Team Providers Care Drywall Finisher Foreman Name Role Phone Maria D Mccray Steffi Primary Care Provider [phone] Reason for Visit * Reason Onset Date Comments Med Refill 04/06/2024 Encounter Details Date Type Department Care Team (Late st Contact Info) Description 04/06/2024 Refill [facility] Transplant Department [address] [place] [address] Tessy Walton Kidney transplant recipient (Primary Dx) Social History Tobacco Use Types Packs/Day Years [...] Info) Description 07/18/2024 11:40 AM EDT Follow-Up [facility] Renal Transplant [address] [place], [place] [phone] Gurjit Olsen MD [address] [place] [address] documented as of this encounter Visit Diagnoses Diagnosis Kidney transplant recipient- Primary Kidney transplant recipient- Primary documented in this encounter Care Teams Drywall Finisher Foreman Relationship Specialty Start Date End Date Maria D Mccray [address] [place] [address] PCP - General Internal Medicine 05/05/17 documented as of this encounter
--- OUTSIDE RECORDS SUMMARY | 2024-04-11 12:39 | XMS_ITS | Encounter Summary ---
Author Organization [facility] Address [address] [place] [address] Care Team Providers Care Customer Engagement Manager Name Role Phone Maria D Mccray Primary Care Provider Encounter Details Date Type Department Care Team (Late st Contact Info) Description 07/25/2021 Orders Only [facility] [address] [place] [address] Nancy Ovalle, JEANIE [address] [place] [address] Social History Tobacco Use Types Packs/Day Years [...] Info) Description 07/18/2024 11:40 AM EDT Follow-Up [facility] Renal Transplant [address] [place] [address] Gurjit Olsen MD [address] [place] [address] documented as of this encounter Visit Diagnoses [...] documented as of this encounter Care Teams Customer Engagement Manager Relationship Specialty Start Date End Date Maria D Mccray [address] [place] [address] PCP - General Internal Medicine 05/05/17 documented as of this encounter
--- OUTSIDE RECORDS SUMMARY | 2024-04-11 12:39 | XMS_ITS ---
Author Organization [facility] Address [address] [place] [address] Care Team Providers Care Reverse Logistics Analyst Name Role Phone Maria D Mccray Primary Care Provider [phone] Transplant Episode Kidney Recipient [facility] ([place], [place]) - [facility] Organ Received: Right Kidney Transplanted on 11/07/2016 Marked as Active Follow-up on 11/07/2016 Kidney CoordinatorRenée Sahu RN Phone: N/A Fax: N/A Email: N/A [place] Organ Diagnosis Organ Primary Contributory Kidney Hypertensive Nephrosclerosis Infection History Noted Survival Infection Treatment Organism Resolved 07/25/2021 4 years 8 months COVID 11/11/2016 4 days CMV (cytomegalov irus infection) status positive (HCC) Donor Information Organ ABO Source Meets Risk Criteria HLA Match Mismatches Cross Match Right Kidney Transplanted O DCD Yes A: B: DR: Right Kidney Donor Serology Results Anti-CMV CMV IgG: Negative EBV IgG EBV VCA IgG: Positive Anti-HBcAb HBC Total: Negative HBsAg HBsAg: Negative HBV DNA No results on file Anti-HCV HCV: Negative Anti-HIV I/II HIV-1: Negative Anti-HTLV I/II HTLV: Not Done RPR/VDRL RPR: Negative EBV IgM EBV VCA IgM: Negative HBsAb HBsAb: Not Done EBNA No results on file HBC Total HBC Total: Negative SARS CoV-2 No results on file Care Team Name Role Phone Fax Email Renée Sahu RN Kidney Coordinator N/A N/A N/A Gurjit Olsen MD Upper And Bottom Lacer Hand [phone] [email or web address] Referring Physician [phone] N/A Events Post-Transplant Pre-Transplant Admitted: 11/07/2016 Referred: 06/13/2010 Transplanted: 11/07/2016 Evaluation began: 1 Discharged: 11/16/2016 Committee: 07/30/2010 Center waitlisted: 1 Dialysis History Dialysis History Start End Type Comments Center 02/20/2016 11/06/2016 Maintenance (Type Unknown)
--- OUTSIDE RECORDS SUMMARY | 2024-04-11 12:39 | XMS_ITS | Encounter Summary ---
Author Organization [facility] Address [address] [place] [address] Care Team Providers Care Fnp Name Role Phone Maria D Mccray MD Primary Care Provider [phone] Reason for Visit * Reason Onset Date Comments faxed form 03/28/2024 [facility] Encounter Details Date Type Department Care Team (Late st Contact Info) Description 03/28/2024 Telephone Internal Medicine - [place] [address] [facility] [address] [place] [phone] Karyna Graham MA faxed form (ATI) Social History Tobacco Use Types Packs/Day Years [...] as of this encounter Progress Notes * Karyna Graham MA - 03/29/2024 1:36 PM EST Faxed [phone] * Karyna Graham MA - 03/28/2024 1:50 PM EST [facility] physical therapy, initial evaluation 03/14/2024 Placed in providers folder for signature. documented in this encounter Plan of Treatment Upcoming Encounters Date Type Department Care Team (Late st Contact Info) Description 07/12/2024 10:45 AM EDT Office Visit Internal Medicine - [place] [address] [facility] [address] [place] [phone] Amado Morgan NP 175 [facility] 200 [place] [address] documented as of this encounter Visit Diagnoses Not on filedocumented in this encounter Additional Health Concerns Assessment Noted Time PHQ-9 Depression Total Score: 0 01/10/20 2:13 PM EST A fall risk assessment has been complete d for the patient 01/10/2024 2:13 PM EST documented as of this encounter Care Teams Fnp Relationship Specialty Start Date End Date Maria D Mccray MD 175 [facility] 200 [place] [address] PCP - General Internal Medicine 02/01/12 documented as of this encounter
== END 2024-04-11 12:04 | disposition home or self-care (01) ==
PROVIDERS: PCP Internal Medicine; Visit Provider Internal Medicine Nephrology
DX: Z94.0 Kidney transplant status (principal); I10 Essential (primary) hypertension
CPT/HCPCS: 99214

== ENCOUNTER → 2024-04-11 11:22 | Outpatient (BNVA) | payer MEDICARE, BC, SELFPAY | PROVIDERS: PCP Internal Medicine; Visit Provider Internal Medicine Nephrology | DX: I10 Essential (primary) hypertension (principal); Z94.0 Kidney transplant status; Z86.73 Personal history of transient ischemic attack (TIA), and cerebral infarction without residual deficits | CPT/HCPCS: 99212 ==

== ENCOUNTER 2024-05-31 14:09 | Outpatient (AMB) | payer MEDICARE, BC, SELFPAY ==
[2024-05-31 14:13] VITALS: BMI 28.7
--- NOTE | 2024-05-31 14:13 | MHC.OFFVIS ---
Vital Signs 05/31/24 14:13 Height 5 ft 7 in Weight 183 lb BMI 28.7 Intake Visit Reasons: OV-LT knee pain follow up, last inj 02/03/24 Intake Note: Randy is a 74 year old male who presents today with complaints of left knee pain. At their last visit, 02/03/24, the patient was given a steroid injection. He states that he got temporary relief from the injection. His pain has returned. He has tried Tylenol which gives him mild relief. He is not able to tolerate anti-inflammatory medicines. He wishes to hold off on surgery if at all possible. Allergies adhesive tape Allergy (Verified 05/31/24 14:13) rash NSAIDS (Non-Steroidal Anti-Inflamma Allergy (Verified 05/31/24 14:13) Kidney replacement Medication List - Last Reconciled 06/01/24 by Matthew Ley MD alendronate 70 mg PO QWEEK allopurinol mg PO DAILY clopidogrel mg PO DAILY coenzyme Q10 (Co Q-10) 50 mg PO DAILY doxazosin 4 mg (2 x 2 mg) PO DAILY 90 days furosemide 20 mg PO DAILY hydralazine 100 mg (2 x 50 mg) PO TID 30 days lorazepam mg PO losartan 100 mg PO DAILY mycophenolate mofetil 750 mg PO DAILY nifedipine ER 60 mg PO BID nitroglycerin mg sublingual PRN omega-3 fatty acids-fish oil 300-500 mg (Fish Oil) 1 cap PO DAILY omeprazole 20 mg PO DAILY prednisone 5 mg PO DAILY rosuvastatin 20 mg PO BEDTIME tacrolimus 7 mg PO DAILY [facility], [facility] Medical History FHx: total knee replacement (~06/2022) Osteoarthritis Hyperlipidemia Hypertension History of congestive heart failure Gout GERD (gastroesophageal reflux disease) Surgical History Prostate cancer (~2011) History of heart bypass surgery (~2010) Social History Patient Tobacco Use Status: Former Tobacco user Current occupational status: retired Physical Exam Vital Signs: BMI result Body Mass Index 28.7 Const Other: Well-nourished well-developed very friendly male awake alert and oriented x3 in no acute distress Extrem Other: Bilateral lower extremity examination shows good capillary refill, no skin lesions noted, normal sensation light touch Left knee examination shows a minimal effusion, palpable crepitus with range of motion, pain with range of motion, no instability Office Procedures AMB Joint Injection/Aspiration Joint Injection/Aspiration Primary Site: left knee Injected: 40 mg of, DepoMedrol and 1% plain lidocaine Procedure: The patient tolerated the procedure well Coding - Large joint Procedure code (CPT) selection complete Results Reviewed Results Reviewed: X-rays of the patient's left knee show joint space narrowing, subchondral sclerosis, no acute bony abnormalities Assessment & Plan Assessment & Plan (1) Arthritis of left knee: Code(s): M17.12 - Unilateral primary osteoarthritis, left knee Category: Medical Plan Mr. Birch presents with left knee pain due to degenerative joint disease. The risks and benefits of a left knee cortisone injection were discussed at length with the patient. The patient wished to proceed. He tolerated the injection well. He will continue with his home exercise program. He will contact me prior to his follow-up appointment in 3 months should any questions or concerns arise. Feel free to call me at any time should questions regarding his orthopedic management arise. I spent 21 minutes in reviewing the patient's records and imaging studies, seeing the patient and documenting in the medical record. Orders: Orders AMB Joint Injection/Aspiration 05/31/24 M17.12 - Unilateral primary osteoarthritis, left knee Coding Level of Care Code Est Pt Level 3 (18098) Complex EM visit Add On G2211 Diagnoses Arthritis of left knee M17.12 CPT Codes Coding - Large joint: 90673 - Large joint ([id number])
--- OUTSIDE RECORDS SUMMARY | 2024-05-31 16:28 | XMS_ITS | Clinical Summary ---
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
--- OUTSIDE RECORDS SUMMARY | 2024-05-31 16:28 | XMS_ITS | Encounter Summary ---
Author Organization [facility] Address [address] [place] [address] Care Team Providers Care Senior Linux Engineer Name Role Phone Maria D Mccray Primary Care Provider [phone] Encounter Details Date Type Department Care Team (Late st Contact Info) Description 05/31/2024 Telephone [facility] Transplant Department [address] [place] [phone] Renée Sahu RN Social History Tobacco Use Types Packs/Day [...] AM EST documented as of this encounter Miscellaneous Notes * Telephone Encounter - Renée Sahu RN - 05/31/2024 1:27 PM EDT I returned call to Randy and reviewed his lab results with him. He reports his local [employer] did prescribe him 20 mg daily of Lasix for lower extremity swelling. I told Randy that the slight bump in his creatinine could be due to the Lasix and that I would pass the update along to Dr. Olsen. ----- Message from Elana Corbett sent at 05/31/2024 12:17 PM EDT ----- Contact: Hi Renée, Pt returning your call Elana documented in this encounter Plan of Treatment Upcoming Encounters Date Type Department Care Team (Late st Contact Info) Description 07/18/2024 11:40 AM EDT Follow-Up [facility] Renal Transplant [address] [place], [place] [phone] Gurjit Olsen MD [address] [place], [place] [phone] documented as of this encounter Visit Diagnoses Diagnosis Kidney transplant recipient (HCC)- Primary Kidney transplant recipient (HCC)- Primary documented in this encounter Care Teams Senior Linux Engineer Relationship Specialty Start Date End Date Maria D Mccray [address] [place] [id number] PCP - General Internal Medicine 05/05/17 documented as of this encounter
--- OUTSIDE RECORDS SUMMARY | 2024-05-31 16:28 | XMS_ITS | Clinical Summary ---
Author Organization [facility] Address [address] [place] [address] Care Team Providers Care Security Specialist Name Role Phone Maria D Mccray MD Primary Care Provider [phone] Social History Tobacco Use Types Packs/Day Years [...] age to complete this topic Care Teams Security Specialist Relationship Specialty Start Date End Date Maria D Mccray MD [address] [place] [address] PCP - General 03/19/22
--- OUTSIDE RECORDS SUMMARY | 2024-05-31 16:28 | XMS_ITS | Encounter Summary ---
Author Organization [facility] Address [address] [place] [address] Care Team Providers Care Technology Training Associate Name Role Phone Maria D Mccray Primary Care Provider [phone] Encounter Details Date Type Department Care Team (Late st Contact Info) Description 05/26/2024 Orders Only [facility] [address] [place] [phone] Senior Branch Manager: Gurjit Conroy MD [address] [place] [address] Social History Tobacco Use Types Packs/Day Years [...] Info) Description 07/18/2024 11:40 AM EDT Follow-Up [facility] Renal Transplant [address] [place] [address] Gurjit Olsen MD [address] [place] [phone] documented as of this encounter Procedures * Due to [facility] law, this organization might not be sharing negative HIV tests. Procedure Name Priority Date/Time Associated Diagnosis Comments CBC AUTO DIFFERENTIAL Routine 05/26/2024 8:24 AM EDT TACROLIMUS LEVEL Routine 05/26/2024 8:24 AM EDT PHOSPHORUS Routine 05/26/2024 8:24 AM EDT MAGNESIUM Routine 05/26/2024 8:24 AM EDT COMPREHENSIVE METABOLIC PANEL Routine 05/26/2024 8:24 AM EDT documented in this encounter Results * Due to [employer] law, this organization might not be sharing negative HIV tests. * (ABNORMAL) Tacrolimus Level (05/26/2024 8:24 AM EDT) Tacrolimus, Highly Sensitive 4.8(L) mcg/L 05/27/2024 3:35 AM EDT [employer] [facility] Comment: No definitive therapeutic or toxic ranges have been established. Optimal blood drug levels are influenced by type of transplant, patient response, time post- transplant, co-administration of other drugs, and drug formulation. The following trough range is a suggested guideline: 5.0-20.0 mcg/L. This test was developed and its analytical performance characteristics have been determined by [employer]. It has not been cleared or approved by the FDA. This assay has been validated pursuant to the CLIA regulations and is used for clinical purposes. 05/26/2024 8:24 AM EDT 05/26/2024 10:56 PM EDT Narrative [facility] - 05/27/2024 3:43 AM EDT FASTING:YES Your request to have a duplicate copy faxed has been acknowledged. ? Queued to: ??[id number] ? Queued to: ??[id number] us Gurjit Olsen MD LAB BLOOD ORDERABLES Chiqui jarvis Result [facility] [address] [facility] 3rd Floor, [place] [address], [employer] [facility] [address] [place] [address] * (ABNORMAL) CBC Auto Differential (05/26/2024 8:24 AM EDT) [facility] White Blood Cell Count 3.8 3.8 - 10.8 Thousand/ uL 05/26/2024 10:39 PM EDT [employer] [facility] Red Blood Cell Count 4.00(L) 4.20 - 5.80 Million/u L 05/26/2024 10:39 PM EDT [employer] [facility] Hemoglobin 11.4(L) 13.2 - 17.1 g/dL 05/26/2024 10:39 PM EDT [employer] [facility] Hematocrit 36.5(L) 38.5 - 50.0 % 05/26/2024 10:39 PM EDT [employer] [facility] MCV 91.3 80.0 - 100.0 fL 05/26/2024 10:39 PM EDT [employer] [facility] MCH 28.5 27.0 - 33.0 pg 05/26/2024 10:39 PM EDT [employer] [facility] MCHC 31.2(L) 32.0 - 36.0 g/dL 05/26/2024 10:39 PM EDT [employer] [facility] Comment: For adults, a slight decrease in the calculated MCHC value (in the range of 30 to 32 g/dL) is most likely not clinically significant; however, it should be interpreted with caution in correlation with other red cell parameters and the patient's clinical condition. RDW 12.3 11.0 - 15.0 % 05/26/2024 10:39 PM EDT [employer] [facility] Platelet Count 153 140 - 400 Thousand/ uL 05/26/2024 10:39 PM EDT [employer] [facility] MPV 11.0 7.5 - 12.5 fL 05/26/2024 10:39 PM [employer] [facility] Absolute Neutrophils 1,900 1,500 - 7,800 cells/uL 05/26/2024 10:39 PM EDT [employer] [facility] Absolute Lymphocytes 904 850 - 3,900 cells/uL 05/26/2024 10:39 PM [employer] [facility] Absolute Monocytes 768 200 - 950 cells/uL 05/26/2024 10:39 PM EDT [employer] [facility] Absolute Eosinophils 190 15 - 500 cells/uL 05/26/2024 10:39 PM EDT [employer] [facility] Absolute Basophils 38 0 - 200 cells/uL 05/26/2024 10:39 PM EDT [employer] [facility] Neutrophils 50 % 05/26/2024 10:39 PM EDT [employer] [facility] Lymphocytes 23.8 % 05/26/2024 10:39 PM EDT [employer] [facility] Monocytes 20.2 % 05/26/2024 10:39 PM EDT [employer] [facility] Eosinophils 5.0 % 05/26/2024 10:39 PM EDT [employer] [facility] Basophils 1.0 % 05/26/2024 10:39 PM EDT [employer] [facility] 05/26/2024 8:24 AM EDT 05/26/2024 10:26 PM EDT Narrative [facility] - 05/27/2024 3:43 AM EDT FASTING:YES Your request to have a duplicate copy faxed has been acknowledged. ? Queued to: ??[id number] ? Queued to: ??[id number] Gurjit Olsen MD LAB BLOOD ORDERABLES Chiqui jarvis Result [facility] [address] [facility] [address]rd Floor, [place] [address], [employer] [facility] [address] [place] [address] * Phosphorus (05/26/2024 8:24 AM EDT) Phosphate 3.3 2.1 - 4.3 mg/dL 05/27/2024 12:47 AM EDT [employer] [facility] 05/26/2024 8:24 AM EDT 05/26/2024 11:18 PM EDT Narrative [facility] - 05/27/2024 3:43 AM EDT FASTING:YES Your request to have a duplicate copy faxed has been acknowledged. ? Queued to: ??[id number] ? Queued to: ??[id number] Gurjit Olsen MD LAB BLOOD ORDERABLES Chiqui simona Result [facility] [address], [place] [address], [place] [phone] [employer] [facility] [address] [place] [address] * Magnesium (05/26/2024 8:24 AM EDT) Pathologist [facility] Magnesium 1.9 1.5 - 2.5 mg/dL 05/27/2024 12:47 AM EDT [facility] 05/26/2024 8:24 AM EDT 05/26/2024 11:18 PM EDT N[address]ative [facility] - 05/27/2024 3:43 AM EDT FASTING:YES Your request to have a duplicate copy faxed has been acknowledged. ? Queued to: ??[id number] ? Queued to: ??[id number] Gurjit Olsen MD LAB BLOOD ORDERABLES Chiqui l Result [facility] [address], [place] [address], [place] [phone] [employer] [facility] [address] [place] [address] * (ABNORMAL) Comprehensive Metabolic Panel (05/26/2024 8:24 AM EDT) Glucose 96 65 - 99 mg/dL 05/27/2024 12:47 AM EDT [facility] Comment: ? Fasting reference interval BUN 24 7 - 25 mg/dL 05/27/2024 12:47 AM EDT [facility] Creatinine 1.17 0.70 - 1.28 mg/dL 05/27/2024 12:47 AM EDT [facility] eGFR 65 > OR = 60 mL/min/1. 73m2 05/27/2024 12:47 AM [employer] [facility] Bun/Creatinine Ratio SEE NOTE: 6 - 22 (calc) 05/27/2024 12:47 AM [employer] [facility] Comment: ?? Not Reported: BUN and Creatinine are within ?? reference range. ? Sodium 135 135 - 146 mmol/L 05/27/2024 12:47 AM [employer] [facility] Potassium 3.9 3.5 - 5.3 mmol/L 05/27/2024 12:47 AM [employer] [facility] Chloride 105 98 - 110 mmol/L 05/27/2024 12:47 AM [employer] [facility] Carbon Dioxide 22 20 - 32 mmol/L 05/27/2024 12:47 AM [employer] [facility] Calcium 9.0 8.6 - 10.3 mg/dL 05/27/2024 12:47 AM [employer] [facility] Protein, Total 6.0(L) 6.1 - 8.1 g/dL 05/27/2024 12:47 AM [employer] [facility] Albumin 4.1 3.6 - 5.1 g/dL 05/27/2024 12:47 AM [employer] [facility] Globulin 1.9 1.9 - 3.7 g/dL (calc) 05/27/2024 12:47 AM [employer] [facility] Albumin/Globuli n Ratio 2.2 1.0 - 2.5 (calc) 05/27/2024 12:47 AM [employer] [facility] Bilirubin, Total 0.8 0.2 - 1.2 mg/dL 05/27/2024 12:47 AM [employer] [facility] Alkaline Phosphatase 45 35 - 144 U/L 05/27/2024 12:47 AM [employer] [facility] AST 16 10 - 35 U/L 05/27/2024 12:47 AM [employer] [facility] ALT 9 9 - 46 U/L 05/27/2024 12:47 AM [employer] [facility] 05/26/2024 8:24 AM EDT 05/26/2024 11:18 PM EDT Narrative [facility] - 05/27/2024 3:43 AM EDT FASTING:YES Your request to have a duplicate copy faxed has been acknowledged. ? Queued to: ??[id number] ? Queued to: ??[id number] us Gurjit Olsen MD LAB BLOOD ORDERABLES Chiqui jarvis Result [facility] [address] [facility] 3rd Floor, [place] [address], [employer] [facility] [address] [place] [address] documented in this encounter Visit Diagnoses Not on filedocumented in this encounter Care Teams Technology Training Associate Relationship Specialty Start Date End Date Maria D Mccray [address] [place] [address] PCP - General Internal Medicine 05/05/17 documented as of this encounter
--- OUTSIDE RECORDS SUMMARY | 2024-05-31 16:28 | XMS_ITS | Encounter Summary ---
Author Organization [facility] Address [address] [place] [address] Care Team Providers Care Residential Housekeeper Name Role Phone Maria D Mccray Primary Care Provider [phone] Encounter Details Date Type Department Care Team (Late st Contact Info) Description 05/30/2024 Results Follow-Up [facility] Renal Transplant [address] [place] [address] Renée Sahu RN Social History Tobacco Use [...] Encounter - Renée Sahu RN - 05/31/2024 8:53 AM EDT Called patient and left a message for him to return my call to review his labs and see if he as been feeling okay. I will await for him to return my call back. ----- Message from Gurjit Olsen MD sent at 05/30/2024 3:26 PM EDT ----- ok ----- Message ----- From: Renée Sahu RN Sent: 05/30/2024 11:43 AM EDT To: Gurjit Olsen MD BUN and Creatinine up slightly. I was not able to reach patient to ask if he has been having any vomiting or diarrhea. I will cont to try and reach him. The rest of labs appear relatively stable documented in this encounter Plan of Treatment Upcoming Encounters Date Type Department Care Team (Late st Contact Info) Description 07/18/2024 11:40 AM EDT Follow-Up [facility] Renal Transplant [address] [place], [place] [phone] Gurjit Olsen MD [address] [place], [place] [phone] documented as of this encounter Visit Diagnoses Diagnosis Kidney transplant recipient (HCC)- Primary Kidney transplant recipient (HCC)- Primary documented in this encounter Care Teams Residential Housekeeper Relationship Specialty Start Date End Date Maria D Mccray [address] [place] [id number] PCP - General Internal Medicine 05/05/17 documented as of this encounter
--- OUTSIDE RECORDS SUMMARY | 2024-05-31 16:28 | XMS_ITS | Continuity of Care Document ---
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 Name Role Phone Shazia GODOY, Maria D D Primary Care Physician Encounter [facility] Date(s): 05/29/24 - 05/30/[address] [id number] Encounter Diagnosis Weakness(Final) - 05/29/24 Swelling of extremity(Final) - 05/29/24 Discharge Disposition: A-D/C Home Attending Physician: Ginna Khalil MD Admitting Physician: Erica Keith MD Referring Physician: Not on Staff, Referring MD Encounter Type: Disch Obv Allergies, Adverse Reactions, Alerts Substance Criticality Severity Reaction Reaction Severity Status Zestril not sure Active NSAIDs can not take d/t kidney problems Active Adhesive Bandage skin breakdown Active Contrast [...] alendronate 70 mg oral tablet Every week, Once a week on Saturdays, 0 Refills, Maintenance, 03/27/21 3:56:00 PM EST, [...] number: 1 CellCept 250 mg oral capsule See Instructions, 2 capsule in AM, 1 capsule at bedtime, 0 Refills, Maintenance, 04/18/21 10:56:00 AM EST, Capsule, Partial fill upon patient request if the prescription is for a schedule II opioid drug. Start Date: 04/18/21 Status: Ordered Repeat number: 1 Co Q-10 = 100 mg, By Mouth, Daily, 0 Refills, Maintenance, 04/19/13 9:52:48 AM EST Start Date: 04/19/13 Status: Ordered Repeat number: 1 doxazosin 2 mg oral tablet 4 mg, 2, tablet, By Mouth, Daily at bedtime, TAKE 1 TABLET BY MOUTH EVERY DAY AT NIGHT Start Date: 01/11/24 Status: Ordered Repeat number: 1 Fish Oil By Mouth, 0 Refills, Maintenance, 04/19/13 9:52:38 AM EST Start Date: 04/19/13 Status: Ordered Repeat number: 1 furosemide 20 mg oral tablet 20 mg, 1, tablet, By Mouth, Daily, please take 1 tablet daily and if there is increasing swelling in legs /hands take one additional dose in jose afternoon and call primary care provider if no improvement, # 30 tablet, Refills 0, Maintenance, 05/29/24 10:11:00 PM EDT, Partial fill upon patient requestif the prescription is for a schedule II opioid drug. Start Date: 05/29/24 Status: Ordered Quantity: 30.0 Unit: tablet Repeat number: 1 hydrALAZINE 50 mg oral tablet 2 tablet = 100 mg, By Mouth, 3 times a day, # 120 tablet, 0 Refills, Maintenance, 05/29/24 10:10:00 PM EDT, Tablet, Partial fill upon patient request if the prescription is for a schedule II opioid drug. Start Date: 05/29/24 Status: Ordered Quantity: 120.0 Unit: tablet Repeat number: 1 lorazepam 1 mg oral [...] oral tablet 100 mg, Tablet, By Mouth, 05/30/24 9:00:00 AM EDT Start Date: 05/30/24 Stop Date: 05/30/24 Status: Completed Repeat number: 1 Multivitamin By Mouth, Daily, 0 Refills, Maintenance, 06/02/10 2:37:39 PM EDT Start Date: 06/02/10 Status: Ordered Repeat number: 1 NIFEdipine (Eqv-Procardia XL) 60 mg oral tablet, extended release 1 tablet = 60 mg, By Mouth, 2 times a day, # 90 tablet, 0 Refills, Maintenance, 01/11/24 4:31:00 PMEST, ER Tablet, Partial fill upon patient request if the prescription is for a schedule II opioid drug. Start Date: 01/11/24 Status: Ordered Quantity: 90.0 Unit: tablet Repeat number: 1 NIFEdipine 60 mg oral tablet, extended release 60 mg, ER Tablet, By Mouth, 05/30/24 9:00:00 AM EDT Start Date: 05/30/24 Stop Date: 05/30/24 Status: Completed Repeat number: 1 Nitrostat 0.3 mg sublingual [...] Quantity: 90.0 Unit: tablet Repeat number: 1 predniSONE 5 mg oral tablet 5 tablet = 25 mg, By Mouth, Daily, # 50 tablet, 0 Refills, Maintenance, 05/29/24 10:52:00 PM EDT, Tablet, Partial fill upon patient request if the prescription is for a schedule II opioid drug. Start Date: 05/29/24 Status: Ordered Quantity: 50.0 Unit: tablet Repeat number: 1 Prograf 1 mg oral capsule See Instructions, 4 capsule in morning, 3 capsule in evening, 0 Refills, Maintenance, 04/09/21 9:59:00 AM EST, Partial fill upon patient request if the prescription is for a schedule II opioid drug. Start Date: 04/09/21 Status: Ordered Repeat number: 1 rosuvastatin 20 mg oral tablet 1 tablet = 20 mg, By Mouth, Daily at bedtime, # 60 tablet, 0 Refills, Maintenance, 01/11/24 4:31:00PM EST, Tablet, Partial fill upon patient request [...] Effective Dates Status H ealth Status Informant CVA (cerebrovascular accident) Confirmed Active Chronic Kidney disease Confirmed Active History of Congestive heart failure Confirmed Active Coronary arteriosclerosis, Coronary artery bypass grafts x 3 Confirmed Active CAD in red devil artery Confirmed Active Ex-smoker Confirmed Active Gastroesophageal reflux disease Confirmed Active VIDA (generalized anxiety disorder) Confirmed Active Gout Confirmed Active S/P kidney transplant Confirmed Active HTN - Hypertension Confirmed Active Hyperlipidemia Confirmed Active Old myocardial infarction, Inferolateral Wall, Initial Episode of Care Confirmed 02/17/10 Active Osteoarthritis, knees Confirmed Active Primary malignant neoplasm of prostate Confirmed Active Prostate cancer Confirmed Active Results Radiology Reports * Exam Date Time Procedure Performing Provider Status 05/30/24 10:04 AM US Doppler Ext Lower Venous Bilat Fent on , Florinda; Auth (Verified) Notes: (US Doppler Ext Lower Venous Bilat) Reason For Exam: swelling per RN;Other: RESULT: US Doppler Ext Lower Venous Bilat US Doppler Ext Lower Venous Bilat Reason: swelling per RN; Clinical Question(s): Thrombosis COMPARISON: 12/07/2014 IMAGING TECHNIQUE: Ultrasound of the veins from the groin through the calf was performed using grayscale, color, and spectral Doppler ultrasound assessing for complete compressibility and normal flowcharacteristics. FINDINGS: RIGHT LOWER EXTREMITY: Common femoral vein: Patent. No thrombosis. Femoral vein: Patent. No thrombosis. Popliteal vein: Patent. No thrombosis. Gastrocnemius veins: The visualized portions are patent without evidence of thrombosis. Peroneal veins: The visualized portions are patent without evidence of thrombosis. Posterior tibial veins: The visualized portions are patent without evidence of thrombosis. LEFT LOWER EXTREMITY: Common femoral vein: Patent. No thrombosis. Femoral vein: Patent. No thrombosis. Popliteal vein: Patent. No thrombosis. Gastrocnemius veins: The visualized portions are patent without evidence of thrombosis. Peroneal veins: The visualized portions are patent without evidence of thrombosis. Posterior tibial veins: The visualized portions are patent without evidence of thrombosis. OTHER FINDINGS: None. IMPRESSION: No evidence of deep venous thrombosis. WSN: [id number] Ordering Physician: Domenico Armijo Dictated By: Patrice Anguiano MD Dictated Date/Time: 05/30/24 10:14 a Reviewed By: Patrice Anguiano MD Signed By: Patrice Anguiano MD Signed Date/Time: 05/30/24 10:14 am Transcribed By: OWEN Transcribed Date/Time: 05/30/24 10:13 am * Exam Date Time Procedure Performing Provider Status 05/29/24 3:07 PM Chest 2 Views Frontal and Lat Jean Contreras; Tiana (Verified) Notes: (Chest 2 Views Frontal and Lat) Reason For Exam: Shortness of Breath RESULT: Chest 2 Views Frontal and Lat Chest 2 Views Frontal and Lat Reason: Shortness of Breath; Clinical Question(s): Pneumonia COMPARISON: Multiple priors, most recent 01/11/2024. FINDINGS: LINES AND TUBES: None. LUNGS AND PLEURA: Clear lungs. Normal pulmonary vascularity. No pleural effusion. No pneumothorax. HEART, MEDIASTINUM AND WANDY: Heart is normal in size. Normal mediastinal and hilar contour. Median sternotomy with sternal wires intact. Status post CABG. BONES AND SOFT TISSUES: No acute abnormality. Moderate multilevel degenerative change lower thoracic spine. IMPRESSION: No acute cardiopulmonary abnormality. I have personally reviewed the images and I agree with this report. WSN: [id number] Ordering Physician: Kelvin Zuñiga Dictated By: Shelia Barnard DO Dictated Date/Time: 05/29/24 3:55 pm Reviewed By: Colten Evangelista MD, V Signed By: Colten Evangelista MD, V Signed Date/Time: 05/29/24 4:00 pm Transcribed By: OWEN Transcribed Date/Time: 05/29/24 3:25 pm * Exam Date Time Procedure Performing Provider Status 05/29/24 3:[address] Head/Brain W/O Contrast Pasha Egan; Tiana (Verified) Notes: (CT Head/Brain W/O Contrast) Reason For Exam: Hemiparesis RESULT: CT Head/Brain W/O Contrast CT Head/Brain W/O Contrast INDICATION: Hx of Present Illness: Pt reports he is s p stroke and has ongoing weakness in his R arm. states he has increased swelling and discomfort in R arm over last few days as well as a general decline in functionality over last week including intermittent slurring of speech.; Reason: Hemiparesis; Clinical Question(s): Progression Regression; Order Comment: TECHNIQUE: Noncontrast head CT using axial technique and reconstructed in axial and coronal planes.Iterative reconstruction techniques are used to optimize dose and image quality. COMPARISON: January 11, 2024. FINDINGS: Truss Designer view findings, lines and tubes: None. BRAIN AND EXTRA-AXIAL SPACES: No parenchymal hemorrhage, midline shift, or mass effect. Browning-white matter differentiation is wellpreserved. No acute infarct. Negative insular ribbon sign. Atherosclerotic vascular calcification of the carotid arteries but negative hyperdense vessel sign. Mild prominence of the ventricles and sulci consistent with parenchymal volume loss. Mild low-density white matter changes. No subarachnoid hemorrhage. No subdural or epidural collection. CALVARIUM, SKULL BASE, AND SOFT TISSUES: No fractures or suspicious bony lesions. Partially imaged opacification of the right maxillary sinus with mild anterior ethmoid air cell mucosal thickening. Visualized orbits and globes are intact. The extracranial soft tissues are unremarkable. IMPRESSION: No acute intracranial pathology. WSN: [id number] Ordering Physician: Kelvin Zuñiga Dictated By: Calvin Mcarthur MD Dictated Date/Time: 05/29/24 3:14 pm Reviewed By: Calvin Mcarthur MD Signed By: Calvin Mcarthur MD Signed Date/Time: 05/29/24 3:14 pm Transcribed By: OWNE Transcribed Date/Time: 05/29/24 3:11 pm Vital Signs Most recent to oldest [Reference Range]: 1 2 3 Height 174 cm (05/30/24 4:23 AM) 174 cm (05/30/24 2:18 AM) 174 cm (05/30/24 12:52 AM) Weight 78.9 kg (05/30/24 2:18 AM) 78.9 kg (05/29/24 9:57 PM) 79.5 kg (05/29/24 1:21 PM) Oxygen Saturation [94-100 %] 97 % (05/30/24 10:00 AM) 96 % (05/30/24 6:00 AM) 97 % (05/30/24 4:23 AM) Pulse Rate [55-90 bpm] 52 bpm *L* (05/30/24 10:00 AM) 54 bpm *L* (05/30/24 6:00 AM) 54 bpm *L* (05/30/24 4:23 AM) Body Mass Index [18.5-24.99 kg/m2] 26.06 kg/m2 *H* (05/29/24 9:57 PM) Blood Pressure [90-138/55-84 mm Hg] 170/62mm Hg *H* (05/30/24 10:00 AM) 163/62mm Hg *H* (05/30/24 8:51 AM) 163/62mm Hg *H* (05/30/24 8:50 AM) Respiratory Rate [16-30 br/min] 18 br/min (05/30/24 10:00 AM) 18 br/min (05/30/24 6:00 AM) 20 br/min (05/30/24 4:23 AM) Temperature [96.8-100.4 DegF] 97.9 DegF (05/30/24 10:00 AM) 98 DegF (05/30/24 6:00 AM) 97.9 DegF (05/30/24 4:23 AM) Mode of Delivery (Oxygen) Room air (05/30/24 10:00 AM) Room air (05/30/24 6:00 AM) Room air (05/30/24 4:23 AM) Blood pressure sites Arm, right (05/30/24 10:00 AM) Arm, left (05/30/24 6:00 AM) Arm, right (05/30/24 4:23 AM) Temperature Route Oral (05/30/24 10:00 AM) Oral (05/30/24 6:00 AM) Oral (05/30/24 4:23 AM) Dry Weight 78.9 kg (05/29/24 9:57 PM) Social History Social History Type Response Smoking Status Former smoker; Type: Cigarettes; Tobacco use times per day: 1 pack per year; Number of years: 18; Total pack years: 18; Started at age: 11; Stopped at age: 29; entered on: 09/16/15 Sex Sex Representation Male (finding) History and physical note * Zofia GODOY, Domenico: MODIFY, PERFORM, MODIFY Event Display: History and Physical Hospital Authored Date: [id number] Patient: ??KAT TATE ? Age:??74 Years?Sex:??Male?:??1950?? Chief Complaint/Reason for Consultation Swelling, weakness History of Present Illness 74-year-old male with past medical history significant for CAD status post CABG x 3, hypertension, hyperlipidemia, ESRD status post kidney transplant with CKD on new transplant, left paramedian bethany CVA, GERD, gout, prostate cancer ?? After his CVA in December, he was able to regain back his right hand weakness 4 weeks ago, he redeveloped right-sided weakness 2 weeks ago, he was presumed to have pneumonia and was treated with amoxicillin 1 week ago, he developed bipedal edema right greater than left Today, he thought he had increased swelling that included his right hand.?? He called his neurologist who recommended that he present to the emergency room ?? ER course: Vital signs: Normal Exam: 3/5 strength of right lower extremity, 4/5 strength of right upper extremity, pitting edema of bilateral lower extremity, swelling of right upper extremity and hand. ?? Workup: EKG: Sinus bradycardia with 1st degree A-V block Possible Left atrial enlargement Left ventricular hypertrophy with repolarization abnormality ( R in aVL , Sokolow-Harman , Romhilt-Celeste ) Abnormal ECG When compared with ECG of 11-Jan-2024 10:28, Non-specific change in ST segment in Anterior leads Confirmed by SERA MAZARIEGOS ([id number]) on 05/29/2024 2:43:15 PM ?? CBC: Mild pancytopenia Chemistry: Positive metabolic acidosis LFTs: Normal CRP: 11 proBNP: 932 High-sensitivity troponin: 33-31-24 TSH: Normal Alysis: No evidence of a UTI Bedside ultrasound: Moderately reduced LV contractility ?? Chest 2 views frontal and lateral: No acute cardiopulmonary abnormality ?? CT brain without contrast: No acute intracranial pathology ?? Interventions performed: Neurology consultation: Suspected recrudescence of his stroke with very mild right-sided weakness and subtle?? RFD. Admission for presumed new onset CHF ?? On my evaluation @ [facility]: VS Normal except for htn He has no complaints Noted right facial droop and right sided weakness + bipedal edema R>> L Review of Systems Constitutional: No weight loss, fever, chills HEENT: No visual loss. No hearing loss, congestion, runny nose , sore throat. Skin: No rash?? Cardiovascular: No chest discomfort. No palpitations. Respiratory: No shortness of breath, cough. Gastrointestinal: No nausea, vomiting or diarrhea. No abdominal pain or blood in stool. Genitourinary: No burning micturition. No urinary frequency or incontinence. Musculoskeletal: No muscle pain, back pain, joint pain or stiffness. Endocrine: No reports of sweating. No cold or heat intolerance. No polyuria or polydipsia. Hematologic: No bleeding or bruising. Immunologic/Allergic: No itchy eyes/Itchy nose/Sneezing/Watery eyes Lymphatics: No enlarged lymph nodes. Neurologic: No headache,?? change in bowel or bladder control. Psychiatric: No depression or anxiety. Objective Measurements?? Height: 174 cm (05/29/24) Weight: 78.9 kg (05/29/24) Dry Weight: 78.9 kg (05/29/24) Body Mass Index:??26.06 kg/m2??High (05/29/24) ? Vital Signs?? Temperature: 98.1 DegF (05/29/24 21:57:00) Temperature Route: Oral (05/29/24 21:57:00) Pulse Rate: 56 bpm (05/29/24 21:57:00) Respiratory Rate: 18 br/min (05/29/24 21:57:00) Systolic Blood Pressure:??183 mm Hg??High (05/29/24 21:57:00) Diastolic Blood Pressure: 66 mm Hg (05/29/24 21:57:00) Blood pressure sites: Arm, right (05/29/24 21:57:00) Mean Arterial Pressure: 105 mm Hg (05/29/24 21:57:00) Pulse Pressure: 117 mm Hg (05/29/24 21:57:00) Oxygen Saturation: 96 % (05/29/24 21:57:00) Mode of Delivery (Oxygen): Room air (05/29/24 21:57:00) Early Warning Score: 6 (05/29/24 22:08:11) ? Intake/Output? 05/29 12:38 05/29 07:00 04 07:00 05/27 07:00 05/26 07:00 ?? 05/29 22:22 05/29 22:22 05/29 06:59 04 06:59 05/27 06:59 Intake ?120 ?120 ?0 ?0 ?0 Output ?0 ?0 ?0 ?0 ?0 Net Total ?120 ?120 ?0 ?0 ?0 ? Urine Count ?1 ?1 ?0 ?0 ?0 ? Physical Exam GENERAL: Non acutely ill-appearing, no acute cardiorespiratory distress HEAD: Normocephalic, atraumatic. EYES: No conjunctival injection. No scleral icterus.?[place]low conjunctiva EARS: No tenderness, no discharge. NOSE: No asymmetry. MOUTH AND THROAT: No oral thrush.?Moist mucous membranes NECK: No JVP elevation, No masses. Range of motion full. HEART: Regular rate?? and?? regular rhythm, no murmurs, no clicks, no rubs , no gallops. CHEST: Symmetric with respirations. No accessory muscle use, No wheezes, crackles. ABDOMEN: Normoactive bowel sounds. No tenderness without guarding. No increase in liver or spleen size. No masses palpable. GENITOURINARY: No CV angle tenderness. No suprapubic tenderness. No Tracy catheter in place. Rectal exam is deferred. MUSCULOSKELETAL: Range of motion full in all extremities , no obvious deformity , no increased warmth , no effusion + bipedal edema R>>L L upper extremity with AV fistula with good thrill VASCULAR: All pulses brisk and equal, Capillary refill time < 2sec LYMPHATIC: No cervical, axillary or inguinal adenopathy. Skin: Dry and thin. No evidence of cellulitis, no other major skin lesions NEUROLOGIC:?? Alert and oriented to person, place, time, and situation CNI: Able to smell. CN II:?? Pupils are 3 mm and briskly reactive to light. CN III, IV, : Extraocular muscles grossly intact. CN V:?? Facial sensation intact to light touch. CN VII:?? Right facial droop. CN VII: Bilateral hearing intact CN IX, X:?? Palate elevates symmetrically. Phonation is normal. CN XI:?? Head turning and shoulder shrug are intact. CN XII:?? Tongue is midline with normal movements and no atrophy. Motor:?? Muscle bulk and tone are normal. Strength is?? decreased on right upper and right lower extremity Reflexes: Patellar +2 bilaterally.?? Flexor plantar response bilaterally. Sensory: Detects light touch and pinprick Coordination:?? Rapid alternating movements and fine finger movements are intact.?? Psychiatric: No delusions, hallucinations, SI or HI Assessment/Plan Assessment:??74-year-old male with past medical history significant for CAD status post CABG x 3, hypertension, hyperlipidemia, ESRD status post kidney transplant with CKD on new transplant, left paramedian bethany CVA, GERD, gout, prostate cancer After his CVA in December, he was able to regain back his right hand weakness 4 weeks ago, he redeveloped right-sided weakness 2 weeks ago, he was presumed to have pneumonia and was treated with amoxicillin 1 week ago, he developed bipedal edema right greater than left Today, he thought he had increased swelling that included his right hand.??He called his neurologist who recommended that he present to the emergency roomNeurology suspected that the weakness is a recrudescence of his stroke. Admission was requested to workup his new swelling presumed to be CHF ? Acute CHF (I50.9):? Admitted under observation Reviewing his echocardiogram from 2023 which showed his EF was 65 to 70% with no definite regional wall abnormalities. Given that the bedside echocardiogram seen by the emergency provider was depressed, will need to perform a new echocardiogram to check on his cardiac structure and function Given the asymmetry of his edema, will order DVT US to rule out thrombus He has been prescribed furosemide 20 mg daily in the outpatient, will increase to bid dosing for now?? Will continue for now Keep on a cardiac diet Avoid unnecessary IV fluids ?? CVA (cerebrovascular accident) (I63.9):? Weakness (R53.1):? Appreciate neurology consult Suspect this is recrudescence of his stroke No further neurological??recommendations. Continue dual antiplatelet therapy Continue rosuvastatin ?? S/P kidney transplant (Z94.0):? Chronic Kidney disease (N18.9):? Metabolic acidosis (E87.20):? Continue CellCept Continue Prograf Continue prednisone ? CAD in red devil artery (I25.10):? Continue dual antiplatelet therapy ?? HTN - Hypertension (I10):? Continue doxazosin Continue hydralazine Continue losartan Continue nifedipine ?? Hyperlipidemia (E78.5):? Continue rosuvastatin [place]-3 fatty acids is nonformulary ?? Gastroesophageal reflux disease (K21.9):? Continue PPI ?? Gout (M10.9):? Continue allopurinol ?? VIDA (generalized anxiety disorder) (F41.1):? Continue lorazepam ? VTE Prophylaxis:? On dual antiplatelet therapy Await DVT US ?? CODE STATUS: Full code ?? Ongoing medical necessity: IV supportive care CHF workup Surveillance of symptoms ?? Discharge Planning: Anticipate at least 1 night hospital stay The above document was completed by performing history, physical examination, reconciling multiple medications, review of laboratory and imaging All assessment and plan were discussed with the patient??and requested feedback with attempts to maximize understanding for the care provided. This required approximately 75 minutes to complete. ? Histories Allergies Allergies ?(Active and Proposed [...] breakdown ? Past Medical History/Problem List Active Problems(16) CAD in red devil artery Chronic Kidney disease Coronary arteriosclerosis, Coronary artery bypass grafts x 3 CVA (cerebrovascular accident) Ex-smoker VIDA (generalized anxiety disorder) Gastroesophageal reflux disease Gout History of Congestive heart failure HTN - Hypertension Hyperlipidemia Old myocardial infarction, Inferolateral Wall, Initial Episode of Care Osteoarthritis, knees Primary malignant neoplasm of prostate Prostate cancer S/P kidney transplant ? Past Surgical History Knee replacement Kidney transplant CABG - Coronary artery bypass graft Herniorrhaphy ? Social History Alcohol Details:??Use: Current. ??Frequency: 1-2 times per week. ??Binge drinking: No. Employment/School Details:??Status: Retired. ??Previous employment/school: [employer]. Exercise Details:??Self assessment: Fair condition. Home/Environment Details:??Living [...] History Father: Heart attack Brother: Heart attack ? Medications Home Medications Alendronate (alendronate 70 mg oral tablet)??Every week Once a week on Saturdays Allopurinol (allopurinol 100 mg oral tablet)??1 tab(s) 100 Milligram By Mouth Daily Aspirin (aspirin 81 mg oral delayed release tablet)??1 tab(s) 81 Milligram By Mouth Daily for 90 Days take for 90 days only then stop , you do not need to continue aspirin as per Nerurology recommendation Clopidogrel (Plavix 75 mg oral tablet)??75 Milligram By Mouth Daily for 90 Days Doxazosin (doxazosin 2 mg oral tablet)??4 Milligram 2 tablet By Mouth Daily at bedtime TAKE 1 TABLET BY MOUTH EVERY DAY AT NIGHT Furosemide (furosemide 20 mg oral tablet)??20 Milligram 1 tablet By Mouth Daily Furosemide (furosemide 20 mg oral tablet)??20 Milligram 1 tablet By Mouth Daily hydrALAZINE (hydrALAZINE 50 mg oral tablet)??2 tab(s) 100 Milligram By Mouth 3 times a day Lorazepam (lorazepam 1 mg oral tablet)??1 tab(s) 1 Milligram By Mouth as needed as needed for anxiety Multivitamin??By Mouth Daily Mycophenolate Mofetil (CellCept 250 mg oral capsule)??See Instructions 2 capsule in AM, 1 capsule ??at bedtime NIFEdipine (NIFEdipine (Eqv-Procardia XL) 60 mg oral tablet, extended release)??1 tab(s) 60 Milligram By Mouth 2 times a day Nitroglycerin (Nitrostat 0.3 mg sublingual tablet)??1 tab(s) 0.3 Milligram Sublingual Every 5 minutes as needed for chest pain [place]-3 Polyunsaturated Fatty Acids (Fish Oil)??By Mouth Omeprazole (omeprazole 20 mg oral enteric coated capsule)??1 capsule 20 Milligram By Mouth Daily Rosuvastatin (rosuvastatin 20 mg oral tablet)??1 tab(s) 20 Milligram By Mouth Daily at bedtime Tacrolimus (Prograf 1 mg oral capsule)??See Instructions 4 capsule in morning, 3 capsule in evening Ubiquinone (Co Q-10)??100 Milligram By Mouth Daily ? Results Recent Labs BLOOD COUNT & DIFF WBC 3.1 k/mm3 (Low)?? 05/29/2024 15:51 RBC 3.88 m/mm3 (Low)?? 05/29/2024 15:51 Hgb 11.0 Gm/dL (Low)?? 05/29/2024 15:51 Hct 33.3 % (Low)?? 05/29/2024 15:51 MCV 85.8 femtoliters ()?? 05/29/2024 15:51 MCH 28.4 pg ()?? 05/29/2024 15:51 MCHC 33.0 Gm/dL ()?? 05/29/2024 15:51 Platelet Count 142 k/mm3 (Low)?? 05/29/2024 15:51 RDW-SD 43.8 femtoliters ()?? 05/29/2024 15:51 MPV 10.9 femtoliters ()?? 05/29/2024 15:51 Nucleated RBC (Automated) 0.0 #/100 WBC'S ()?? 05/29/2024 15:51 Abs. NRBC 0.0 k/mm3 ()?? 05/29/2024 15:51 Abs. Neut 2.1 k/mm3 ()?? 05/29/2024 15:51 Abs. Lymph 0.4 k/mm3 (Low)?? 05/29/2024 15:51 Abs. Morris 0.5 k/mm3 ()?? 05/29/2024 15:51 Abs. Eo 0.1 k/mm3 ()?? 05/29/2024 15:51 Abs. Baso 0.0 k/mm3 ()?? 05/29/2024 15:51 Neut % 67.2 % ()?? 05/29/2024 15:51 Lymph % 12.1 % (Low)?? 05/29/2024 15:51 Morris % 17.0 % (High)?? 05/29/2024 15:51 Eos % 2.3 % ()?? 05/29/2024 15:51 Baso % 0.7 % ()?? 05/29/2024 15:51 Imm Gran 0.7 % ()?? 05/29/2024 15:51 Abs. Imm Gran 0.0 k/mm3 ()?? 05/29/2024 15:51 ?? CARDIAC Nt-Probnp 932 pg/mL (High)?? 05/29/2024 15:51 High Sensitivity Troponin (HSTnT) 34 ng/L (High)?? 05/29/2024 20:04 ?? CHEM GENERAL Sodium 140 mmol/L ()?? 05/29/2024 15:51 Potassium 4.1 mmol/L ()?? 05/29/2024 15:51 Chloride 107 mmol/L ()?? 05/29/2024 15:51 Bicarbonate Level 19 mmol/L (Low)?? 05/29/2024 15:51 Anion Gap 14 mmol/L ()?? 05/29/2024 15:51 Glucose Level 104 mg/dL (High)?? 05/29/2024 15:51 BUN 17 mg/dL ()?? 05/29/2024 15:51 Creatinine-Blood 0.87 mg/dL ()?? 05/29/2024 15:51 Estimated GFR Creatinine 90 ML/MIN/1.73 M2 ()?? 05/29/2024 15:51 Calcium 8.7 mg/dL ()?? 05/29/2024 15:51 Protein, Total 6.2 Gm/dL ()?? 05/29/2024 15:51 Albumin 4.1 Gm/dL ()?? 05/29/2024 15:51 AG Ratio 2.0 ()?? 05/29/2024 15:51 Alkaline Phosphatase 61 units/L ()?? 05/29/2024 15:51 AST (SGOT) 22 units/L ()?? 05/29/2024 15:51 ALT (SGPT) 9 units/L ()?? 05/29/2024 15:51 Bilirubin, Total 0.6 mg/dL ()?? 05/29/2024 15:51 C-Reactive Protein 0.6 mg/dL (High)?? 05/29/2024 15:51 ?? ENDOCRINE/TUMOR MARKER TSH 0.55 uIU/mL ()?? 05/29/2024 15:51 ?? UA/URINALYSIS Appear/Color, Urine YELLOW ()?? 05/29/2024 18:15 Specific [place], Urine 1.017 ()?? 05/29/2024 18:15 pH, Urine 6.0 ()?? 05/29/2024 18:15 Albumin, Urine NEGATIVE ()?? 05/29/2024 18:15 Glucose, Urine NEGATIVE ()?? 05/29/2024 18:15 Ketones, Urine NEGATIVE ()?? 05/29/2024 18:15 Bilirubin, Urine NEGATIVE ()?? 05/29/2024 18:15 Hemoglobin, Urine NEGATIVE ()?? 05/29/2024 18:15 Nitrite, Urine NEGATIVE ()?? 05/29/2024 18:15 Leukocyte, Urine NEGATIVE ()?? 05/29/2024 18:15 Urobilinogen NORMAL mg/dL ()?? 05/29/2024 18:15 WBC's, Urine NONE SEEN /HPF ()?? 05/29/2024 18:15 RBC's, Urine NONE SEEN /HPF ()?? 05/29/2024 18:15 Squamous Epith <1 /HPF ()?? 05/29/2024 18:15 Mucus SLIGHT /LPF ()?? 05/29/2024 18:15 Hold Urine Culture Testing available 48 hours from time of collection. ()?? 05/29/2024 18:15 ?? URINE OTHER Est Creatinine Clearance 72.18 mL/min ()?? 05/29/2024 21:59 ? EKG study * Event Display: ECG 12-Lead Authored Date: Please click on pdf link to open report * Event Display: ECG 12-Lead Authored Date: Ventricular Rate: 57 BPM Atrial Rate: 57 BPM P-R Interval: 228 ms QRS Duration: 98 ms Q-T Interval: 436 ms QTC Calculation(Bazett): 424 ms P [place]: 29 degrees R [place]: 7 degrees T [place]: 175 degrees Sinus bradycardia with 1st degree A-V block Possible Left atrial enlargement Left ventricular hypertrophy with repolarization abnormality ( R in aVL , Sokolow-Harman , Romhilt-Celeste ) Abnormal ECG When compared with ECG of 11-Jan-2024 10:28, Non-specific change in ST segment in Anterior leads Confirmed by SERA MAZARIEGOS ([id number]) on 05/29/2024 2:43:15 PM Hines: SERA MAZARIEGOS Heart * Event Display: Echocardiogram - Complete Authored Date: Transthoracic Echocardiography Report (TTE) Patient Demographics Patient Name KAT TATE Date of Study 05/30/2024 Corporate Gender Male Facility Race Black Ethnicity Date of 1950 Height: 68.5 inches Age 74 year(s) Weight: 174.17 pounds Accession Number [id number] BSA: 1.94 m2 Room Number [id number] BMI: 26.09 kg/m2 Referring Physician Unassigned Interpreting Radha Stanton Unassigned 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 Clinical History CHF CVA CAD HTN HLD Study Data Type of Study TTE procedure:Echo Complete-Doppler, Colorflow, M-Mode, 3D Rendering without Post Processing, Strain. Study Date05/30/2024 Start Time: 07:20 AM Study Location: [facility] Adult Echo Study Status: Echo lab Patient Status: Routine Technical Quality: Adequate due to rib artifact. Blood Pressure:148/82 mmHg EKG: Within normal limits HR: 51 bpm 2D Measurements LV Diastolic Dimension: 5.2 cm LV Systolic Dimension: 3.9 cm LV Septum Diastolic: 1.43 cm LV PW Diastolic: 1.23 cm AO Root Dimension: 4.2 cm LA Dimension: 5.3 cm LA ESV (BP):111 ml LVOT Stroke Volume: 117.03 ml LA ESV Index: 57 ml/m2 Stroke Volume Index60.32 ml/m2 LVOT: 2.17 cm Cardiac Index:3.08 l/min/m2 Ascending Aorta:3.8 cm Doppler Measurements AV Peak Velocity: 260 cm/s MV Peak E-Wave: 83.2 cm/s AV Peak Gradient: 27.04 mmHg MV Peak A-Wave: 97.1 cm/s AV Mean Gradient: 13 mmHg MV E/A Ratio: 0.86 AV VTI:64.3 cm MV P1/2t: 89 msec LVOT Peak Velocity: 130 cm/s LVOT VTI31.66 cm MV Deceleration Time: 303 msec AV Area (Continuity):1.82 cm2 MV Area (PHT): 2.47 cm2 TR Velocity:231 cm/s PV Peak Velocity: 138 cm/s TR Gradient:21.34 mmHg PV Peak Gradient: 7.62 mmHg Estimated RAP:8 mmHg Estimated RVSP: 29.3 mmHg E' Septal Velocity: 5.98 cm/s E' Lateral Velocity: 10.4 cm/s E/Med E':[id number] E/Lat E':8 Cardiac Anatomy Left Ventricle/Interventricular Septum The left ventricle is normal in size. The left ventricular wall thickness is moderately increased in a pattern of concentric hypertrophy. Left ventricular systolic function is low normal. Quantitative LVEF 54% (biplane Fink). The basal inferior wall is moderately hypokinetic. Left ventricular filling pressures are indeterminate. Left Atrium/Interatrial Septum The left atrium is severely dilated. Aortic Valve The aortic valve is trileaflet and appears mild to moderately thickened and calcified. There is mild aortic stenosis. No significant aortic regurgitation. Mitral Valve There is mild to moderate mitral annular calcification. The mitral valve is normal in structure and function. There is no significant mitral stenosis or regurgitation. Aorta The aortic root is ectatic ( 42 mm). The ascending aorta is ectatic (38 mm). Right Ventricle The right ventricle is mildly to moderately dilated. Right ventricular systolic function is normal. Right Atrium The right atrium is dilated. Pulmonic Valve The pulmonic valve is normal in function. There is trace pulmonic regurgitation. Tricuspid Valve The tricuspid valve is grossly normal. There is highly eccentric tricuspid regurgitation that appears mild on this study. Pumonary Artery The pulmonary artery systolic pressure estimation is normal, 29 mmHg. Venous Structures The inferior vena cava size is normal with blunted inspiratory collapse. The central venous pressure estimation is mildly elevated, 8mmHg. Pericardium/Extracardiac There is trivial posterior pericardial effusion. Summary The left ventricle is normal in size. The left ventricular wall thickness is moderately increased in a pattern of concentric hypertrophy. Left ventricular systolic function is low normal. Quantitative LVEF 54% (biplane Fink). The basal inferior wall is moderately hypokinetic. Left ventricular filling pressures are indeterminate. The right ventricle is mildly to moderately dilated. Right ventricular systolic function is normal. The left atrium is severely dilated. The right atrium is dilated. The aortic root is ectatic ( 42 mm). The ascending aorta is ectatic (38 mm). There is mild aortic stenosis. here is highly eccentric tricuspid regurgitation that appears mild on this study. The central venous pressure estimation is mildly elevated, 8mmHg. The pulmonary artery systolic pressure estimation is normal, 29 mmHg. Comparison Comparison is made to the study of January 12, 2024. Image quality is improved on the current study. Signature * Event Display: Echocardiogram - Complete Authored Date: Cardiology * Event Display: Cardiac Rhythm Strips Authored Date: Hospital Progress note * Tomasa Blake RN: PERFORM, SIGN, VERIFY, SIGN, MODIFY Event Display: Progress Note Hospital Authored Date: Patient: KAT TATE Age: 74 years Sex: Male : 1950 Associated Diagnoses: None Author: Tomasa Blake RN Findings Narrative/Incidental Pt arrived to [facility], [place] at 2140, ambulated to bed with walker and stand by assist (uses cane at home at baseline). Pt A+Ox4. VSS with elevated BP 183/66. Pt with mild right sided weakness at baseline. Denies dizziness or lightheadedness, CP, SOB or cough, nausea or vomiting. RLE with 2+ pitting edema andtwitching sensation from right knee down right foot. Denies pain in RLE. Right hand with mild swelling, improving per pt but still feeling that it's swollen during right hand abduction and flexion. Left ankle mild swelling noted as well. Telemetry: SB with HR in high 50's and first degree HB. LSCTA. Pt oriented to unit, call poole provided and education how to use it. Bed alarm on for safety.. * Tomasa Blake RN: PERFORM Event Display: Progress Note Hospital Authored Date: Early AM BP 174/68. HR 54. Dr. Armijo made aware. 100 mg Hydralazine given per MD request. Consult note * Anderson Knight MD: MODIFY Anderson Knight MD: MODIFY Event Display: Consultation Note Authored Date: Patient: ??KAT TATE ? Age:??74 Years?Sex:??Male?:??1950?? History of Present Illness 74 y/o M with PMH of prior kidney transplant, L paramedian pontine infarct (Dec 2023),??HTN, HLD, CAD with prior AK s/p CABG, hx of prostate cancer, GERD, and gout who presented to [facility] on 05/29 with acute on chronic swelling. History obtained from patient and patient's son. They state he has had intermittent RUE/RLE swelling since his stroke. When he is swollen, it is harder to ambulate and he requires a cane. It usually improves with elevation, and he has been prescribed Lasix 20 mg daily for this as well. Patient has had R sided swelling for a week, thus they called the neurology clinic who advised the the patient to go to the ED for further workup. ?? Initial NIHSS 1 for mild flattening of the R NLF. CTH obtained and nonacute, chronic L pontine infarct appreciated. Review of Systems As stated in HPI. Denies new numbness, paresthesias, vision changes, aphasia, falls. Objective Measurements?? Weight: 79.5 kg (05/29/24) ?? Vital Signs?? Temperature: 98.6 DegF (05/29/24 13:21:00) Temperature Route: Oral (05/29/24 13:21:00) Pulse Rate: 58 bpm (05/29/24 13:21:00) Respiratory Rate: 18 br/min (05/29/24 13:21:00) Systolic Blood Pressure:??162 mm Hg??High (05/29/24 13:21:00) Diastolic Blood Pressure: 66 mm Hg (05/29/24 13:21:00) Mean Arterial Pressure: 98 mm Hg (05/29/24 13:21:00) Pulse Pressure: 96 mm Hg (05/29/24 13:21:00) Oxygen Saturation: 98 % (05/29/24 13:21:00) Mode of Delivery (Oxygen): Room air (05/29/24 13:21:00) ? NIH Stroke Scale Level of Consciousness for Stroke Scale: Alert (05/29/24 15:00:00) Response Month/Age: Answers both questions correctly (05/29/24 15:00:00) Response Open/Close Eyes: Performs both tasks correctly (05/29/24 15:00:00) Best Gaze: Normal (05/29/24 15:00:00) Visual: No visual loss (05/29/24 15:00:00) Facial Palsy: Minor paralysis (05/29/24 15:00:00) Motor Function Left Arm: No drift (05/29/24 15:00:00) Motor Function Right Arm: No drift (05/29/24 15:00:00) Motor Function Left Leg: No drift (05/29/24 15:00:00) Motor Function Right Leg: No drift (05/29/24 15:00:00) Limb Ataxia: Absent (05/29/24 15:00:00) Sensory: Normal; no sensory loss (05/29/24 15:00:00) Best Language: No aphasia (05/29/24 15:00:00) Dysarthria NIH Stroke Scale: Normal (05/29/24 15:00:00) Extinction and Inattention: No abnormality (05/29/24 15:00:00) NIH Stroke Scale Score: 1 (05/29/24 15:00:00) ? Physical Exam Gen: NAD, awake, alert HEENT: normocephalic, atraumatic. No ptosis. Nares patent. Mouth normal. Psych: not depressed or anxious Cardio: RRR Lungs: normal I:E Abdomen: nondistended Extremities: pitting edema in RUE, and BLE (worse on the R) Skin: warm and dry Neuro: Mental status is??intact, no deficits Speech is fluent w/o dysarthria and aphasia. Follows simple and complex commands. Cranial Nerves: PERRL, EOMI without nystagmus, VFF. Very subtle flattening of R NLF. Facial sensation intact. Tongue midline. Shoulder shrug symmetric b/l. Motor:??RUE/RLE 5-/5. LUE/LLE 5/5.??No pronator drift. Normal bulk and tone. No abnormal movements. Sensation: Intact light touch sensation bilaterally. Coordination: No ataxia or dysmetria noted with finger to nose.? CT Head IMPRESSION: ?? No acute intracranial pathology. ?? Images have been personally reviewed by myself. ? Assessment/Plan 74 y/o M with PMH of prior kidney transplant, L paramedian pontine infarct (Dec 2023),??HTN, HLD, CAD with prior AK s/p CABG, hx of prostate cancer, GERD, and gout who presented to [facility] on 05/29 with acute on chronic swelling. He has had intermittent RUE/RLE swelling since his stroke, when there is anexacerbation he ambulates with??a cane.??The swelling??usually improves with elevation, and he has been prescribed Lasix 20 mg daily for this as well. Patient has had R sided swelling for a week, thus they called the neurology clinic who advised the the patient to go to the ED for further workup. CTH nonacute, NIHSS 1 for mild??flattening of the R NLF. Patient with subtle R hemiparesis. ?? Suspect this is recrudescence of his stroke sx with very mild R sided weakness and subtle R FD. No further neurological??recommendations. Workup of peripheral edema per primary team. ?? D/w Dr. Knight D/w Dr. Zuñiga Call/[place] Text??with any questions. Neurology will sign off. ? I spent a total time of??65 minutes today reviewing the chart/medical records, speaking with thepatient, formulating and discussing the treatment plan, and documenting the findings and encounter.? Attending attestation:??I saw the images, reviewed the pertinent history and physical and agree with the impression and plan ??as discussed and outlined by??Bessie, there is a old encephalomalacia of the left bethany that has not been right on CAT scan but this appears to be stable??and does notrequire any further change to medication that he is already taking including??aspirin Plavix for 90days and then aspirin alone as well as statin for goal LDL less than 70 goal A1c less than 8 and a goal BP close to 120/80. ??No need for permissive hypertension as this appears to be worsening of a previous stroke in the setting of acute??illness likely from volume overload.?? Once again Anderson Knight MD Vascular Neurologist [facility] -[phone] Fax ? Histories Allergies Allergies ?(Active and Proposed [...] Past Surgical History Knee replacement Kidney transplant CABG - Coronary artery bypass graft Herniorrhaphy ? Social History Alcohol Details:??Use: Current. ??Frequency: 1-2 times per week. ??Binge drinking: No. Employment/School Details:??Status: Retired. ??Previous employment/school: [employer]. Exercise Details:??Self assessment: Fair condition. Home/Environment Details:??Living [...] History Father: Heart attack Brother: Heart attack ? Stroke Treatment Details Able to close lips, pucker and blow out: Yes Able to swallow own secretions: Yes Absence of dysarthria/dysphonia/aphonia: Yes No delay in swallowing (tsp): Yes Patient alert: Yes Swallows water without choking (60cc): Yes Swallows water without choking (tsp): Yes Voice sounds clear, not gurgly (60cc): Yes Voice sounds clear, not gurgly (tsp): Yes Voluntary Cough: Yes Modified [place] Score: 4 ?? Medications Home Medications Alendronate (alendronate 70 mg oral tablet)??Every week Allopurinol (allopurinol 100 mg oral tablet)??1 tab(s) 100 Milligram By Mouth Daily Aspirin (aspirin 81 mg oral delayed release tablet)??1 tab(s) 81 Milligram By Mouth Daily for 90 Days take for 90 days only then stop , you do not need to continue aspirin as per Nerurology recommendation Clopidogrel (Plavix 75 mg oral tablet)??75 Milligram By Mouth Daily for 90 Days Doxazosin (doxazosin 2 mg oral tablet)??2 Milligram 1 tablet By Mouth Daily at bedtime TAKE 1 TABLET BY MOUTH EVERY DAY AT NIGHT Lorazepam (lorazepam 1 mg oral tablet)??1 tab(s) 1 Milligram By Mouth as needed as needed for anxiety Multivitamin??By Mouth Daily Mycophenolate Mofetil (CellCept 250 mg oral capsule)??1 capsule 250 Milligram By Mouth 2 times a day NIFEdipine (NIFEdipine (Eqv-Procardia XL) 60 mg oral tablet, extended release)??1 tab(s) 60 Milligram By Mouth Daily Nitroglycerin (Nitrostat 0.3 mg sublingual tablet)??1 tab(s) 0.3 Milligram Sublingual Every 5 minutes as needed for chest pain [place]-3 Polyunsaturated Fatty Acids (Fish Oil)??By Mouth Omeprazole (omeprazole 20 mg oral enteric coated capsule)??1 capsule 20 Milligram By Mouth Daily Rosuvastatin (rosuvastatin 20 mg oral tablet)??1 tab(s) 20 Milligram By Mouth Daily Tacrolimus (Prograf 1 mg oral capsule)??See Instructions 3 capsule in morning, 2 capsule in evening Ubiquinone (Co Q-10)??100 Milligram By Mouth Daily ? Results Recent Labs No labs resulted between 05/28/2024 00:00 and 05/29/2024 15:40? Abnormal Labs No lab data available. ? CBC, CBC w/Diff?? No qualifying data available. ?? BMP, Mg, and Phos?? No qualifying data available. ?? Coagulation Profile?? No qualifying data available. ?? LFT?? No qualifying data available. ?? Urinalysis?? No qualifying data available. ? Blood Gases?? No qualifying data available. ?? Uric/LDH?? No qualifying data available. ? Note * Christine Guillen RN: PERFORM Event Display: Discharge/Transfer Note Hospital Authored Date: [id number] Nursing Discharge Note Entered On: 05/30/2024 11:47 EDT Performed On: 05/30/2024 11:47 EDT by Christine Guillen RN Nursing Discharge Note 2 Discharge Time : 05/30/2024 11:47 EDT Did Pt have Specialty Bed or Wound Vac : Yes Christine Guillen RN - 05/30/2024 12:17 EDT Discharge Level of Care at Discharge : Home/Snf/Foster Care Patient Left Unit Via : Wheelchair Patient Accompanied Off Unit with : Responsible adult DC Instructions Provided & Signed by Pt : Yes Patient Understands D/C Instructions : Yes Patient Instructions Discharge Signed : Yes Christine Guillen RN - 05/30/2024 11:47 EDT * Ginna Khalil MD: PERFORM Event Display: Discharge/Transfer Note Hospital Authored Date: [id number] Patient: ??KAT TATE ? Age:??74 Years?Sex:??Male?:??1950?? Patient Information Discharge Location: B Primary Care Physician: Shazia GODOY, Maria D Kapadia Admit Date/Time: 05/29/2024 12:38 Discharge Disposition Discharge Disposition: Home: No Services Discharge Diagnosis Acute CHF (I50.9) Metabolic acidosis (E87.20) CVA (cerebrovascular accident) (I63.9) CAD in red devil artery (I25.10) HTN - Hypertension (I10) Hyperlipidemia (E78.5) Chronic Kidney disease (N18.9) Gastroesophageal reflux disease (K21.9) Gout (M10.9) VIDA (generalized anxiety disorder) (F41.1) S/P kidney transplant (Z94.0) Weakness (R53.1) Swelling of extremity (M79.89) _ Discharge Medications Alendronate (alendronate 70 mg oral tablet)??Every week Once a week on Saturdays Allopurinol (allopurinol 100 mg oral tablet)??1 tab(s) 100 Milligram By Mouth Daily Aspirin (aspirin 81 mg oral delayed release tablet)??1 tab(s) 81 Milligram By Mouth Daily for 90 Days take for 90 days only then stop , you do not need to continue aspirin as per Nerurology recommendation Clopidogrel (Plavix 75 mg oral tablet)??75 Milligram By Mouth Daily for 90 Days Doxazosin (doxazosin 2 mg oral tablet)??4 Milligram 2 tablet By Mouth Daily at bedtime TAKE 1 TABLET BY MOUTH EVERY DAY AT NIGHT Furosemide (furosemide 20 mg oral tablet)??20 Milligram 1 tablet By Mouth Daily please take 1 tablet daily and if there is increasing swelling in legs /hands ??take one additional dose in jose afternoon ??and call primary care provider if no improvement hydrALAZINE (hydrALAZINE 50 mg oral tablet)??2 tab(s) 100 Milligram By Mouth 3 times a day Lorazepam (lorazepam 1 mg oral tablet)??1 tab(s) 1 Milligram By Mouth as needed as needed for anxiety Multivitamin??By Mouth Daily Mycophenolate Mofetil (CellCept 250 mg oral capsule)??See Instructions 2 capsule in AM, 1 capsule ??at bedtime NIFEdipine (NIFEdipine (Eqv-Procardia XL) 60 mg oral tablet, extended release)??1 tab(s) 60 Milligram By Mouth 2 times a day Nitroglycerin (Nitrostat 0.3 mg sublingual tablet)??1 tab(s) 0.3 Milligram Sublingual Every 5 minutes as needed for chest pain [place]-3 Polyunsaturated Fatty Acids (Fish Oil)??By Mouth Omeprazole (omeprazole 20 mg oral enteric coated capsule)??1 capsule 20 Milligram By Mouth Daily PredniSONE (predniSONE 5 mg oral tablet)??5 tab(s) 25 Milligram By Mouth Daily Rosuvastatin (rosuvastatin 20 mg oral tablet)??1 tab(s) 20 Milligram By Mouth Daily at bedtime Tacrolimus (Prograf 1 mg oral capsule)??See Instructions 4 capsule in morning, 3 capsule in evening Ubiquinone (Co Q-10)??100 Milligram By Mouth Daily ? Quality Measures Stroke Quality Measures:? Durable Medical Equipment Discharge recommendations: Home with outpatient sevices (05/30/24) Name of Agency #1: [facility] (01/13/24) Service Comments #1: [facility] stroke rehab. (01/13/24) Ambulatory devices needed: Cane, Walker (05/29/24) ? Medications Started none Allergies Allergies ?(Active and Proposed Allergies [...] breakdown ? Future Appointments Wednesday 1:00 PM EDT ?? With: Eugene GODOY, Anderson Where: [facility] [address] [place] [address] Floor, [address] [place] [id number]- Status: Pending Objective Assessment and Plan ?74-year-old male with past medical history significant for CAD status post CABG x 3, hypertension, hyperlipidemia, ESRD status post kidney transplant with CKD on new transplant, left paramedian bethany CVA, GERD, gout, prostate cancer After his CVA in December, he was able to regain back his right hand weakness 4 weeks ago, he redeveloped right-sided weakness 2 weeks ago, he was presumed to have pneumonia and was treated with amoxicillin 1 week ago, he developed bipedal edema right greater than left Today, he thought he had increased swelling that included his right hand.??He called his neurologist who recommended that he present to the emergency roomNeurology suspected that the weakness is a recrudescence of his stroke. Admission was requested to workup his new swelling presumed to be CHF ? Acute CHF (I50.9):? Reviewing his echocardiogram from 2023 which showed his EF was 65 to 70% with no definite regional wall abnormalities. ??Repeat Echo - he left ventricle is normal in size. The left ventricular wall thickness is ??moderately increased in a pattern of concentric hypertrophy. Left ??ventricular systolic function is low normal. Quantitative LVEF 54% (biplane ??Fink). The basal inferior wall is moderately hypokinetic. Left ??ventricular filling pressures are indeterminate. ??The right ventricle is mildly to moderately dilated. Right ventricular ??systolic function is normal. ??The left atrium is severely dilated. The right atrium is dilated. ??The aortic root is ectatic ( 42 mm). The ascending aorta is ectatic (38 mm). ??There is mild aortic stenosis. ??here is highly eccentric tricuspid regurgitation that appears mild on this ??study. The central venous pressure estimation is mildly elevated, 8mmHg. Swelling has improved significantly with 1 dose of p.o. Lasix Continue Lasix 20 mg p.o. daily Discussed about taking additional dose if there is increasing swelling Patient??will follow-up with his lease administrator for management of the volume status Patient also follows up with [facility] cardiology as outpatient will follow-up with??cardiology as outpatient. ? CVA (cerebrovascular accident) (I63.9):? Weakness (R53.1):? Appreciate neurology consult Suspect this is recrudescence of his stroke No further neurological??recommendations. Continue dual antiplatelet therapy Continue rosuvastatin ?? S/P kidney transplant (Z94.0):? Chronic Kidney disease (N18.9):? Metabolic acidosis (E87.20):? Continue CellCept Continue Prograf Continue prednisone ? CAD in red devil artery (I25.10):? Continue dual antiplatelet therapy ?? HTN - Hypertension (I10):? Continue doxazosin Continue hydralazine Continue losartan Continue nifedipine ?? Hyperlipidemia (E78.5):? Continue rosuvastatin [place]-3 fatty acids is? Gastroesophageal reflux disease (K21.9):? Continue PPI ?? Gout (M10.9):? Continue allopurinol ?? VIDA (generalized anxiety disorder) (F41.1):? Continue lorazepam ? . Physical Exam GENERAL: In no apparent distress HEENT: Head normocephalic, PERRL,Moist mucous membrane. Neck supple CARDIOVASCULAR: Normal rate and rhythm, no murmurs, no rubs, no gallops RESPIRATORY: Lungs clear to auscultation, no wheezes , no crackles ABDOMEN/GI: Nondistended, soft, nontender, normal bowel sounds EXTREMITIES: No pitting edema CENTER HOLE REAMER: Alert and oriented x 3.Non focal neuro exam. ? Consultants Neurology Pending Results No Pending Results Follow-Up Appointments Added Follow Up ?Time Frame ?Comments Shazia GODOY, Maria D Kapadia?1 to 2 weeks Patient Instructions You came to the hospital with a concern of increasing swelling in upper and lower extremities, possible new weakness and tremor in your left right upper extremity.?? You were seen by neurology, no concern of acute stroke, continue current medication.?? Swelling improved with extra dose of furosemide. ??Please continue taking furosemide??20 mg p.o. daily if??and then take an additional dose in theafternoon if you notice increasing swelling??and??if there is no improvement call??your primary care physician.?? Post Discharge Care Discharge ?05/30/24 10:56:00 EDT ?Order Comment:?? Discharge Prescriptions ?None, 05/30/24 10:56:00 EDT ?Order Comment:?? Home Health Face to Face ^HomeHealthFTF Results Discharge Labs BLOOD COUNT & DIFF WBC 2.5 k/mm3 (Low)?? 05/30/2024 00:57 RBC 3.68 m/mm3 (Low)?? 05/30/2024 00:57 Hgb 10.2 Gm/dL (Low)?? 05/30/2024 00:57 Hct 31.5 % (Low)?? 05/30/2024 00:57 MCV 85.6 femtoliters ()?? 05/30/2024 00:57 MCH 27.7 pg ()?? 05/30/2024 00:57 MCHC 32.4 Gm/dL (Low)?? 05/30/2024 00:57 Platelet Count 126 k/mm3 (Low)?? 05/30/2024 00:57 RDW-SD 43.8 femtoliters ()?? 05/30/2024 00:57 MPV 10.7 femtoliters ()?? 05/30/2024 00:57 Nucleated RBC (Automated) 0.0 #/100 WBC'S ()?? 05/30/2024 00:57 Abs. NRBC 0.0 k/mm3 ()?? 05/30/2024 00:57 Abs. Neut 2.1 k/mm3 ()?? 05/29/2024 15:51 Abs. Lymph 0.4 k/mm3 (Low)?? 05/29/2024 15:51 Abs. Morris 0.5 k/mm3 ()?? 05/29/2024 15:51 Abs. Eo 0.1 k/mm3 ()?? 05/29/2024 15:51 Abs. Baso 0.0 k/mm3 ()?? 05/29/2024 15:51 Neut % 67.2 % ()?? 05/29/2024 15:51 Lymph % 12.1 % (Low)?? 05/29/2024 15:51 Morris % 17.0 % (High)?? 05/29/2024 15:51 Eos % 2.3 % ()?? 05/29/2024 15:51 Baso % 0.7 % ()?? 05/29/2024 15:51 Imm Gran 0.7 % ()?? 05/29/2024 15:51 Abs. Imm Gran 0.0 k/mm3 ()?? 05/29/2024 15:51 ?? CARDIAC Nt-Probnp 932 pg/mL (High)?? 05/29/2024 15:51 High Sensitivity Troponin (HSTnT) 34 ng/L (High)?? 05/29/2024 20:04 ?? CHEM GENERAL Sodium 139 mmol/L ()?? 05/30/2024 00:57 Potassium 3.6 mmol/L ()?? 05/30/2024 00:57 Chloride 108 mmol/L (High)?? 05/30/2024 00:57 Bicarbonate Level 21 mmol/L (Low)?? 05/30/2024 00:57 Anion Gap 10 mmol/L ()?? 05/30/2024 00:57 Glucose Level 104 mg/dL (High)?? 05/29/2024 15:51 BUN 16 mg/dL ()?? 05/30/2024 00:57 Creatinine-Blood 0.91 mg/dL ()?? 05/30/2024 00:57 Estimated GFR Creatinine 88 ML/MIN/1.73 M2 ()?? 05/30/2024 00:57 Calcium 8.7 mg/dL ()?? 05/29/2024 15:51 Protein, Total 6.2 Gm/dL ()?? 05/29/2024 15:51 Albumin 4.1 Gm/dL ()?? 05/29/2024 15:51 AG Ratio 2.0 ()?? 05/29/2024 15:51 Alkaline Phosphatase 61 units/L ()?? 05/29/2024 15:51 AST (SGOT) 22 units/L ()?? 05/29/2024 15:51 ALT (SGPT) 9 units/L ()?? 05/29/2024 15:51 Bilirubin, Total 0.6 mg/dL ()?? 05/29/2024 15:51 C-Reactive Protein 0.6 mg/dL (High)?? 05/29/2024 15:51 ?? ENDOCRINE/TUMOR MARKER TSH 0.55 uIU/mL ()?? 05/29/2024 15:51 ? UA/URINALYSIS Appear/Color, Urine YELLOW ()?? 05/29/2024 18:15 Specific [place], Urine 1.017 ()?? 05/29/2024 18:15 pH, Urine 6.0 ()?? 05/29/2024 18:15 Albumin, Urine NEGATIVE ()?? 05/29/2024 18:15 Glucose, Urine NEGATIVE ()?? 05/29/2024 18:15 Ketones, Urine NEGATIVE ()?? 05/29/2024 18:15 Bilirubin, Urine NEGATIVE ()?? 05/29/2024 18:15 Hemoglobin, Urine NEGATIVE ()?? 05/29/2024 18:15 Nitrite, Urine NEGATIVE ()?? 05/29/2024 18:15 Leukocyte, Urine NEGATIVE ()?? 05/29/2024 18:15 Urobilinogen NORMAL mg/dL ()?? 05/29/2024 18:15 WBC's, Urine NONE SEEN /HPF ()?? 05/29/2024 18:15 RBC's, Urine NONE SEEN /HPF ()?? 05/29/2024 18:15 Squamous Epith <1 /HPF ()?? 05/29/2024 18:15 Mucus SLIGHT /LPF ()?? 05/29/2024 18:15 Hold Urine Culture Testing available 48 hours from time of collection. ()?? 05/29/2024 18:15 ?? URINE OTHER Est Creatinine Clearance 69.01 mL/min ()?? 05/30/2024 01:57 ? 35_ minutes spent on discharge * Mindy BYNUM, Christine Villaseñor: PERFORM Event Display: Patient Education/Instruction Authored Date: Inpatient Adult Discharge Instructions. [address] [id number] Name: KAT TATE : 1950?? Visit: 05/29/2024 12:38?? Current Date: 05/30/2024 11:23 ?? Account: [id number]?? Inpatient Adult Discharge Instructions We would like [...] and their families. Surveys are administered by [employer] ?? If further treatment with your primary care physician or another doctor is recommended, it is important for you to keep the appointment. Call your primary care physician or return to the Emergency Department immediately if your condition worsens, fails to improve, or new symptoms develop. If you need to find a doctor, you can call [facility] for a referral at [phone] or toll free at [phone] or log in to [email or web address] ?? [facility], in keeping with [facility] guidance, no longer requires face masks [...] a health care jatin of your choosing. Screen is a website that allows you to securely view your medical information including your hospital discharge summary, office visit summaries, medications and follow-up visits. You can also request appointments, renew medications, and request access to your medical information using a health care jatin of your choosing, or just ask a question. You are entitled to know the individuals who participated in your treatment. This information is available within your medical record and will be provided upon your request. You can enroll at [email or web address] or register d uring your next office visit. You have been discharged from [facility], Patient Care Unit: D3B??. If you have any questions regarding these instructions, including results of studies pending, afteryou leave, please call us and we will be happy to assist you 14/09. [facility] Your Care Team Attending Physician Ginna Khalil MD?? Consulting Providers Ginna Khalil MD?? Discharging Providers Ginna Khalil MD Reason for Your Visit new CHF?? 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 You may have had other tests and procedures not included in this list. Please discuss all test results with your provider. BUN CBC CBC w/ Differential Comprehensive Metabolic Panel Creatinine CRP Electrolytes High Sensitivity Troponin T ProBNP Troponin T, High Sensitivity TSH with T4 Reflex (Adults Only) Urinalysis w/hold for Urine Culture CT Head/Brain W/O Contrast Venous Doppler Ext Lower Bilat (US) XR Chest 2 Views Frontal and Lat B Type Natriuretic Peptide (NT-proBNP) (ProBNP)?? BUN?? C Reactive Protein (CRP)?? CBC?? CBC w/ Differential?? CT Head/Brain W/O Contrast?? Comprehensive Metabolic Panel?? Creatinine?? Electrolytes?? High??Sensitivity??Troponin T (Troponin T, High Sensitivity)?? TSH with T4 Reflex (Adults Only)?? US Doppler Ext Lower Venous Bilat (Venous Doppler Ext Lower Bilat (US))?? Urinalysis w/hold for Urine Culture?? Chest 2 Views Frontal and Lat (XR Chest 2 Views Frontal and Lat)?? Primary Care Provider Shazia GODOY, Maria D Kapadia? Advance Directive Health Care Proxy on File Yes - Health Care Proxy Discharge Vitals Temperature: 97.9 DegF Height: 174 cm Pulse Rate:??52 bpm??Low Weight: 78.9 kg Respiratory Rate: 18 br/min Body Mass Index:??26.06 kg/m2??High Systolic Blood Pressure:??170 mm Hg??High Body surface area: 1.95 Diastolic Blood Pressure: 62 mm Hg ?? Oxygen Saturation: 97 % ?? Studies Pending All studies ordered during this hospital stay have been completed unless listed below. Please discuss all pending results with your provider listed above in these instructions. ?? No incomplete studies found?? What to do next Instructions From Your Doctor You came to the hospital with a concern of increasing swelling in upper and lower extremities, possible new weakness and tremor in your left right upper extremity.?? You were seen by neurology, no concern of acute stroke, continue current medication.?? Swelling improved with extra dose of furosemide. ??Please continue taking furosemide??20 mg p.o. daily if??and then take an additional dose in theafternoon if you notice increasing swelling??and??if there is no improvement call??your primary care physician.?All ?? Orders? 05/30/24 10:56:00 EDT?? Prescriptions??, ??05/30/24 10:56:00 EDT?? Scheduled Follow-Up Appointments Wednesday. 2024 1:00 PM EDT ?? With: Eugene GODOY, Anderson Where: [facility] [address] [facility] 3rd Floor, [address] [place] [id number]- Status: Pending You Need to Schedule the Following Appointments Follow Up with??Shazia GODOY, Maria D Kapadia When:??Within 1 to 2 weeks Where: [address] [place] [address], [address] [place] [address]- Discharge Medications KAT TATE :1950 Visit Date:05/29/2024 Medications: Please continue your medications until treatment is completed or stopped by your provider. Medications not listed below should be discontinued. Discuss any questions related to medications with your provider. What How Much When Instructions Next Dose Changed Alendronate (alendronate 70 mg oral tablet) Every week Once a week on Saturdays ?? resume Changed Furosemide (furosemide 20 mg oral tablet) 1 tab(s) Oral Daily please take 1 tablet daily and if there is increasing swelling in legs / hands ??take one additional dose in jose afternoon ??and call primary care provider if no improvement ?? tomorrow am 05/31/24 Changed Mycophenolate Mofetil (CellCept 250 mg oral capsule) See instructions 2 capsule in AM, 1 capsule ??at bedtime ?? tonight 05/30/24 Unchanged Allopurinol (allopurinol 100 mg oral tablet) 1 tab(s) Oral Daily tomorrow am 05/31/24 Unchanged Aspirin (aspirin 81 mg oral delayed release tablet) 1 tab(s) Oral Daily Duration: 90 Days take for 90 days only then stop , you do not need to continue aspirin as per Nerurology recommendation ?? tomorrow am 05/31/24 Unchanged Clopidogrel (Plavix 75 mg oral tablet) 75 Milligram Oral Daily Duration: 90 Days tomorrow am 05/31/24 Unchanged Doxazosin (doxazosin 2 mg oral tablet) 2 tab(s) Oral Daily at Bedtime TAKE 1 TABLET BY MOUTH EVERY DAY AT NIGHT ?? tonight at bedtime 05/30/24 Unchanged hydrALAZINE (hydrALAZINE 50 mg oral tablet) 2 tab(s) Oral 3 times a day 3pm today, 05/30/24 Unchanged Lorazepam (lorazepam 1 mg oral tablet) 1 tab(s) Oral As needed for as needed for anxiety as needed Unchanged Losartan (losartan 100 mg oral tablet) tomorrow am 05/31/24 Unchanged Multivitamin Oral Daily resume Unchanged NIFEdipine (NIFEdipine (Eqv-Procardia XL) 60 mg oral tablet, extended release) 1 tab(s) Oral Twice a day tonight 05/30/24 Unchanged Nitroglycerin (Nitrostat 0.3 mg sublingual tablet) 1 tab(s) Sublingual Every 5 minutes as needed for for chest pain as needed Unchanged [place]-3 Polyunsaturated Fatty Acids (Fish Oil) Oral resume Unchanged Omeprazole (omeprazole 20 mg oral enteric coated capsule) 1 capsule Oral Daily tomorrow am 05/31/24 Unchanged PredniSONE (predniSONE 5 mg oral tablet) 5 tab(s) Oral Daily tomorrow am 05/31/24 Unchanged Rosuvastatin (rosuvastatin 20 mg oral tablet) 1 tab(s) Oral Daily at Bedtime tonight 05/30/24 Unchanged Sildenafil (sildenafil 100 mg oral tablet) resume Unchanged Tacrolimus (Prograf 1 mg oral capsule) See instructions 4 capsule in morning, 3 capsule in evening ?? this ??evening 05/30/24 Unchanged Ubiquinone (Co Q-10) 100 Milligram Oral Daily resume Prescription Given During Visit No new medications prescribed at time of discharge.?? Laboratory Results Below is a partial list of the most recent Laboratory test results done prior to this discharge. You may have had other tests and procedures not included in this list. Please discuss all test resultswith your provider. Est Creatinine Clearance - 69.01 mL/min (05/30/2024) BUN (05/30/2024) ???BUN - 16 mg/dL CBC (05/30/2024) ???WBC - 2.5 k/mm3???RBC - 3.68 m/mm3???Hgb - 10.2 Gm/dL???Hct - 31.5 %???MCV - 85.6 femtoliters???MCH - 27.7 pg???MCHC - 32.4 Gm/dL???Platelet Count - 126 k/mm3???RDW-SD - 43.8 femtoliters???MPV - 10.7 femtoliters???Nucleated RBC (Automated) - 0.0 #/100 WBC'S???Abs. NRBC - 0.0 k/mm3 CBC w/ Differential (05/29/2024) ???WBC - 3.1 k/mm3???RBC - 3.88 m/mm3???Hgb - 11.0 Gm/dL???Hct - 33.3 %???MCV - 85.8 femtoliters???MCH - 28.4 pg???MCHC - 33.0 Gm/dL???Platelet Count - 142 k/mm3???RDW-SD - 43.8 femtoliters???MPV - 10.9 femtoliters???Nucleated RBC (Automated) - 0.0 #/100 WBC'S???Abs. NRBC - 0.0 k/mm3???Abs. Neut - 2.1 k/mm3???Abs. Lymph - 0.4 k/mm3???Abs. Morris - 0.5 k/mm3???Abs. Eo - 0.1 k/mm3???Abs. Baso - 0.0 k/mm3???Neut % - 67.2 %???Lymph % - 12.1 %???Morris % - 17.0 %???Eos % - 2.3 %???Baso % - 0.7 %???Imm Gran - 0.7 %???Abs. Imm Gran - 0.0 k/mm3 Comprehensive Metabolic Panel (05/29/2024) ???Sodium - 140 mmol/L???Potassium - 4.1 mmol/L???Chloride - 107 mmol/L???Bicarbonate Level - 19 mmol/L???Anion Gap - 14 mmol/L???Glucose Level - 104 mg/dL???BUN - 17 mg/dL???Creatinine-Blood - 0.87 mg/dL???Estimated GFR Creatinine - 90 ML/MIN/1.73 M2???Calcium - 8.7 mg/dL???Protein, Total - 6.2 Gm/ dL???Albumin - 4.1 Gm/dL???AG Ratio - 2.0???Alkaline Phosphatase - 61 units/L???AST (SGOT) - 22 units/L???ALT (SGPT) - 9 units/L???Bilirubin, Total - 0.6 mg/dL Creatinine (05/30/2024) ???Creatinine-Blood - 0.91 mg/dL???Estimated GFR Creatinine - 88 ML/MIN/1.73 M2 CRP (05/29/2024) ???C-Reactive Protein - 0.6 mg/dL Electrolytes (05/30/2024) ???Sodium - 139 mmol/L???Potassium - 3.6 mmol/L???Chloride - 108 mmol/L???Bicarbonate Level - 21 mmol/L???Anion Gap - 10 mmol/L High Sensitivity Troponin T (05/29/2024) ???High Sensitivity Troponin (HSTnT) - 33 ng/L ProBNP (05/29/2024) ???Nt-Probnp - 932 pg/mL Troponin T, High Sensitivity (05/29/2024) ???High Sensitivity Troponin (HSTnT) - 34 ng/L TSH with T4 Reflex (Adults Only) (05/29/2024) ???TSH - 0.55 uIU/mL Urinalysis w/hold for Urine Culture (05/29/2024) ???Appear/Color, Urine - YELLOW???Specific [place], Urine - 1.017???pH, Urine - 6.0???Albumin, Urine - NEGATIVE???Glucose, Urine - NEGATIVE???Ketones, Urine - NEGATIVE???Bilirubin, Urine - NEGATIVE???Hemoglobin, Urine - NEGATIVE???Nitrite, Urine - NEGATIVE???Leukocyte, Urine - NEGATIVE???Urobilinogen - NORMAL? ?WBC's, Urine - NONE SEEN? ?RBC's, Urine - NONE SEEN? ?Squamous Epith - <1 /HPF? ?Mucus - SLIGHT???Hold Urine Culture - Testing available 48 hours from time of collection. You will be contacted within 72 hours with your results. 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 Chronic Kidney disease?? Coronary arteriosclerosis, Coronary artery bypass grafts x 3?? CVA (cerebrovascular accident)?? diverticulosis?? Ex-smoker?? fialed avf?? VIDA (generalized anxiety disorder)?? Gastroesophageal reflux disease?? Gout?? History of Congestive heart failure?? History of polyps?? HTN - Hypertension?? Hyperlipidemia?? Old myocardial infarction, Inferolateral Wall, Initial Episode of Care?? Osteoarthritis, knees?? Primary malignant neoplasm of prostate?? Prostate cancer?? S/P kidney transplant?? Education Materials Below is the list of Educational Leaflet Providered with your Discharge Instructions. [employer] Patient Education - Furosemide?? [employer] Patient Education - Leg Swelling in Both Legs?? Valuables and Belongings I fully understand and agree that [facility] accepts no responsibility for all my [...] to send valuables and belongings home. ?? Review of Valuable and Belonging List: With patient Date for Pt to Sign Valuables/Belongings: 05/29/24 21:58:00 ?? Other Discharge Information ? Pulmonary Rehab Status?? Pulmonary Rehab Discharge Status?? Respiratory Rate: 18 br/min ? Common Emergency Awareness Tips IS [...] are strongly encouraged to quit. Please call [facility] [employer] [facility] at [phone] or [phone] ([phone]) or log in to [email or web address] for referrals to smoking cessation programs. ?? 407 Suicide & Crisis Lifeline is available 14/09 if you or someone you know needs to find a reason to keep living. By calling 273 you'll be connected to a skilled, trained counselor at a crisis center in your area. INPATIENT DISCHARGE INSTRUCTIONS SIGNATURE PAGE KAT TATE Location:[facility] Registration Date and Time:05/29/2024 12:38 EDT Primary Care Physician: Shazia GDOOY, Maria D Kapadia, Attending Physician: Remi GODOY, Ginna, I KAT TATE, have received the above patient education materials/instructions and have verbalized understanding. If ambulance or transport services are being used I further acknowledge being given a choice of service. ?? If you need to contact me, please call me at this number: . Patient/Program Coordinator Name: Patient/Program Coordinator Signature: Relationship to Patient: Witness Name/Signature: Date: * Christine Guillen RN: PERFORM Event Display: Patient Education Leaflets Authored Date: [id number] Furosemide ?? [id number] Furosemide Brand Name(s): Lasix??; also available generically ?? IMPORTANT WARNING: Furosemide is a strong diuretic ('water pill') and may cause dehydration and electrolyte imbalance.It is important that you take it exactly as told by your doctor. If you experience any of the following symptoms, call your doctor immediately: decreased urination; dry mouth; thirst; nausea; vomiting; weakness; drowsiness; confusion; muscle pain or cramps; or rapid or pounding heartbeats. WHY is this medicine prescribed? Furosemide is used alone or in combination with other medications to treat high blood pressure. Furosemide is used to treat edema (fluid retention; excess fluid held in body tissues) caused by various medical problems, including heart, kidney, and liver disease. Furosemide is in a class of medications called diuretics ('water pills'). It works by causing the kidneys to get rid of unneeded water and salt from the body into the urine. High blood pressure is a common condition and when not treated, can cause damage to the brain, heart, blood vessels, kidneys and other parts of the body. Damage to these organs may cause heart disease, a heart attack, heart failure, stroke, kidney failure, loss of vision, and other problems. In addition to taking medication, making lifestyle changes will also help to control your blood pressure. These changes include eating a diet that is low in fat and salt, maintaining a healthy weight, exercising at least 30 minutes most days, not smoking, and using alcohol in moderation. HOW should this medicine be used? Furosemide comes as a tablet and as a solution (liquid) to take by mouth. It usually is taken once or twice a day. When used to treat edema, furosemide may be taken daily or only on certain days of the week. When used to treat hypertension, take furosemide around the same time(s) every day. Follow the directions on your prescription label carefully, and ask your doctor or pharmacist to explain any part you do not understand. Take furosemide exactly as directed. Do not take more or less of it ortake it more often than prescribed by your doctor. Furosemide controls high blood pressure and edema but does not cure these conditions. Continue to take furosemide even if you feel well. Do not stop taking furosemide without talking to your doctor. Are there OTHER USES for this medicine? This medicine is sometimes prescribed for other uses; ask your doctor or pharmacist for more information. What SPECIAL PRECAUTIONS should I follow? Before taking furosemide, ??? tell your doctor and pharmacist if you are allergic to furosemide, sulfonamide medications, anyother medications, or any of the ingredients in furosemide tablets or solution. Ask your pharmacistor check the patient information for a list of the ingredients. ??? tell your doctor and pharmacist what prescription and nonprescription medications, vitamins, nutritional supplements, and herbal products you are taking or plan to take while taking furosemide. Your doctor may need to change the doses of your medications or monitor you carefully for side effects. ??? if you are taking sucralfate ( Carafate), take it 2 hours before or after you take furosemide. ??? the following nonprescription products may interact with furosemide: aspirin and other salicylates; nonsteroidal anti-inflammatory drugs (NSAIDS) such as ibuprofen (Advil, Motrin, others) and naproxen (Aleve). Be sure to let your do ctor and pharmacist know that you are taking these medications before you start taking furosemide. Do not start any of these medications while taking furosemide without discussing with your healthcare provider. ??? tell your doctor if you have kidney disease. Your doctor may tell you not to take furosemide. ??? tell your doctor if you have or have ever had any condition that stops your bladder from emptying completely, diabetes, gout, systemic lupus erythematosus (SLE, a chronic inflammatory condition), or liver disease. ??? tell your doctor if you are , plan to become , or are breast-feeding. Do not breast-feed while taking this medicine. If you become while takingfurosemide, call your doctor. ??? if you are having surgery, tell the doctor that you are using furosemide. ??? plan to avoid unnecessary or prolonged exposure to sunlight and to wear protective clothing, sunglasses, and sunscreen. Furosemide may make your skin sensitive to sunlight. ??? you shouldknow that furosemide may cause dizziness, lightheadedness, and fainting when you get up too quicklyfrom a lying position. This is more common when you first start taking furosemide. To avoid this problem, get out of bed slowly, resting your feet on the floor for a few minutes before standing up. Alcohol can add to these side effects. What SPECIAL DIETARY instructions should I follow? If your doctor prescribes a low-salt or low-sodium diet, or to eat or drink increased amounts of potassium-rich foods (e.g., bananas, prunes, raisins, and orange juice) in your diet, follow these instructions carefully. What should I do IF I FORGET to take a dose? Take the missed dose as soon as you remember it. However, if it is almost time for your next dose, skip the missed dose and continue your regular dosing schedule. Do not take a double dose to make upfor a missed one. What SIDE EFFECTS can this medicine cause? Some side effects can be serious. If you have any of these symptoms or those listed in the IMPORTANT WARNINGS section, call your doctor immediately or seek emergency medical treatment: ??? fever ??? ringing in the ears ??? loss of hearing ??? rash ??? hives ??? blisters or peeling skin ??? itching ??? difficulty breathing or swallowing ??? yellowing of the skin or eyes If you experience a serious side effect, you or your doctor may send a report to the Food and Drug Administration's (FDA) MedWatch Adverse Event Reporting program online (https://www.fda.gov/Safety/MedWatch) or by phone ( ). What should I know about STORAGE and DISPOSAL of this medication? Keep this medicine in the container it came in, tightly closed, and out of reach of children. Storeit at room temperature and away from excess heat and moisture (not in the bathroom). Dispose of unused furosemide solution after 90 days. It is important to keep all medication out of sight and reach of children as many containers (such as weekly pill minders and those for eye drops, creams, patches, and inhalers) are not child-resistant and young children can open them easily. To protect young children from poisoning, always lock safety caps and immediately place the medication in a safe location ??? one that is up and away and out of their sight and reach. https://www.[employer]org Unneeded medications should be disposed of in special ways to ensure that pets, children, and otherpeople cannot consume them. However, you should not flush this medication down the toilet. Instead,the best way to dispose of your medication is through a medicine take-back program. Talk to your pharmacist or contact your local garbage/recycling department to learn about take-back programs in your community. See the FDA's Safe Disposal of Medicines website (https://goo.gl/c4Rm4p) for more information if you do not have access to a take-back program. What should I do in case of OVERDOSE? In case of overdose, call the poison control helpline at . Information is also available online at https://www.poisonhelp.org/help. If the victim has collapsed, had a seizure, has trouble breathing, or can't be awakened, immediately call emergency services at 471. Symptoms of overdose may include: ??? extreme thirst ??? dry mouth ??? dizziness ??? confusion ??? extreme tiredness ??? vomiting ???stomach cramps What OTHER INFORMATION should I know? Keep all appointments with your doctor and the laboratory. Your blood pressure should be checked regularly, and blood tests should be done occasionally. Before having any laboratory test, tell your doctor and the laboratory personnel that you are taking furosemide. Do not let anyone else take your medicine. Ask your pharmacist any questions you have about refilling your prescription. It is important for you to keep a written list of all of the prescription and nonprescription (ksok-bxc-bwrxlaj) medicines you are taking, as well as any products such as vitamins, minerals, or otherdietary supplements. You should bring this list with you each time you visit a doctor or if you areadmitted to a hospital. It is also important information to carry with you in case of emergencies. This report on medications is for your information only, and is not considered individual patient advice. Because of the changing nature of drug information, please consult your physician or pharmacist about specific clinical use. The [employer] represents that the information provided hereunder was formulated with a reasonable standard of care, and in conformity with professional standards in the field. The [employer] makes no representations or warranties, express or implied, including, but not limited to, any implied warranty of merchantability and/or fitness for a particular purpose, with respect to such information and specifically disclaims all such warranties. Users are advised that decisions regarding drug therapy are complex medical decisions requiring the independent, informed decision of an appropriate health cardiac care unit nurse, and the information is provided for informational purposes only. The entire monograph for a drug should be reviewed for a thorough understanding of the drug's actions, uses and side effects. The [employer] does not endorse or recommend the use of any drug.The information is not a substitute for medical care. AHFS?? Patient Medication Information???. ?? Copyright, 2023. The [employer]??, [address], [address], [place], [place]. All Rights Reserved. Duplication for commercial use must be authorized by [facility]. Selected Revisions: November 06, 2016. AHFS?? Patient Medication Information???. ?? Copyright, 2024 ?? * Mindy BYNUM, Christine Villaseñor: PERFORM Event Display: Patient Education Leaflets Authored Date: [id number] Leg Swelling in Both Legs ?? [id number] Leg Swelling in Both Legs Swelling of the feet, ankles, and legs is called edema. It's caused by extra fluid that has collected in the tissues. Extra fluid in the body settles in the lowest part because of gravity. This is why the legs and feet are most affected. Some of the causes for edema include: ??? Disease of the heart, such as congestive heart failure ??? Standing or sitting for long periodsof time ??? Infection of the feet or legs ??? Blood pooling in the veins of your legs (venous insufficiency) when the veins have less elasticity ??? Dilated veins in your lower leg (varicose veins) ??? Poor drainage of the lymphatic system ??? Some medicines, including some hormones such as control pills, some blood pressure medicines such as calcium channel blockers, steroids, and some antidepressants such as MAO inhibitors and tricyclics ??? Menstrual periods that cause you to retain fluids ??? Many types of kidney disease ??? Liver failure??or cirrhosis ??? , in which some swelling is normal, but a sudden increase in leg swelling or weight gain can be a sign of a dangerouscomplication of called eclampsia ??? Poor nutrition ??? Thyroid disease Treatment will depend on what is causing the swelling in your legs. Your healthcare provider may prescribe water pills (diuretics) to get rid of the extra fluid. Home care Follow these guidelines when caring for yourself at home: ??? Keep your legs up while lying or sitting. ??? If infection, injury, or recent surgery is causing the swelling, stay off your legs as muchas possible until symptoms get better. ??? If your healthcare provider says that your leg swelling is caused by venous insufficiency or varicose veins, don't sit or tooth cutter pinion one place for long periods of time. Take breaks and walk about every few hours. Brisk walking is a good exercise. It helps circulate the blood that has collected in your leg. Talk with your provider about using support stockings to stop daytime leg swelling. ??? If your provider says that heart disease is causing your leg swelling, follow a low-salt diet to stop extra fluid from staying in your body. You may also need medicine. ?? Follow-up care Follow up with your healthcare provider, or as advised. ?? When to get medical advice Call your healthcare provider right away if any of these occur: ??? Swelling in both legs or ankles that gets worse ??? Belly (abdominal) swelling ??? Redness, warmth, or swelling in 1 leg ??? Fever of 100.4??F (38??C) or higher,??or as advised by your provider ??? Yellow color to your skin or eyes ??? Rapid, unexplained weight gain ??? Having to sleep upright or use more pillows ? Call 911 Call 911 or get medical care right away if you have: ??? New shortness of breath or chest pain ??? Worsening shortness of breath or chest pain? Last Reviewed Date: 2021 00:00:00 ?? [id number] [employer]. All rights reserved. This information is not intended as a substitute for professional medical care. Always follow your healthcare professional's instructions. ?? Patient Care team information Care Team Personnel Name: Juliann Moon Position: [facility] HMO Reviewer Member Role: Primary Care Nurse Name: Shazia GODOY, Maria D Kapadia Position: Reference Physician Member Role: PCP Address: [address] [place] [address], [address] [place] [address]- [place] [employer]: Name: Jim Ibrahim MD Position: [facility] Renal MD Member Role: [employer] Consult[employer] Physician Address: [address] [place] [address] [address] [place] [address]- [place] [employer]: Name: Guille Dennis RN Position: [facility] RN Member Role: Primary Care Nurse Name: Teri Stoll NP Position: [facility] Associate Professional Member Role: Primary Care Nurse Address: [address] [place] [phone]- [place] [employer]: Name: Ambrocio Foley RN Position: [facility] RN Member Role: Primary Care Nurse Care Team Related Persons Name: KAT TATE Name: AKT TATE JR Name: JUNIE TATE Insurance Providers Guarantor name: KAT TATE Health Plan Information #: 2 Payer: [employer] Member Number: [id number] Policy Number: NA Group Number: [id number] Health Plan Information #: 1 Payer: MEDICARE PART B OUTPT Member Number: [id number] Policy Number: NA Group Number: NA Health Plan Information #: 3 Payer: [employer] MEDICARE SUPPL Member Number: NA Policy Number: NA Group Number: NA Health Plan Information #: 4 Payer: [facility] Member Number: NA Policy Number: NA Group Number: NA
--- OUTSIDE RECORDS SUMMARY | 2024-05-31 16:28 | XMS_ITS | Clinical Summary ---
Author Organization [facility] Address [address] [place] [address] Care Team Providers Care Service Superintendent Name Role Phone Maria D Mccray Primary Care Provider [phone] Allergies Active Allergy Reactions Criticality Noted Date Comments Adhesive Tape-Silicones Rash 11/25/2016 Latex Rash 12/03/2021 Lisinopril Unknown,Other (see comments) 05/13/2020 Other reaction(s): not sure Nsaids (Non-Steroidal Anti-Inflammatory Drug) Liver disorder,Other (see comments) 05/13/2020 Medications omega-3 fatty acids 300 mg capsule Take 550 mg by mouth daily. 04/27/19 14 Active nitroglycerin (NITROSTAT) 0.[address] 0.4 mg under the tongue as needed for chest pain. 09/11/19 12 Active acetaminophen (TYLENOL) 500 mg tablet Take 500 mg by mouth every 6 hours as needed for mild pain (pain score 1-3). Active LORazepam (ATIVAN) 1 mg tablet Take 1 mg by mouth. 5 01/11/20 17 Active sildenafiL (VIAGRA) 100 mg tablet 0 Refills, Maintenance, 03/27/21 15:56:00 EST, Partial fill upon patient request if the prescription is for a schedule II opioid drug. 12/19/19 21 Active coenzyme Q10 400 mg capsule Take 400 mg (1 capsule) by mouth daily. 30 each 1 01/03/20 22 Active multivitamin (THERAGRAN) tablet Take 1 tablet by mouth daily. 30 tablet 1 01/03/20 22 Active NIFEdipine XL (PROCARDIA XL) 60 mg tablet Take 1 Tablet by mouth 2 times daily for 360 days. 180 tablet 3 3 7:09 AM EST 01/12/20 22 Active nitroglycerin (NITROSTAT) 0.[address] 1 Tablet under the tongue every 5 minutes as needed for Chest pain (take every 5 min for 3 doses for chest pain). 50 tablet 01/12/20 22 Active rosuvastatin (CRESTOR) 20 mg tablet Take 1 tablet (20 mg total) by mouth daily. 30 tablet 1 3 6:55 AM EDT 05/12/19 23 Active aspirin 81 mg EC tablet Take 1 Tablet by mouth daily. 30 tablet 1 3 11:28 AM EST 12/31/19 23 Active LORazepam (ATIVAN) 1 mg tablet Take 1 tablet (1 mg total) by mouth at bed time as needed for anxiety. 28 tablet 4 9:00 AM EDT 08/12/19 24 Active predniSONE (DELTASONE) 5 mg tabletIndication s:Kidney transplant recipient (HCC) Take 1 tablet (5 mg total) by mouth daily. 30 tablet 11 5 12:18 PM EST 09/05/19 24 025 Active NIFEdipine XL (PROCARDIA XL) 60 mg tabletIndication s:Essential hypertension Take 1 tablet (60 mg total) by mouth 2 times a day. 60 tablet 5 12:18 PM EST 11/05/19 24 025 Active mycophenolate mofetil (CELLCEPT) 250 mg capsuleIndicatio ns:Kidney replaced by transplant (HCC) Take 2 capsules (500 mg total) by mouth every morning AND 1 capsule (250 mg total) every evening. 90 capsule 5 12:18 PM EST 12/30/19 24 Active omeprazole (PriLOSEC) 20 mg capsule Take 1 capsule (20 mg total) by mouth daily. 30 capsule 5 5 8:52 AM EDT 01/28/20 24 Active losartan (COZAAR) 100 mg tablet Take 1 tablet (100 mg total) by mouth daily. 30 tablet 5 5 8:52 AM EDT 01/28/20 24 Active allopurinoL (ZYLOPRIM) 100 mg tablet Take 1 tablet (100 mg total) by mouth 1 (one) time each day. 30 tablet 5 5 12:18 PM EST 01/28/20 24 Active rosuvastatin (CRESTOR) 20 mg tablet Take 1 tablet (20 mg total) by mouth 1 (one) time each day. 30 tablet 5 5 8:52 AM EDT 01/28/20 24 Active Prograf 1 mg capsuleIndicatio ns:Kidney replaced by transplant (HCC) Take 4 capsules (4 mg total) by mouth in the morning AND 3 capsules (3 mg total) every evening. 210 capsule 11 5 8:52 AM EDT 02/11/20 24 Active doxazosin (CARDURA) 2 mg tablet Take 1 tablet (2 mg total) by mouth nightly. 90 tablet 5 12:18 PM EST 04/07/19 25 Active doxazosin (CARDURA) 2 mg tablet Take 2 tablets (4 mg total) by mouth once a day for 90 days. 180 tablet 4 04/18/19 25 Active alendronate (FOSAMAX) 70 mg tablet Take 1 tablet (70 mg total) by mouth every 7 (seven) days. 12 tablet 1 05/28/19 25 Active LORazepam (ATIVAN) 1 mg tablet Take 1 tablet (1 mg total) by mouth at bedtime as needed for anxiety. Max Daily Amount: 1 mg. 28 tablet 05/28/19 25 Active famotidine (PEPCID) 20 mg tablet Take 1 tablet (20 mg total) by mouth 2 (two) times a day. 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 The match run ID number is [id number]. The donor ABO is O. The donor [...] serologies are negative. The referring physician is Jmi Ibrahim MD. The recipient panel reactive antibody [...] Encounters Date Type Department Care Team Description 05/31/2024 Telephone [facility] Transplant Department [address] [place] [address] Renée Sahu RN 05/30/2024 Results Follow-Up [facility] Renal Transplant [address] [place] [address] Renée Sahu RN 05/26/2024 Orders Only [facility] Nephrology Clinic [address] [place] [id number] Hospitality Job Titles: Gurjit Conroy MD 05/18/2024 Telephone [facility] Transplant Department [address] [place] [address] Renée Sahu RN 04/21/2024 Orders Only [facility] Nephrology Clinic [address] [place] [address] Hospitality Job Titles: Gurjit Conroy MD 04/06/2024 Refill [facility] Transplant Department [address] [place] [address] Tessy Walton Kidney transplant recipient (Primary Dx) from Last 3 Months Immunizations Immunization Administration [...] Info) Description 07/18/2024 11:40 AM EDT Follow-Up [facility] Renal Transplant [address] [place] [address] Gurjit Olsen MD [address] [place] [address] Health Maintenance Due Date Last Done Comments Cologuard 1950 Colon Cancer Screening 1950 Colonoscopy 1950 FOBT / Fit Test 1949 Sigmoidoscopy [address] Lung Cancer Screening (Baseline) 1999 Hepatitis B Vaccines (2 of 3 - 19+ 3-dose series) 08/11/2013 07/14/2013 Zoster Vaccines (1 of 2) 11/05/2013 09/10/2013, 07/24 Abdominal Aortic Aneurysm (A AA) Screening 2014 DTaP,Tdap,and Td Vaccines (3 - Td or Tdap) 05/18/2023 05/17/2013, 05/17/2013 Alcohol/Substance Use Screening 02/23/2024 Depression Screening and Follow-Up 02/23/2024 Health Care Proxy Review 02/23/2024 Social Drivers of Health Shweta ual Screening 02/23/2024 COVID-19 Vaccine (9 - Modern a risk ) 05/29/2024 11/29/2023, 05/26/2023, 05/26/2023, Additional history exists Basic Metabolic Panel 05/26/2025 05/26/2024 , 04/21/2024, 03/24/2024, Additional history exists Hepatitis C Screening Completed 10/27/2017 , 10/27/2017, 12/30/2016, Additional history exists Pneumococcal Vaccine: 50+ Years Completed 01/15/2021, 02/21/2016, 11/27/2014, Additional history exists RSV Vaccine (60+ years old a nd patients) Completed 11/11/2022 Influenza Vaccine Completed 10/27/2023, , 10/28/2021, Additional history exists Procedures * Due to [place] state law, this organization might not be sharing negative HIV tests. Procedure Name Priority Date/Time Associated Diagnosis Comments TACROLIMUS LEVEL Routine 05/26/2024 8:24 AM EDT CBC AUTO DIFFERENTIAL Routine 05/26/2024 8:24 AM EDT PHOSPHORUS Routine 05/26/2024 8:24 AM EDT MAGNESIUM Routine 05/26/2024 8:24 AM EDT COMPREHENSIVE METABOLIC PANEL Routine 05/26/2024 8:24 AM EDT TACROLIMUS LEVEL Routine 04/21/2024 8:19 AM EST CBC AUTO DIFFERENTIAL Routine 04/21/2024 8:19 AM EST PHOSPHORUS Routine 04/21/2024 8:19 AM EST MAGNESIUM Routine 04/21/2024 8:19 AM EST COMPREHENSIVE METABOLIC PANEL Routine 04/21/2024 8:19 AM EST TACROLIMUS LEVEL Routine 03/24/2024 8:33 AM EST Kidney transplant recipient Immunosuppression CBC AUTO DIFFERENTIAL Routine 03/24/2024 8:33 AM EST Kidney transplant recipient Immunosuppression PHOSPHORUS Routine 03/24/2024 8:33 AM EST Kidney transplant recipient Immunosuppression MAGNESIUM Routine 03/24/2024 8:33 AM EST Kidney transplant recipient Immunosuppression COMPREHENSIVE METABOLIC PANEL Routine 03/24/2024 8:33 AM EST Kidney transplant recipient Immunosuppression HEPATITIS C RNA, QUANTITATIVE, PCR Routine 10/27/2017 2:34 PM EDT Increased infection risk status post immunosuppressive therapy from Last 3 Months or Most Recently Relevant to Health Maintenance Results * Due to [place] state law, this organization might not be sharing negative HIV tests. * (ABNORMAL) CBC Auto Differential (05/26/2024 8:24 AM EDT) Only the most recent of3 resultswithin the time period is included. White Blood Cell Count 3.8 3.8 - 10.8 Thousand/ uL 05/26/2024 10:39 PM [facility] Red Blood Cell Count 4.00(L) 4.20 - 5.80 Million/u L 05/26/2024 10:39 PM [facility] Hemoglobin 11.4(L) 13.2 - 17.1 g/dL 05/26/2024 10:39 PM [facility] Hematocrit 36.5(L) 38.5 - 50.0 % 05/26/2024 10:39 PM [facility] MCV 91.3 80.0 - 100.0 fL 05/26/2024 10:39 PM [facility] MCH 28.5 27.0 - 33.0 pg 05/26/2024 10:39 PM [facility] MCHC 31.2(L) 32.0 - 36.0 g/dL 05/26/2024 10:39 PM [facility] Comment: For adults, a slight decrease in the calculated MCHC value (in the range of 30 to 32 g/dL) is most likely not clinically significant; however, it should be interpreted with caution in correlation with other red cell parameters and the patient's clinical condition. RDW 12.3 11.0 - 15.0 % 05/26/2024 10:39 PM EDT [facility] Platelet Count 153 140 - 400 Thousand/ uL 05/26/2024 10:39 PM EDT [facility] MPV 11.0 7.5 - 12.5 fL 05/26/2024 10:39 PM EDT [facility] Absolute Neutrophils 1,900 1,500 - 7,800 cells/uL 05/26/2024 10:39 PM EDT [facility] Absolute Lymphocytes 904 850 - 3,900 cells/uL 05/26/2024 10:39 PM EDT [facility] Absolute Monocytes 768 200 - 950 cells/uL 05/26/2024 10:39 PM EDT [facility] Absolute Eosinophils 190 15 - 500 cells/uL 05/26/2024 10:39 PM EDT [facility] Absolute Basophils 38 0 - 200 cells/uL 05/26/2024 10:39 PM EDT [facility] Neutrophils 50 % 05/26/2024 10:39 PM EDT [facility] Lymphocytes 23.8 % 05/26/2024 10:39 PM EDT [facility] Monocytes 20.2 % 05/26/2024 10:39 PM EDT [facility] Eosinophils 5.0 % 05/26/2024 10:39 PM EDT [facility] Basophils 1.0 % 05/26/2024 10:39 PM EDT [facility] 05/26/2024 8:24 AM EDT 05/26/2024 10:26 PM EDT Narrative [facility] - 05/27/2024 3:43 AM EDT FASTING:YES Your request to have a duplicate copy faxed has been acknowledged. ? Queued to: ??[id number] ? Queued to: ??[id number] Gurjit Olsen MD LAB BLOOD ORDERABLES Chiqui jarvis Result [facility] [address] [facility] 3rd Floor, [place] [address], [employer] [address] [place] [address] * (ABNORMAL) Tacrolimus Level (05/26/2024 8:24 AM EDT) Only the most recent of3 resultswithin the time period is included. Tacrolimus, Highly Sensitive 4.8(L) mcg/L 05/27/2024 3:35 AM EDT [facility] Comment: No definitive therapeutic or toxic ranges have been established. Optimal blood drug levels are influenced by type of transplant, patient response, time post- transplant, co-administration of other drugs, and drug formulation. The following trough range is a suggested guideline: 5.0-20.0 mcg/L. This test was developed and its analytical performance characteristics have been determined by [employer]. It has not been cleared or approved by the FDA. This assay has been validated pursuant to the CLIA regulations and is used for clinical purposes. 05/26/2024 8:24 AM EDT 05/26/2024 10:56 PM EDT Narrative [facility] - 05/27/2024 3:43 AM EDT FASTING:YES Your request to have a duplicate copy faxed has been acknowledged. ? Queued to: ??[id number] ? Queued to: ??[id number] Gurjit Olsen MD LAB BLOOD ORDERABLES Chiqui jarvis Result [facility] [address] [facility] 3rd Floor, [place] [address], [facility] [address] [place] [address] * Phosphorus (05/26/2024 8:24 AM EDT) Only the most recent of3 resultswithin the time period is included. Pathologist [facility] Phosphate 3.3 2.1 - 4.3 mg/dL 05/27/2024 12:47 AM EDT [facility] 05/26/2024 8:24 AM EDT 05/26/2024 11:18 PM EDT Narrative [facility] - 05/27/2024 3:43 AM EDT FASTING:YES Your request to have a duplicate copy faxed has been acknowledged. ? Queued to: ??[id number] ? Queued to: ??[id number] Gurjit Olsen MD LAB BLOOD ORDERABLES Chiqui l Result Performing Organization Address [facility] de Phone Number [facility] [address] [address], [employer] [facility] [address] [place] [address] * Magnesium (05/26/2024 8:24 AM EDT) Only the most recent of3 resultswithin the time period is included. Pathologist [facility] Magnesium 1.9 1.5 - 2.5 mg/dL 05/27/2024 12:47 AM EDT [facility] 05/26/2024 8:24 AM EDT 05/26/2024 11:18 PM EDT [facility] [employer] [facility] - 05/27/2024 3:43 AM EDT FASTING:YES Your request to have a duplicate copy faxed has been acknowledged. ? Queued to: ??[id number] ? Queued to: ??[id number] Gurjit Olsen MD LAB BLOOD ORDERABLES Chiqui l Result Performing Organization Address [facility] Co de Phone Number [facility] [address] [address], [place] [phone] [employer] [address] [place] [address] * (ABNORMAL) Comprehensive Metabolic Panel (05/26/2024 8:24 AM EDT) Only the most recent of3 resultswithin the time period is included. Glucose 96 65 - 99 mg/dL 05/27/2024 12:47 AM EDT [facility] Comment: ? Fasting reference interval BUN 24 7 - 25 mg/dL 05/27/2024 12:47 AM [facility] Creatinine 1.17 0.70 - 1.28 mg/dL 05/27/2024 12:47 AM [facility] eGFR 65 > OR = 60 mL/min/1. 73m2 05/27/2024 12:47 AM [facility] Bun/Creatinine Ratio SEE NOTE: 6 - 22 (calc) 05/27/2024 12:47 AM [facility] Comment: ?? Not Reported: BUN and Creatinine are within ?? reference range. ? Sodium 135 135 - 146 mmol/L 05/27/2024 12:47 AM [facility] Potassium 3.9 3.5 - 5.3 mmol/L 05/27/2024 12:47 AM [facility] Chloride 105 98 - 110 mmol/L 05/27/2024 12:47 AM [facility] Carbon Dioxide 22 20 - 32 mmol/L 05/27/2024 12:47 AM [facility] Calcium 9.0 8.6 - 10.3 mg/dL 05/27/2024 12:47 AM [facility] Protein, Total 6.0(L) 6.1 - 8.1 g/dL 05/27/2024 12:47 AM [facility] Albumin 4.1 3.6 - 5.1 g/dL 05/27/2024 12:47 AM [facility] Globulin 1.9 1.9 - 3.7 g/dL (calc) 05/27/2024 12:47 AM [facility] Albumin/Globuli n Ratio 2.2 1.0 - 2.5 (calc) 05/27/2024 12:47 AM [facility] Bilirubin, Total 0.8 0.2 - 1.2 mg/dL 05/27/2024 12:47 AM [facility] Alkaline Phosphatase 45 35 - 144 U/L 05/27/2024 12:47 AM [facility] AST 16 10 - 35 U/L 05/27/2024 12:47 AM [facility] ALT 9 9 - 46 U/L 05/27/2024 12:47 AM [facility] 05/26/2024 8:24 AM EDT 05/26/2024 11:18 PM EDT Narrative [facility] - 05/27/2024 3:43 AM EDT FASTING:YES Your request to have a duplicate copy faxed has been acknowledged. ? Queued to: ??[id number] ? Queued to: ??[id number] Gurjit Olsen MD LAB BLOOD ORDERABLES Chiqui jarvis Result [facility] [address] [facility] 3rd [address], [place] [address], [facility] [address] [place] [address] * Hepatitis C RNA, quantitative, PCR (10/27/2017 2:34 PM EDT) [facility] [address] Hcv RNA, Quantitative Real Time PCR <15 NOT DETECTED NOT DETECTED IU/mL 10/28/2017 12:53 PM EDT [facility] Hepatitis C Quantitative PCR Log IU/mL <1.18 NOT DETECTED NOT DETECTED Log IU/mL 10/28/2017 12:53 PM EDT [facility] Comment: This test was performed using Real-Time Polymerase Chain Reaction. Reportable Range: 15 IU/mL to 100,000,000 IU/mL (1.18 Log IU/mL to 8.00 Log IU/mL). The analytical performance characteristics of this assay have been determined by [employer]. The modifications have not been cleared or approved by the FDA. This assay has been validated pursuant to the CLIA regulations and is used for clinical purposes. ?? For more information on this test, go to: http://education.[employer].niiu/faq/RXE27n9 (This link is being provided for informational/ educational purposes only.) Blood specimen (specimen) Structure of peripheral vein / Unknown Venipuncture / Unknown 10/27/2017 2:34 PM EDT 10/27/2017 2:44 PM EDT Narrative [facility] - 10/28/2017 12:53 PM EDT [facility] Received Date: Destiny Noel MD LAB BLOOD ORDERABLES Final R [facility] [address] 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
--- OUTSIDE RECORDS SUMMARY | 2024-05-31 16:29 | XMS_ITS | Encounter Summary ---
Author Organization [facility] Address [address] [place] [address] Care Team Providers Care Cotton Bag Clipper Name Role Phone Maria D Mccray MD Primary Care Provider [phone] Encounter Details Date Type Department Care Team (Late st Contact Info) Description 05/29/2024 Telephone Internal Medicine - [place] [address] [phone] Karyna Graham MA Social History Tobacco Use Types Packs/Day Years [...] Care Team (Late st Contact Info) Description 07/03/2024 2:30 PM EDT Office Visit [facility] Cardiology [address] [place] [address] Dereje Jackson MD [address] [place] [address] 07/12/2024 10:45 AM EDT Office Visit Internal Medicine - [place] 175 [facility] [address] [place] [phone] Amado Morgan NP 175 [facility] 200 [place] [address] documented as of this encounter Visit Diagnoses Not on filedocumented in this encounter Additional Health Concerns Assessment Noted Time PHQ-9 Depression Total Score: 0 01/10/20 24 2:13 PM EST A fall risk assessment has been complete d for the patient 01/10/2024 2:13 PM EST documented as of this encounter Care Teams Cotton Bag Clipper Relationship Specialty Start Date End Date Maria D Mccray MD [address] [address] PCP - General Internal Medicine 02/01/12 documented as of this encounter
--- OUTSIDE RECORDS SUMMARY | 2024-05-31 16:29 | XMS_ITS | Encounter Summary ---
Author Organization [facility] Address [address] [place] [address] Care Team Providers Care Disk And Tape Machine Tender Name Role Phone Maria D Mccray Primary Care Provider [phone] Encounter Details Date Type Department Care Team (Late st Contact Info) Description 11/25/2016 Transplant Conversio n Encounter [facility] Health Information Management [address] [place] [address] Provider, Historical [facility] Social History Tobacco Use Types Packs/Day [...] Info) Description 07/18/2024 11:40 AM EDT Follow-Up [facility]- [facility] Renal Transplant [address] [place] [address] Gurjit Olsen MD [address] [place] [address] documented as of this encounter Visit Diagnoses [...] documented as of this encounter Care Teams Disk And Tape Machine Tender Relationship Specialty Start Date End Date Maria D Mccray [address] [place] [address] PCP - General Internal Medicine 05/05/17 documented as of this encounter
--- OUTSIDE RECORDS SUMMARY | 2024-05-31 16:29 | XMS_ITS ---
Author Organization [facility] Address [address] [place] [address] Care Team Providers Care Manager Care Name Role Phone Maria D Mccray Primary Care Provider [phone] Transplant Episode Kidney Recipient [facility] ([place], [place]) - [facility] Organ Received: Right Kidney Transplanted on 11/07/2016 Marked as Active Follow-up on 11/07/2016 Kidney CoordinatorRenée Sahu RN Phone: N/A Fax: N/A Email: N/A [place] Organ Diagnosis Organ Primary Contributory Kidney Hypertensive [...] Coordinator N/A N/A N/A Gurjit Olsen MD Court Operations Clerk [phone] [email or web address] Referring Physician [phone] N/A Events Post-Transplant Pre-Transplant Admitted: 11/07/2016 Referred: 06/13/2010 Transplanted: 11/07/2016 Evaluation began: 1 Discharged: 11/16/2016 Committee: 07/30/2010 Center waitlisted: 1 Dialysis History Dialysis History Start End Type Comments Center 02/20/2016 11/06/2016 Maintenance (Type Unknown)
--- OUTSIDE RECORDS SUMMARY | 2024-05-31 16:29 | XMS_ITS | Clinical Summary ---
Author Organization [address] [place] [address] Address [address] [place] [address] Phone Care Team Providers Care Chief Deputy Court Clerk Name Role Phone Maria D Mccray MD Primary Care Provider [phone] Allergies Active Allergy Reactions Criticality Noted Date Comments Adhesive Tape-Silicones Rash Low 12/31/2017 rash Lisinopril Unknown Medium 05/13/2020 Other reaction(s): cough Nsaids (Non-Steroidal Anti-Inflammatory Drug) Unknown 12/31/2017 Medications nitroglycerin (NITROSTAT) 0.[address] 1 Tablet under the tongue every 5 minutes as needed for Chest pain (take every 5 min for 3 doses for chest pain). 12/04/19 23 Active NIFEdipine CC (ADALAT CC) 60 mg 24 hr tablet Take 1 Tablet by mouth 2 times daily for 360 days. 01/12/20 22 Active acetaminophen (TYLENOL) 500 mg tablet [...] caps in the afternoon 03/12/19 22 Active aspirin 81 mg EC tablet Take [...] day. 30 tablet 5 01/28/20 24 Active clopidogreL (PLAVIX) 75 mg tablet Take 1 [...] 1 mg. 28 tablet 05/28/19 25 Active alendronate (FOSAMAX) 70 mg tablet Take 1 tablet (70 mg total) by mouth every 7 (seven) days. 12 tablet 1 05/28/19 25 Active alendronate (FOSAMAX) 70 mg tablet Take 1 tablet (70 mg total) by mouth once a week (every 7 days) 05/19/19 24 025 Discontinued multivitamin (Multiple Vitamins) tablet Take 1 Tablet by mouth daily. 01/03/20 22 025 Discontinued coenzyme Q10 400 mg capsule Take 1 capsule by mouth 1 (one) time each day. 01/03/20 22 025 Discontinued docosahexaenoi c acid/epa (FISH OIL ORAL) 1 Tablet daily. 025 Discontinued famotidine (Pepcid) 20 mg tablet Take 1 tablet (20 mg total) by mouth 2 (two) times a day. 60 each 3 01/30/20 24 025 Discontinued LORazepam (ATIVAN) 1 mg tablet Take 1 tablet (1 mg total) by mouth at bedtime as needed for anxiety. Max Daily Amount: 1 mg 28 tablet 04/29/19 25 025 Discontinued amoxicillin (AMOXIL) 875 mg tablet Take 1 tablet (875 mg total) by mouth 2 (two) times a day for 10 days. 20 each 05/18/19 25 025 Discontinued amoxicillin (AMOXIL) 875 mg tablet Take 1 tablet (875 mg total) by mouth 2 (two) times a day for 10 days. 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 02/18/2024 Dysarthria following cerebral infarction 024 Facial weakness following cerebral infarction Hypertensive chronic kidney disease with stage 1 through stage 4 chronic kidney disease, or unspecified chronic kidney disease 02/18/2024 Kidney transplant status 02/18/2024 Atherosclerotic heart diseas e of [place] coronary artery without angina pectoris 02/18/2024 Nonrheumatic [...] PM EST): Coronary artery disease invo lving [place] heart without angina pectoris 07/26/2016 Anemia 02/21/2016 Leukopenia 02/04/2016 Thrombocytopenia 02/04/2016 Anxiety 11/27/2014 Erectile dysfunction 05/17/2013 Internal hemorrhoids 10/27/2012 Benign colonic polyp 10/27/2012 Diverticulosis 10/27/2012 Gouty arthropathy 09/09/2010 Assessment & Plan (01/10/2024 2:15 PM EST): Encounters Date Type Department Care Team Description 05/29/2024 Telephone Internal Medicine - [address] [phone] Karyna Graham MA 05/29/2024 Telephone Internal Medicine [address] [phone] Maria D Mccray MD Right side Swelling 05/17/2024 1:15 PM EDT Office Visit Internal Medicine [address] [address] Maria D Mccray MD Acute maxillary sinusitis, recurrence not specified (Primary Dx); Midline low back pain, unspecified chronicity, unspecified whether sciatica present; Acute pain of left shoulder 05/17/2024 Telephone Internal Medicine [address] [address] Maria D Mccray MD 05/04/2024 [facility] [place] [facility] [address] [address] Karyna Graham [place] faxed form (ATI) 04/26/2024 [place] [facility] [address] [address] Maria D Mccray MD [place]: Referral 04/19/2024 Telephone Internal Medicine [address] [address] Maria D Mccray MD [place] - Referral 03/28/2024 Telephone Internal Medicine [address] [address] Karyna Graham MA faxed form (ATI) 03/21/2024 Telephone Internal Medicine [address] [address] Rebecca Moody MA Request For Order(s) ([facility] Missed Visit /) 03/14/2024 9:45 AM EST Office Visit Internal Medicine [address] [place] [phone] Maria D Mccray MD Hemiplga following cerebral infrc aff right dominant side ([facility]) (Primary Dx); Speech disturbance, unspecified type; Mixed hyperlipidemia; Primary hypertension; End stage renal disease on dialysis ([facility]) 03/06/2024 Telephone Internal Medicine - [address] [phone] Maria D Mccray MD Hypertension (Elevated blood pressure reading this am) 03/03/2024 Telephone Internal Medicine [address] [address] Maria D Mccray MD [place]: FYI from Last 3 Months Immunizations Name Administration [...] PROCEDURE: HISTORICAL CABG OTHER SURGICAL HISTORY PROCEDURE: SD RENAL ALTRNSPLJ IMPLTJ GRF W/O ERP PM NEPHRECTOMY HERNIA REPAIR PROCEDURE: SD REPAIR FIRST ABDOMINAL WALL HERNIA Medical History Medical History Date Comments Anemia 02/21/2016 DX:Anemia Anxiety 11/27/2014 DX:Anxiety Benign colonic polyp 10/27/2012 DX:Benign c olonic polyp Coronary artery disease 07/26/2016 DX:Coron [place] artery disease Diverticulosis 10/27/2012 DX:Diverticulosi s Edema 01/29/2017 DX:Edema End stage renal disease on d ialysis ([facility]/HCC) 11/27/2016 DX:End stage renal disease o n dialysis ([facility]) Erectile dysfunction 05/17/2013 DX:Erectile dysfunction GERD (gastroesophageal reflux disease) 09/23/2016 DX:GERD (gastroesophageal reflux disease) Gouty arthropathy 09/09/2010 DX:Gouty arthr opathy History of prostate cancer 02/08/2012 DX:Hi story of prostate cancer Hyperlipidemia 05/14/2017 DX:Hyperlipidemi a Hypertension 05/14/2017 DX:Hypertension Internal hemorrhoids 10/27/2012 DX:Internal hemorrhoids Kidney transplant recipient 05/14/2017 DX:K idney transplant recipient Leukopenia 02/04/2016 DX:Leukopenia Thrombocytopenia (CMS/HCC) 02/04/2016 DX:Th rombocytopenia (HCC) Social History Tobacco Use Types Packs/Day Years [...] Sign Reading Time Taken Comments Blood Pressure 210/90 05/17/2024 1:38 PM EDT Pulse 60 05/17/2024 1:38 PM EDT Temperature 36.9 ??C (98.4 ??F) 05/17/2024 1:38 PM ED T Respiratory Rate - - Oxygen Saturation 98% 05/17/2024 1:38 PM EDT Inhaled Oxygen Concentration - - Weight 79.4 kg (175 lb) 05/17/2024 1:38 PM EDT Height 172.7 cm (5' 8 ) 05/17/2024 1:38 PM EDT Body Mass Index 26.61 05/17/2024 1:38 PM EDT Plan of Treatment Upcoming Encounters Date Type Department Care Team (Late st Contact Info) Description 07/03/2024 2:30 PM EDT Office Visit [facility] Cardiology [facility] Dr Mondragon [facility] [address] Santamaria [address] [place] [phone] Dereje Jackson MD [address] [place] [address],[address] [address] 07/12/2024 10:45 AM EDT Office Visit Internal Medicine - [place] [address] [facility] [address] [place] [phone] Amado Morgan NP [address] [facility] [address] [place] [address] Health Maintenance Due Date Last Done Comments [...] 01/09/2025 01/10/2024 Hypertension/CHF/CAD Annual BMP Blood Test 04/21/2025 04/21/2024, 03/24/2024, 02/18/2024, Additional history exists Cholesterol Screening (Lipid Panel) 05/16/2028 05/17/2023 Hepatitis C Screening Completed 10/27/2017 Pneumococcal Vaccine: 50+ Years Completed 01/15/2021, 02/21/2016, 11/27/2014, Additional history exists RSV Immunization Adult Patients Completed 11/11/2022 Influenza Vaccine Completed 10/27/2023, , [...] age to complete this topic Meningococcal B Vaccine Aged Out No l onger eligible based on patient's age to complete this topic RSV Immunization Patients Under 20 months Aged Out No longer eligible based on patient's age to complete this topic Varicella Vaccines Aged Out No longer eligible based on patient's age to complete this topic Medical Devices Implanted Type Area Cyber Special Agent Device Identifier Shelf Expiration Date Model / Serial / Lot Cement Bone Surg Simplex Radiopq Stry-Howm [id number] [id number] Implanted:Qty: 1 on 05/07/2022 by Matthew Ley MD Right: Knee [employer] 08/21/2024 6191-1-010 / / [id number] Cement Bone Surg Simplex Radiopq Stry-Howm [id number] [id number] Implanted:Qty: 1 on 05/07/2022 by Matthew Ley MD Right: Knee [employer] 08/21/2024 6191-1-010 / / [id number] Knee Fem Joao Ps Trthln Rt #5 Stry-Howm [id number] Implanted:Qty: 1 on 05/07/2022 by Matthew Ley MD Right: Knee [employer] [id number] 11/13/2026 5515-F-502 / / [id number] Knee Baseplt Tib Cmnt Sz5 Stry-Howm [id number]-[id number] Implanted:Qty: 1 on 05/07/2022 by Matthew Ley MD Right: Knee [employer] [id number] 01/07/2027 5520-B-500 / / [id number] Peg Fix Femoral Distal Stry-Howm [id number] Implanted:Qty: 1 on 05/07/2022 by Matthew Ley MD Right: Knee [employer] [id number] 12/21/2026 5575-X-000 / / [id number] Knee Tib Insrt Ps-X3 [id number] Stry-Howm [id number] [id number] Implanted:Qty: 1 on 05/07/2022 by Matthew Ley MD Right: Knee [employer] [id number] 12/09/2026 5532-G-513 / / [id number] Knee Pat Asymmetric X3 [id number] Implanted:Qty: 1 on 05/07/2022 by Matthew Ley MD Right: Knee [employer] [id number] 01/20/2027 5551-G-320 -E / / PTLX Procedures Procedure Name Priority Date/Time Associated Diagnosis Comments COMPREHENSIVE METABOLIC PANEL Routine 01/19/2024 7:17 AM EST Encounter for other general examination LIPID PANEL Routine 05/17/2023 from Last 3 Months or Most Recently Relevant to Health Maintenance Results * Comprehensive metabolic panel (01/19/2024 7:17 AM EST) Sodium 141 133 - 145 mmol/L LAB CHEMISTRY METHOD 01/19/2024 1:42 PM [facility] Potassium 3.7 3.5 - 5.5 mmol/L LAB CHEMISTRY METHOD 01/19/2024 1:42 PM [facility] Chloride 110 96 - 110 mmol/L LAB CHEMISTRY METHOD 01/19/2024 1:42 PM [facility] CO2 22 21 - 32 [...] 01/19/2024 1:42 PM [facility] Blood Venous blood specimen / Unknown Venipuncture / Unknown 01/19/2024 7:17 AM EST 01/19/2024 10:47 AM EST us Keri Cuevas MD LAB BLOOD ORDERABLES Final Res ult [facility] [address] [place] [address], * Lipid panel (05/17/2023) Triglycerides 0 mg/dL Comment:no interpretation Cholesterol 0 mg/dL Comment:no interpretation HDL 0 mg/dL Comment:no interpretation LDL Cholesterol 0 mg/dL Comment:no interpretation Blood Venous blood specimen / Unknown us Historical Provider LAB BLOOD ORDERABLES Chiqui l Result from Last 3 Months or Most Recently Relevant to Health Maintenance Insurance MEDICARE [facility] MEDICARE [facility] Advance Directives Documents on File Type Date Recorded Patient Child Care Group Leader Expl anation Health Care Decision (hx) 05/07/2022 ADVANCE DIRECTIVE AN D LIVING WILL Care Teams Chief Deputy Court Clerk Relationship Specialty Start Date End Date Maria D Mccray MD [address] [place] [address] [address] [place] [address] PCP - General Internal Medicine 02/01/12
--- OUTSIDE RECORDS SUMMARY | 2024-05-31 16:29 | XMS_ITS | Encounter Summary ---
Author Organization [facility] Address [address] [place] [address] Care Team Providers Care Client Services Specialist Name Role Phone Maria D Mccray Primary Care Provider [phone] Encounter Details Date Type Department Care Team (Late st Contact Info) Description 07/25/2021 Orders Only [facility] [address] [place] [address] Nancy Ovalle, JEANIE [address] [place] [address] Social History Tobacco Use Types Packs/Day Years [...] Info) Description 07/18/2024 11:40 AM EDT Follow-Up [facility] Renal Transplant [address] [place] [address] Gurjit Olsen MD [address] [place] [address] documented as of this encounter [...] documented as of this encounter Care Teams Client Services Specialist Relationship Specialty Start Date End Date Maria D Mccray [address] [place] [address] PCP - General Internal Medicine 05/05/17 documented as of this encounter
--- OUTSIDE RECORDS SUMMARY | 2024-05-31 16:29 | XMS_ITS | Clinical Summary ---
Author Organization [facility] Address [address] [place] [address] Care Team Providers Care Pipe Fitter Helper Name Role Phone Maria D Mccray MD Primary Care Provider [phone] Allergies Active Allergy Reactions Criticality Noted Date Comments Iodinated Contrast Media Medium 09/18/2021 Other reaction(s): caused kidney failure Latex Rash Low 12/03/2021 Lisinopril Other (See Comments) Medium 05/13/2020 Other reaction(s): cough Nsaids Other (See Comments) 12/31/2017 Tape Rash Low 12/31/2017 rash Medications Medication Sig Dispensed Refills Start Date End Date Status tacrolimus (PROGRAF) 1 MG capsule Take by mouth. X3 in AM and x1 at PM 0 03/12/2021 Active allopurinol (ZYLOPRIM) 100 MG tablet Take 1 tablet (100 mg total) by mouth. 0 06/02/2011 Active losartan (COZAAR) 100 MG tablet Take 1 tablet (100 mg total) by mouth. 0 02/06/2019 Active LORazepam (ATIVAN) 1 MG tablet Take 1 tablet (1 mg total) by mouth. 0 09/14/2014 Active alendronate (FOSAMAX) tablet 70 mg Take 1 tablet (70 mg total) by mouth. Patient takes once a week (q Wednesday) 0 02/07/2021 Active rosuvastatin (CRESTOR) tablet 20 mg Take 1 tablet (20 mg total) by mouth. 0 11/14/2020 Active mycophenolate (CELLCEPT) 250 MG capsule Take by mouth. 0 04/18/2021 Active acetaminophen (TYLENOL EXTRA STRENGTH) 500 MG tablet Take 1 tablet (500 mg total) by mouth continuous prn. 0 Active nitroglycerin (NITROSTAT) 0.[address] 1 tablet (0.4 mg total) under the tongue. Only if needed 0 09/11/2011 Active [place]-3 300 MG CAPS Take 1 capsule by mouth daily. 0 Active Coenzyme Q10 400 MG CAPS Take by mouth. 0 Active tacrolimus (PROGRAF) 1 MG capsule Take 5 capsules (5 mg total) by mouth. 0 09/23/2021 Active predniSONE (DELTASONE) 5 mg tablet Take by mouth. 0 Active aspirin EC 81 MG EC tablet Take 1 tablet (81 mg total) by mouth 2 (two) times a day after meals. 84 tablet 0 05/08/2022 Active methocarbamol (ROBAXIN) 750 MG tablet Take 1 tablet (750 mg total) by mouth every 6 (six) hours as needed. 45 tablet 0 05/08/2022 Active senna-docusate (PERICOLACE) 8.6-50 MG Take 1 tablet by mouth 2 (two) times a day. 20 tablet 0 05/08/2022 Active oxyCODONE (ROXICODONE) 5 MG immediate release tablet Take 1 tablet (5 mg total) by mouth every 4 (four) hours as needed. 42 tablet 0 05/08/2022 Active Active Problems Problem Noted Date Diagnosed Date Arthritis of knee, right 09/18/2021 Effusion of left knee joint 09/03/2021 Arthritis of knee, left 09/03/2021 Family History Medical History Relation Name Comments Heart disease Brother Heart disease Father Heart disease Mother Relation Name Status Comments Brother Father Mother Social History Tobacco Use Types Packs/Day Years Used Date Smoking Tobacco: Former Smokeless Tobacco: Never Tobacco Cessation:Counseling Given: Not Answered Comments:35 years ago Alcohol Use Standard Drinks/Week Comments Yes 1 (1 standard drink = 0.6 oz pur e alcohol) Sex and Gender Information Value Date Recorded Sex Assigned at Male 04/10/2022 2:11 PM EST Gender Identity Male 04/10/2022 2:11 PM EST Sexual Orientation Straight 05/07/2022 5: 46 AM EDT Job Start Date Occupation Industry Not on file Not on file Not on file Last Filed Vital Signs Vital Sign Reading Time Taken Comments Blood Pressure 156/75 05/08/2022 7:31 AM EDT Pulse 66 05/08/2022 7:31 AM EDT Temperature 36.5 ??C (97.7 ??F) 05/08/2022 7:31 AM ED T Respiratory Rate 18 05/08/2022 7:31 AM EDT Oxygen Saturation 97% 05/08/2022 7:31 AM EDT Inhaled Oxygen Concentration - - Weight 86.2 kg (190 lb) 05/07/2022 5:58 AM EDT Height 170.2 cm (5' 7 ) 05/07/2022 5:58 AM EDT Body Mass Index 29.76 05/07/2022 5:58 AM EDT Plan of Treatment Health Maintenance Due Date Last Done Comments Hepatitis C Screening 1950 COVID-19 Vaccine (#1) 1954 Depression Screening 1961 Preventative Health Evaluation 1967 Shingrix-Zoster Vaccine (1 of 2) 01/06/1968 Colon Cancer Screening (Colonoscopy) 1994 DTap / Tdap / Td (1 - Tdap) 05/18/2013 05/17/2013 Hepatitis B Vaccines (2 of 3 - 19+ 3-dose series) 08/11/2013 07/14/2013 Fall Risk Assessment 2014 Influenza Vaccine (#1) 2023 , 10/29/2019, 11/20/2018, Additional history exists RSV Adult > 60+ Yrs or (1 - 1-dose 75+ series) 01/06/2024 Pneumococcal Vaccine Completed 01/15/2021, 02/21/2016, 11/27/2014, Additional history exists RSV Ped < 20 months Aged Out No longe r eligible based on patient's age to complete this topic Medical Devices Implanted Type Area Team Manager Device Identifier Shelf Expiration Date Model / Serial / Lot Cement Bone Surg Simplex Radiopq Stry-Howm [id number] 092 - [id number] Implanted:Qty: 1 on 05/07/2022 by Matthew Ley MD at [facility] Right: Knee [employer] 08/21/2024 6191-1-010 / / [id number] Cement Bone Surg Simplex Radiopq Stry-Howm [id number] 092 - [id number] Implanted:Qty: 1 on 05/07/2022 by Matthew Ley MD at [facility] Right: Knee [employer] 08/21/2024 6191-1-010 / / [id number] Knee Fem Jo[employer] Ps Trthln Rt #5 Stry-Howm 9536-[id number] [id number] - [id number] Implanted:Qty: 1 on 05/07/2022 by Matthew Ley MD at [facility] Right: Knee [employer] [id number] 11/13/2026 5515-F-502 / / [id number] Knee Baseplt Tib Cmnt Sz5 Stry-Howm 9360-[id number] 191 - [id number] Implanted:Qty: 1 on 05/07/2022 by Matthew Ley MD at [facility] Right: Knee [employer] [id number] 01/07/2027 5520-B-500 / / [id number] Peg Fix Femoral Distal Stry-Howm 3137-[id number]-[id number] 704 - [id number] Implanted:Qty: 1 on 05/07/2022 by Matthew Ley MD at [facility] Right: Knee [employer] [id number] 12/21/2026 5575-X-000 / / [id number] Knee Tib Insrt Ps-X3 [id number] Stry-Howm [id number] - [id number] Implanted:Qty: 1 on 05/07/2022 by Matthew Ley MD at [facility] Right: Knee [employer] [id number] 12/09/2026 5532-G-513 / / [id number] Knee Pat Asymmetric X3 [id number] Stry-Howm 7276-[id number]-740-[id number] - [id number] Implanted:Qty: 1 on 05/07/2022 by Matthew Ley MD at [facility] Right: Knee [employer] [id number] 01/20/2027 5551-G-320 -E / / [id number] Advance Directives For more information, please contact: [phone] Documents on File Type Date Recorded Patient [place] Regulator Expl anation Advance Directive and Living Will 05/07/2022 [facility] Latest Code Status on File Code Status Date Activated Date Inactivated Comments Full Code 05/07/2022 10:55 AM 05/08/2022 7:59 PM This code status was ascertained in the following way: per living will or healthcare instructions . Code Status History Code Status Date Activated Date Inactivated Comments Full Code 05/07/2022 5:47 AM 05/07/2022 10:55 AM This code status was ascertained in the following way: discussion with patient . Care Teams Pipe Fitter Helper Relationship Specialty Start Date End Date Maria D Mccray MD [address] [facility] [address] [place] [address] PCP - General Internal Medicine 07/07/21
--- OUTSIDE RECORDS SUMMARY | 2024-05-31 16:29 | XMS_ITS | Encounter Summary ---
Author Organization [facility] Address [address] [place] [address] Care Team Providers Care Weigher Alloy Name Role Phone Maria D Mccray MD Primary Care Provider [phone] Encounter Details Date Type Department Care Team (Late st Contact Info) Description 01/19/2024 Lab Requisition [facility] - Main Lab [address] [facility] [place] [phone] Keri Cuevas MD [address] [place] [address] Encounter for other general examination Social History [...] Encounters Date Type Department Care Team (Late Contact Info) Description 07/03/2024 2:30 PM EDT Office Visit [facility] Cardiology Located Within [facility] [address] [place] [address] Dereje Jackson MD [address] [place] [address],[facility] [address] [facility] [place] [address] 07/12/2024 10:45 AM EDT Office Visit Internal Medicine - [place] [address] [place] [phone] Amado Morgan NP [address] [place] [address] documented as of this encounter Procedures Procedure [...] acid and metabolite (01/19/2024 7:17 AM EST) Mycophenolic Acid 1.1 1.0 - 3.5 ug/mL [...] developed and the performance characteristics determined by [facility]. This confirmation testing has not been cleared or approved by the FDA. The laboratory is regulated under CLIA as qualified to perform high-complexity testing. This test is used for patient testing purposes. It should not be regarded as investigational or for research. Test performed at [facility], [address] , [place], [place] ??[address] ? [phone] Cassie Aguiar MD, PhD - Casino C[employer] Manager Blood Venous blood specimen / Unknown Venipuncture / Unknown 01/19/2024 7:17 AM EST 01/19/2024 10:47 AM EST us Keri Cuevas MD LAB BLOOD ORDERABLES Final Res ult [facility] [address] [place] [address] * Tacrolimus level (01/19/2024 7:17 AM EST) Tacrolimus Level 5.9 5.0 - 20.0 ng/mL 01/24/2024 12:[address] [facility] Comment: Additional Information: Toxic Level ?> [...] developed and the performance characteristics determined by [facility]. This confirmation testing has not been cleared or approved by the FDA. The laboratory is regulated under CLIA as qualified to perform high-complexity testing. This test is used for patient testing purposes. It should not be regarded as investigational or for research. Test performed at [facility], [address] , [place], [place] ??[address] ? [phone] Cassie Aguiar MD, PhD - Casino Cage Manager Blood Venous blood specimen / Unknown Venipuncture / Unknown 01/19/2024 7:17 AM EST 01/19/2024 10:47 AM EST us Keri Cuevas MD LAB BLOOD ORDERABLES Final Res ult [facility] [address] [place] [address] * (ABNORMAL) Complete blood count (01/19/2024 7:17 AM EST) WBC 3.4(L) 4.8 - 10.8 K/mcL LAB HEMETOLOGY METHOD 01/19/2024 2:45 PM [facility] RBC 4.70 4.50 - 5.50 M/mcL LAB HEMETOLOGY METHOD 01/19/2024 2:45 PM [facility] Hemoglobin 13.4(L) 13.5 - 17.5 g/dL LAB HEMETOLOGY METHOD 01/19/2024 2:45 PM [facility] Hematocrit 41.3(L) 42.0 - 54.0 % LAB HEMETOLOGY METHOD 01/19/2024 2:45 PM [facility] MCV 88.4 79.0 - 98.0 FL LAB HEMETOLOGY METHOD 01/19/2024 2:45 PM EST [facility] MCH 28.7 27.0 - 32.0 pcg LAB HEMETOLOGY METHOD 01/19/2024 2:45 PM EST [facility] MCHC 32.4 32.0 - 37.0 g/dL LAB HEMETOLOGY METHOD 01/19/2024 2:45 PM EST [facility] RDW 13.6 11.0 - 15.0 % LAB HEMETOLOGY METHOD 01/19/2024 2:45 PM EST [facility] Platelets 150 130 - 400 K/mcL LAB HEMETOLOGY METHOD 01/19/2024 2:45 PM EST [facility] MPV 11.6(H) 7.0 - 11.0 FL LAB HEMETOLOGY METHOD 01/19/2024 2:45 PM EST [facility] NRBC 0.0 <1.0 % LAB HEMETOLOGY METHOD 01/19/2024 2:45 PM EST [facility] NRBC Absolute 0.00 <0.10 K/mcL LAB HEMETOLOGY METHOD 01/19/2024 2:45 PM EST [facility] Blood Venous blood specimen / Unknown Venipuncture / Unknown 01/19/2024 7:17 AM EST 01/19/2024 10:47 AM EST us Keri Cuevas MD LAB BLOOD ORDERABLES Final Res ult [facility] [address] [place] [address], * Comprehensive metabolic panel (01/19/2024 7:17 AM EST) Sodium 141 133 - 145 mmol/L LAB CHEMISTRY METHOD 01/19/2024 1:42 PM EST [facility] Potassium 3.7 3.5 - 5.5 mmol/L LAB CHEMISTRY METHOD 01/19/2024 1:42 PM [facility] Chloride 110 96 - 110 mmol/L LAB CHEMISTRY METHOD 01/19/2024 1:42 PM [facility] CO2 22 21 - 32 mmol/L LAB CHEMISTRY METHOD 01/19/2024 1:42 PM [facility] Anion Gap 9 3 - 11 LAB CHEMISTRY METHOD 01/19/2024 1:42 PM [facility] Glucose 77 70 - 100 mg/dL LAB CHEMISTRY METHOD 01/19/2024 1:42 PM [facility] BUN 13 5 - 25 mg/dL LAB CHEMISTRY METHOD 01/19/2024 1:42 PM [facility] Creatinine 0.82 0.70 - 1.30 mg/dL LAB CHEMISTRY METHOD 01/19/2024 1:42 PM [facility] eGFR 92 >=60 mL/min/1. 73m2 LAB CHEMISTRY METHOD 01/19/2024 1:42 PM [facility] Comment:Calculation based on the??Chronic Kidney Disease Epidemiology Collaboration (CKD-EPI) equation refit??without adjustment for race. BUN/Creatinine Ratio 15.9 LAB CHEMISTRY METHOD 01/19/2024 1:42 PM [facility] Calcium 9.1 8.5 - 10.5 mg/dL LAB CHEMISTRY METHOD 01/19/2024 1:42 PM [facility] AST (SGOT) 30 10 - 42 unit/L LAB CHEMISTRY METHOD 01/19/2024 1:42 PM [facility] ALT (SGPT) 29 10 - 60 unit/L LAB CHEMISTRY METHOD 01/19/2024 1:42 PM [facility] Alkaline Phosphatase 59 42 - 121 unit/L LAB CHEMISTRY METHOD 01/19/2024 1:42 PM [facility] Total Protein 6.1 6.0 - 8.0 g/dL LAB CHEMISTRY METHOD 01/19/2024 1:42 PM EST [facility] Albumin 3.8 3.2 - 5.0 g/dL LAB CHEMISTRY METHOD 01/19/2024 1:42 PM EST [facility] Total Bilirubin 1.2 0.0 - 1.4 mg/dL LAB CHEMISTRY METHOD 01/19/2024 1:42 PM EST [facility] Blood Venous blood specimen / Unknown Venipuncture / Unknown 01/19/2024 7:17 AM EST 01/19/2024 10:47 AM EST us Keri Cuevas MD LAB BLOOD ORDERABLES Final Res ult [facility] [address] [place] [address], documented in this encounter Visit Diagnoses Diagnosis Encounter for other general examination documented in this encounter Additional Health Concerns Assessment Noted Time PHQ-9 Depression Total Score: 0 01/10/20 24 2:13 PM EST A fall risk assessment has been complete d for the patient 01/10/2024 2:13 PM EST documented as of this encounter Care Teams Weigher Alloy Relationship Specialty Start Date End Date Marai D Mccray MD [address] [address] PCP - General Internal Medicine 02/01/12 documented as of this encounter
--- OUTSIDE RECORDS SUMMARY | 2024-05-31 16:29 | XMS_ITS | Encounter Summary ---
Author Organization [facility] Address [address] [place] [address] Care Team Providers Care Document Management Specialist Name Role Phone Maria D Mccray MD Primary Care Provider [phone] Reason for Visit * Reason Onset Date Comments Right side Swelling 05/29/2024 Encounter Details Date Type Department Care Team (Late st Contact Info) Description 05/29/2024 Telephone Internal Medicine - [place] [address] [place] [phone] Maria D Mccray MD [address] [place] [phone] Right side Swelling Social History Tobacco Use Types Packs/Day Years [...] as of this encounter Progress Notes * Edelmira Daniel RN - 05/29/2024 10:36 AM EDT Call to pt # [phone], spoke to pt Right hand and arm and right leg swelling constant for 6 days unrelieved by elevation and ice. Pt hx of end stage renal disease with renal transplant, stroke. Recommended going to ER. Pt understands and agrees with plan. * Paulina Laurent - 05/29/2024 9:10 AM EDT Patients son called and stated that the patient is having extreme swelling on his right side for about 6 days and has been elevating and using ice but nothing is helping the swelling and it is the same side patient had his stroke. Please advise Cb# [phone] documented in this encounter Plan of Treatment Upcoming Encounters Date Type Department Care Team (Late st Contact Info) Description 07/03/2024 2:30 PM EDT Office Visit [facility] Cardiology [address] [place] [address] Dereje Jackson MD [address] [place] [address],[facility] [address] [place] [address] 07/12/2024 10:45 AM EDT Office Visit Internal Medicine - [place] [address] [facility] [address] [place] [phone] Amado Morgan NP 175 [facility] [address] [place] [address] documented as of this encounter Visit Diagnoses Not on filedocumented in this encounter Additional Health Concerns Assessment Noted Time PHQ-9 Depression Total Score: 0 01/10/20 24 2:13 PM EST A fall risk assessment has been complete d for the patient 01/10/2024 2:13 PM EST documented as of this encounter Care Teams Document Management Specialist Relationship Specialty Start Date End Date Maria D Mccray MD 175 [facility] [address] [place] [phone] PCP - General Internal Medicine 02/01/12 documented as of this encounter
--- OUTSIDE RECORDS SUMMARY | 2024-05-31 16:29 | XMS_ITS | Encounter Summary ---
Author Organization [facility] Address [address] [place] [address] Care Team Providers Care Warehouse Consultant Name Role Phone Maria D Mccray Primary Care Provider [phone] Encounter Details Date Type Department Care Team (Late st Contact Info) Description 07/25/2021 Documentation [facility] [address] [place] [address] Whitney Moon RN Social History Tobacco Use [...] Info) Description 07/18/2024 11:40 AM EDT Follow-Up [facility] Renal Transplant [address] [place] [address] Gurjit Olsen MD [address] [place] [address] documented as of this encounter Visit Diagnoses [...] documented as of this encounter Care Teams Warehouse Consultant Relationship Specialty Start Date End Date Maria D Mccray [address] [place] [address] PCP - General Internal Medicine 05/05/17 documented as of this encounter
--- OUTSIDE RECORDS SUMMARY | 2024-05-31 16:29 | XMS_ITS | Encounter Summary ---
Author Organization [facility] Address [address] [place] [address] Care Team Providers Care Chain Person Name Role Phone Maria D Mccray MD Primary Care Provider [phone] Reason for Referral * Consultation (Routine) - Pending Review Specialty Diagnoses / Procedures Referred By Mark ferguson Referred To Contact Physical Therapy Diagnoses Chronic midline low back pain without sciatica Maria D Mccray MD [address] [address] Phone: tel: fax: Referral ID Status Reason Start Date Expiration Date Visits Requested Visits Authorized [id number] Pending Review Specialty Services Required 04/27/2024 04/27/2025 1 1 Reason for Visit * Reason Onset Date Comments [place]: Referral 04/26/2024 Encounter Details Date Type Department Care Team (Late st Contact Info) Description 04/26/2024 Telephone Internal Medicine - [place] [address] [address] Maria D Mccray MD 175 [facility] [address] [place] [phone] [place]: Referral Social History Tobacco Use Types Packs/Day Years [...] encounter Progress Notes * Aida Johnson - 05/05/2024 9:27 AM EDT Referral Request: What insurance does the patient have today? [employer] Referrals cannot be processed if the insurance is not accurate. If the insurance listed above in red is NO BILLING INFORMATION FOUND FOR THIS ENCOUTNER The patients correct insurance must be obtained and registered in [facility] or their referral can not be processed. Is this a retro request? no. If yes for what date of service do you need the retro referral? not applicable Who is calling to request this referral? patient If the caller is not the patient, what is their name? not applicable Ask the patient WHO referred them to this specialty: Patient saw dr. mccray at [facility] for the problem and was told if symptoms did not resolve or worsen they would refer them to this specialty FIRST and LAST NAME of SPECIALIST PATIENT is seeing: [facility] What specialty is this? Physical therapy DIAGNOSIS Patient is being seen for (Not a body part or a procedure): Physical therapy left shoulder pain Have you seen this SPECIALIST for this PROBLEM/DX before? If YES, when? Yes. 2024 Have you checked REVIEW or the APPT DESK to see if this referral has already been done or has visits left? yes Is this visit: Follow Up Address of Specialist: [address] [place] [address] Phone # of Specialist: [phone] Fax #: (if applicable): N/A Does patient have an appointment scheduled?: yes Date of appointment- (including a retro-request): 05-05-2024 Is this appointment related to: follow up * Maria D Mccray MD - 04/27/2024 4:46 PM EST Referral placed * Sandrine Estrella MA - 04/26/2024 2:27 PM EST Please advise referral request * Paulina Laurent - 04/26/2024 10:28 AM EST Patient called and requested a referral to [facility] on [facility] [address] for his back because he is having back pain. Please advise Cb# [phone] documented in this encounter Plan of Treatment Upcoming Encounters Date Type Department Care Team (Late st Contact Info) Description 07/03/2024 2:30 PM EDT Office Visit [facility] Cardiology [address] [place] [address] Dereje Jackson MD [address] [place] [address] [address] [facility] [place] [address] 07/12/2024 10:45 AM EDT Office Visit Internal Medicine - [place] [address] [place] [phone] Amado Morgan NP [address] [facility] [address] [place] [address] Scheduled Referrals Name Type Priority Associated Diagnoses Order Schedule Ambulatory referral to Physical Therapy and Athletic Training Outpatient Referral Routine Chronic midline low back pain without sciatica 1 Occurrences starting 04/27/2024 until 04/27/2025 documented as of this encounter Visit Diagnoses Diagnosis Chronic midline low back pain without sciatica- Primary documented in this encounter Additional Health Concerns Assessment Noted Time PHQ-9 Depression Total Score: 0 01/10/20 24 2:13 PM EST A fall risk assessment has been complete d for the patient 01/10/2024 2:13 PM EST documented as of this encounter Care Teams Chain Person Relationship Specialty Start Date End Date Maria D Mccray MD [address] [place] [address] PCP - General Internal Medicine 02/01/12 documented as of this encounter
--- OUTSIDE RECORDS SUMMARY | 2024-05-31 16:29 | XMS_ITS | Encounter Summary ---
Author Organization [facility] Address [address] [place] [address] Care Team Providers Care Turret Lathe Machinist Name Role Phone Maria D Mccray MD Primary Care Provider [phone] Encounter Details Date Type Department Care Team (Late st Contact Info) Description 01/14/2024 Lab Requisition [facility] - Main Lab [address] [facility] [place] [phone] Keri Cuevas MD [address] [place] [address] Encounter for other general examination Social History [...] Description 07/03/2024 2:30 PM EDT Office Visit [facility] Cardiology [facility] [address] [place] [address] Dereje Jackson MD [address] [place] [address],[facility] [address] [facility] [place] [address] 07/12/2024 10:45 AM EDT Office Visit [facility] [place] [address] [place] [phone] Amado Morgan NP [address] [place] [address] documented as of this encounter Procedures Procedure [...] K/mcL LAB HEMETOLOGY METHOD 01/14/2024 8:36 AM [facility] RBC 4.50 4.50 - 5.50 M/mcL LAB HEMETOLOGY METHOD 01/14/2024 8:36 AM [facility] Hemoglobin 12.9(L) 13.5 - 17.5 g/dL LAB HEMETOLOGY METHOD 01/14/2024 8:36 AM [facility] Hematocrit 40.2(L) 42.0 - 54.0 % LAB HEMETOLOGY METHOD 01/14/2024 8:36 AM [facility] MCV 89.1 79.0 - 98.0 FL LAB HEMETOLOGY METHOD 01/14/2024 8:36 AM [facility] MCH 28.6 27.0 - 32.0 pcg LAB HEMETOLOGY METHOD 01/14/2024 8:36 AM [facility] MCHC 32.1 32.0 - 37.0 g/dL LAB HEMETOLOGY METHOD 01/14/2024 8:36 AM [facility] RDW 13.7 11.0 - 15.0 % LAB HEMETOLOGY METHOD 01/14/2024 8:36 AM [facility] Platelets 129(L) 130 - 400 K/mcL LAB HEMETOLOGY METHOD 01/14/2024 8:36 AM [facility] MPV 11.3(H) 7.0 - 11.0 FL LAB HEMETOLOGY METHOD 01/14/2024 8:36 AM [facility] NRBC 0.0 <1.0 % LAB HEMETOLOGY METHOD 01/14/2024 8:36 AM [facility] NRBC Absolute 0.00 <0.10 K/mcL LAB HEMETOLOGY METHOD 01/14/2024 8:36 AM [facility] Neutrophils Relative 48.6 % LAB HEMETOLOGY METHOD 01/14/2024 8:36 AM [facility] Lymphocytes Relative 23.2 % LAB HEMETOLOGY METHOD 01/14/2024 8:36 AM [facility] Monocytes Relative 20.9 % LAB HEMETOLOGY METHOD 01/14/2024 8:36 AM [facility] Eosinophils Relative 5.6 % LAB HEMETOLOGY METHOD 01/14/2024 8:36 AM [facility] Basophils Relative 1.0 % LAB HEMETOLOGY METHOD 01/14/2024 8:36 AM [facility] Immature Granulocytes Relative 0.7 % LAB HEMETOLOGY METHOD 01/14/2024 8:36 AM [facility] Neutrophils Absolute 1.47(L) 1.50 - 7.00 K/mcL LAB HEMETOLOGY METHOD 01/14/2024 8:36 AM EST [facility] Lymphocytes Absolute 0.70(L) 1.00 - 5.00 K/mcL LAB HEMETOLOGY METHOD 01/14/2024 8:36 AM EST [facility] Monocytes Absolute 0.63 0.20 - 1.00 K/mcL LAB HEMETOLOGY METHOD 01/14/2024 8:36 AM EST [facility] Eosinophils Absolute 0.17 0.00 - 0.50 K/mcL LAB HEMETOLOGY METHOD 01/14/2024 8:36 AM EST [facility] Basophils Absolute 0.03 0.00 - 0.20 K/mcL LAB HEMETOLOGY METHOD 01/14/2024 8:36 AM EST [facility] Immature Granulocytes Absolute 0.02 0.00 - 0.03 K/mcL LAB HEMETOLOGY METHOD 01/14/2024 8:36 AM EST [facility] Blood Venous blood specimen / Unknown Venipuncture / Unknown 01/14/2024 5:23 AM EST 01/14/2024 7:39 AM EST Keri Cuevas MD LAB BLOOD ORDERABLES Final Res ult [facility] [address] [place] [address], * (ABNORMAL) Mycophenolic acid and metabolite (01/14/2024 [...] developed and the performance characteristics determined by [facility]. This confirmation testing has not been cleared or approved by the FDA. The laboratory is regulated under CLIA as qualified to perform high-complexity testing. This test is used for patient testing purposes. It should not be regarded as investigational or for research. Test performed at [facility], [address] [place], [place] [address] ? [phone] Cassie Aguiar MD, PhD - Aviation Electrical Technician Blood Venous blood specimen / Unknown Venipuncture / Unknown 01/14/2024 5:23 AM EST 01/14/2024 7:39 AM EST us Keri Cuevas MD LAB BLOOD ORDERABLES Final Res ult [facility] [address] [place] [address] * Tacrolimus level (01/14/2024 5:23 AM EST) Pathologist [facility] Tacrolimus Level 6.1 5.0 - 20.0 ng/mL 01/17/2024 12:22 PM EST [facility] Comment: Additional Information: Toxic Level ?> 26 [...] developed and the performance characteristics determined by [facility]. This confirmation testing has not been cleared or approved by the FDA. The laboratory is regulated under CLIA as qualified to perform high-complexity testing. This test is used for patient testing purposes. It should not be regarded as investigational or for research. Test performed at [facility], [address] [place], [place] ??[address] ? [phone] Cassie Aguiar MD, PhD - Aviation Electrical Technician Blood Venous blood specimen / Unknown Venipuncture / Unknown 01/14/2024 5:23 AM EST 01/14/2024 7:39 AM EST us Keri Cuevas MD LAB BLOOD ORDERABLES Final Res ult [facility] [address] [facility] [place], [place] [id number] * Magnesium (01/14/2024 5:23 AM EST) [facility] Signature Magnesium 1.9 1.9 - 2.6 mg/dL LAB CHEMISTRY METHOD 01/14/2024 9:45 AM [facility] Blood Venous blood specimen / Unknown Venipuncture / Unknown 01/14/2024 5:23 AM EST 01/14/2024 7:39 AM EST us Keri Cuevas MD LAB BLOOD ORDERABLES Final Res ult [facility] [address] [place] [address], [place] [phone] * (ABNORMAL) Comprehensive metabolic panel (01/14/2024 5:23 AM EST) [facility] Sodium 140 133 - 145 mmol/L LAB CHEMISTRY METHOD 01/14/2024 9:46 AM [facility] Potassium 3.8 3.5 - 5.5 mmol/L LAB CHEMISTRY METHOD 01/14/2024 9:46 AM [facility] Chloride 111(H) 96 - 110 mmol/L LAB CHEMISTRY METHOD 01/14/2024 9:46 AM [facility] CO2 22 21 - 32 mmol/L LAB CHEMISTRY METHOD 01/14/2024 9:46 AM [facility] Anion Gap 7 3 - 11 LAB CHEMISTRY METHOD 01/14/2024 9:46 AM [facility] Glucose 77 70 - 100 mg/dL LAB CHEMISTRY METHOD 01/14/2024 9:46 AM [facility] BUN 16 5 - 25 mg/dL LAB CHEMISTRY METHOD 01/14/2024 9:46 AM [facility] Creatinine 0.84 0.70 - 1.30 mg/dL LAB CHEMISTRY METHOD 01/14/2024 9:46 AM [facility] eGFR 91 >=60 mL/min/1. 73m2 LAB CHEMISTRY METHOD 01/14/2024 9:46 AM [facility] Comment:Calculation based on the??Chronic Kidney Disease Epidemiology Collaboration (CKD-EPI) equation refit??without adjustment for race. BUN/Creatinine Ratio 19.0 LAB CHEMISTRY METHOD 01/14/2024 9:46 AM [facility] Calcium 8.6 8.5 - 10.5 mg/dL LAB CHEMISTRY METHOD 01/14/2024 9:46 AM [facility] AST (SGOT) 19 10 - 42 unit/L LAB CHEMISTRY METHOD 01/14/2024 9:46 AM [facility] ALT (SGPT) 16 10 - 60 unit/L LAB CHEMISTRY METHOD 01/14/2024 9:46 AM [facility] Alkaline Phosphatase 59 42 - 121 unit/L LAB CHEMISTRY METHOD 01/14/2024 9:46 AM [facility] Total Protein 5.8(L) 6.0 - 8.0 g/dL LAB CHEMISTRY METHOD 01/14/2024 9:46 AM [facility] Albumin 3.5 3.2 - 5.0 g/dL LAB CHEMISTRY METHOD 01/14/2024 9:46 AM [facility] Total Bilirubin 1.1 0.0 - 1.4 mg/dL LAB CHEMISTRY METHOD 01/14/2024 9:46 AM [facility] Blood Venous blood specimen / Unknown Venipuncture / Unknown 01/14/2024 5:23 AM EST 01/14/2024 7:39 AM EST us Keri Cuevas MD LAB BLOOD ORDERABLES Final Res ult [facility] [address] [place] [address], documented in this encounter Visit Diagnoses Diagnosis Encounter for other general examination documented in this encounter Additional Health Concerns Assessment Noted Time PHQ-9 Depression Total Score: 0 01/10/20 24 2:13 PM EST A fall risk assessment has been complete d for the patient 01/10/2024 2:13 PM EST documented as of this encounter Care Teams Turret Lathe Machinist Relationship Specialty Start Date End Date Maria D Mccray MD [address] [address] PCP - General Internal Medicine 02/01/12 documented as of this encounter
--- OUTSIDE RECORDS SUMMARY | 2024-05-31 16:29 | XMS_ITS | Referral Summary ---
Author Organization [facility] Address [address] [place] [address] Care Team Providers Care Financial Sales Associate Name Role Phone Maria D Mccray Steffi Primary Care Provider [phone] Encounters Date Type Department Care Team Description 05/31/2024 Telephone [facility] Transplant Department [address] [place] [address] Renée Sahu RN 05/30/2024 Results Follow-Up [facility] Renal Transplant [address] [place] [address] Renée Sahu RN 05/26/2024 Orders Only [facility] Nephrology Clinic [address] [place] [address] White Sourer: Gurjit Conroy MD 05/18/2024 Telephone [facility] Transplant Department [address] [place] [address] Renée Sahu, MISA 04/21/2024 Orders Only [facility] [address] [place] [address] White Sourer: Gurjit Conroy MD 04/06/2024 Refill [facility] Transplant Department [address] [place] [address] Tessy Walton Kidney transplant recipient (Primary Dx) from Last 3 Months Allergies Active Allergy [...] 250 mg capsuleIndicatio ns:Kidney replaced by transplant ([facility]) Take 2 capsules (500 mg total) by mouth every morning AND 1 capsule (250 mg total) every evening. 90 capsule 5 12:18 PM EST 12/30/19 24 Active omeprazole (PriLOSEC) 20 mg capsule Take 1 capsule (20 mg total) by mouth daily. 30 capsule 5 8:52 AM EDT 01/28/20 24 Active losartan (COZAAR) 100 mg tablet Take 1 tablet (100 mg total) by mouth daily. 30 tablet 5 8:52 AM EDT 01/28/20 24 Active allopurinoL (ZYLOPRIM) 100 mg tablet Take 1 tablet (100 mg total) by mouth 1 (one) time each day. 30 tablet 5 12:18 PM EST 01/28/20 24 Active rosuvastatin (CRESTOR) 20 mg tablet Take 1 tablet (20 mg total) by mouth 1 (one) time each day. 30 tablet 5 8:52 AM EDT 01/28/20 24 Active Prograf 1 mg capsuleIndicatio ns:Kidney replaced by transplant ([facility]) Take 4 capsules (4 mg total) by mouth in the morning AND 3 capsules (3 mg total) every evening. 210 capsule 5 8:52 AM EDT 02/11/20 24 Active [...] Information: The UNOS donor ID number is [id number]. The match run ID number is [id number]. The donor ABO is O. The donor [...] Info) Description 07/18/2024 11:40 AM EDT Follow-Up [facility] Renal Transplant [address] [place] [address] Gurjit Olsen MD [address] [place], [place] [phone] Procedures * Due to [place] state law, this organization might not be [...] to Health Maintenance Results * Due to [place] state law, this organization might not be sharing negative HIV tests. * (ABNORMAL) CBC Auto Differential (05/26/2024 8:24 AM EDT) Only the most recent of3 resultswithin the time period is included. White Blood Cell Count 3.8 3.8 - 10.8 Thousand/ uL 05/26/2024 10:39 PM [facility] Red Blood Cell Count 4.00(L) 4.20 - 5.80 Million/u L 05/26/2024 10:39 PM [facility] Hemoglobin 11.4(L) 13.2 - 17.1 g/dL 05/26/2024 10:39 PM [facility] Hematocrit 36.5(L) 38.5 - 50.0 % 05/26/2024 10:39 PM EDT [employer] [facility] MCV 91.3 80.0 - 100.0 fL 05/26/2024 10:39 PM EDT [employer] [facility] MCH 28.5 27.0 - 33.0 pg 05/26/2024 10:39 PM [facility]DSa[facility] MCHC 31.2(L) 32.0 - 36.0 g/dL 05/26/2024 10:39 PM EDT [employer] [facility] Comment: For adults, a slight decrease in the calculated MCHC value (in the range of 30 to 32 g/dL) is most likely not clinically significant; however, it should be interpreted with caution in correlation with other red cell parameters and the patient's clinical condition. RDW 12.3 11.0 - 15.0 % 05/26/2024 10:39 PM EDT [employer] [facility] Platelet Count 153 140 - 400 Thousand/ uL 05/26/2024 10:39 PM EDT [employer] [facility] MPV 11.0 7.5 - 12.5 fL 05/26/2024 10:39 PM EDT [employer] [facility] Absolute Neutrophils 1,900 1,500 - 7,800 cells/uL 05/26/2024 10:39 PM EDT [employer] [facility] Absolute Lymphocytes 904 850 - 3,900 cells/uL 05/26/2024 10:39 PM EDT [employer] [facility] Absolute Monocytes 768 200 - 950 cells/uL 05/26/2024 10:39 PM EDT [employer] [facility] Absolute Eosinophils 190 15 - 500 cells/uL 05/26/2024 10:39 PM EDT [employer] [facility] Absolute Basophils 38 0 - 200 cells/uL 05/26/2024 10:39 PM EDT [employer] [facility] Neutrophils 50 % 05/26/2024 10:39 PM EDT [employer] [facility] Lymphocytes 23.8 % 05/26/2024 10:39 PM [facility] Monocytes 20.2 % 05/26/2024 10:39 PM [facility] Eosinophils 5.0 % 05/26/2024 10:39 PM [facility] Basophils 1.0 % 05/26/2024 10:39 PM [employer] [facility] 05/26/2024 8:24 AM EDT 05/26/2024 10:26 PM EDT Narrative [facility] - 05/27/2024 3:43 AM EDT FASTING:YES Your request to have a duplicate copy faxed has been acknowledged. ? Queued to: ??[id number] ? Queued to: ??[id number] Gurjit Olsen MD LAB BLOOD ORDERABLES Chiqui l Result [facility] [address], [place] [address], [employer] [facility] [address] [place] [address] * (ABNORMAL) Tacrolimus Level (05/26/2024 8:24 AM EDT) Only the most recent of3 resultswithin the time period is included. Tacrolimus, Highly Sensitive 4.8(L) mcg/L 05/27/2024 3:35 AM EDT [employer] [facility] Comment: No definitive therapeutic or toxic ranges have been established. Optimal blood drug levels are influenced by type of transplant, patient response, time post- transplant, co-administration of other drugs, and drug formulation. The following trough range is a suggested guideline: 5.0-20.0 mcg/L. This test was developed and its analytical performance characteristics have been determined by [employer]. It has not been cleared or approved by the FDA. This assay has been validated pursuant to the CLIA regulations and is used for clinical purposes. 05/26/2024 8:24 AM EDT 05/26/2024 10:56 PM EDT Narrative [facility] - 05/27/2024 3:43 AM EDT FASTING:YES Your request to have a duplicate copy faxed has been acknowledged. ? Queued to: ??[id number] ? Queued to: ??[id number] Gurjit Olsen MD LAB BLOOD ORDERABLES Chiqui jarvis Result [facility] [address], [place] [address], [employer] [facility] [address] [place] [address] * Phosphorus (05/26/2024 8:24 AM EDT) Only the most recent of3 resultswithin the time period is included. Phosphate 3.3 2.1 - 4.3 mg/dL 05/27/2024 12:47 AM EDT [employer] [facility] 05/26/2024 8:24 AM EDT 05/26/2024 11:18 PM EDT Narrative [facility] - 05/27/2024 3:43 AM EDT FASTING:YES Your request to have a duplicate copy faxed has been acknowledged. ? Queued to: ??[id number] ? Queued to: ??[id number] Gurjit Olsen MD LAB BLOOD ORDERABLES Chiqui l Result Performing Organization Address [facility] Co de Phone Number [facility] [address], [place] [address], [employer] [address] [address] * Magnesium (05/26/2024 8:24 AM EDT) Only the most recent of3 resultswithin the time period is included. Magnesium 1.9 1.5 - 2.5 mg/dL 05/27/2024 12:47 AM EDT [employer] [facility] 05/26/2024 8:24 AM EDT 05/26/2024 11:18 PM EDT Narrative [facility] - 05/27/2024 3:43 AM EDT FASTING:YES Your request to have a duplicate copy faxed has been acknowledged. ? Queued to: ??[id number] ? Queued to: ??[id number] Gurjit Olsen MD LAB BLOOD ORDERABLES Chiqui l Result Performing Organization Address [facility] Co de Phone Number [facility] [address], [place] [address], [place] [phone] [employer] [address] [address] * (ABNORMAL) Comprehensive Metabolic Panel (05/26/2024 8:24 AM EDT) Only the most recent of3 resultswithin the time period is included. Glucose 96 65 - 99 mg/dL 05/27/2024 12:47 AM [employer] Comment: ? Fasting reference interval BUN 24 7 - 25 mg/dL 05/27/2024 12:47 AM [facility] Creatinine 1.17 0.70 - 1.28 mg/dL 05/27/2024 12:47 AM [facility] eGFR 65 > OR = 60 mL/min/1. 73m2 05/27/2024 12:47 AM [employer] Bun/Creatinine Ratio SEE NOTE: 6 - 22 (calc) 05/27/2024 12:47 AM [facility] Comment: ?? Not Reported: BUN and Creatinine are within ?? reference range. ? Sodium 135 135 - 146 mmol/L 05/27/2024 12:47 AM [facility] Potassium 3.9 3.5 - 5.3 mmol/L 05/27/2024 12:47 AM [facility] Chloride 105 98 - 110 mmol/L 05/27/2024 12:47 AM [employer] [facility] Carbon Dioxide 22 20 - 32 mmol/L 05/27/2024 12:47 AM [employer] [facility] Calcium 9.0 8.6 - 10.3 mg/dL 05/27/2024 12:47 AM [employer] [facility] Protein, Total 6.0(L) 6.1 - 8.1 g/dL 05/27/2024 12:47 AM [employer] [facility] Albumin 4.1 3.6 - 5.1 g/dL 05/27/2024 12:47 AM [employer] [facility] Globulin 1.9 1.9 - 3.7 g/dL (calc) 05/27/2024 12:47 AM [employer] [facility] Albumin/Globuli n Ratio 2.2 1.0 - 2.5 (calc) 05/27/2024 12:47 AM [facility] Bilirubin, Total 0.8 0.2 - 1.2 mg/dL 05/27/2024 12:47 AM [facility] Alkaline Phosphatase 45 35 - 144 U/L 05/27/2024 12:47 AM [employer] [facility] AST 16 10 - 35 U/L 05/27/2024 12:47 AM EDT [employer] [facility] ALT 9 9 - 46 U/L 05/27/2024 12:47 AM EDT [employer] [facility] 05/26/2024 8:24 AM EDT 05/26/2024 11:18 PM EDT Narrative [facility] - 05/27/2024 3:43 AM EDT FASTING:YES Your request to have a duplicate copy faxed has been acknowledged. ? Queued to: ??[id number] ? Queued to: ??[id number] Gurjit Olsen MD LAB BLOOD ORDERABLES Chiqui jarvis Result [facility] [address] [facility] [address] Floor, [place] [address], [employer] [facility] [address] [place] [address] * Hepatitis C RNA, quantitative, PCR (10/27/2017 2:34 PM EDT) [facility] Hcv RNA, Quantitative Real Time PCR <15 NOT DETECTED NOT DETECTED IU/mL 10/28/2017 12:53 PM EDT [employer] [facility] Hepatitis C Quantitative PCR Log IU/mL <1.18 NOT DETECTED NOT DETECTED Log IU/mL 10/28/2017 12:53 PM EDT [employer] [facility] Comment: This test was performed using Real-Time Polymerase Chain Reaction. Reportable Range: 15 IU/mL to 100,000,000 IU/mL (1.18 Log IU/mL to 8.00 Log IU/mL). The analytical performance characteristics of this assay have been determined by [employer]. The modifications have not been cleared or approved by the FDA. This assay has been validated pursuant to the CLIA regulations and is used for clinical purposes. ?? For more information on this test, go to: http://education.[employer].com/faq/XHR57n6 (This link is being provided for informational/ educational purposes only.) Blood specimen (specimen) Structure of peripheral vein / Unknown Venipuncture / Unknown 10/27/2017 2:34 PM EDT 10/27/2017 2:44 PM EDT [facility]ative [facility] 10/28/2017 12:53 PM EDT [facility] Received Date: us Destiny Noel MD LAB BLOOD ORDERABLES Final R esult [facility] [address] [facility] 3rd [address], [place] [address], [place] [phone] [facility] [address] [facility] 3[address], [place] [address], [place] [phone] from Last 3 Months or Most Recently Relevant to Health Maintenance Insurance MEDICARE [facility] OUT OF STATE PPO MEDICARE Advance Directives Documents on File Type Date Recorded Patient Commercial Green Retrofit Architect Expl anation Advance Directive 02/07/2014 12:00 AM sf Medical Dec Making (Adv.Dir) Advance Directive 06/30/2010 12:00 AM sf Me dical Dec Making (Adv.Dir) Care Teams Financial Sales Associate Relationship Specialty Start Date End Date Maria D Mccray [address] [place] [id number] PCP - General Internal Medicine 05/05/17
--- OUTSIDE RECORDS SUMMARY | 2024-05-31 16:29 | XMS_ITS | Data Portability ---
Author Organization [place] [facility] Brad Valentine [place] Address [address] [place] [address] Care Team Providers Care Vertica Architect Name Role Phone PRATIBHA MERAZ Primary Care [...] recheck. All questions answered to his satisfaction. [email or web address] Not available 07/16/2022 13:44:10 07/17/2022 07/17/2022 Assessment [...] 40 mg/mL suspension for injection 2022 023 [id number] [address] [place], [address], 3 07:59:15 lidocaine (PF) 10 mg/mL (1 %) injection solution 2022 023 [employer] [facility]arm[facility] #[id number], [address] [place], [address], 3 07:59:15 Patient TargetsNo targets recorded. Patient Instructions Encounter Date Encounter Id Patient Instructions Last Modified By Organization Details Last Modified Time 07/08/2022 [id number] You have been provided with a cortisone [...] Details Recorded Time Pain of right calf [id number] 103 Active 2022 JAKE PEARSON PA-C [address], [place], [address], [place] [facility] [place] 3 13:30:23 Postoperati ve pain 121104217 Active 2022 JAKE PEARSON PA-C [address], [place], [address], [place] [facility] 3 16:05:43 Acute postoperati ve pain 0626298313539 05 Active 2022 JAKE PEARSON PA-C [address], [place], [address], [place] [facility] 3 16:10:11 Osteoarthri tis of left knee joint 5500500358109 09 Active 2022 JAKE PEARSON PA-C [address], [place], [address], [place] [facility] 3 07:58:19 Abscess of skin and/or subcutaneou s tissue 31420060 Active 2022 JAKE PEARSON PA-C [address], [facility] [place], [address], [place] [facility] 3 06:35:15 Effusion of joint of right knee 2300002537670 04 Active 2022 JAKE PEARSON PA-C [address], [place], [address], [place] [facility] 3 06:35:29 Problem Notes None recorded. Procedures Surgical History Date Name Laterality Status Provider Name and Address Organization Details Recorded Time 07/18/19 23 Knee Joint/Bursa Asp & Inj completed JAKE PEARSON PA-C [address] [facility], [place], [address], [place] [facility] 07/21/2022 06:31:55 07/09/19 23 Knee Joint/Bursa Asp & Inj completed JAKE PEARSON PA-C [address], [place], [address], [facility] 07/10/2022 07:56:35 [facility] kidney [facility] 05/21/2022 12:53:39 operation on prostate completed [facility] [place] 05/21/2022 12:53:55 coronary artery bypass graft completed [facility] [place] [facility] 05/21/2022 12:54:04 Total knee arthroplasty completed [facility] [place] 05/21/2022 12:54:13 Imaging Results None recorded. [...] Updated DateTime 07/08/2022 172.72 cm [place] - [facility] 07/08/2022 15:20:28 Date Recorded Body height Provider Name an d Address Organization Details Last Updated DateTime 07/16/2022 172.72 cm [place] [facility] [place] 07/16/2022 11:24:57 Date Recorded Body height Provider Name an d Address Organization Details Last Updated DateTime 07/17/2022 172.72 cm Peri Figuero[place] - [facility] [place] 07/17/2022 13:09:43 Date Recorded Body height Provider Name an d Address Organization Details Last Updated DateTime 07/22/[address] [place] - [facility] 07/22/2022 11:41:07 Date Recorded Body height Provider Name an d Address Organization Details Last Updated DateTime 08/05/20[address] 172[address] [place] [facility] 08/05/2022 11:32:48 Social History None recorded. [...] Diagnosis Note [id number] MD RYLAN Mylesjuni [address] [address] 05/21/2022 12:47:49 05/21/2022 13:31:03 History of right total knee replacement [id number] 372287 Z96.651 Postoperative pain 62749 9007 G89.18 Pain of right calf 88498 49017 117515 M79.661 [id number] MD RYLAN Cochranjuni [address] [address] 07/08/2022 15:09:11 07/08/2022 16:00:05 Postoperative pain 092487916 G89.18 Osteoarthr itis of left knee joint 1524623430 09560 M17.12 [id number] MD RYLAN Cochran [place] [address] [facility] [address] [place] [address] 07/16/2022 11:11:01 07/16/2022 13:26:06 History of total knee arthroplasty 5625956790 105 Z96.651 Postoperative care 40047 9007 Z48.89 [id number] MD RYLAN Cochran ld [address] [facility] [address] [place] [address] 07/17/2022 13:06:16 07/17/2022 13:54:06 Acute postoperative pain 1471404493 81925 G89.18 Abscess of skin and/or subcutaneous tissue 07137283 L02.91 Effusion o f joint of right knee 4250860901 42283 M25.461 [id number] MD RYLAN Cochran [place] [facility] [address] [facility] [address] [place] [address] 07/22/2022 11:35:32 07/22/2022 11:53:12 Follow-up visit 966828475 Z09 [id number] MD RYLAN Cochran [place] [facility] [address] [facility] [address] [place] [address] 08/05/2022 11:29:31 08/05/2022 11:38:15 Postoperative visit 729986179 Z09 Health Concerns Section Related Observation LastModified by Organization Detai ls LastModified Time None Recorded Concern Status LastModified by Organization Details LastModified Time None Recorded Advance Directives Directive None Recorded Payers Encounter Date Sequence Insurance Name Policy Number Policy Motta Covered Member ID Motta Member ID Guarantor Name 07/08/2022 1 [place] [employer] Randy Birch [id number] Randy Jean Eyal 07/08/2022 2 [place] [id number] K Randy Birch [id number] Randy Jean Eyal 07/16/2022 2 [place] [id number] K Randy Birch [id number] Randy Birch 07/16/2022 1 [place] B[place] Randy Birch [id number] Randy Birch 07/17/2022 1 [place] [facility] Randy Birch [id number] Randy Birch 07/17/2022 2 [place] [id number] K Randy Birch [id number] Randy Birch 07/22/2022 1 [place] [employer] Randy Birch [id number] Randy Birch 07/22/2022 2 [place] [id number] K Randy Birch [id number] Randy Birch 08/05/2022 1 [place] [facility] Randy Birch [id number] Randy Birch 08/05/2022 2 [place] [id number] K Randy Birch [id number] Randy Birch Notes Date Note Type [...] fevers chills flulike symptoms JAKE PEARSON PA-C [address] [place] [address], [address], [place] [facility] 07/10/2022 07:59:18 07/16/2022 text/html Patient is [...] some degree. WAYNE COVARRUBIAS PA-C [address], [place], [address], [place] [facility] 07/16/2022 13:45:14 07/17/2022 text/html Assessment & [...] States some swelling JAKE PEARSON PA-C [address] [facility],[address], [place], [address], [place] [facility] [place] 07/21/2022 06:36:13 07/22/2022 text/html Assessment & [...] JAKE PEARSON PA-C [address], [place], [address], [place] [facility] 07/23/2022 07:33:21 08/05/2022 text/html Status post righ t total knee replacement by Dr. Ley on 05/07/2022. Patient has been followed for suture abscess here for follow-up. Patient states he is completely healed he is doing well. JAKE PEARSON PA-C [address], [place], [address], [place] [facility] 08/07/2022 07:41:00
== END 2024-05-31 14:32 | disposition home or self-care (01) ==
LOC: HO.HOS 14:09
PROVIDERS: PCP Internal Medicine; Visit Provider Orthopaedic Surgery
DX: M17.12 Unilateral primary osteoarthritis, left knee (principal)
CPT/HCPCS: 20610; 99213

== ENCOUNTER → 2024-05-31 14:09 | Outpatient (BNVA) | payer MEDICARE, BC, SELFPAY | PROVIDERS: PCP Internal Medicine; Visit Provider Orthopaedic Surgery | DX: M17.12 Unilateral primary osteoarthritis, left knee (principal) | CPT/HCPCS: 20610; 99212; J1010; J2003 ==

== ENCOUNTER 2024-06-20 12:11 | Outpatient (AMB) | payer MEDICARE, BC, SELFPAY ==
--- NOTE | 2024-06-20 12:13 | HO.NEPHOV_ITS ---
Vital Signs 06/20/24 12:16 Height 5 ft 7 in Weight 178 lb BMI 27.9 BP 140/80 H Blood Pressure Location Rt brachial Position Sitting Pulse 51 Pulse Source Pulse Oximeter Pulse Oximetry (%) 96 Oxygen Delivery Method Room Air Intake Visit Reasons: 2mon follow-up w/labs-LVM Tractor Mechanic Required: No Accompanied by: Spouse Allergies adhesive tape Allergy (Verified 06/20/24 12:15) rash NSAIDS (Non-Steroidal Anti-Inflamma Allergy (Verified 06/20/24 12:15) Kidney replacement HPI Comments Details: Randy was seen in follow up of his kidney transplant. He had CVA with some deficits and has been getting PT. He monitors his BP closely. 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 His serum creatinine has been stable around 0.9. He has been having edema from Nifedipine. He had peripheral arterial symptoms and had seen vascular surgeon. He thinks he likely will need stenting of his arteries on the left lower extremity. He continues to have left upper extremity AV fistula which he wants it to be tied off. He applies sunscreen when he goes out and maintains good hydration. He does not take any nonsteroidal anti-inflammatories and is compliant with his medications. His appetite is good. He does not have any chest pain, shortness of breath, paroxysmal nocturnal dyspnea, orthopnea, urinary symptoms. He was accompanied by his Siomara during this office visit. He feels well. [facility] Medical History FHx: total knee replacement (~06/2022) Osteoarthritis Hyperlipidemia Hypertension History of congestive heart failure Gout GERD (gastroesophageal reflux disease) Surgical History Prostate cancer (~2011) History of heart bypass surgery (~2010) Social History Patient Tobacco Use Status: Former Tobacco user Current occupational status: retired Review of Systems Const All systems reviewed & are unremarkable except as noted in HPI and below Physical Exam Vital Signs: Last Vital Signs Pulse 51 06/20/24 12:16 BP 160/60 H 06/20/24 12:16 Pulse Ox 96 06/20/24 12:16 Oxygen Delivery Method Room Air 06/20/24 12:16 BMI result Body Mass Index 27.9 Const General: comfortable and no acute distress Orientation/consciousness: patient oriented x3 HEENT Head: Yes normocephalic Mouth: Normal oral and palatal mucosa present Eyes EOM: EOMs intact bilaterally Neck Neck: Yes supple Resp Auscultation: clear to auscultation bilaterally Cardio Jugular venous distension: no JVD Rate: regular rate GI Palpation (GI): Soft to palpation Auscultation: normal bowel sounds General: Yes no CVA tenderness Back/Spine/Pelvis Back: no CVA tenderness Skin General skin exam: no rashes or lesions noted Neuro General: patient oriented x3 and moves all extremities Results Reviewed Nephrology Results: No Data to Display Assessment & Plan Assessment & Plan (1) Renal transplant recipient: Code(s): Z94.0 - Kidney transplant status Category: Surgical (2) Hypertension: Code(s): I10 - Essential (primary) hypertension Category: Medical Qualifiers: Hypertension type: primary hypertension Qualified Code(s): I10 - Essential (primary) hypertension Plan Randy had ESRD from hypertension and received a donor renal transplant in 2017. His serum creatinine is at baseline of 0.9. He has no history of rejection. His blood pressure is at goal. His hemoglobin A1c is good. His lipid profile is at goal. He clearly needs to lose weight. He has no side effects from calcineurin inhibitor. He is compliant with his medications. He applies sunscreen when he goes out and follows up with a pinion and wheel truer once a year. He has a follow-up with vascular surgery for his peripheral arterial disease. He is going to see vascular surgeon regarding his left upper extremity AV fistula which can be either reduced in size or tied off. He has no clinical signs of heart failure. I started him on lasix 20 mg daily. I increased his tacrolimus to 4 mg twice daily. He may need more medications to keep his BP at goal. All his and his 's questions were answered. Follow-up appointment given Orders: Orders Creatinine 2 Months I10 - Essential (primary) hypertension, Z94.0 - Kidney transplant status Calcium 2 Months I10 - Essential (primary) hypertension, Z94.0 - Kidney transplant status Complete Blood Count Auto Diff 2 Months I10 - Essential (primary) hypertension, Z94.0 - Kidney transplant status Tacrolimus Prograf 2 Months I10 - Essential (primary) hypertension, Z94.0 - Kidney transplant status Blood Urea Nitrogen 2 Months I10 - Essential (primary) hypertension, Z94.0 - Kidney transplant status Electrolytes 2 Months I10 - Essential (primary) hypertension, Z94.0 - Kidney transplant status Phosphorus 2 Months I10 - Essential (primary) hypertension, Z94.0 - Kidney transplant status Magnesium 2 Months I10 - Essential (primary) hypertension, Z94.0 - Kidney transplant status Coding Level of Care Code Est Pt Level 4 (68019) Diagnoses Renal transplant recipient Z94.0 Primary hypertension I10 Hypertension type: primary hypertension
[2024-06-20 12:16] VITALS: BP 140/80; PULSE 51; O2SAT 96; BMI 27.9
--- OUTSIDE RECORDS SUMMARY | 2024-06-20 14:11 | XMS_ITS | Clinical Summary ---
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/01/2013 Carcinoma of prostate 02/24/2011 Prostatectomy 02/24/2011 Old myocardial infarction 02/19/2010 Resolved Problems Problem Noted Date Diagnosed Date Resolved Date Anemia of chronic disease 02/20/2016 Immunizations Immunization Administration Dates Next Due Hep B, Dialysis [...] Due Date Last Done Comments Pneumococcal Vaccine: 50+ Years (4 of 4 - PCV20 or PCV21) 08/02/2019 08/01/2014, 07/14/2013, 02/22/2009, Additional history exists Colonoscopy (Post-Transplant Patient) 05/13/2020 Influenza Vaccine (Season Ended) 2024 12/12/2020, 10/29/2019, 11/20/2018, Additional history exists Hepatitis B Vaccine Aged Out 07/14/2013 No longe r eligible based on patient's age to complete this topic Pneumococcal Vaccine: Peds (0 to 5 Years) and At-Risk Patients (6 to 49 Years) Discontinued 08/01/2014, 07/14/2013, 02/22/2009, Additional history exists Insurance Medicare [facility] [place] Medicare [facility] [place] Care Teams Market Research Lead Relationship Specialty Start Date End Date Maria D Mccray MD [address] [id number] PCP - General 03/04/20
--- OUTSIDE RECORDS SUMMARY | 2024-06-20 14:11 | XMS_ITS | Referral Summary ---
Author Organization [facility] Address [address] [place] [address] Care Team Providers Care Mechanical Project Manager Name Role Phone Maria D Mccray Steffi Primary Care Provider [phone] Encounters Date Type Department Care Team Description 06/20/2024 Results Follow-Up [facility] Renal Transplant [address] [place] [address] Renée Sahu, MISA 05/31/2024 Telephone [facility] Transplant Department [address] [place] [phone] Renée Sahu, MISA 05/30/2024 Results Follow-Up [facility] Renal Transplant [address] [place] [phone] Renée Sahu, MISA 05/26/2024 Orders Only [facility] Nephrology Clinic [address] [place] [phone] Payroll Accounting Specialist: Gurjit Conroy MD 05/18/2024 Telephone [facility] Transplant Department [address] [place] [address] Renée Sahu, MISA 04/21/2024 Orders Only [facility] Nephrology Clinic [address] [place] [id number] Payroll Accounting Specialist: Gurjit Conroy MD 04/06/2024 Refill [facility] Transplant Department [address] [place] [phone] Tessy Walton Kidney transplant recipient (Primary Dx) [...] total) by mouth daily. 30 tablet 5 10:31 AM EDT 09/05/19 24 025 Active NIFEdipine XL (PROCARDIA XL) 60 mg tabletIndication s:Essential hypertension Take 1 tablet (60 mg total) by mouth 2 times a day. 60 tablet 5 10:31 AM EDT 11/05/19 24 025 Active mycophenolate mofetil (CELLCEPT) 250 mg capsuleIndicatio ns:Kidney replaced by transplant (HCC) Take 2 capsules (500 mg total) by mouth every morning AND 1 capsule (250 mg total) every evening. 90 capsule 5 10:31 AM EDT 12/30/19 24 Active omeprazole (PriLOSEC) 20 mg capsule Take 1 capsule (20 mg total) by mouth daily. 30 capsule 5 10:31 AM EDT 01/28/20 24 Active losartan (COZAAR) 100 mg tablet Take 1 tablet (100 mg total) by mouth daily. 30 tablet 5 10:31 AM EDT 01/28/20 24 Active allopurinoL (ZYLOPRIM) 100 mg tablet Take 1 tablet (100 mg total) by mouth 1 (one) time each day. 30 tablet 5 10:31 AM EDT 01/28/20 24 Active rosuvastatin (CRESTOR) 20 mg tablet Take 1 tablet (20 mg total) by mouth 1 (one) time each day. 30 tablet 5 10:31 AM EDT 01/28/20 24 Active Prograf 1 mg capsuleIndicatio ns:Kidney replaced by transplant (HCC) Take 4 capsules (4 mg total) by mouth in the morning AND 3 capsules (3 mg total) every evening. 210 capsule 5 10:31 AM EDT 02/11/20 24 Active doxazosin (CARDURA) [...] every 7 (seven) days. 12 tablet 1 5 10:31 AM EDT 05/28/19 25 Active LORazepam (ATIVAN) 1 mg tablet Take 1 tablet (1 mg total) by mouth at bedtime as needed for anxiety. Max Daily Amount: 1 mg. 28 tablet 5 10:31 AM EDT 05/28/19 25 Active famotidine (PEPCID) 20 mg [...] Information: The UNOS donor ID number is [id number]. The match run ID number is [id number]. The donor ABO is O. The donor [...] [facility] Renal Transplant [address], [place] [id number] Gurjit Olsen MD [address] [place], [place] [phone] Procedures * Due to [place] state law, this organization might not be sharing negative HIV tests. Procedure Name Priority Date/Time Associated Diagnosis Comments TACROLIMUS LEVEL Routine 06/19/2024 9:09 AM EDT Kidney transplant recipient (HCC) Immunosuppression (HCC) CBC AUTO DIFFERENTIAL Routine 06/19/2024 9:09 AM EDT Kidney transplant recipient (HCC) Immunosuppression (HCC) PHOSPHORUS Routine 06/19/2024 9:09 AM EDT Kidney transplant recipient (HCC) Immunosuppression (HCC) MAGNESIUM Routine 06/19/2024 9:09 AM EDT Kidney transplant recipient (HCC) Immunosuppression (HCC) COMPREHENSIVE METABOLIC PANEL Routine 06/19/2024 9:09 AM EDT Kidney transplant recipient (HCC) Immunosuppression (HCC) TACROLIMUS LEVEL Routine 05/26/2024 8:24 AM EDT [...] HIV tests. * (ABNORMAL) CBC Auto Differential (06/19/2024 9:09 AM EDT) Only the most recent of4 resultswithin the time period is included. White Blood Cell Count 3.1(L) 3.8 - 10.8 Thousand/ uL 06/19/2024 10:14 PM [employer] [facility] Red Blood Cell Count 4.18(L) 4.20 - 5.80 Million/u L 06/19/2024 10:14 PM [employer] [facility] Hemoglobin 11.9(L) 13.2 - 17.1 g/dL 06/19/2024 10:14 PM [employer] [facility] Hematocrit 37.5(L) 38.5 - 50.0 % 06/19/2024 10:14 PM [employer] [facility] MCV 89.7 80.0 - 100.0 fL 06/19/2024 10:14 PM [employer] [facility] MCH 28.5 27.0 - 33.0 pg 06/19/2024 10:14 PM [employer] [facility] MCHC 31.7(L) 32.0 - 36.0 g/dL 06/19/2024 10:14 PM [employer] [facility] Comment: For adults, a slight decrease in the calculated MCHC value (in the range of 30 to 32 g/dL) is most likely not clinically significant; however, it should be interpreted with caution in correlation with other red cell parameters and the patient's clinical condition. RDW 12.8 11.0 - 15.0 % 06/19/2024 10:14 PM [employer] [facility] Platelet Count 119(L) 140 - 400 Thousand/ uL 06/19/2024 10:14 PM [employer] [facility] MPV 11.4 7.5 - 12.5 fL 06/19/2024 10:14 PM [employer] [facility] Absolute Neutrophils 1,423(L) 1,500 - 7,800 cells/uL 06/19/2024 10:14 PM [employer] [facility] Absolute Lymphocytes 868 850 - 3,900 cells/uL 06/19/2024 10:14 PM [employer] [facility] Absolute Monocytes 611 200 - 950 cells/uL 06/19/2024 10:14 PM [employer] [facility] Absolute Eosinophils 158 15 - 500 cells/uL 06/19/2024 10:14 PM [employer] [facility] Absolute Basophils 40 0 - 200 cells/uL 06/19/2024 10:14 PM [employer] [facility] Neutrophils 45.9 % 06/19/2024 10:14 PM EDT [employer] [facility] Lymphocytes 28.0 % 06/19/2024 10:14 PM EDT [employer] [facility] Monocytes 19.7 % 06/19/2024 10:14 PM EDT [employer] [facility] Eosinophils 5.1 % 06/19/2024 10:14 PM EDT [employer] [facility] Basophils 1.3 % 06/19/2024 10:14 PM EDT [employer] [facility] Blood Structure of peripheral vein / Unknown 06/19/2024 9:09 AM EDT 06/19/2024 8:39 PM EDT Narrative [facility] - 06/20/2024 12:21 AM EDT FASTING:YES Your request to have a duplicate copy faxed has been acknowledged. ? Queued to: ??[id number] Gurjit Olsen MD LAB BLOOD ORDERABLES Chiqui jarvis Result [facility] [address] [facility] 3rd Floor, [place] [address], [employer] [facility] [address] [place] [address] * (ABNORMAL) Tacrolimus Level (06/19/2024 9:09 AM EDT) Only the most recent of4 resultswithin the time period is included. [facility] Tacrolimus, Highly Sensitive 2.8(L) mcg/L 06/20/2024 12:16 AM EDT [employer] [facility] Comment: No definitive therapeutic or toxic ranges have been established. Optimal blood drug levels are influenced by type of transplant, patient response, time post- transplant, co-administration of other drugs, and drug formulation. The following trough range is a suggested guideline: 5.0-20.0 mcg/L. This test was developed and its analytical performance characteristics have been determined by [employer]. It has not been cleared or approved by the FDA. This assay has been validated pursuant to the CLIA regulations and is used for clinical purposes. Blood Structure of peripheral vein / Unknown 06/19/2024 9:09 AM EDT 06/19/2024 8:20 PM EDT Narrative [facility] - 06/20/2024 12:21 AM EDT FASTING:YES Your request to have a duplicate copy faxed has been acknowledged. ? Queued to: ??[id number] Gurjit Olsen MD LAB BLOOD ORDERABLES Chiqui l Result [facility] [address], [place] [address], [place] [phone] [employer] [facility] [address] [place] [address] * Phosphorus (06/19/2024 9:09 AM EDT) Only the most recent of4 resultswithin the time period is included. Phosphate 3.2 2.1 - 4.3 mg/dL 06/19/2024 8:24 PM EDT [employer] [facility] Blood Structure of peripheral vein / Unknown 06/19/2024 9:09 AM EDT 06/19/2024 7:16 PM EDT Narrative [facility] - 06/20/2024 12:21 AM EDT FASTING:YES Your request to have a duplicate copy faxed has been acknowledged. ? Queued to: ??[id number] us Gurjit Olsen MD LAB BLOOD ORDERABLES Chiqui l Result Performing Organization Address City/[facility]/ZIP Co de Phone Number [facility] [address], [place] [address], [place] [phone] [employer] [facility] [address] [place] [address] * Magnesium (06/19/2024 9:09 AM EDT) Only the most recent of4 resultswithin the time period is included. Magnesium 1.9 1.5 - 2.5 mg/dL 06/19/2024 8:24 PM [employer] Blood Structure of peripheral vein / Unknown 06/19/2024 9:09 AM EDT 06/19/2024 7:16 PM EDT Narrative [facility] - 06/20/2024 12:21 AM EDT FASTING:YES Your request to have a duplicate copy faxed has been acknowledged. ? Queued to: ??[id number] Gurjit Olsen MD LAB BLOOD ORDERABLES Chiqui jarvis Result [facility] [address] [facility] [address]rd [address], [place] [address], [employer] [facility] [address] [place] [address] * (ABNORMAL) Comprehensive Metabolic Panel (06/19/2024 9:09 AM EDT) Only the most recent of4 resultswithin the time period is included. Pathologist [facility] Glucose 96 65 - 99 mg/dL 06/19/2024 8:24 PM EDT [employer] Comment: ? Fasting reference interval BUN 19 7 - 25 mg/dL 06/19/2024 8:24 PM EDT [employer] Creatinine 0.86 0.70 - 1.28 mg/dL 06/19/2024 8:24 PM EDT [employer] eGFR 90 > OR = 60 mL/min/1. 73m2 06/19/2024 8:24 PM [employer] Bun/Creatinine Ratio SEE NOTE: 6 - 22 (calc) 06/19/2024 8:24 PM EDT [employer] Comment: ?? Not Reported: BUN and Creatinine are within ?? reference range. ? Sodium 135 135 - 146 mmol/L 06/19/2024 8:24 PM EDT [employer] Potassium 3.6 3.5 - 5.3 mmol/L 06/19/2024 8:24 PM EDT [employer] Chloride 106 98 - 110 mmol/L 06/19/2024 8:24 PM EDT [employer] [facility] Carbon Dioxide 22 20 - 32 mmol/L 06/19/2024 8:24 PM EDT [employer] Calcium 9.0 8.6 - 10.3 mg/dL 06/19/2024 8:24 PM EDT [employer] [facility] Protein, Total 6.1 6.1 - 8.1 g/dL 06/19/2024 8:24 PM EDT [employer] [facility] Albumin 4.4 3.6 - 5.1 g/dL 06/19/2024 8:24 PM EDT [employer] [facility] Globulin 1.7(L) 1.9 - 3.7 g/dL (calc) 06/19/2024 8:24 PM EDT [employer] [facility] Albumin/Globuli n Ratio 2.6(H) 1.0 - 2.5 (calc) 06/19/2024 8:24 PM EDT [employer] [facility] Bilirubin, Total 1.0 0.2 - 1.2 mg/dL 06/19/2024 8:24 PM EDT [employer] [facility] Alkaline Phosphatase 51 35 - 144 U/L 06/19/2024 8:24 PM EDT [employer] [facility] AST 18 10 - 35 U/L 06/19/2024 8:24 PM EDT [employer] [facility] ALT 9 9 - 46 U/L 06/19/2024 8:24 PM EDT [employer] [facility] Blood Structure of peripheral vein / Unknown 06/19/2024 9:09 AM EDT 06/19/2024 7:16 PM EDT Narrative [facility] - 06/20/2024 12:21 AM EDT FASTING:YES Your request to have a duplicate copy faxed has been acknowledged. ? Queued to: ??[id number] us Gurjit Olsen MD LAB BLOOD ORDERABLES Chiqui l Result [facility] [address] [facility] 3rd [address], [place] [address], [employer] [facility] [address] [place] [address] * Hepatitis C RNA, quantitative, PCR (10/27/2017 2:34 PM EDT) Hcv RNA, Quantitative Real Time PCR <15 NOT DETECTED NOT DETECTED IU/mL 10/28/2017 12:53 PM EDT [employer] [facility] Hepatitis C Quantitative PCR Log IU/mL <1.18 NOT DETECTED NOT DETECTED Log IU/mL 10/28/2017 12:53 PM EDT [employer] [facility] Comment: This test was performed using Real-Time Polymerase Chain Reaction. Reportable Range: 15 IU/mL to 100,000,000 IU/mL (1.18 Log IU/mL to 8.00 Log IU/mL). The analytical performance characteristics of this assay have been determined by [employer]. The modifications have not been cleared or approved by the FDA. This assay has been validated pursuant to the CLIA regulations and is used for clinical purposes. ?? For more information on this test, go to: http://education.[employer]/faq/EPC19l7 (This link is being provided for informational/ educational purposes only.) Blood specimen (specimen) Structure of peripheral vein / Unknown Venipuncture / Unknown 10/27/2017 2:34 PM EDT 10/27/2017 2:44 PM EDT [facility] 10/28/2017 12:53 PM EDT [facility] Received Date: Destiny Noel MD LAB BLOOD ORDERABLES Final R esult [facility] [address], [place] [address], [employer] [facility] [address], [place] [address], from Last 3 Months or Most Recently Relevant to Health Maintenance Insurance MEDICARE Member Subscriber Plan / Payer (Ef fective 2013-Present) Name:Randy Birch Member ID:[id number] Relation to Subscriber:Self Name:Randy Birch Subscriber ID:[id number] Payer ID:[id number] Group ID:Not on file Type:Not on file Address: [address] [place] [phone] BCBS OUT OF STATE PPO MEDICARE Advance Directives Documents on File Type Date Recorded Patient Accounts Payable Professional Expl anation Advance Directive 02/07/2014 12:00 AM sf Medical Dec Making (Adv.Dir) Advance Directive 06/30/2010 12:00 AM sf Me dical Dec Making (Adv.Dir) Care Teams Mechanical Project Manager Relationship Specialty Start Date End Date Maria D Mccray [address] [place] [phone] PCP - General Internal Medicine 05/05/17
--- OUTSIDE RECORDS SUMMARY | 2024-06-20 14:11 | XMS_ITS | Clinical Summary ---
Author Organization [facility] Address [address] [place] [address] Care Team Providers Care Tennis Court Attendant Name Role Phone Maria D Mccray MD Primary Care Provider [phone] Social History Tobacco Use Types Packs/Day Years Used Date Smoking Tobacco: Never Assessed Sex and Gender Information Value Date Recorded Sex Assigned at Not on file Legal Sex Male 1:40 PM EDT Gender Identity Not on file Sexual Orientation [...] age to complete this topic Insurance MEDICARE PART A & B BLUE CROSS OUT OF STATE - PPO Care Teams Tennis Court Attendant Relationship Specialty Start Date End Date Maria D Mccray MD [address] [place] [phone] PCP - General 03/19/22
--- OUTSIDE RECORDS SUMMARY | 2024-06-20 14:11 | XMS_ITS | Clinical Summary ---
Author Organization [facility] Address [address] [place] [address] Care Team Providers Care Validation Leader Name Role Phone Maria D Mccray Primary Care Provider [phone] Allergies Active Allergy Reactions Criticality Noted Date [...] by mouth daily. 30 tablet 11 5 10:31 AM EDT 09/05/19 24 025 [...] time each day. 30 tablet 5 5 10:31 AM EDT 01/28/20 24 Active rosuvastatin (CRESTOR) 20 mg tablet Take 1 tablet (20 mg total) by mouth 1 (one) time each day. 30 tablet 5 5 10:31 AM EDT 01/28/20 24 Active Prograf 1 mg capsuleIndicatio ns:Kidney replaced by transplant (HCC) Take 4 capsules (4 mg total) by mouth in the morning AND 3 capsules (3 mg total) every evening. 210 capsule 11 5 10:31 AM EDT 02/11/20 24 Active [...] Information: The UNOS donor ID number is [id number]. The match run ID number is [id number]. The donor ABO is O. The donor [...] Department Care Team Description 06/20/2024 Results Follow-Up [facility]plant [address] [place] [address] Renée Sahu RN 05/31/2024 Telephone [facility] Transplant Department [address] [place] [address] Renée Sahu, MISA 05/30/2024 Results Follow-Up [facility] [address] [place] [address] Renée Sahu, MISA 05/26/2024 Orders Only [facility] [address] [place] [address] Land Economist: Gurjit Conroy MD 05/18/2024 Telephone [facility] Trans[facility] Department [address] [place] [address] Renée Sahu, MISA 04/21/2024 Orders Only [facility] [address] [place] [address] Land Economist: Gurjit Conroy MD 04/06/2024 Refill [facility] Trans[facility] Department [address] [place] [address] Tessy Walton Kidney transplant recipient (Primary Dx) [...] Info) Description 07/18/2024 11:40 AM EDT Follow-Up [facility] Transplant [address] [place] [address] Gurjit Olsen MD [address] [place], [place] [phone] Health Maintenance Due Date Last Done Comments [...] 05/26/2023, Additional history exists Basic Metabolic Panel 06/19/2025 06/19/2024 , 05/26/2024, 04/21/2024, Additional history exists Hepatitis C Screening Completed 10/27/2017 , 10/27/2017, 12/30/2016, Additional history exists Pneumococcal Vaccine: 50+ Years Completed 01/15/2021, 02/21/2016, 11/27/2014, Additional history exists RSV Vaccine (60+ years old a nd patients) Completed 11/11/2022 Influenza Vaccine Completed 10/27/2023, , 10/28/2021, Additional history exists Procedures * Due to [place] state law, this organization might not be [...] 8:19 AM EST TACROLIMUS LEVEL Routine 03/24/2024 8:3 3 AM EST Kidney transplant recipient Immunosuppression CBC [...] to Health Maintenance Results * Due to [place] state law, this organization might not be sharing negative HIV tests. * (ABNORMAL) CBC Auto Differential (06/19/2024 9:09 AM EDT) Only the most recent of4 resultswithin the time period is included. White Blood Cell Count 3.1(L) 3.8 - 10.8 Thousand/ uL 06/19/2024 10:14 PM [facility] Red Blood Cell Count 4.18(L) 4.20 - 5.80 Million/u L 06/19/2024 10:14 PM [facility] Hemoglobin 11.9(L) 13.2 - 17.1 g/dL 06/19/2024 10:14 PM [facility] Hematocrit 37.5(L) 38.5 - 50.0 % 06/19/2024 10:14 PM [facility] MCV 89.7 80.0 - 100.0 fL 06/19/2024 10:14 PM [facility] MCH 28.5 27.0 - 33.0 pg 06/19/2024 10:14 PM [facility] MCHC 31.7(L) 32.0 - 36.0 g/dL 06/19/2024 10:14 PM [facility] Comment: For adults, a slight decrease in the calculated MCHC value (in the range of 30 to 32 g/dL) is most likely not clinically significant; however, it should be interpreted with caution in correlation with other red cell parameters and the patient's clinical condition. RDW 12.8 11.0 - 15.0 % 06/19/2024 10:14 PM [facility] Platelet Count 119(L) 140 - 400 Thousand/ uL 06/19/2024 10:14 PM [facility] MPV 11.4 7.5 - 12.5 fL 06/19/2024 10:14 PM [facility] Absolute Neutrophils 1,423(L) 1,500 - 7,800 cells/uL 06/19/2024 10:14 PM [facility] Absolute Lymphocytes 868 850 - 3,900 cells/uL 06/19/2024 10:14 PM [facility] Absolute Monocytes 611 200 - 950 cells/uL 06/19/2024 10:14 PM [facility] Absolute Eosinophils 158 15 - 500 cells/uL 06/19/2024 10:14 PM [facility] Absolute Basophils 40 0 - 200 cells/uL 06/19/2024 10:14 PM [facility] Neutrophils 45.9 % 06/19/2024 10:14 PM [facility] Lymphocytes 28.0 % 06/19/2024 10:14 PM EDT [facility] Monocytes 19.7 % 06/19/2024 10:14 PM EDT [facility] Eosinophils 5.1 % 06/19/2024 10:14 PM EDT [facility] Basophils 1.3 % 06/19/2024 10:14 PM EDT [facility] Blood Structure of peripheral vein / Unknown 06/19/2024 9:09 AM EDT 06/19/2024 8:39 PM EDT Narrative [facility] - 06/20/2024 12:21 AM EDT FASTING:YES Your request to have a duplicate copy faxed has been acknowledged. ? Queued to: ??[id number] Gurjit Olsen MD LAB BLOOD ORDERABLES Chiqui jarvis Result [facility] [address] [facility] 3rd Floor, [place] [address], [facility] [address] [place] [address] * (ABNORMAL) Tacrolimus Level (06/19/2024 9:09 AM EDT) Only the most recent of4 resultswithin the time period is included. [facility] [address] Tacrolimus, Highly Sensitive 2.8(L) mcg/L 06/20/2024 12:16 AM EDT [facility] Comment: No definitive therapeutic or toxic ranges have been established. Optimal blood drug levels are influenced by type of transplant, patient response, time post- transplant, co-administration of other drugs, and drug formulation. The following trough range is a suggested guideline: 5.0-20.0 mcg/L. This test was developed and its analytical performance characteristics have been determined by [facility] ([employer]). It has not been cleared or approved [...] faxed has been acknowledged. ? Queued to: ??[id number] us Gurjit Olsen MD LAB BLOOD ORDERABLES Chiqui l Result Performing Organization Address [facility] de Phone Number [facility] [address], [place] [address], [facility] [address] [place] [address] * Phosphorus (06/19/2024 9:09 AM EDT) Only the most recent of4 resultswithin the time period is included. Phosphate 3.2 2.1 - 4.3 mg/dL 06/19/2024 8:24 PM EDT [facility] Blood Structure of peripheral vein / Unknown 06/19/2024 9:09 AM EDT 06/19/2024 7:16 PM EDT Narrative [facility] - 06/20/2024 12:21 AM EDT FASTING:YES Your request to have a duplicate copy faxed has been acknowledged. ? Queued to: ??[id number] Gurjit Olsen MD LAB BLOOD ORDERABLES Chiqui l Result Performing Organization Address [facility] de Phone Number [facility] [address], [place] [address], [facility] [address] [place] [address] * Magnesium (06/19/2024 9:09 AM EDT) Only the most recent of4 resultswithin the time period is included. Magnesium 1.9 1.5 - 2.5 mg/dL 06/19/2024 8:24 PM EDT [facility] Blood Structure of peripheral vein / Unknown 06/19/2024 9:09 AM EDT 06/19/2024 7:16 PM EDT Narrative [facility] - 06/20/2024 12:21 AM EDT FASTING:YES Your request to have a duplicate copy faxed has been acknowledged. ? Queued to: ??[id number] Gurjit Olsen MD LAB BLOOD ORDERABLES Chiqui jarvis Result [facility] [address] [facility] [address] Floor, [place] [address], [facility] [address] [place] [address] * (ABNORMAL) Comprehensive Metabolic Panel (06/19/2024 9:09 AM EDT) Only the most recent of4 resultswithin the time period is included. [facility] [address] Glucose 96 65 - 99 mg/dL 06/19/2024 8:24 PM EDT [facility] Comment: ? Fasting reference interval BUN 19 7 - 25 mg/dL 06/19/2024 8:24 PM EDT [facility] Creatinine 0.86 0.70 - 1.28 mg/dL 06/19/2024 8:24 PM EDT [facility] eGFR 90 > OR = 60 mL/min/1. 73m2 06/19/2024 8:24 PM EDT [facility] Bun/Creatinine Ratio SEE NOTE: 6 - 22 (calc) 06/19/2024 8:24 PM EDT [facility] Comment: ?? Not Reported: BUN and Creatinine are within ?? reference range. ? Sodium 135 135 - 146 mmol/L 06/19/2024 8:24 PM EDT [facility] Potassium 3.6 3.5 - 5.3 mmol/L 06/19/2024 8:24 PM EDT [facility] Chloride 106 98 - 110 mmol/L 06/19/2024 8:24 PM EDT [facility] Carbon Dioxide 22 20 - 32 mmol/L 06/19/2024 8:24 PM EDT [facility] Calcium 9.0 8.6 - 10.3 mg/dL 06/19/2024 8:24 PM EDT [facility] Protein, Total 6.1 6.1 - 8.1 g/dL 06/19/2024 8:24 PM EDT [facility] Albumin 4.4 3.6 - 5.1 g/dL 06/19/2024 8:24 PM EDT [facility] Globulin 1.7(L) 1.9 - 3.7 g/dL (calc) 06/19/2024 8:24 PM EDT [facility] Albumin/Globuli n Ratio 2.6(H) 1.0 - 2.5 (calc) 06/19/2024 8:24 PM EDT [facility] Bilirubin, Total 1.0 0.2 - 1.2 mg/dL 06/19/2024 8:24 PM EDT [facility] Alkaline Phosphatase 51 35 - 144 U/L 06/19/2024 8:24 PM EDT [facility] AST 18 10 - 35 U/L 06/19/2024 8:24 PM EDT [facility] ALT 9 9 - 46 U/L 06/19/2024 8:24 PM EDT [facility] Blood Structure of peripheral vein / Unknown 06/19/2024 9:09 AM EDT 06/19/2024 7:16 PM EDT Narrative [facility] - 06/20/2024 12:21 AM EDT FASTING:YES Your request to have a duplicate copy faxed has been acknowledged. ? Queued to: ??[id number] us Gurjit Olsen MD LAB BLOOD ORDERABLES Chiqui jarvis Result [facility] [address] [facility] [address], [place] [address], [facility] [address] [place] [address] * Hepatitis C RNA, quantitative, PCR (10/27/2017 2:34 PM EDT) Hcv RNA, Quantitative Real Time PCR <15 NOT DETECTED NOT DETECTED IU/mL 10/28/2017 12:53 PM EDT [facility] Hepatitis C Quantitative PCR Log IU/mL <1.18 NOT DETECTED NOT DETECTED Log IU/mL 10/28/2017 12:53 PM EDT [facility] Comment: This test was performed using Real-Time Polymerase Chain Reaction. Reportable Range: 15 IU/mL to 100,000,000 IU/mL (1.18 Log IU/mL to 8.00 Log IU/mL). The analytical performance characteristics of this assay have been determined by [facility] ([employer]). The modifications have not been cleared or approved by the FDA. This assay has been validated pursuant to the CLIA regulations and is used for clinical purposes. ?? For more information on this test, go to: http://education.[employer]/faq/ENR32j1 (This link is being provided for informational/ educational purposes only.) Blood specimen (specimen) Structure of peripheral vein / Unknown Venipuncture / Unknown 10/27/2017 2:34 PM EDT 10/27/2017 2:44 PM EDT [facility] - 10/28/2017 12:53 PM EDT [facility] Received Date: Destiny Noel MD LAB BLOOD ORDERABLES Final R esult [facility] [address] [facility] 3rd Floor, [place] [address], [facility] [address] [facility] [address], [place] [address], from Last 3 Months or Most Recently Relevant to Health Maintenance Insurance MEDICARE BCBS OUT OF STATE PPO MEDICARE Advance Directives Documents on File Type Date Recorded Patient Acute Care Registered Nurse Expl anation Advance Directive 02/07/2014 12:00 AM sf Medical Dec Making (Adv.Dir) Advance Directive 06/30/2010 12:00 AM sf Me dical Dec Making (Adv.Dir) Care Teams Validation Leader Relationship Specialty Start Date End Date Maria D Mccray [address] [place] [phone] PCP - General Internal Medicine 05/05/17
--- OUTSIDE RECORDS SUMMARY | 2024-06-20 14:12 | XMS_ITS | Encounter Summary ---
Author Organization [facility] Address [address] [place] [address] Care Team Providers Care Operations Section Manager Name Role Phone Maria D Mccray Primary Care Provider [phone] Encounter Details Date Type Department Care Team (Late st Contact Info) Description 07/25/2021 Orders Only [facility] [address] [place] [address] Nancy Ovalle, JEANIE [address] [place] [address] Social History Tobacco Use Types Packs/Day Years [...] Info) Description 07/18/2024 11:40 AM EDT Follow-Up [facility] Renal Transplant [address] [place] [address] Gurjit Olsen MD [address] [place] [address] documented as of this encounter [...] documented as of this encounter Care Teams Operations Section Manager Relationship Specialty Start Date End Date Maria D Mccray [address] [place] [address] PCP - General Internal Medicine 05/05/17 documented as of this encounter
--- OUTSIDE RECORDS SUMMARY | 2024-06-20 14:12 | XMS_ITS | Clinical Summary ---
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 Hypertensive chronic kidney disease with stage 1 through stage 4 chronic kidney disease, or unspecified chronic kidney disease 02/18/2024 Kidney transplant status 02/18/2024 Atherosclerotic heart diseas e of [place] coronary artery without angina pectoris 02/18/2024 Nonrheumatic aortic valve stenosis 04/21/2022 Aneurysm of ascending aorta without rupture ([facility] V24) 04/21/2022 Hypertension 05/14/2017 Assessment & Plan (01/10/2024 2:15 PM EST): Hyperlipidemia 05/14/2017 Assessment & Plan (01/10/2024 2:15 PM EST): Renal transplant, status post 05/14/2017 Edema 01/29/2017 End stage renal disease on d ialysis ([facility] V24, [facility] V28) 11/27/2016 GERD (gastroesophageal reflux disease) 7 Assessment & Plan (01/10/2024 2:15 PM EST): Coronary artery disease invo lving [place] heart without angina pectoris 07/26/2016 Anemia 02/21/2016 Leukopenia 02/04/2016 Thrombocytopenia ([facility] V24) 02/04/2016 Anxiety 11/27/2014 Erectile dysfunction 05/17/2013 Internal hemorrhoids 10/27/2012 Benign colonic polyp 10/27/2012 Diverticulosis 10/27/2012 Gouty arthropathy 09/09/2010 Assessment & Plan (01/10/2024 2:15 PM EST): Encounters Date Type Department Care Team Description 05/29/2024 Telephone Internal Medicine - [place] [address] [phone] Karyna Graham [place] faxed form (ATI) 05/29/2024 Telephone Internal Medicine [facility] 175 [facility] [address] [place] [address] Maria D Mccray MD Right side Swelling 05/17/2024 1:15 PM EDT Office Visit Internal Medicine [facility] [address] [phone] Maria D Mccray MD Acute maxillary sinusitis, recurrence not specified (Primary Dx); Midline low back pain, unspecified chronicity, unspecified whether sciatica present; Acute pain of left shoulder 05/17/2024 Telephone Internal Medicine [facility] [address] [phone] Maria D Mccray MD 05/04/2024 Telephone Internal Medicine [facility] [address] [phone] Karyna Graham [place] faxed form (ATI) 04/26/2024 Telephone Internal Medicine [facility] [address] [phone] Maria D Mccray MD [place]: Referral 04/19/2024 Telephone Internal Medicine [facility] [address] [phone] Maria D Mccray MD [place] - Referral 03/28/2024 Telephone Internal Medicine [facility] [address] [phone] Karyna Graham [place] faxed form (ATI) from Last 3 Months Immunizations Name Administration [...] PROCEDURE: ID RENAL [id number] W/O FARM TRACTOR OPERATOR NEPHRECTOMY HERNIA REPAIR PROCEDURE: ID REPAIR FIRST ABDOMINAL WALL HERNIA Medical History Medical History Date Comments Anemia 02/21/2016 DX:Anemia Anxiety 11/27/2014 DX:Anxiety Benign colonic polyp 10/27/2012 DX:Benign c olonic polyp Coronary artery disease 07/26/2016 DX:Coron maxwell artery disease Diverticulosis 10/27/2012 DX:Diverticulosi s Edema 01/29/2017 DX:Edema End stage renal disease on d ialysis ([facility] V24, [facility] V28) 11/27/2016 DX:End stage renal disease on dialysis ([facility]) Erectile dysfunction 05/17/2013 DX:Erectile dysfunction GERD (gastroesophageal reflux disease) 09/23/2016 DX:GERD (gastroesophageal reflux disease) Gouty arthropathy 09/09/2010 DX:Gouty arthr opathy History of prostate cancer 02/08/2012 DX:Hi story of prostate cancer Hyperlipidemia 05/14/2017 DX:Hyperlipidemi a Hypertension 05/14/2017 DX:Hypertension Internal hemorrhoids 10/27/2012 DX:Internal hemorrhoids Kidney transplant recipient 05/14/2017 DX:K idney transplant recipient Leukopenia 02/04/2016 DX:Leukopenia Thrombocytopenia ([facility] V24) 02/04/2016 D X:Thrombocytopenia ([facility]) Social History Tobacco Use Types Packs/Day Years [...] Description 07/03/2024 2:30 PM EDT Office Visit [facility] [address] [place] [address] Dereje Jackson MD [address],[place] [address] [facility] [place] [address] 07/12/2024 10:45 AM EDT Office Visit Internal Medicine - [place] [address] [place] [phone] Amado Morgan NP [address] [place] [address] [place] [address] Health Maintenance Due Date Last Done Comments Hepatitis B Vaccines (2 of 3 - 19+ 3-dose series) 08/11/2013 07/14/2013 Zoster Vaccines (1 of 2) 11/05/2013 09/10/2013, 07/24 Abdominal Aortic Aneurysm (AAA) Screen 01/31/2022 Colorectal Cancer Screening: Colonoscopy 01/31/2022 Social Influencers of Health Screening 01/31/2022 DTaP,Tdap,and Td Vaccines (2 - Td or Tdap) 05/18/2023 05/17/2013, 05/17/2013 COVID-19 Vaccine (9 - Moderna risk season) 2024 11/29/2023, 05/26/2023, 11/16/2022, Additional history exists Depression Screening 01/09/2025 01/10/2024 Falls Risk Assessment [...] Completed 10/27/2023, , 10/28/2021, Additional history exists HIB Vaccines Aged Out [...] this topic Medical Devices Implanted Type Area House Carpenter Device Identifier Shelf Expiration Date Model / Serial / Lot Cement Bone Surg Simplex Radiopq Stry-Howm [id number] Implanted:Qty: 1 on 05/07/2022 by Matthew Ley MD Right: Knee [employer] 08/21/2024 6191-1-010 / / [id number] Cement Bone Surg Simplex Radiopq Stry-Howm [id number] Implanted:Qty: 1 on 05/07/2022 by Matthew Ley MD Right: Knee [employer] 08/21/2024 6191-1-010 / / [id number] Knee Fem Joao Ps Trthln Rt #5 Stry-How [id number] Implanted:Qty: 1 on 05/07/2022 by Matthew Ley MD Right: Knee [employer] [id number] 11/13/2026 5515-F-502 / / [id number] Knee Baseplt Tib Cmnt Sz5 Stry-How [id number] Implanted:Qty: 1 on 05/07/2022 by Matthew Ley MD Right: Knee [employer] [id number] 01/07/2027 5520-B-500 / / [id number] Peg Fix Femoral Distal Stry-Howm [id number] Implanted:Qty: 1 on 05/07/2022 by Matthew Ley MD Right: Knee [employer] [id number] 12/21/2026 5575-X-000 / / [id number] Knee Tib Insrt Ps-X3 [id number] Stry-Howm [id number] Implanted:Qty: 1 on 05/07/2022 by Matthew Ley MD Right: Knee [employer] [id number] 12/09/2026 5532-G-513 / / [id number] Knee Pat Asymmetric X3 [id number] Stry-Howm [id number] Implanted:Qty: 1 on 05/07/2022 by Matthew Ley MD Right: Knee [employer] [id number] 01/20/2027 5551-G-320 -E / / [id number] Procedures Procedure Name Priority Date/Time Associated Diagnosis Comments EXTERNAL ULTRASOUND REPORT 05/29/2024 COMPREHENSIVE METABOLIC PANEL Routine 01/19/2024 7:17 AM EST Encounter for other general examination LIPID PANEL Routine 05/17/2023 from Last 3 Months or Most Recently Relevant to Health Maintenance Results * External Ultrasound Report (05/29/2024) Anatomical Region Laterality Modality Ultrasound us Provider [facility] US PROCEDURES Final Result * Comprehensive metabolic panel (01/19/2024 7:17 AM EST) Sodium 141 133 - 145 mmol/L LAB CHEMISTRY METHOD 01/19/2024 1:42 PM EST [facility] Potassium 3.7 3.5 - [...] 01/19/2024 1:[address] [facility] Alkaline Phosphatase 59 42 - 121 unit/L LAB CHEMISTRY METHOD 01/19/2024 1:[address] [facility] Total Protein 6.1 6.0 - 8.0 g/dL LAB CHEMISTRY METHOD 01/19/2024 1:[address] [facility] Albumin 3.8 3.2 - 5.0 g/dL LAB CHEMISTRY METHOD 01/19/2024 1:42 PM EST [facility] Total Bilirubin 1.2 0.0 - 1.4 mg/dL LAB CHEMISTRY METHOD 01/19/2024 1:42 PM EST [facility] Blood Venous blood specimen / Unknown Venipuncture / Unknown 01/19/2024 7:17 AM EST 01/19/2024 10:47 AM EST Keri Cuevas MD LAB BLOOD ORDERABLES Final Res ult [facility] [address] [place] [address], * Lipid panel (05/17/2023) Triglycerides 0 mg/dL Comment:no interpretation Cholesterol 0 mg/dL Comment:no interpretation HDL 0 mg/dL Comment:no interpretation LDL Cholesterol 0 mg/dL Comment:no interpretation Blood Venous blood specimen / Unknown Historical Provider LAB BLOOD ORDERABLES Chiqui l Result from Last 3 Months or Most Recently Relevant to Health Maintenance Insurance MEDICARE [facility]) Advance Directives Documents on File Type Date Recorded Patient Supervisor Assembly Stock Expl anation Health Care Decision (hx) 05/07/2022 ADVANCE DIRECTIVE AN D LIVING WILL Care Teams Retanner Relationship Specialty Start Date End Date Maria D Mccray MD [address] [address] PCP - General Internal Medicine 02/01/12
--- OUTSIDE RECORDS SUMMARY | 2024-06-20 14:12 | XMS_ITS | Encounter Summary ---
Author Organization [facility] Address [address] [place] [address] Care Team Providers Care Substitute Crossing Guard Name Role Phone Maria D Mccray Primary Care Provider [phone] Encounter Details Date Type Department Care Team (Late st Contact Info) Description 06/20/2024 Results Follow-Up [facility] Renal Transplant [address] [place] [address] Renée Sahu RN Social History Tobacco Use [...] Info) Description 07/18/2024 11:40 AM EDT Follow-Up [facility] Renal Transplant [address] [place], [place] [phone] Gurjit Olsen MD [address] [place], [place] [phone] documented as of this encounter Visit Diagnoses Diagnosis Kidney transplant recipient (HCC)- Primary Kidney transplant recipient (HCC)- Primary documented in this encounter Care Teams Substitute Crossing Guard Relationship Specialty Start Date End Date Maria D Mccray [address] [place] [id number] PCP - General Internal Medicine 05/05/17 documented as of this encounter
--- OUTSIDE RECORDS SUMMARY | 2024-06-20 14:12 | XMS_ITS | Data Portability ---
Author Organization [place] [facility] Valentine [place] Address [address] [place] [address] Care Team Providers Care Melangeur Operator Name Role Phone PRATIBHA MERAZ Primary Care Provider [phone] Assessment Encounter Date Assessment Date Assessment LastModified [...] recheck. All questions answered to his satisfaction. [email or web address] Not available 07/16/2022 13:44:10 07/17/2022 07/17/2022 Assessment [...] care and treatment in conjunction with Dr. Schliling Additional treatment plan discussed with the patient [...] 40 mg/mL suspension for injection 2022 023 [id number], [address] [place], [address], 3 07:59:15 lidocaine (PF) 10 mg/mL (1 %) injection solution 2022 023 [id number], [address] [place], [address], 3 07:59:15 Patient TargetsNo targets recorded. Patient Instructions Encounter Date Encounter Id Patient Instructions Last Modified By Organization Details Last Modified Time 07/08/2022 [id number] You have been provided with a cortisone [...] Details Recorded Time Pain of right calf [id number] 103 Active 2022 JAKE PEARSON PA-C [address], [place], [address], [place] [facility] [place], P 3 13:30:23 Postoperati ve pain 112120815 Active 2022 JAKE PEARSON PA-C [address], [place], [address], [place] [facility] [place], [facility] 3 16:05:43 Acute postoperati ve pain 0819795875980 05 Active 2022 JAKE PEARSON PA-C [address], [place], [address], [place] [facility] [place], [facility] 3 16:10:11 Osteoarthri tis of left knee joint 9843042332163 09 Active 2022 JAKE PEARSON PA-C [address], [place], [address], [place] [facility] [place], [facility] 3 07:58:19 Abscess of skin and/or subcutaneou s tissue 73958425 Active 2022 JAKE PEARSON PA-C [address], [place], [address], [place] [facility] [place], [facility] 3 06:35:15 Effusion of joint of right knee 5194789313206 04 Active 2022 JAKE PEARSON PA-C [address], [facility] [place], [address], [place] [facility] [place], [facility] 3 06:35:29 Problem Notes None recorded. Procedures Surgical History Date Name Laterality Status Provider Name and Address Organization Details Recorded Time 07/18/19 23 Knee Joint/Bursa Asp & Inj completed JAKE PEARSON PA-C [address] [facility], [place], [address], [place] [facility] [place], P 07/21/2022 06:31:55 07/09/19 23 Knee Joint/Bursa Asp & Inj completed JAKE PEARSON PA-C [address], [place], [address], [facility] [place], P 07/10/2022 07:56:35 transplant of kidney completed [facility] 05/21/2022 12:53:39 operation on prostate completed [facility] [place], P 05/21/2022 12:53:55 coronary artery bypass graft completed [facility] [place] [facility] [place], P 05/21/2022 12:54:04 Total knee arthroplasty completed [facility] [place], P 05/21/2022 12:54:13 Imaging Results None recorded. [...] Updated DateTime 07/08/2022 172.72 cm [place] - [facility] [place], P 07/08/2022 15:20:28 Date Recorded Body height Provider Name an d Address Organization Details Last Updated DateTime 07/16/2022 172.72 cm [place] - [facility] [place], P 07/16/2022 11:24:57 Date Recorded Body height Provider Name an d Address Organization Details Last Updated DateTime 07/17/2022 172.72 cm Peri Figueroa [place] - [facility] [place], P 07/17/2022 13:09:43 Date Recorded Body height Provider Name an d Address Organization Details Last Updated DateTime 07/22/2022 172[address] [place] - [facility] [place], P 07/22/2022 11:41:07 Date Recorded Body height Provider Name an d Address Organization Details Last Updated DateTime 08/05/2022 172.[address] [place] - [facility] [place], P 08/05/2022 11:32:48 Social History None recorded. [...] Diagnosis Note [id number] MD RYLAN Mylesjuni [address] [address] 05/21/2022 12:47:49 05/21/2022 13:31:03 History of right total knee replacement 3562648710 156686 Z96.651 Postoperative pain 54198 9007 G89.18 Pain of right calf 73240 93716 353657 M79.661 [id number] MD RYLAN Cochranjuni [address] [address] 07/08/2022 15:09:11 07/08/2022 16:00:05 Postoperative pain 869857953 G89.18 Osteoarthr itis of left knee joint 6398724631 60186 M17.12 [id number] MD RYLAN Cochran [place] [address] [facility] [address] [place] [address] 07/16/2022 11:11:01 07/16/2022 13:26:06 History of total knee arthroplasty 2448885259 105 Z96.651 Postoperative care 60576 9007 Z48.89 [id number] MD RYLAN Cochran 299 [facility] [address] [place] [address] 07/17/2022 13:06:16 07/17/2022 13:54:06 Acute postoperative pain 7160371456 07536 G89.18 Abscess of skin and/or subcutaneous tissue 94509256 L02.91 Effusion o f joint of right knee 3611720143 34913 M25.461 [id number] MD [facility]YLAN [facility] 299 [facility] [address] [place] [address] 07/22/2022 11:35:32 07/22/2022 11:53:12 Follow-up visit 365621596 Z09 [id number] MD RYLAN Cochran [facility] 299 [facility] [address] [place] [address] 08/05/2022 11:29:31 08/05/2022 11:38:15 Postoperative visit 952694659 Z09 Health Concerns Section Related Observation LastModified by Organization Detai ls LastModified Time None Recorded Concern Status LastModified by Organization Details LastModified Time None Recorded Advance Directives Directive None Recorded Payers Encounter Date Sequence Insurance Name Policy Number Policy Motta Covered Member ID Motta Member ID Guarantor Name 07/08/2022 1 [place] [facility] Randy Birch [id number] Randy Jean Eyal 07/08/2022 2 [place] [id number] K Randy Birch [id number] Randy Jean Eyal 07/16/2022 1 MEDICARE B-[place]: [place] Randy Birch [id number] Randy Jean Eyal 07/16/2022 2 [place] [id number] K Randy Birch [id number] Randy Birch 07/17/2022 1 [place] [facility] Randy Birch [id number] Randy Jean Eyal 07/17/2022 2 [place] [id number] K Randy Birch [id number] Randy Birch 07/22/2022 1 [place] [employer] Randy Birch [id number] Randy Birch 07/22/2022 2 [place] [id number] K Randy Birch [id number] Randy Birch 08/05/2022 1 [place]IC[place]: [facility] Randy Birch [id number] Randy Birch 08/05/2022 2 [place] [id number] K Randy Birch [id number] Randy Birch Notes Date Note Type [...] fevers chills flulike symptoms JAKE PEARSON PA-C [address] [place] [address], [address], [place] [facility] [place], P 07/10/2022 07:59:18 07/16/2022 text/html Patient is [...] WAYNE COVARRUBIAS PA-C [address], [place], [address], [place] [facility] [place], [facility] 07/16/2022 13:45:14 07/17/2022 text/html Assessment & [...] States some swelling JAKE PEARSON PA-C [address] [facility],[address], [place], [address], [place] [facility] [place], P 07/21/2022 06:36:13 07/22/2022 text/html Assessment & [...] JAKE PEARSON PA-C [address], [place], [address], [place] [facility] [place], [facility] 07/23/2022 07:33:21 08/05/2022 text/html Status post righ t total knee replacement by Dr. Ley on 05/07/2022. Patient has been followed for suture abscess here for follow-up. Patient states he is completely healed he is doing well. JAKE PEARSON PA-C [address], [place], [address], [place] [facility] [place], [facility] 08/07/2022 07:41:00
--- OUTSIDE RECORDS SUMMARY | 2024-06-20 14:12 | XMS_ITS ---
Author Organization [facility] Address [address] [place] [address] Care Team Providers Care Hull Builder Name Role Phone Maria D Mccray Primary Care Provider [phone] Transplant Episode Kidney Recipient [facility] ([place], [place]) - [facility] Organ Received: Right Kidney Transplanted on 11/07/2016 Marked as Active Follow-up on 11/07/2016 Kidney CoordinatorRenée Sahu RN Phone: N/A Fax: N/A Email: N/A [place] Organ Diagnosis Organ Primary Contributory Kidney Hypertensive [...] Coordinator N/A N/A N/A Gurjit Olsen MD Military Source Operations Specialist [phone] [email or web address] Referring Physician [phone] N/A Events Post-Transplant Pre-Transplant Admitted: 11/07/2016 Referred: 06/13/2010 Transplanted: 11/07/2016 Evaluation began: 1 Discharged: 11/16/2016 Committee: 07/30/2010 Center waitlisted: 1 Appointments (05/20/2024 - 07/20/2024) When With Visit Type Description 07/18/2024 Transplant - Gordy Olsen Follow Up Dialysis History Dialysis History Start End Type Comments Center 02/20/2016 11/06/2016 Maintenance (Type Unknown)
--- OUTSIDE RECORDS SUMMARY | 2024-06-20 14:12 | XMS_ITS | Encounter Summary ---
Author Organization [facility] Address [address] [place] [address] Care Team Providers Care Geology Faculty Member Name Role Phone Maria D Mccray MD Primary Care Provider [phone] Encounter Details Date Type Department Care Team (Late st Contact Info) Description 01/14/2024 Lab Requisition [facility] Main Lab [address] [facility] [place] [phone] Keri Cuevas MD [address] [place] [address] Encounter for other general examination Social History [...] Description 07/03/2024 2:30 PM EDT Office Visit [facility] Card[facility] [address] [place] [address] Dereje Jackson MD [address] [place] [address],[address] [facility] [place] [address] 07/12/2024 10:45 AM EDT Office Visit Internal Medicine - [place] [address] [place] [address] Amado [place] NP [address] [place] [address] documented as of this encounter Procedures Procedure [...] K/mcL LAB HEMETOLOGY METHOD 01/14/2024 8:36 AM [facility] RBC 4.50 4.50 - 5.50 M/mcL LAB HEMETOLOGY METHOD 01/14/2024 8:36 AM [facility] Hemoglobin 12.9(L) 13.5 - 17.5 g/dL LAB HEMETOLOGY METHOD 01/14/2024 8:36 AM [facility] Hematocrit 40.2(L) 42.0 - 54.0 % LAB HEMETOLOGY METHOD 01/14/2024 8:36 AM [facility] MCV 89.1 79.0 - 98.0 FL LAB HEMETOLOGY METHOD 01/14/2024 8:36 AM [facility] MCH 28.6 27.0 - 32.0 pcg LAB HEMETOLOGY METHOD 01/14/2024 8:36 AM [facility] MCHC 32.1 32.0 - 37.0 g/dL LAB HEMETOLOGY METHOD 01/14/2024 8:36 AM [facility] RDW 13.7 11.0 - 15.0 % LAB HEMETOLOGY METHOD 01/14/2024 8:36 AM [facility] Platelets 129(L) 130 - 400 K/mcL LAB HEMETOLOGY METHOD 01/14/2024 8:36 AM [facility] MPV 11.3(H) 7.0 - 11.0 FL LAB HEMETOLOGY METHOD 01/14/2024 8:36 AM [facility] NRBC 0.0 <1.0 % LAB HEMETOLOGY METHOD 01/14/2024 8:36 AM [facility] NRBC Absolute 0.00 <0.10 K/mcL LAB HEMETOLOGY METHOD 01/14/2024 8:36 AM [facility] Neutrophils Relative 48.6 % LAB HEMETOLOGY METHOD 01/14/2024 8:36 AM [facility] Lymphocytes Relative 23.2 % LAB HEMETOLOGY METHOD 01/14/2024 8:36 AM [facility] Monocytes Relative 20.9 % LAB HEMETOLOGY METHOD 01/14/2024 8:36 AM [facility] Eosinophils Relative 5.6 % LAB HEMETOLOGY METHOD 01/14/2024 8:36 AM [facility] Basophils Relative 1.0 % LAB HEMETOLOGY METHOD 01/14/2024 8:36 AM [facility] Immature Granulocytes Relative 0.7 % LAB HEMETOLOGY METHOD 01/14/2024 8:36 AM [facility] Neutrophils Absolute 1.47(L) 1.50 - 7.00 K/mcL LAB HEMETOLOGY METHOD 01/14/2024 8:36 AM EST [facility] Lymphocytes Absolute 0.70(L) 1.00 - 5.00 K/mcL LAB HEMETOLOGY METHOD 01/14/2024 8:36 AM EST [facility] Monocytes Absolute 0.63 0.20 - 1.00 K/mcL LAB HEMETOLOGY METHOD 01/14/2024 8:36 AM EST [facility] Eosinophils Absolute 0.17 0.00 - 0.50 K/mcL LAB HEMETOLOGY METHOD 01/14/2024 8:36 AM EST [facility] Basophils Absolute 0.03 0.00 - 0.20 K/mcL LAB HEMETOLOGY METHOD 01/14/2024 8:36 AM EST [facility] Immature Granulocytes Absolute 0.02 0.00 - 0.03 K/mcL LAB HEMETOLOGY METHOD 01/14/2024 8:36 AM EST [facility] Blood Venous blood specimen / Unknown Venipuncture / Unknown 01/14/2024 5:23 AM EST 01/14/2024 7:39 AM EST Keri Cuevas MD LAB BLOOD ORDERABLES Final Res ult [facility] [address] [place] [address], * (ABNORMAL) Mycophenolic acid and metabolite (01/14/2024 [...] performance characteristics determined by [facility]. This confirmation testing has not been cleared or approved by the FDA. The laboratory is regulated under CLIA as qualified to perform high-complexity testing. This test is used for patient testing purposes. It should not be regarded as investigational or for research. Test performed at [facility], [address] [place], [place] ??[address] ? [phone] Cassie Aguiar MD, PhD - Business Information Analyst Blood Venous blood specimen / Unknown Venipuncture / Unknown 01/14/2024 5:23 AM EST 01/14/2024 7:39 AM EST us Keri Cuevas MD LAB BLOOD ORDERABLES Final Res ult [facility] [address] [place] [address] * Tacrolimus level (01/14/2024 5:23 AM EST) Pathologist [facility] Tacrolimus Level 6.1 5.0 - 20.0 ng/mL 01/17/2024 12:22 PM EST [facility] Comment: Additional Information: Toxic Level ?> [...] performance characteristics determined by [facility]. This confirmation testing has not been cleared or approved by the FDA. The laboratory is regulated under CLIA as qualified to perform high-complexity testing. This test is used for patient testing purposes. It should not be regarded as investigational or for research. Test performed at [facility], [address] [place], [place] ??[address] ? [phone] Cassie Aguiar MD, PhD - Business Information Analyst Blood Venous blood specimen / Unknown Venipuncture / Unknown 01/14/2024 5:23 AM EST 01/14/2024 7:39 AM EST us Keri Cuevas MD LAB BLOOD ORDERABLES Final Res ult [facility] [address] [facility] [place] [id number] * Magnesium (01/14/2024 5:23 AM EST) [facility] Signature Magnesium 1.9 1.9 - 2.6 mg/dL LAB CHEMISTRY METHOD 01/14/2024 9:45 AM [facility] Blood Venous blood specimen / Unknown Venipuncture / Unknown 01/14/2024 5:23 AM EST 01/14/2024 7:39 AM EST us Keri Cuevas MD LAB BLOOD ORDERABLES Final Res ult [facility] [address] [place] [address], [place] [phone] * (ABNORMAL) Comprehensive metabolic panel (01/14/2024 5:23 AM EST) [facility] Sodium 140 133 - 145 mmol/L LAB CHEMISTRY METHOD 01/14/2024 9:46 AM [facility] Potassium 3.8 3.5 - 5.5 mmol/L LAB CHEMISTRY METHOD 01/14/2024 9:46 AM [facility] Chloride 111(H) 96 - 110 mmol/L LAB CHEMISTRY METHOD 01/14/2024 9:46 AM [facility] CO2 22 21 - 32 mmol/L LAB CHEMISTRY METHOD 01/14/2024 9:46 AM [facility] Anion Gap 7 3 - 11 LAB CHEMISTRY METHOD 01/14/2024 9:46 AM [facility] Glucose 77 70 - 100 mg/dL LAB CHEMISTRY METHOD 01/14/2024 9:46 AM [facility] BUN 16 5 - 25 mg/dL LAB CHEMISTRY METHOD 01/14/2024 9:46 AM [facility] Creatinine 0.84 0.70 - 1.30 mg/dL LAB CHEMISTRY METHOD 01/14/2024 9:46 AM [facility] eGFR 91 >=60 mL/min/1. 73m2 LAB CHEMISTRY METHOD 01/14/2024 9:46 AM [facility] Comment:Calculation based on the??Chronic Kidney Disease Epidemiology Collaboration (CKD-EPI) equation refit??without adjustment for race. BUN/Creatinine Ratio 19.0 LAB CHEMISTRY METHOD 01/14/2024 9:46 AM [facility] Calcium 8.6 8.5 - 10.5 mg/dL LAB CHEMISTRY METHOD 01/14/2024 9:46 AM [facility] AST (SGOT) 19 10 - 42 unit/L LAB CHEMISTRY METHOD 01/14/2024 9:46 AM [facility] ALT (SGPT) 16 10 - 60 unit/L LAB CHEMISTRY METHOD 01/14/2024 9:46 AM [facility] Alkaline Phosphatase 59 42 - 121 unit/L LAB CHEMISTRY METHOD 01/14/2024 9:46 AM [facility] Total Protein 5.8(L) 6.0 - 8.0 g/dL LAB CHEMISTRY METHOD 01/14/2024 9:46 AM [facility] Albumin 3.5 3.2 - 5.0 g/dL LAB CHEMISTRY METHOD 01/14/2024 9:46 AM [facility] Total Bilirubin 1.1 0.0 - 1.4 mg/dL LAB CHEMISTRY METHOD 01/14/2024 9:46 AM [facility] Blood Venous blood specimen / Unknown Venipuncture / Unknown 01/14/2024 5:23 AM EST 01/14/2024 7:39 AM EST us Keri Cuevas MD LAB BLOOD ORDERABLES Final Res ult [facility] [address] [place] [address], documented in this encounter Visit Diagnoses Diagnosis Encounter for other general examination documented in this encounter Additional Health Concerns Assessment Noted Time PHQ-9 Depression Total Score: 0 01/10/20 24 2:13 PM EST A fall risk assessment has been complete d for the patient 01/10/2024 2:13 PM EST documented as of this encounter Care Teams Geology Faculty Member Relationship Specialty Start Date End Date Maria D Mccray MD [address] [address] PCP - General Internal Medicine 02/01/12 documented as of this encounter
--- OUTSIDE RECORDS SUMMARY | 2024-06-20 14:12 | XMS_ITS | Encounter Summary ---
Author Organization [facility] Address [address] [place] [address] Care Team Providers Care News Librarian Name Role Phone Maria D Mccray Primary Care Provider [phone] Encounter Details Date Type Department Care Team (Late st Contact Info) Description 11/25/2016 Transplant Conversio n Encounter [facility] Health Information Management [address] [place] [address] Provider, Historical [facility] Social History Tobacco Use Types Packs/Day Years [...] Info) Description 07/18/2024 11:40 AM EDT Follow-Up [facility]- [facility] Renal Transplant [address] [place] [address] Gurjit Olsen MD [address] [place] [address] documented as of this encounter Visit Diagnoses [...] documented as of this encounter Care Teams News Librarian Relationship Specialty Start Date End Date Maria D Mccray [address] [place] [address] PCP - General Internal Medicine 05/05/17 documented as of this encounter
--- OUTSIDE RECORDS SUMMARY | 2024-06-20 14:12 | XMS_ITS | Clinical Summary ---
Author Organization [facility] Address [address] [place] [address] Care Team Providers Care Finance Controller Name Role Phone Maria D Mccray MD Primary Care Provider [phone] Allergies Active Allergy Reactions Criticality Noted Date [...] tongue. Only if needed 0 09/11/2011 Active [place]-3 300 MG CAPS Take 1 capsule by [...] this topic Medical Devices Implanted Type Area Financial Examiner Device Identifier Shelf Expiration Date Model / Serial / Lot Cement Bone Surg Simplex Radiopq Stry-Howm [id number] 092 - [id number] Implanted:Qty: 1 on 05/07/2022 by Matthew Ley MD at [facility] Right: Knee [employer] 08/21/2024 6191-1-010 / / [id number] Cement Bone Surg Simplex Radiopq Stry-Howm [id number] 092 - [id number] Implanted:Qty: 1 on 05/07/2022 by Matthew Ley MD at [facility] Right: Knee [employer] 08/21/2024 6191-1-010 / / [id number] Knee Fem Joao Ps Trthln Rt #5 Stry-Howm 7898-[id number]-[id number] 749 - [id number] Implanted:Qty: 1 on 05/07/2022 by Matthew Ley MD at [facility] Right: Knee [employer] [id number] 11/13/2026 5515-F-502 / / [id number] Knee Baseplt Tib Cmnt Sz5 Stry-Howm 9166-J-[id number] 191 - [id number] Implanted:Qty: 1 on 05/07/2022 by Matthew Ley MD at [facility] Right: Knee [employer] [id number] 01/07/2027 5520-B-500 / / [id number] Peg Fix Femoral Distal Stry-Howm 3687-G-[id number] 704 - [id number] Implanted:Qty: 1 on 05/07/2022 by Matthew Ley MD at [facility] Right: Knee [employer] [id number] 12/21/2026 5575-X-000 / / [id number] Knee Tib Insrt Ps-X3 [id number] Stry-Howm 0528-L-[id number] 751 - [id number] Implanted:Qty: 1 on 05/07/2022 by Matthew Ley MD at [facility] Right: Knee [employer] [id number] 12/09/2026 5532-G-513 / / [id number] Knee Pat Asymmetric X3 [id number] Stry-Howm 8597-N-120-E-2 34787 - [id number] Implanted:Qty: 1 on 05/07/2022 by Matthew Ley MD at [facility] Right: Knee [employer] [id number] 01/20/2027 5551-G-320 -E / / [id number] Advance Directives For more information, please contact: [phone] Documents on File Type Date Recorded Patient Pulp Roller Expl anation Advance Directive and Living Will [...] way: discussion with patient . Care Teams Finance Controller Relationship Specialty Start Date End Date Maria D Mccray MD 175 [facility] [address] [place] [address] PCP - General Internal Medicine 07/07/21
--- OUTSIDE RECORDS SUMMARY | 2024-06-20 14:12 | XMS_ITS | Encounter Summary ---
Author Organization [facility] Address [address] [place] [address] Care Team Providers Care Superintendent Overhead Distribution Name Role Phone Maria D Mccray Primary Care Provider [phone] Encounter Details Date Type Department Care Team (Late st Contact Info) Description 07/25/2021 Documentation [facility] [address] [place] [address] Whitney Moon RN Social History Tobacco Use [...] Info) Description 07/18/2024 11:40 AM EDT Follow-Up [facility] Renal Transplant [address] [place] [address] Gurjit Olsen MD [address] [place] [address] documented as of this encounter Visit Diagnoses [...] documented as of this encounter Care Teams Superintendent Overhead Distribution Relationship Specialty Start Date End Date Maria D Mccray [address] [place] [address] PCP - General Internal Medicine 05/05/17 documented as of this encounter
--- OUTSIDE RECORDS SUMMARY | 2024-06-20 14:12 | XMS_ITS | Encounter Summary ---
Author Organization [facility] Address [address] [place] [address] Care Team Providers Care Desk Pens Assembler Name Role Phone Maria D Mccray MD Primary Care Provider [phone] Encounter Details Date Type Department Care Team (Late st Contact Info) Description 01/19/2024 Lab Requisition [facility] [address] [facility] [place] [phone] Keri Cuevas MD [address] [place] [id number] Encounter for other general examination Social History [...] Description 07/03/2024 2:30 PM EDT Office Visit [facility] Cardiology [facility] [address] [place] [address] Dereje Jackson MD [address] [place] [address],[facility] [address] [facility] [place] [address] 07/12/2024 10:45 AM EDT Office Visit Internal Medicine - [facility] [address] [place] [phone] Amado Morgan NP [address] [place] [address] documented as of this encounter Procedures Procedure [...] investigational or for research. Test performed at [facility], [address] , [place], [place] ??[address] ? [phone] Cassie Aguiar MD, PhD - Veterinarian Poultry Blood Venous blood specimen / Unknown Venipuncture / Unknown 01/19/2024 7:17 AM EST 01/19/2024 10:47 AM EST us Keri Cuevas MD LAB BLOOD ORDERABLES Final Res ult [facility] [address] [place] [address] * Tacrolimus level (01/19/2024 7:17 AM EST) Tacrolimus Level 5.9 5.0 - 20.0 ng/mL 01/24/2024 12:27 PM EST [facility] Comment: Additional Information: Toxic Level [...] developed and the performance characteristics determined by [facility]. This confirmation testing has not been cleared or approved by the FDA. The laboratory is regulated under CLIA as qualified to perform high-complexity testing. This test is used for patient testing purposes. It should not be regarded as investigational or for research. Test performed at [facility], [address] , [place], [place] ??[address] ? [phone] Cassie Aguiar MD, PhD - Veterinarian Poultry Blood Venous blood specimen / Unknown Venipuncture / Unknown 01/19/2024 7:17 AM EST 01/19/2024 10:47 AM EST us Keri Cuevas MD LAB BLOOD ORDERABLES Final Res ult [facility] [address] [place] [address] * (ABNORMAL) Complete blood count (01/19/2024 7:17 AM EST) WBC 3.4(L) 4.8 - 10.8 K/mcL LAB HEMETOLOGY METHOD 01/19/2024 2:45 PM [facility] RBC 4.70 4.50 - 5.50 M/mcL LAB HEMETOLOGY METHOD 01/19/2024 2:45 PM [facility] Hemoglobin 13.4(L) 13.5 - 17.5 g/dL LAB HEMETOLOGY METHOD 01/19/2024 2:45 PM [facility] Hematocrit 41.3(L) 42.0 - 54.0 % LAB HEMETOLOGY METHOD 01/19/2024 2:45 PM [facility] MCV 88.4 79.0 - 98.0 FL LAB HEMETOLOGY METHOD 01/19/2024 2:45 PM EST [facility] MCH 28.7 27.0 - 32.0 pcg LAB HEMETOLOGY METHOD 01/19/2024 2:45 PM EST [facility] MCHC 32.4 32.0 - 37.0 g/dL LAB HEMETOLOGY METHOD 01/19/2024 2:45 PM EST [facility] RDW 13.6 11.0 - 15.0 % LAB HEMETOLOGY METHOD 01/19/2024 2:45 PM EST [facility] Platelets 150 130 - 400 K/mcL LAB HEMETOLOGY METHOD 01/19/2024 2:45 PM EST [facility] MPV 11.6(H) 7.0 - 11.0 FL LAB HEMETOLOGY METHOD 01/19/2024 2:45 PM EST [facility] NRBC 0.0 <1.0 % LAB HEMETOLOGY METHOD 01/19/2024 2:45 PM EST [facility] NRBC Absolute 0.00 <0.10 K/mcL LAB HEMETOLOGY METHOD 01/19/2024 2:45 PM EST [facility] Blood Venous blood specimen / Unknown Venipuncture / Unknown 01/19/2024 7:17 AM EST 01/19/2024 10:47 AM EST us Keri Cuevas MD LAB BLOOD ORDERABLES Final Res ult [facility] [address] [place] [address], * Comprehensive metabolic panel (01/19/2024 7:17 AM EST) Sodium 141 133 - 145 mmol/L LAB CHEMISTRY METHOD 01/19/2024 1:42 PM EST [facility] Potassium 3.7 3.5 - 5.5 mmol/L LAB CHEMISTRY METHOD 01/19/2024 1:42 PM [facility] Chloride 110 96 - 110 mmol/L LAB CHEMISTRY METHOD 01/19/2024 1:42 PM [facility] CO2 22 21 - 32 mmol/L LAB CHEMISTRY METHOD 01/19/2024 1:42 PM [facility] Anion Gap 9 3 - 11 LAB CHEMISTRY METHOD 01/19/2024 1:42 PM [facility] Glucose 77 70 - 100 mg/dL LAB CHEMISTRY METHOD 01/19/2024 1:42 PM [facility] BUN 13 5 - 25 mg/dL LAB CHEMISTRY METHOD 01/19/2024 1:42 PM [facility] Creatinine 0.82 0.70 - 1.30 mg/dL LAB CHEMISTRY METHOD 01/19/2024 1:42 PM [facility] eGFR 92 >=60 mL/min/1. 73m2 LAB CHEMISTRY METHOD 01/19/2024 1:42 PM [facility] Comment:Calculation based on the??Chronic Kidney Disease Epidemiology Collaboration (CKD-EPI) equation refit??without adjustment for race. BUN/Creatinine Ratio 15.9 LAB CHEMISTRY METHOD 01/19/2024 1:42 PM [facility] Calcium 9.1 8.5 - 10.5 mg/dL LAB CHEMISTRY METHOD 01/19/2024 1:42 PM [facility] AST (SGOT) 30 10 - 42 unit/L LAB CHEMISTRY METHOD 01/19/2024 1:42 PM [facility] ALT (SGPT) 29 10 - 60 unit/L LAB CHEMISTRY METHOD 01/19/2024 1:42 PM [facility] Alkaline Phosphatase 59 42 - 121 unit/L LAB CHEMISTRY METHOD 01/19/2024 1:42 PM [facility] Total Protein 6.1 6.0 - 8.0 g/dL LAB CHEMISTRY METHOD 01/19/2024 1:42 PM EST [facility] Albumin 3.8 3.2 - 5.0 g/dL LAB CHEMISTRY METHOD 01/19/2024 1:42 PM EST [facility] Total Bilirubin 1.2 0.0 - 1.4 mg/dL LAB CHEMISTRY METHOD 01/19/2024 1:42 PM EST [facility] Blood Venous blood specimen / Unknown Venipuncture / Unknown 01/19/2024 7:17 AM EST 01/19/2024 10:47 AM EST us Keri Cuevas MD LAB BLOOD ORDERABLES Final Res ult [facility] [address] [place] [address], documented in this encounter Visit Diagnoses Diagnosis Encounter for other general examination documented in this encounter Additional Health Concerns Assessment Noted Time PHQ-9 Depression Total Score: 0 01/10/20 24 2:13 PM EST A fall risk assessment has been complete d for the patient 01/10/2024 2:13 PM EST documented as of this encounter Care Teams Desk Pens Assembler Relationship Specialty Start Date End Date Maria D Mccray MD [address] [address] PCP - General Internal Medicine 02/01/12 documented as of this encounter
--- OUTSIDE RECORDS SUMMARY | 2024-06-20 14:12 | XMS_ITS | Encounter Summary ---
Author Organization [facility] Address [address] [place] [address] Care Team Providers Care Mill House Supervisor Name Role Phone Maria D Mccray MD Primary Care Provider [phone] Reason for Visit * Reason Onset Date Comments faxed form 05/29/2024 [facility] Encounter Details Date Type Department Care Team (Late st Contact Info) Description 05/29/2024 Telephone Internal Medicine [facility] [address] [place] [address] Karyna Graham MA faxed form ([facility]) Social [...] Progress Notes * Karyna Graham MA - 06/20/2024 12:54 PM EDT Faxed [phone] * Karyna Graham MA - 06/19/2024 10:22 AM EDT [facility] physical therapy Progress note 05/23/24 Placed in providers folder for signature. documented in this encounter Plan of Treatment Upcoming Encounters Date Type Department Care Team (Late st Contact Info) Description 07/03/2024 2:30 PM EDT Office Visit [facility] [address] [place] [address] Dereje Jackson MD [address] [place] [address] [address] [facility] [place] [address] 07/12/2024 10:45 AM EDT Office Visit Internal Medicine - [place] [address] [place] [phone] Amado Morgan NP [address] [place] [address] documented as of this encounter Visit Diagnoses Not on filedocumented in this encounter Additional Health Concerns Assessment Noted Time PHQ-9 Depression Total Score: 0 01/10/20 24 2:13 PM EST A fall risk assessment has been complete d for the patient 01/10/2024 2:13 PM EST documented as of this encounter Care Teams Mill House Supervisor Relationship Specialty Start Date End Date Maria D Mccray MD [address] [place] [phone] PCP - General Internal Medicine 02/01/12 documented as of this encounter
== END 2024-06-20 12:58 | disposition home or self-care (01) ==
LOC: HO.HKAS 12:11
PROVIDERS: PCP Internal Medicine; Visit Provider Internal Medicine Nephrology
DX: Z94.0 Kidney transplant status (principal); I10 Essential (primary) hypertension
CPT/HCPCS: 99214

== ENCOUNTER → 2024-06-20 12:11 | Outpatient (BNVA) | payer MEDICARE, BC, SELFPAY | PROVIDERS: PCP Internal Medicine; Visit Provider Internal Medicine Nephrology | DX: I10 Essential (primary) hypertension (principal); Z94.0 Kidney transplant status; Z86.73 Personal history of transient ischemic attack (TIA), and cerebral infarction without residual deficits | CPT/HCPCS: 99212 ==

== ENCOUNTER 2024-08-29 11:00 | Outpatient (AMB) | payer MEDICARE, BC, SELFPAY ==
[2024-08-29 11:13] VITALS: BP 130/60; PULSE 59; O2SAT 96; BMI 25.7
--- NOTE | 2024-08-29 11:13 | HO.NEPHOV_ITS ---
Vital Signs 08/29/24 11:13 Height 5 ft 7 in Weight 164 lb BMI 25.7 BP 130/60 Blood Pressure Location Rt brachial Position Sitting Pulse 59 Pulse Source Pulse Oximeter Pulse Oximetry (%) 96 Oxygen Delivery Method Room Air Intake Visit Reasons: 2mon follow-up w/labs-Conf Environmental Health Sanitarian Required: No Accompanied by: Spouse Allergies adhesive tape Allergy (Verified 08/29/24 11:16) rash NSAIDS (Non-Steroidal Anti-Inflamma Allergy (Verified 08/29/24 11:16) Kidney replacement HPI Comments Details: Randy was seen in follow up of his kidney transplant. He had CVA with some deficits . He monitors his BP closely. 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 His serum creatinine has been stable around 0.9. He has been having edema from Nifedipine. He had peripheral arterial symptoms and had seen vascular surgeon. He thinks he likely will need stenting of his arteries on the left lower extremity. He continues to have left upper extremity AV fistula which he wants it to be tied off. He applies sunscreen when he goes out and maintains good hydration. He does not take any nonsteroidal anti- inflammatories and is compliant with his medications. His appetite is good. He does not have any chest pain, shortness of breath, paroxysmal nocturnal dyspnea, orthopnea, urinary symptoms. He recently had hiccoughs and was treated with Chlorpromazine. He was accompanied by his Siomara during this office visit. [facility] Medical History FHx: total knee replacement (~06/2022) Osteoarthritis Hyperlipidemia Hypertension History of congestive heart failure Gout GERD (gastroesophageal reflux disease) Surgical History Prostate cancer (~2011) History of heart bypass surgery (~2010) Social History Patient Tobacco Use Status: Former Tobacco user Current occupational status: retired Review of Systems Const All systems reviewed & are unremarkable except as noted in HPI and below Physical Exam Vital Signs: Last Vital Signs Pulse 59 08/29/24 11:13 BP 170/58 H 08/29/24 11:13 Pulse Ox 96 08/29/24 11:13 Oxygen Delivery Method Room Air 08/29/24 11:13 BMI result Body Mass Index 25.7 Const General: comfortable and no acute distress Orientation/consciousness: patient oriented x3 HEENT Head: Yes normocephalic Mouth: Normal oral and palatal mucosa present Eyes EOM: EOMs intact bilaterally Neck Neck: Yes supple Resp Auscultation: clear to auscultation bilaterally Cardio Jugular venous distension: no JVD Rate: regular rate GI Palpation (GI): Soft to palpation Auscultation: normal bowel sounds General: Yes no CVA tenderness Back/Spine/Pelvis Back: no CVA tenderness Skin General skin exam: no rashes or lesions noted Neuro General: patient oriented x3 and moves all extremities Extrem General: Yes no pedal edema Assessment & Plan Assessment & Plan (1) Renal transplant recipient: Code(s): Z94.0 - Kidney transplant status Category: Surgical (2) Hypertension: Code(s): I10 - Essential (primary) hypertension Category: Medical Qualifiers: Hypertension type: primary hypertension Qualified Code(s): I10 - Essential (primary) hypertension Plan Randy had ESRD from hypertension and received a donor renal transplant in 2017. His serum creatinine is stable at baseline. He has no history of rejection. His blood pressure is at goal. His hemoglobin A1c is good. His lipid profile is at goal. He has no side effects from calcineurin inhibitor. He is compliant with his medications. He applies sunscreen when he goes out and follows up with a spinner fixer once a year. He has a follow-up with vascular surgery for his peripheral arterial disease. He is going to see vascular surgeon regarding his left upper extremity AV fistula which can be either reduced in size or tied off. He has no clinical signs of heart failure. I may have to back off on cellcept if his WBC drops. All his and his 's questions were answered. Follow-up appointment given Orders: Orders Creatinine 2 Months I10 - Essential (primary) hypertension, Z94.0 - Kidney transplant status Calcium 2 Months I10 - Essential (primary) hypertension, Z94.0 - Kidney transplant status Magnesium 2 Months I10 - Essential (primary) hypertension, Z94.0 - Kidney transplant status Lactate Dehydrogenase 2 Months I10 - Essential (primary) hypertension, Z94.0 - Kidney transplant status Complete Blood Count Auto Diff 2 Months I10 - Essential (primary) hypertension, Z94.0 - Kidney transplant status Blood Urea Nitrogen 2 Months I10 - Essential (primary) hypertension, Z94.0 - Kidney transplant status Electrolytes 2 Months I10 - Essential (primary) hypertension, Z94.0 - Kidney transplant status Phosphorus 2 Months I10 - Essential (primary) hypertension, Z94.0 - Kidney transplant status Tacrolimus Prograf 2 Months I10 - Essential (primary) hypertension, Z94.0 - Kidney transplant status Coding Level of Care Code Est Pt Level 4 (24755) Diagnoses Renal transplant recipient Z94.0 Primary hypertension I10 Hypertension type: primary hypertension
--- OUTSIDE RECORDS SUMMARY | 2024-08-29 12:06 | XMS_ITS ---
Author Name [facility] Organization Unknown History of Medication Use Medication Directions Dispensed Refills Start Date End Date Stat Kenalog 40 mg/mL suspension for injection Take 1 mL by injection route. 07/10/2022 active lidocaine (PF) 10 mg/mL (1 %) injection solution Take 2 mL by injection route. 07/10/2022 active alendronate 70 mg tablet active allopurinol 100 mg tablet active amoxicillin 500 mg capsule TAKE ONE CAPSULE BY MOUTH THREE TIMES DAILY active lorazepam 1 mg tablet TAKE 1 TABLET BY MOUTH EVERY DAY AT BEDTIME NEEDED ANXIETY active losartan 100 mg tablet a ctive methocarbamol 750 mg tablet Take 1 tablet 3 times a day by oral route. active nifedipine ER 60 mg tablet,extended release 24 hr active oxycodone 5 mg tablet Take 1-2 tabs p.o. every 4 to 6 hours as needed for pain. May fill for lesser quantity. active oxycodone 5 mg tablet Take 1-2 tabs p.o. every 4 to 6 hours as needed for pain. May fill for lesser quantity. active rosuvastatin 20 mg tablet active Problems Problem Status Onset Date Problem Type Date of Resolution Source Pain of right calf active 2022-05-21 ProblemAct [facility] Osteoarthritis of left knee joint active 2022-07-10 ProblemAct [facility] Postoperative pain active 2022-05-08 ProblemAct [facility] Effusion of right knee joint active 2022-07-21 ProblemAct [facility] Kidney replaced by transplant active EncounterDiagnosisAct [facility] Abscess of skin and/or subcutaneous tissue active 2022-07-21 ProblemAct [facility] Encounters Encounter Type Encounter Reason Primary Diagnosis Location Date Ambulatory [facility] 10/13/2022 Ambulatory [facility] 09/19/2022 Ambulatory [facility] 07/16/2022 Ambulatory [facility] [place] 07/16/2022 Ambulatory [facility] [place] 07/06/2022 Ambulatory [facility] [place] 05/21/2022 Ambulatory Kidney transplan t status [facility] 04/16/2022 Care Team Organization Name Specialty Phone Email Start Date End Da te [facility] PCP,No Primary Care 04/16/2022 [facility] PRATIBHA MERAZ Primary Care 01/22/2022 4 [facility] NO PCP Primary Care 11/20/2014 03/03/2022 [facility]
--- OUTSIDE RECORDS SUMMARY | 2024-08-29 12:06 | XMS_ITS | Clinical Summary ---
Author Organization [facility] Address [address] [place] [address] Phone Care Team Providers Care Supervisor Tile And Mottle Name Role Phone Maria D Mccray MD Primary Care Provider [phone] Allergies Active Allergy Reactions Criticality Noted Date [...] transplant 02/20/2016 Atherosclerotic heart diseas e of [place] coronary artery without angina pectoris 06/01/2013 Carcinoma [...] Colonoscopy (Post-Transplant Patient) 05/13/2020 Influenza Vaccine (#1) 2024 , 10/29/2019, 11/20/2018, Additional history exists Hepatitis B Vaccine Aged Out 07/14/2013 No longe r eligible based on patient's age to complete this topic Pneumococcal Vaccine: Peds (0 to 5 Years) and At-Risk Patients (6 to 49 Years) Discontinued 08/01/2014, 07/14/2013, 02/22/2009, Additional history exists Insurance Medicare [facility] Medicare [facility] Care Teams Supervisor Tile And Mottle Relationship Specialty Start Date End Date Maria D Mccray MD [address] [phone] PCP - General 03/04/20
--- OUTSIDE RECORDS SUMMARY | 2024-08-29 12:06 | XMS_ITS | Clinical Summary ---
Author Organization [facility] Address [address] [place] [address] Care Team Providers Care Core Assembly Supervisor Name Role Phone Maria D Mccray MD Primary Care Provider [phone] Social History Tobacco Use Types Packs/Day Years [...] Zoster (Shingles) Vaccine (1 of 2) 1999 COVID-19 Vaccine (2023-2 5 season) 2023 RSV Vaccine 60 years and older and Patients (1 - 1-dose 75+ series) 01/06/2024 Influenza Vaccine 09/22/2024 12/12/2020, 10/29/2019, 11/20/2013 Hepatitis B Vaccines Aged Out No long er eligible based on patient's age to complete this topic Insurance MEDICARE PART A & B BLUE CROSS OUT OF STATE - PPO Care Teams Core Assembly Supervisor Relationship Specialty Start Date End Date Maria D Mccray MD [address] [place] [phone] PCP - General 03/19/22
--- OUTSIDE RECORDS SUMMARY | 2024-08-29 12:06 | XMS_ITS | Clinical Summary ---
Author Organization [facility] Address [address] [place] [address] Care Team Providers Care Social Media Community Manager Name Role Phone Maria D Mccray Primary Care Provider [phone] Allergies Active Allergy Reactions Criticality Noted Date [...] schedule II opioid drug. 12/19/19 21 Active multivitamin (THERAGRAN) tablet Take 1 tablet by mouth daily. 30 tablet 1 01/03/20 22 Active predniSONE (DELTASONE) 5 mg tabletIndication s:Kidney transplant recipient (HCC) Take 1 tablet (5 mg total) by mouth daily. 30 tablet 11 5 3:55 AM EDT 09/05/19 24 025 Active NIFEdipine XL (PROCARDIA XL) 60 mg tabletIndication s:Essential hypertension Take 1 tablet (60 mg total) by mouth 2 times a day. 60 tablet 5 3:55 AM EDT 11/05/19 24 025 Active mycophenolate mofetil (CELLCEPT) 250 mg capsuleIndicatio ns:Kidney replaced by transplant (HCC) Take 2 capsules (500 mg total) by mouth every morning AND 1 capsule (250 mg total) every evening. 90 capsule 5 3:55 AM EDT 12/30/19 24 Active allopurinoL (ZYLOPRIM) 100 mg tablet Take 1 tablet (100 mg total) by mouth 1 (one) time each day. 30 tablet 5 5 3:55 AM EDT 01/28/20 24 Active doxazosin (CARDURA) 2 mg tablet Take 2 tablets (4 mg total) by mouth once a day for 90 days. 180 tablet 5 3:55 AM EDT 04/18/19 25 Active alendronate (FOSAMAX) 70 mg tablet Take 1 tablet (70 mg total) by mouth every 7 (seven) days. 12 tablet 1 5 10:31 AM EDT 05/28/19 25 Active Prograf 1 mg capsuleIndicatio ns:Kidney transplant recipient (HCC),Kidney replaced by transplant (HCC) Take 4 capsules (4 mg total) by mouth in the morning AND 4 capsules (4 mg total) every evening. 240 capsule 5 3:55 AM EDT 07/06/19 25 Active coenzyme Q10 300 mg capsule Take 300 mg by mouth daily. Active clopidogreL (PLAVIX) 75 mg tablet Take 75 mg by mouth daily. 02/09/20 24 Active furosemide (LASIX) 20 mg tablet Take 20 mg by mouth once a day. 02/23/19 25 Active hydrALAZINE (APRESOLINE) 50 mg tablet Take 100 mg by mouth 3 times a day. 05/30/19 25 Active vitamin B complex capsule Take 1 capsule by mouth once a day. Active lactose-reduced food (ENSURE ORAL) Take by mouth 4 times a week. Active losartan (COZAAR) 100 mg tablet Take 1 tablet (100 mg total) by mouth daily. 30 tablet 5 5 3:55 AM EDT 07/28/19 25 Active rosuvastatin (CRESTOR) 20 mg tablet Take 1 tablet (20 mg total) by mouth 1 (one) time each day. 30 tablet 5 5 3:55 AM EDT 07/28/19 25 Active LORazepam (ATIVAN) 1 mg tablet Take 1 tablet (1 mg total) by mouth 1 (one) time each day if needed for anxiety. Max Daily Amount: 1 mg 28 tablet 4 5 3:55 AM EDT 07/28/19 25 Active famotidine (PEPCID) 20 mg tablet Take 1 tablet (20 mg total) by mouth 2 (two) times a day. 60 tablet 3 01/30/20 24 025 Discontin ued(Exter nal source cancellat ion) omeprazole (PriLOSEC) 20 mg capsule Take 1 capsule (20 mg total) by mouth daily. 30 capsule 5 5 3:55 AM EDT 07/28/19 25 025 Discontin ued(Exter nal source cancellat ion) [...] Information: The UNOS donor ID number is [id number]. The match run ID number is [id number]. The donor ABO is O. The donor [...] Encounters Date Type Department Care Team Description 08/23/2024 Telephone [facility] Transplant Department [address] [place] [address] Renée Sahu, MISA 08/23/2024 Telephone [facility] Department [address] [place] [address] Renée Sahu, MISA 08/22/2024 Telephone [facility] Transplant Department [address] [place] [address] Renée Sahu, MISA 07/18/2024 11:40 AM EDT Follow-Up [facility] Renal Transplant [address] [place] [address] Gurjit Olsen MD Kidney transplant recipient ([facility]) (Primary Dx); Immunosuppression (HCC); Essential hypertension 07/05/2024 Refill [facility] [address] [place] [address] Gurjit Olsen MD Kidney transplant recipient ([facility]); Kidney replaced by transplant ([facility]) 06/29/2024 Orders Only [facility] [address] [place] [address] Drilling Engineering Manager: Gurjit Conroy MD 06/20/2024 Results Follow-Up [facility] Ren[facility] Transplant [address] [place] [address] Renée Sahu, MISA 05/31/2024 Telephone [facility] Transplant Department [address] [place] [address] Renée Sahu, MISA 05/30/2024 Results Follow-Up [facility]plant [address] [place] [address] Renée Sahu, MISA from Last 3 Months Immunizations Immunization [...] Sign Reading Time Taken Comments Blood Pressure 154/69 07/18/2024 12:20 PM EDT Pulse 56 07/18/2024 12:05 PM EDT Temperature 36.7 C (98 F) 07/18/2024 12:05 PM EDT Respiratory Rate 20 07/18/2024 12:05 PM EDT Oxygen Saturation 95% 07/18/2024 12:05 PM EDT Inhaled Oxygen Concentration - - Weight 77.6 kg (171 lb 1.2 oz) 07/18/2024 12:05 PM EDT Height 172.7 cm (5' 8 ) 02/28/2019 11:21 AM EST Body Mass Index 26.01 02/28/2019 11:21 AM EST Plan of Treatment Upcoming Encounters Date Type Department Care Team (Late st Contact Info) Description 01/16/2025 11:20 AM EST Follow-Up [facility] Renal Transplant [address] [place] [address] Gurjit Olsen MD [address] [place], [place] [id number] Health Maintenance Due Date Last Done Comments [...] or Tdap) 05/18/2023 05/17/2013, 05/17/2013 Depression Screening and Follow-Up 02/23/2024 Health Care Proxy Review 02/23/2024 Social Drivers of Health Shweta ual Screening 02/23/2024 COVID-19 Vaccine (9 - Modern a risk season) 2024 11/29/2023, 05/26/2023, 05/26/2023, Additional history exists Influenza Vaccine (#1) 2024 4, 10/03/2022, 10/28/2021, Additional history exists Basic Metabolic Panel 08/03/2025 08/03/2024 , 07/12/2024, 06/29/2024, Additional history exists Hepatitis C Screening Completed 10/27/2017 , 10/27/2017, 12/30/2016, Additional history exists Pneumococcal Vaccine: 50+ Years Completed 01/15/2021, 02/21/2016, 11/27/2014, Additional history exists RSV Vaccine (60+ years old a nd patients) Completed 11/11/2022 Alcohol/Substance Use Screening Completed 5 Procedures * Due to [place] state law, this organization might not be sharing negative HIV tests. Procedure Name Priority Date/Time Associated Diagnosis Comments TACROLIMUS LEVEL Routine 08/03/2024 8:57 AM EDT Kidney transplant recipient (HCC) CBC AUTO DIFFERENTIAL Routine 08/03/2024 8:57 AM EDT Kidney transplant recipient (HCC) PHOSPHORUS Routine 08/03/2024 8:57 AM EDT Kidney transplant recipient (HCC) MAGNESIUM Routine 08/03/2024 8:57 AM EDT Kidney transplant recipient (HCC) COMPREHENSIVE METABOLIC PANEL Routine 08/03/2024 8:57 AM EDT Kidney transplant recipient (HCC) PROTEIN, RANDOM URINE WITH CREATININE Routine 07/18/2024 12:42 PM EDT Kidney transplant recipient (HCC) MICROALBUMIN, RANDOM URINE WITH CREATININE Routine 07/18/2024 12:42 PM EDT Kidney transplant recipient (HCC) PLATELET [id number] Routine 06/29/2024 9:09 AM EDT TACROLIMUS LEVEL Routine 06/29/2024 9:09 AM EDT CBC AUTO DIFFERENTIAL Routine 06/29/2024 9:09 AM EDT PHOSPHORUS Routine 06/29/2024 9:09 AM EDT MAGNESIUM Routine 06/29/2024 9:09 AM EDT COMPREHENSIVE METABOLIC PANEL Routine 06/29/2024 9:09 AM EDT TACROLIMUS LEVEL Routine 06/19/2024 9:09 AM EDT [...] EDT Kidney transplant recipient (HCC) Immunosuppression (HCC) HEPATITIS C RNA, QUANTITATIVE, PCR Routine 10/27/2017 2:34 PM EDT Increased infection risk status post immunosuppressive therapy from Last 3 Months or Most Recently Relevant to Health Maintenance Results * Due to [place] state law, this organization might not be sharing negative HIV tests. * (ABNORMAL) CBC Auto Differential (08/03/2024 8:57 AM EDT) Only the most recent of3 resultswithin the time period is included. Pathologist [facility] White Blood Cell Count 3.6(L) 3.8 - 10.8 Thousand/ uL 08/03/2024 10:32 PM EDT [facility] Red Blood Cell Count 3.99(L) 4.20 - 5.80 Million/u L 08/03/2024 10:32 PM [employer] [facility] Hemoglobin 11.5(L) 13.2 - 17.1 g/dL 08/03/2024 10:32 PM [employer] [facility] Hematocrit 36.4(L) 38.5 - 50.0 % 08/03/2024 10:32 PM [employer] [facility] MCV 91.2 80.0 - 100.0 fL 08/03/2024 10:32 PM [employer] [facility] MCH 28.8 27.0 - 33.0 pg 08/03/2024 10:32 PM [employer] [facility] MCHC 31.6(L) 32.0 - 36.0 g/dL 08/03/2024 10:32 PM [employer] [facility] Comment: For adults, a slight decrease in the calculated MCHC value (in the range of 30 to 32 g/dL) is most likely not clinically significant; however, it should be interpreted with caution in correlation with other red cell parameters and the patient's clinical condition. RDW 12.2 11.0 - 15.0 % 08/03/2024 10:32 PM [employer] [facility] Platelet Count 128(L) 140 - 400 Thousand/ uL 08/03/2024 10:32 PM [employer] [facility] MPV 11.4 7.5 - 12.5 fL 08/03/2024 10:32 PM [employer] [facility] Absolute Neutrophils 1,836 1,500 - 7,800 cells/uL 08/03/2024 10:32 PM [employer] [facility] Absolute Lymphocytes 990 850 - 3,900 cells/uL 08/03/2024 10:32 PM [employer] [facility] Absolute Monocytes 634 200 - 950 cells/uL 08/03/2024 10:32 PM [employer] [facility] Absolute Eosinophils 101 15 - 500 cells/uL 08/03/2024 10:32 PM [employer] [facility] Absolute Basophils 40 0 - 200 cells/uL 08/03/2024 10:32 PM [employer] [facility] Neutrophils 51 % 08/03/2024 10:32 PM [employer] [facility] Lymphocytes 27.5 % 08/03/2024 10:32 PM [employer] [facility] Monocytes 17.6 % 08/03/2024 10:32 PM EDT [facility] Eosinophils 2.8 % 08/03/2024 10:32 PM EDT [facility] Basophils 1.1 % 08/03/2024 10:32 PM EDT [facility] Blood Structure of peripheral vein / Unknown 08/03/2024 8:57 AM EDT 08/03/2024 9:37 PM EDT Narrative [facility] - 08/04/2024 2:35 AM EDT FASTING:YES Your request to have a duplicate copy faxed has been acknowledged. Queued to: [phone] Queued to: [id number] Gurjit Olsen MD LAB BLOOD ORDERABLES Chiqui jarvis Result [facility] [address] [facility] [address], [place] [address], [facility] [address] [place] [address] * Tacrolimus Level (08/03/2024 8:57 AM EDT) Only the most recent of3 resultswithin the time period is included. [facility] Tacrolimus, Highly Sensitive 5.1 mcg/L 08/04/2024 2:24 AM EDT [facility] Comment: No definitive therapeutic or toxic ranges have been established. Optimal blood drug levels are influenced by type of transplant, patient response, time post- transplant, co-administration of other drugs, and drug formulation. The following trough range is a suggested guideline: 5.0-20.0 mcg/L. This test was developed and its analytical performance characteristics have been determined by [employer]. It has not been cleared or approved by the FDA. This assay has been validated pursuant to the CLIA regulations and is used for clinical purposes. Blood Structure of peripheral vein / Unknown 08/03/2024 8:57 AM EDT 08/03/2024 10:08 PM EDT Narrative [facility] - 08/04/2024 2:35 AM EDT FASTING:YES Your request to have a duplicate copy faxed has been acknowledged. Queued to: [phone] Queued to: [id number] Gurjit Olsen MD LAB BLOOD ORDERABLES Chiqui l Result Performing Organization Address City/[facility] Co de Phone Number [facility] [address], [place] [address], [place] [phone] [facility] [address] [place] [address] * Phosphorus (08/03/2024 8:57 AM EDT) Only the most recent of3 resultswithin the time period is included. Phosphate 3.4 2.1 - 4.3 mg/dL 08/04/2024 2:03 AM EDT [facility] Blood Structure of peripheral vein / Unknown 08/03/2024 8:57 AM EDT 08/03/2024 10:01 PM EDT Narrative [facility] - 08/04/2024 2:35 AM EDT FASTING:YES Your request to have a duplicate copy faxed has been acknowledged. Queued to: [phone] Queued to: [id number] Gurjit Olsen MD LAB BLOOD ORDERABLES Chiqui l Result Performing Organization Address [facility] Co de Phone Number [facility] [address], [place] [address], [place] [phone] [facility] [address] [address] * Magnesium (08/03/2024 8:57 AM EDT) Only the most recent of3 resultswithin the time period is included. Magnesium 2.0 1.5 - 2.5 mg/dL 08/04/2024 2:03 AM EDT [facility] Blood Structure of peripheral vein / Unknown 08/03/2024 8:57 AM EDT 08/03/2024 10:01 PM EDT Narrative [facility] - 08/04/2024 2:35 AM EDT FASTING:YES Your request to have a duplicate copy faxed has been acknowledged. Queued to: [phone] Queued to: [id number] Gurjit Olsen MD LAB BLOOD ORDERABLES Chiqui simona Result [facility] [address] [facility] [address], [place] [address], [place] [phone] [facility] [employer] [address] [place] [address] * (ABNORMAL) Comprehensive Metabolic Panel (08/03/2024 8:57 AM EDT) Only the most recent of3 resultswithin the time period is included. Pathologist [facility] Glucose 91 65 - 99 mg/dL 08/04/2024 2:03 AM EDT [facility] Comment: Fasting reference interval BUN 23 7 - 25 mg/dL 08/04/2024 2:03 AM [employer] Creatinine 1.03 0.70 - 1.28 mg/dL 08/04/2024 2:03 AM [employer] eGFR 76 > OR = 60 mL/min/1. 73m2 08/04/2024 2:03 AM [employer] Bun/Creatinine Ratio SEE NOTE: 6 - 22 (calc) 08/04/2024 2:03 AM [employer] Comment: Not Reported: BUN and Creatinine are within reference range. Sodium 137 135 - 146 mmol/L 08/04/2024 2:03 AM [employer] Potassium 3.8 3.5 - 5.3 mmol/L 08/04/2024 2:03 AM [employer] Chloride 106 98 - 110 mmol/L 08/04/2024 2:03 AM [employer] [facility] Carbon Dioxide 24 20 - 32 mmol/L 08/04/2024 2:03 AM [employer] Calcium 9.2 8.6 - 10.3 mg/dL 08/04/2024 2:03 AM [employer] Protein, Total 6.1 6.1 - 8.1 g/dL 08/04/2024 2:03 AM [employer] Albumin 4.3 3.6 - 5.1 g/dL 08/04/2024 2:03 AM EDT [facility] Globulin 1.8(L) 1.9 - 3.7 g/dL (calc) 08/04/2024 2:03 AM EDT [facility] Albumin/Globuli n Ratio 2.4 1.0 - 2.5 (calc) 08/04/2024 2:03 AM EDT [facility] Bilirubin, Total 0.9 0.2 - 1.2 mg/dL 08/04/2024 2:03 AM EDT [facility] Alkaline Phosphatase 44 35 - 144 U/L 08/04/2024 2:03 AM EDT [facility] AST 16 10 - 35 U/L 08/04/2024 2:03 AM EDT [facility] ALT 9 9 - 46 U/L 08/04/2024 2:03 AM EDT [facility] Blood Structure of peripheral vein / Unknown 08/03/2024 8:57 AM EDT 08/03/2024 10:01 PM EDT Narrative [facility] - 08/04/2024 2:35 AM EDT FASTING:YES Your request to have a duplicate copy faxed has been acknowledged. Queued to: [phone] Queued to: [id number] Gurjit Olsen MD LAB BLOOD ORDERABLES Chiqui jarvis Result [facility] [address] [facility] [address], [place] [address], [facility] [address] [place] [address] * Microalbumin, Random Urine with Creatinine (07/18/2024 12:42 PM EDT) Microalbumin, Urine <2.0 mg/dL 07/18/2024 3:24 PM EDT [facility] Creatinine, Urine 119 22 - 328 mg/dL 07/18/2024 3:24 PM EDT [facility] Microalb/Creat Ratio, Random Urine 07/18/2024 3:24 PM EDT [facility] Comment: < 1.0 mcg/mgCr Microalbumin Reference Range: Normal <30 mcg/mg Creatinine Microalbuminuria 30-300 mcg/mg Creatinine Clinical Albuminuria >300 mcg/mg Creatinine Reference: ADA Guideline. Diabetes Care. 2003;27 (suppl 1) Urine Voided urine specimen / Unknown Non-Blood Collection / Unknown 07/18/2024 12:42 PM EDT 07/18/2024 2:47 PM EDT Gurjit Olsen MD LAB URINE ORDERABLES Chiqui l Result [facility] [address] [place] [address], * Protein, Random Urine with Creatinine (07/18/2024 12:42 PM EDT) Protein, Urine 13 mg/dL 07/18/2024 3:24 PM EDT [facility] Creatinine, Urine 119 22 - 328 mg/dL 07/18/2024 3:24 PM EDT [facility] Protein/Creati nine, Urine Ratio 109 <200 mg/gmCr 07/18/2024 3:24 PM EDT [facility] Urine Voided urine specimen / Unknown Non-Blood Collection / Unknown 07/18/2024 12:42 PM EDT 07/18/2024 2:47 PM EDT Gurjit Olsen MD LAB URINE ORDERABLES Chiqui l Result [facility] [facility] [address] [place] [address], * (ABNORMAL) Platelet Estimation (06/29/2024 9:09 AM EDT) Platelet Estimation DECREASED (A) ADEQUATE 06/30/2024 6:52 AM EDT [facility] 06/29/2024 9:09 AM EDT 06/29/2024 9:09 AM EDT Narrative [facility] - 06/30/2024 7:05 AM EDT FASTING:YES Your request to have a duplicate copy faxed has been acknowledged. Queued to: [phone] Queued to: [id number] Gurjit Olsen MD LAB BLOOD ORDERABLES Chiqui l Result Performing Organization Address City/[facility] Co de Phone Number [facility] [address] [facility] [address], [place] [address], [place] [phone] [facility] [address] [place] [address] * Hepatitis C RNA, quantitative, PCR (10/27/2017 2:34 PM EDT) [facility] Hcv RNA, Quantitative Real Time PCR <15 NOT DETECTED NOT DETECTED IU/mL 10/28/2017 12:53 PM EDT [facility] Hepatitis C Quantitative PCR Log IU/mL <1.18 NOT DETECTED NOT DETECTED Log IU/mL 10/28/2017 12:53 PM EDT [facility] Comment: This test was performed using Real-Time Polymerase Chain Reaction. Reportable Range: 15 IU/mL to 100,000,000 IU/mL (1.18 Log IU/mL to 8.00 Log IU/mL). The analytical performance characteristics of this assay have been determined by [employer]. The modifications have not been cleared or approved by the FDA. This assay has been validated pursuant to the CLIA regulations and is used for clinical purposes. For more information on this test, go to: http://[email or web address].CANDDi/faq/WDN38m6 (This link is being provided for informational/ educational purposes only.) Blood specimen (specimen) Structure of peripheral vein / Unknown Venipuncture / Unknown 10/27/2017 2:34 PM EDT 10/27/2017 2:44 PM EDT [facility] - 10/28/2017 12:53 PM EDT [facility] Received Date: Destiny Noel MD LAB BLOOD ORDERABLES Final R esult Performing Organization Address City/[facility]/ZIP Co de Phone Number [facility]ON[facility] ORDONEZ [address] [facility] [address], [place] [address], [place] [phone] [facility] [address], [address] [facility] [place] [address], [place] [phone] from Last 3 Months or Most Recently Relevant to Health Maintenance Insurance MEDICARE Member Subscriber Plan / Payer (Ef fective 2013-Present) Name:Randy Birch Member ID:[id number] Relation to Subscriber:Self Name:Randy Birch Subscriber ID:[id number] Payer ID:[id number] Group ID:Not on file Type:Not on file Address: [place] [address] [place] OUT OF STATE PPO MEDICARE Advance Directives Documents on File Type Date Recorded Patient Access Service Representative Expl anation Advance Directive 02/07/2014 12:00 AM sf Medical Dec Making (Adv.Dir) Advance Directive 06/30/2010 12:00 AM sf Me dical Dec Making (Adv.Dir) Care Teams Social Media Community Manager Relationship Specialty Start Date End Date Maria D Mccray [address] [place] [id number] PCP - General Internal Medicine 05/05/17
--- OUTSIDE RECORDS SUMMARY | 2024-08-29 12:06 | XMS_ITS | Encounter Summary ---
Author Organization [facility] [place] [address] Care Team Providers Care Financial Management Name Role Phone Maria D Mccray MD Primary Care Provider [phone] Encounter Details Date Type Department Care Team (Late Contact Info) Description 01/19/2024 Lab Requisition [facility] - Main Lab 299 [facility] [place] [address] Keri Cuevas MD [address] [place] [id number] Encounter for other general examination Social History [...] Department Care Team (Late Contact Info) Description 09/01/2024 11:00 AM EDT Office Visit [facility] Hematology Oncology [address] [place] [address] Priscilla Duenas MD [address] [place], [place] [phone] 09/14/2024 2:40 PM EDT Office Visit Gastroenterology - [place] 175 [facility] 175 [facility] [address] [place] [address] Ugo Hobbs MD 175 [facility] [address] [place] [address] 10/17/2024 2:00 PM EDT Office Visit Orthopedic Surgery - [place] 250 175 [facility] 250 [place] [phone] Estevan Alvarado PA 175 [facility] [address] [place] [address] 2025 11:30 AM EST Office Visit Internal Medicine - [place] 175 [facility] 200 [place] [phone] Amado Morgan NP 175 [facility] [address] [place] [address] documented as of this encounter Procedures Procedure [...] 01/25/2024 7:36 AM EST [facility] Comment: Combined Therapy with Trough Level (ug/mL) Mycophenolic Acid Cyclosporine 1.0 - 3.5 Tacrolimus 1.9 - 4.0 Toxic Level >25 ng/mL Mycophenolic Acid Glucuronide 35 - 100 Toxic level Not established Mycophenolic acid and mycophenolic acid glucuronide determined by a LC-MS/MS procedure. If applicable, any drug confirmation testing reported here was developed and the performance characteristics determined by [facility]. This confirmation testing has not been cleared or approved by the FDA. The laboratory is regulated under CLIA as qualified to perform high-complexity testing. This test is used for patient testing purposes. It should not be regarded as investigational or for research. Test performed at [facility], [address] [place] [address] Cassie Aguiar MD, PhD - [employer] Plant Supervisor Blood Venous blood specimen / Unknown Venipuncture / Unknown 01/19/2024 7:17 AM EST 01/19/2024 10:47 AM EST Keri Cuevas MD LAB BLOOD ORDERABLES Final Res ult [facility] [address] [place] [address] * Tacrolimus level (01/19/2024 7:17 AM EST) Tacrolimus Level 5.9 5.0 - 20.0 ng/mL 01/24/2024 12:27 PM EST [facility] Comment: Additional Information: Toxic Level > 26 ng/mL Organ Post Transp. (months) Trough Level (ng/mL) Kidney Up to 3 7.0 - 20.0 >3 5.0 - 15.0 Heart Up to 3 10.0 - 20.0 >3 5.0 - 15.0 Liver Up to 12 5.0 - 20.0 Tacrolimus determined by a LC-MS/MS procedure. If applicable, any drug confirmation testing reported here was developed and the performance characteristics determined by [facility]. This confirmation testing has not been cleared or approved by the FDA. The laboratory is regulated under CLIA as qualified to perform high-complexity testing. This test is used for patient testing purposes. It should not be regarded as investigational or for research. Test performed at [facility], [address], [place] [address] Cassie Aguiar MD, PhD - [employer] Plant Supervisor Blood Venous blood specimen / Unknown Venipuncture / Unknown 01/19/2024 7:17 AM EST 01/19/2024 10:47 AM EST us Keri Cuevas MD LAB BLOOD ORDERABLES Final Res ult [facility] [address] [place] [address] * (ABNORMAL) Complete blood count (01/19/2024 7:17 AM EST) WBC 3.4(L) 4.8 - 10.8 K/mcL LAB HEMETOLOGY METHOD 01/19/2024 2:[address] [facility] RBC 4.70 4.50 - 5.50 M/mcL LAB HEMETOLOGY METHOD 01/19/2024 2:[address] [facility] Hemoglobin 13.4(L) 13.5 - 17.5 g/dL LAB HEMETOLOGY METHOD 01/19/2024 2:[address] [facility] Hematocrit 41.3(L) 42.0 - 54.0 % LAB HEMETOLOGY METHOD 01/19/2024 2:[address] [facility] MCV 88.4 79.0 - 98.0 FL LAB HEMETOLOGY METHOD 01/19/2024 2:[address] [facility] MCH 28.7 27.0 - 32.0 pcg LAB HEMETOLOGY METHOD 01/19/2024 2:[address] [facility] MCHC 32.4 32.0 - 37.0 g/dL LAB HEMETOLOGY METHOD 01/19/2024 2:[address] [facility] RDW 13.6 11.0 - 15.0 % LAB HEMETOLOGY METHOD 01/19/2024 2:[address] [facility] Platelets 150 130 - 400 K/mcL LAB HEMETOLOGY METHOD 01/19/2024 2:45 PM EST [facility] MPV 11.6(H) 7.0 - 11.0 FL LAB HEMETOLOGY METHOD 01/19/2024 2:45 PM EST [facility] NRBC 0.0 <1.0 % LAB HEMETOLOGY METHOD 01/19/2024 2:45 PM EST [facility] NRBC Absolute 0.00 <0.10 K/mcL LAB HEMETOLOGY METHOD 01/19/2024 2:45 PM EST [facility] Blood Venous blood specimen / Unknown Venipuncture / Unknown 01/19/2024 7:17 AM EST 01/19/2024 10:47 AM EST us Keri Cuevas MD LAB BLOOD ORDERABLES Final Res ult [facility] [address] [place] [address], * Comprehensive metabolic panel (01/19/2024 7:17 AM [...] [facility] Comment:Calculation based on the Chronic Kidney Disease Epidemiology Collaboration (CKD-EPI) equation refit without adjustment for race. BUN/Creatinine Ratio 15.9 LAB [...] MD LAB BLOOD ORDERABLES Final Res ult [facility] [address] [place] [address], documented in this encounter Visit Diagnoses Diagnosis Encounter for other general examination documented in this encounter Additional Health Concerns Assessment Noted Time PHQ-9 Depression Total Score: 0 01/10/20 24 2:13 PM EST A fall risk assessment has been complete d for the patient 01/10/2024 2:13 PM EST documented as of this encounter Care Teams Financial Management Relationship Specialty Start Date End Date Maria D Mccray MD [address] [phone] PCP - General Internal Medicine 02/01/12 documented as of this encounter
--- OUTSIDE RECORDS SUMMARY | 2024-08-29 12:06 | XMS_ITS | Data Portability ---
Author Organization [facility] Brad Valentine [facility] [place] Address [address] [place] [address] Care Team Providers Care Emerging Technologies Director Name Role Phone PRATIBHA MERAZ Primary Care [...] findings at length with the patient today. We discussed the nature and etiology of this problem along with current treatment options. We discussed the expected course and outcomes and what to expect. We also discussed risks and benefits. All of their questions were answered today, and there was exhibited understanding and comprehension of all that was discussed. Time Spent: 10 minutes were spent reviewing previous imaging and charting. 10 minutes were spent obtaining patient history. 5 minutes were spent on physical exam. 5minutes were spent explaining diagnosis and assessment. Today's [...] recheck. All questions answered to his satisfaction. [email or web address] Not available 07/16/2022 13:44:10 07/17/2022 07/17/2022 Assessment [...] findings at length with the patient today. We discussed the nature and etiology of this problem along with current treatment options. We discussed the expected course and outcomes and what to expect. We also discussed risks and benefits. All of their questions were answered today, and there was exhibited understanding and comprehension of all that was discussed. Time Spent: 10 minutes were spent reviewing previous imaging and charting. 10 minutes were spent obtaining patient history. 5 minutes were spent on physical exam. 5minutes were spent explaining diagnosis and assessment. Today's [...] findings at length with the patient today. We discussed the nature and etiology of this problem along with current treatment options. We discussed the expected course and outcomes and what to expect. We also discussed risks and benefits. All of their questions were answered today, and there was exhibited understanding and comprehension of all that was discussed. Time Spent: 10 minutes were spent reviewing previous imaging and charting. 10 minutes were spent obtaining patient history. 5 minutes were spent on physical exam. 5minutes were spent explaining diagnosis and assessment. Today's [...] findings at length with the patient today. We discussed the nature and etiology of this problem along with current treatment options. We discussed the expected course and outcomes and what to expect. We also discussed risks and benefits. All of their questions were answered today, and there was exhibited understanding and comprehension of all that was discussed. Time Spent: 10 minutes were spent reviewing previous imaging and charting. 10 minutes were spent obtaining patient history. 5 minutes were spent on physical exam. 5minutes were spent explaining diagnosis and assessment. Today's [...] 40 mg/mL suspension for injection 2022 023 [id number] [address] [place], [address], 3 07:59:15 lidocaine (PF) 10 mg/mL (1 %) injection solution 2022 023 [employer] [facility] #[id number], [address] [place], [address], 3 07:59:15 Patient TargetsNo targets recorded. Patient Instructions Encounter Date Encounter Id Patient Instructions Last Modified By Organization Details Last Modified Time 07/08/2022 [id number] You have been provided with a cortisone [...] following the injection. This is called a flare . To help minimize the chances of [...] Details Recorded Time Pain of right calf 9090425752856 103 Active 2022 JAKE PEARSON PA-C [address], [place], [address], [place] [facility] 3 13:30:23 Postoperati ve pain 508968786 Active 2022 JAKE PEARSON PA-C [address], [place], [address], [place] [facility], [facility] 3 16:05:43 Acute postoperati ve pain 0616852280631 05 Active 2022 JAKE PEARSON PA-C [address], [place], [address], [place] [facility], [facility] 3 16:10:11 Osteoarthri tis of left knee joint 6947821835393 09 Active 2022 JAKE PEARSON PA-C [address], [place], [address], [place] [facility], [facility] 3 07:58:19 Abscess of skin and/or subcutaneou s tissue 11809323 Active 2022 JAKE PEARSON PA-C [address], [place], [address], [place] [facility], P 06:35:15 Effusion of joint of right knee 2819952873619 04 Active 2022 JAKE PEARSON PA-C [address], [place], [address], [place] [facility], P 06:35:29 Problem Notes None recorded. Procedures Surgical History Date Name Laterality Status Provider Name and Address Organization Details Recorded Time 07/18/19 23 Knee Joint/Bursa Asp & Inj completed JAKE PEARSON PA-C [address], [place], [address], [place] [facility] P 07/21/2022 06:31:55 07/09/19 23 Knee Joint/Bursa Asp & Inj completed JAKE PEARSON PA-C [address] [facility] [address], [place], [address], [place] [facility], [facility] 07/10/2022 07:56:35 transplant of kidney completed [facility], P 05/21/2022 12:53:39 operation on prostate completed [facility], P 05/21/2022 12:53:55 coronary artery bypass graft completed [facility] 05/21/2022 12:54:04 Total knee arthroplasty [facility] 05/21/2022 12:54:13 Imaging Results None recorded. [...] Updated DateTime 07/08/2022 172.72 cm Beulah [place] - [facility], P 07/08/2022 15:20:28 Date Recorded Body height Provider Name an d Address Organization Details Last Updated DateTime 07/16/2022 172.72 cm Beulah Carolina [facility], P 07/16/2022 11:24:57 Date Recorded Body height Provider Name an d Address Organization Details Last Updated DateTime 07/17/2022 172.72 cm Peri Figueroa [place] - [facility], P 07/17/2022 13:09:43 Date Recorded Body height Provider Name an d Address Organization Details Last Updated DateTime 07/22/2022 172.72 cm Beulah [place] [facility], P 07/22/2022 11:41:07 Date Recorded Body height Provider Name an d Address Organization Details Last Updated DateTime 08/05/2022 172[address] [place] - [facility], P 08/05/2022 11:32:48 Social History None recorded. [...] Code Diagnosis ICD10 Code Diagnosis Note [id number] NANCY VICTOR [facility] 299 [facility] [address] [place] [address] 05/21/2022 12:47:49 05/21/2022 13:31:03 History of right total knee replacement 9313046755 927889 Z96.651 Postoperative pain 47782 9007 G89.18 Pain of right calf 01044 63706 013508 M79.661 [id number] NANCY VICTOR [facility] [address] [address] 07/08/2022 15:09:11 07/08/2022 16:00:05 Postoperative pain 189353955 G89.18 Osteoarthr itis of left knee joint 2459910070 01628 M17.12 [id number] NANCY TIERNEY [place] 113 [facility] [address] [place] [address] 07/16/2022 11:11:01 07/16/2022 13:26:06 History of total knee arthroplasty 3208759418 105 Z96.651 Postoperative care 78845 9007 Z48.89 [id number] NANCY VICTOR [facility] 299 [facility] [address] [place] [address] 07/17/2022 13:06:16 07/17/2022 13:54:06 Acute postoperative pain 4166631305 21062 G89.18 Abscess of skin and/or subcutaneous tissue 19098407 L02.91 Effusion o f joint of right knee 6870790871 20944 M25.461 [id number] NANCY VICTOR [place] 299 [facility] [address] [place] [address] 07/22/2022 11:35:32 07/22/2022 11:53:12 Follow-up visit 585116389 Z09 [id number] NANCY VICTOR [place] 299 [facility] 409 [facility] [place] [address] 08/05/2022 11:29:31 08/05/2022 11:38:15 Postoperative visit 576093907 Z09 Health Concerns Section Related Observation LastModified by Organization Detai ls LastModified Time None Recorded Concern Status LastModified by Organization Details LastModified Time None Recorded Advance Directives Directive None Recorded Payers Insurance Date Sequence Insurance Name Policy Number Policy Motta Covered Member ID Motta Member ID Guarantor Name 10/25/2022 1 [place]ARE B-[place]: [facility] Randy Birch [id number] Randy Birch 10/13/2022 2 [place] [id number] K Randy Birch [id number] Randy Birch 10/13/2022 2 [place] [id number] K Randy Birch [id number] Randy Birch 10/26/2022 2 [place] [id number] K Randy Birch [id number] Randy Jean Eyal Notes Date Note Type Note Provider Name and Address Organization Details Recorded Time 07/08/2022 text/html This is a [facility] 72-year-old male here for follow-up on his [...] fevers chills flulike symptoms JAKE PEARSON PA-C 299 [facility],[address], [place], [address], [facility] - [facility], P 07/10/2022 07:59:18 07/16/2022 text/html Patient is [...] WAYNE COVARRUBIAS PA-C [address], [place], [address], [facility] - [facility], P 07/16/2022 13:45:14 07/17/2022 text/html Assessment & [...] States some swelling JAKE PEARSON PA-C [address], [place], [address], [place] [facility], P 07/21/2022 06:36:13 07/22/2022 text/html Assessment & [...] JAKE PEARSON PA-C [address], [place], [address], [place] [facility] 07/23/2022 07:33:21 08/05/2022 text/html Status post rig t total knee replacement by Dr. Ley on 05/07/2022. Patient has been followed for suture abscess here for follow-up. Patient states he is completely healed he is doing well. JAKE PEARSON PA-C [address] [place] [address], [address], [place] [facility] 08/07/2022 07:41:00
--- OUTSIDE RECORDS SUMMARY | 2024-08-29 12:06 | XMS_ITS | Clinical Summary ---
Author Organization [facility] Address [address] [place] [address] Care Team Providers Care Tree Loader Meat Name Role Phone Maria D Mccray MD Primary Care Provider [phone] Allergies Active Allergy Reactions Criticality Noted Date [...] tongue. Only if needed 0 09/11/2011 Active Rhinelander-3 300 MG CAPS Take 1 capsule by [...] 66 05/08/2022 7:31 AM EDT Temperature 36.5 C (97.7 F) 05/08/2022 7:31 AM EDT Respiratory Rate 18 05/08/2022 7:31 AM EDT [...] series) 08/11/2013 07/14/2013 Fall Risk Assessment 2014 RSV Adult > 60+ Yrs or (1 - 1-dose 75+ series) 01/06/2024 Influenza Vaccine (#1) 2024 , 10/29/2019, 11/20/2018, Additional history exists Pneumococcal Vaccine Completed 01/15/2021, 02/21/2016, 11/27/2014, Additional history exists RSV Ped < 20 months Aged Out No longe r eligible based on patient's age to complete this topic Medical Devices Implanted Type Area Civil Engineering Director Device Identifier Shelf Expiration Date Model / Serial / Lot Cement Bone Surg Simplex Radiopq Stry-Howm 5237-2-203-114 092 - [id number] Implanted:Qty: 1 on 05/07/2022 by Matthew Ley MD at [facility] Right: Knee [employer] 08/21/2024 6191-1-010 / / [id number] Cement Bone Surg Simplex Radiopq Stry-Howm 2101-8-694-114 092 - [id number] Implanted:Qty: 1 on 05/07/2022 by Matthew Ley MD at [facility] Right: Knee [employer] 08/21/2024 6191-1-010 / / [id number] Knee Fem Joao Ps Trthln Rt #5 Stry-Howm 9882-F-[id number] 749 - [id number] Implanted:Qty: 1 on 05/07/2022 by Matthew Ley MD at [facility] Right: Knee [employer] [id number] 11/13/2026 5515-F-502 / / [id number] Knee Baseplt Tib Cmnt Sz5 Stry-Howm 4353-G-663-189 191 - [id number] Implanted:Qty: 1 on 05/07/2022 by Matthew Ley MD at [facility] Right: Knee [employer] [id number] 01/07/2027 5520-B-500 / / [id number] Peg Fix Femoral Distal Stry-Howm 7269-Q-067-547 704 - [id number] Implanted:Qty: 1 on 05/07/2022 by Matthew Ley MD at [facility] Right: Knee [employer] [facility] [id number] 12/21/2026 5575-X-000 / / [id number] Knee Tib Insrt Ps-X3 [id number] Stry-Howm 6224-H-404-534 751 - [id number] Implanted:Qty: 1 on 05/07/2022 by Matthew Ley MD at [facility] Right: Knee [employer] [facility] [id number] 12/09/2026 5532-G-513 / / [id number] Knee Pat Asymmetric X3 [id number] Stry-Howm 6527-J-400-E-2 17504 - [id number] Implanted:Qty: 1 on 05/07/2022 by Matthew Ley MD at [facility] Right: Knee [employer] [id number] 01/20/2027 5551-G-320 -E / / [id number] Advance Directives For more information, please contact: [phone] Documents on File Type Date Recorded 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 Care Teams Tree Loader Meat Relationship Specialty Start Date End Date Maria D Mccray MD 175 [facility] [address] [place] [id number] PCP - General Internal Medicine 07/07/21
== END 2024-08-29 12:19 | disposition home or self-care (01) ==
LOC: HO.HKAS 11:01
PROVIDERS: PCP Internal Medicine; Visit Provider Internal Medicine Nephrology
DX: Z94.0 Kidney transplant status (principal); I10 Essential (primary) hypertension
CPT/HCPCS: 99214

== ENCOUNTER → 2024-08-29 11:00 | Outpatient (BNVA) | payer MEDICARE, BC, SELFPAY | PROVIDERS: PCP Internal Medicine; Visit Provider Internal Medicine Nephrology | DX: Z94.0 Kidney transplant status (principal); I10 Essential (primary) hypertension; I77.0 Arteriovenous fistula, acquired; I73.9 Peripheral vascular disease, unspecified; Z79.899 Other long term (current) drug therapy | CPT/HCPCS: 99212 ==

== ENCOUNTER 2024-10-31 12:00 | Outpatient (AMB) | payer MEDICARE, BC, SELFPAY ==
--- OUTSIDE RECORDS SUMMARY | 2024-10-28 15:02 | XMS_ITS | Continuity of Care Document ---
Author Organization [facility] Address [address] [place] [id number]- Care Team Providers Care Watch Band Assembler Name Role Phone Shazia GODOY, Maria D Kapadia Primary Care Physician Encounter [facility] Date(s): 06/23/24 - 10/28/[address] [address] Encounter Diagnosis Personal history of transient ischemic attack (TIA), and cerebral infarction without residual deficits(Final) - Muscle weakness (generalized)(Final) - Discharge Disposition: A-D/C Home Attending Physician: Maria D Mccray MD Admitting Physician: Maria D Mccray MD Referring Physician: Maria D Mccray MD Encounter Type: Disch Recurring OP Allergies, Adverse Reactions, Alerts Substance Criticality Severity [...] opioid drug. Start Date: 03/27/21 Status: Ordered Medication Dispense Status: Completed Total Allowed Fills: 1 Fills Dispensed: 0 allopurinol 100 mg oral tablet 1 tablet = 100 mg, By Mouth, Daily, 0 Refills, Maintenance, 06/02/11 7:52:51 AM EDT Start Date: 06/02/11 Status: Ordered Medication Dispense Status: Completed Total Allowed Fills: 1 Fills Dispensed: 0 CellCept 250 mg oral capsule See Instructions, 2 capsule in AM, 1 capsule at bedtime, 0 Refills, Maintenance, 04/18/21 10:56:00 AM EST, Capsule, Partial fill upon patient request if the prescription is for a schedule II opioid drug. Start Date: 04/18/21 Status: Ordered Medication Dispense Status: Completed Total Allowed Fills: 1 Fills Dispensed: 0 Co Q-10 = 100 mg, By Mouth, Daily, 0 Refills, Maintenance, 04/19/13 9:52:48 AM EST Start Date: 04/19/13 Status: Ordered Medication Dispense Status: Completed Total Allowed Fills: 1 Fills Dispensed: 0 doxazosin 2 mg oral tablet 4 mg, 2, tablet, By Mouth, Daily at bedtime, TAKE 1 TABLET BY MOUTH EVERY DAY AT NIGHT Start Date: 01/11/24 Status: Ordered Medication Dispense Status: Completed Total Allowed Fills: 1 Fills Dispensed: 0 Fish Oil By Mouth, 0 Refills, Maintenance, 04/19/13 9:52:38 AM EST Start Date: 04/19/13 Status: Ordered Medication Dispense Status: Completed Total Allowed Fills: 1 Fills Dispensed: 0 furosemide 20 mg oral tablet 20 mg, [...] opioid drug. Start Date: 05/29/24 Status: Ordered Medication Dispense Status: Completed Quantity: 30.0 Unit: tablet Total Allowed Fills: 1 Fills Dispensed: 0 hydrALAZINE 50 mg oral tablet 2 tablet = 100 mg, By Mouth, 3 times a day, # 120 tablet, 0 Refills, Maintenance, 05/29/24 10:10:00 PM EDT, Tablet, Partial fill upon patient request if the prescription is for a schedule II opioid drug. Start Date: 05/29/24 Status: Ordered Medication Dispense Status: Completed Quantity: 120.0 Unit: tablet Total Allowed Fills: 1 Fills Dispensed: 0 lorazepam 1 mg oral tablet 1 tablet = 1 mg, By Mouth, PRN as needed for anxiety, 0 Refills, Maintenance, 09/14/14 3:39:26 PM EDT Start Date: 09/14/14 Status: Ordered Medication Dispense Status: Completed Total Allowed Fills: 1 Fills Dispensed: 0 losartan 100 mg oral tablet 0 Refills, Maintenance, 03/27/21 3:56:00 PM EST, Partial fill upon patient request if the prescription is for a schedule II opioid drug. Start Date: 03/27/21 Status: Ordered Medication Dispense Status: Completed Total Allowed Fills: 1 Fills Dispensed: 0 Multivitamin By Mouth, Daily, 0 Refills, Maintenance, 06/02/10 2:37:39 PM EDT Start Date: 06/02/10 Status: Ordered Medication Dispense Status: Completed Total Allowed Fills: 1 Fills Dispensed: 0 NIFEdipine (Eqv-Procardia XL) 60 mg oral tablet, extended release 1 tablet = 60 mg, By Mouth, 2 times a day, # 90 tablet, 0 Refills, Maintenance, 01/11/24 4:31:00 PMEST, ER Tablet, Partial fill upon patient request if the prescription is for a schedule II opioid drug. Start Date: 01/11/24 Status: Ordered Medication Dispense Status: Completed Quantity: 90.0 Unit: tablet Total Allowed Fills: 1 Fills Dispensed: 0 Nitrostat 0.3 mg sublingual tablet 1 tablet = 0.3 mg, Sublingual, Every 5 minutes, PRN for chest pain, # 100 tablet, 0 Refills, Maintenance, 11/11/11 4:03:21 PM EDT, Tablet Start Date: 11/11/11 Status: Ordered Medication Dispense Status: Completed Quantity: 100.0 Unit: tablet Total Allowed Fills: 1 Fills Dispensed: 0 omeprazole 20 mg oral enteric coated capsule 1 capsule = 20 mg, By Mouth, Daily, # 30 capsule, 0 Refills, Maintenance, 01/11/24 4:31:00 PM EST, EC Capsule, Partial fill upon patient request if the prescription is for a schedule II opioid drug. Start Date: 01/11/24 Status: Ordered Medication Dispense Status: Completed Quantity: 30.0 Unit: capsule Total Allowed Fills: 1 Fills Dispensed: 0 Orthotics See Instructions, # 1 each, Refills 0, Tot. Refills 0, Maintenance, Rx to [facility] at [phone]: For lower extermity swelling (R22.4) and edema(R60.1): Issue Circiaid juxtafit essentials lower leg x1 Sigvaris compreboot x1 Hybrid socks x6 pairs, 08/30/24 10:04:00 AM EDT, Supply Start Date: 08/30/24 Status: Ordered Medication Dispense Status: Completed Quantity: 1.0 Unit: each Total Allowed Fills: 1 Fills Dispensed: 0 Plavix 75 mg oral tablet 75 mg, By Mouth, Daily, # 90 tablet, Refills 0, Tot. Refills 0, Maintenance, 01/13/24 11:53:00 AM EST, Do Not Route, Partial fill upon patient request if the prescription is for a schedule II opioid drug. Start Date: 01/13/24 Stop Date: 04/12/24 Status: Ordered Medication Dispense Status: Completed Quantity: 90.0 Unit: tablet Total Allowed Fills: 1 Fills Dispensed: 0 predniSONE 5 mg oral tablet 5 tablet = 25 mg, By Mouth, Daily, # 50 tablet, 0 Refills, Maintenance, 05/29/24 10:52:00 PM EDT, Tablet, Partial fill upon patient request if the prescription is for a schedule II opioid drug. Start Date: 05/29/24 Status: Ordered Medication Dispense Status: Completed Quantity: 50.0 Unit: tablet Total Allowed Fills: 1 Fills Dispensed: 0 Prograf 1 mg oral capsule See Instructions, 4 capsule in morning, 3 capsule in evening, 0 Refills, Maintenance, 04/09/21 9:59:00 AM EST, Partial fill upon patient request if the prescription is for a schedule II opioid drug. Start Date: 04/09/21 Status: Ordered Medication Dispense Status: Completed Total Allowed Fills: 1 Fills Dispensed: 0 rosuvastatin 20 mg oral tablet 1 tablet = 20 mg, By Mouth, Daily at bedtime, # 60 tablet, 0 Refills, Maintenance, 01/11/24 4:31:00PM EST, Tablet, Partial fill upon patient request if the prescription is for a schedule II opioid drug. Start Date: 01/11/24 Status: Ordered Medication Dispense Status: Completed Quantity: 60.0 Unit: tablet Total Allowed Fills: 1 Fills Dispensed: 0 sildenafil 100 mg oral tablet 0 Refills, Maintenance, 03/27/21 3:56:00 PM EST, Partial fill upon patient request if the prescription is for a schedule II opioid drug. Start Date: 03/27/21 Status: Ordered Medication Dispense Status: Completed Total Allowed Fills: 1 Fills Dispensed: 0 Problem List Condition Confirmation Course Effective Dates Status H ealth Status Informant CVA (cerebrovascular accident) Confirmed Active Chronic Kidney disease Confirmed Active History of Congestive heart failure Confirmed Active Coronary arteriosclerosis, Coronary artery bypass grafts x 3 Confirmed Active CAD in [place] artery Confirmed Active Ex-smoker Confirmed Active Gastroesophageal [...] Care Team Personnel Name: Juliann Moon Position: [facility] HMO Reviewer Member Role: Primary Care Nurse Name: Shazia GODOY, Maria D Kapadia Position: Reference Physician Member Role: PCP Address: [address], [address] [place] [address]- [place] Telecom: Name: Jim Ibrahim MD Position: [facility] Renal MD Member Role: Lifetime Consulting Physician Address: [address] [place] [address] [address] [place] [address]- [place] Telecom: Name: Guille Dennis RN Position: [facility] RN Member Role: Primary Care Nurse Name: Teri Stoll NP Position: [facility] Associate Professional Member Role: Primary Care Nurse Address: [address] [place] [address]- Telecom: Name: Ambrocio Foley RN Position: [facility] RN Member Role: Primary Care Nurse Care Team Related Persons Name: KAT TATE Name: KAT TATE JR Name: JUNIE TATE Insurance Providers Guarantor name: KAT TATE Health Plan Information #: 1 Payer: MEDICARE B Payer Identifier: Member Number: [id number] Group Number: NA Subscriber Identifier: [id number] Relationship to Subscriber: self Coverage Type: NA Coverage Verification Date: NA Telecom: NA Address: Health Plan Information #: 2 Payer: [employer] Payer Identifier: Member Number: [id number] Group Number: [id number] Subscriber Identifier: [id number] Relationship to Subscriber: self Coverage Type: Medicare Other Coverage Verification Date: NA Telecom: NA Address:
--- OUTSIDE RECORDS SUMMARY | 2024-10-28 23:59 | XMS_ITS | Continuity of Care Document ---
Author Organization [facility] Address [address] [facility] [address], [address], [address] [place] [address]- Care Team Providers Care Occupational Health And Safety Manager Name Role Phone Shazia GODOY, Maria D D Primary Care Physician [phone] En[place] [facility] Date(s): 09/28/24 - 10/28/24 [facility] [address] [facility] [address]rd Floor, [address] [place] [address]- Encounter Type: Triage Allergies, Adverse Reactions, Alerts Substance Criticality Severity [...] 0, Maintenance, Rx to [facility] at [phone]: For lower extermity swelling (R22.4) and edema(R60.1): [...] grafts x 3 Confirmed Active CAD in [place] artery Confirmed Active Ex-smoker Confirmed Active Gastroesophageal [...] Care Team Personnel Name: Juliann Moon Position: [facility] HMO Reviewer Member Role: Primary Care Nurse Name: Shazia GODOY, Maria D Kapadia Position: Reference Physician Member Role: PCP Address: [address] [place] [address], [address] [place] [address]- Telecom: Name: Jim Ibrahim MD Position: [facility] Renal MD Member Role: Lifetime Consulting Physician Address: [address] [place] [address] [address] [place] [address]- [place] Telecom: Name: Guille Dennis RN Position: [facility] RN Member Role: Primary Care Nurse Name: Teri Stoll NP Position: [facility] Associate Professional Member Role: Primary Care Nurse Address: [address] [place] [address] Telecom: Name: Ambrocio Foley RN Position: S RN Member Role: Primary Care Nurse Care Team Related Persons Name: KAT TATE Name: KAT TATE JR Name: JUNIE TATE Insurance Providers Guarantor name: KAT TATE Health Plan Information #: 1 Payer: MEDICARE B Payer Identifier: NA Member Number: [id number] Group Number: NA Subscriber Identifier: NA Relationship to Subscriber: self Coverage Type: NA Coverage Verification Date: NA Telecom: NA Address: Health Plan Information #: 2 Payer: [facility] Payer Identifier: NA Member Number: [id number] Group Number: [id number] Subscriber Identifier: NA Relationship to Subscriber: self Coverage Type: Medicare Other Coverage Verification Date: Telecom: Address:
--- NOTE | 2024-10-31 12:03 | HO.NEPHOV ---
Vital Signs 10/31/24 12:06 Height 5 ft 7 in Weight 165 lb BMI 25.8 BP 140/60 H Blood Pressure Location Rt brachial Position Sitting Pulse 55 Pulse Source Pulse Oximeter Pulse Oximetry (%) 98 Oxygen Delivery Method Room Air Intake Visit Reasons: 2mnth follow up-Conf Experience Designer Required: No Accompanied by: Self / Same As Patient Allergies adhesive tape Allergy (Verified 10/31/24 12:05) rash NSAIDS (Non-Steroidal Anti-Inflamma Allergy (Verified 10/31/24 12:05) Kidney replacement HPI Comments Details: Randy was seen in follow up of his kidney transplant. He has H/O CVA with some deficits . He monitors his BP closely. 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 His serum creatinine has been stable around 0.9. He has been having edema from Nifedipine. He had peripheral arterial symptoms and had seen vascular surgeon. He thinks he likely will need stenting of his arteries on the left lower extremity. He applies sunscreen when he goes out and maintains good hydration. He does not take any nonsteroidal anti-inflammatories and is compliant with his medications. His appetite is good. He does not have any chest pain, shortness of breath, paroxysmal nocturnal dyspnea, orthopnea, urinary symptoms. He had hiccoughs and was treated with Chlorpromazine. He was accompanied by his Siomara during this office visit [facility] Medical History FHx: total knee replacement (~06/2022) Osteoarthritis Hyperlipidemia Hypertension History of congestive heart failure Gout GERD (gastroesophageal reflux disease) Surgical History Prostate cancer (~2011) History of heart bypass surgery (~2010) Social History Patient Tobacco Use Status: Former Tobacco user Current occupational status: retired Review of Systems Const All systems reviewed & are unremarkable except as noted in HPI and below Physical Exam Const General: comfortable and no acute distress Orientation/consciousness: patient oriented x3 HEENT Head: Yes normocephalic Mouth: Normal oral and palatal mucosa present Eyes EOM: EOMs intact bilaterally Neck Neck: Yes supple Resp Auscultation: clear to auscultation bilaterally Cardio Jugular venous distension: no JVD Rate: regular rate GI Palpation (GI): Soft to palpation Auscultation: normal bowel sounds General: Yes no CVA tenderness Back/Spine/Pelvis Back: no CVA tenderness Skin General skin exam: no rashes or lesions noted Neuro General: patient oriented x3 and moves all extremities Extrem General: Yes no pedal edema Assessment & Plan Assessment & Plan (1) Hypertension: Code(s): I10 - Essential (primary) hypertension Category: Medical Qualifiers: Hypertension type: primary hypertension Qualified Code(s): I10 - Essential (primary) hypertension (2) Renal transplant recipient: Code(s): Z94.0 - Kidney transplant status Category: Surgical Plan Randy had ESRD from hypertension and received a donor renal transplant in 2017. His serum creatinine is stable at baseline. He has no history of rejection. His blood pressure is at goal. His hemoglobin A1c is good. His lipid profile is at goal. He has no side effects from calcineurin inhibitor. He is compliant with his medications. He applies sunscreen when he goes out and follows up with a machine tool operator once a year. He follow-up with vascular surgery for his peripheral arterial disease. He has no clinical signs of heart failure. I may have to back off on cellcept if his WBC drops. All his and his 's questions were answered. Follow-up appointment given Orders: Orders Complete Blood Count Auto Diff 2 Months I10 - Essential (primary) hypertension, Z94.0 - Kidney transplant status Calcium 2 Months I10 - Essential (primary) hypertension, Z94.0 - Kidney transplant status Phosphorus 2 Months I10 - Essential (primary) hypertension, Z94.0 - Kidney transplant status Magnesium 2 Months I10 - Essential (primary) hypertension, Z94.0 - Kidney transplant status Hemoglobin A1c 2 Months I10 - Essential (primary) hypertension, Z94.0 - Kidney transplant status Parathyroid Hormone Intact 2 Months I10 - Essential (primary) hypertension, Z94.0 - Kidney transplant status Creatinine 2 Months I10 - Essential (primary) hypertension, Z94.0 - Kidney transplant status Blood Urea Nitrogen 2 Months I10 - Essential (primary) hypertension, Z94.0 - Kidney transplant status Electrolytes 2 Months I10 - Essential (primary) hypertension, Z94.0 - Kidney transplant status Alanine Aminotransferase 2 Months I10 - Essential (primary) hypertension, Z94.0 - Kidney transplant status Aspartate Amino Transferase 2 Months I10 - Essential (primary) hypertension, Z94.0 - Kidney transplant status Uric Acid 2 Months I10 - Essential (primary) hypertension, Z94.0 - Kidney transplant status Tacrolimus Prograf 2 Months I10 - Essential (primary) hypertension, Z94.0 - Kidney transplant status Vitamin D 25-OH Total 2 Months I10 - Essential (primary) hypertension, Z94.0 - Kidney transplant status Coding Level of Care Code Est Pt Level 4 (38182) Diagnoses Primary hypertension I10 Hypertension type: primary hypertension Renal transplant recipient Z94.0
[2024-10-31 12:06] VITALS: BP 140/60; PULSE 55; O2SAT 98; BMI 25.8
--- OUTSIDE RECORDS SUMMARY | 2024-10-31 14:30 | XMS_ITS | Clinical Summary ---
Author Organization [facility] Address [address] [place] [address] Care Team Providers Care Carver And Checkerer Specials Name Role Phone Maria D Mccray MD Primary Care Provider [phone] Social History Tobacco Use Types Packs/Day Years Used Date Smoking Tobacco: Never Assessed Sex and Gender Information Value Date Recorded Sex Assigned at Not on file Legal Sex Male 1:40 PM EDT Gender Identity Not on file Sexual Orientation Not on file Plan of Treatment Health Maintenance Due Date Last Done Comments Advance Care Planning 1950 Hepatitis C Virus Screening 1950 DTaP/Tdap/Td Vaccines (1 - Tdap) 01/06/1968 Colonoscopy 1994 Pneumococcal Vaccines 50+ (1 of 1 - PCV) 1999 Zoster (Shingles) Vaccine (1 of 2) 1999 RSV Vaccine 60 years and older and Patients (1 - 1-dose 75+ series) 01/06/2024 Influenza Vaccine 09/22/2024 12/12/2020, 10/29/2019, 11/20/2013 COVID-19 Vaccine ( - 2023-2 5 season) 2024 Hepatitis B Vaccines Aged Out No long er eligible based on patient's age to complete this topic Insurance MEDICARE PART A & B BLUE CROSS OUT OF [facility] - PPO Care Teams Carver And Checkerer Specials Relationship Specialty Start Date End Date Maria D Mccray MD [address] [place] [id number] PCP - General 03/19/22
--- OUTSIDE RECORDS SUMMARY | 2024-10-31 14:30 | XMS_ITS | Clinical Summary ---
Author Organization [facility] Address [address] [place] [address] Care Team Providers Care Various Exceptionalities Teacher Name Role Phone Maria D Mccray Primary Care Provider [phone] Allergies Active Allergy Reactions Criticality Noted Date [...] daily. 30 tablet 1 01/03/20 22 Active mycophenolate mofetil (CELLCEPT) 250 mg capsuleIndicatio ns:Kidney replaced by transplant (HCC) Take 2 capsules (500 mg total) by mouth every morning AND 1 capsule (250 mg total) every evening. 90 capsule 11 5 9:50 PM EDT 12/30/19 24 Active doxazosin (CARDURA) 2 mg tablet Take 2 tablets (4 mg total) by mouth once a day for 90 days. 180 tablet 9:50 PM EDT 04/18/19 25 Active Prograf 1 mg capsuleIndicatio ns:Kidney transplant recipient (HCC),Kidney replaced by transplant (HCC) Take 4 capsules (4 mg total) by mouth in the morning AND 4 capsules (4 mg total) every evening. 240 capsule 5 9:50 PM EDT 07/06/19 25 Active coenzyme Q10 300 [...] total) by mouth daily. 30 tablet 5 9:50 PM EDT 07/28/19 25 Active rosuvastatin (CRESTOR) 20 mg tablet Take 1 tablet (20 mg total) by mouth 1 (one) time each day. 30 tablet 5 9:50 PM EDT 07/28/19 25 Active LORazepam (ATIVAN) 1 mg tablet Take 1 tablet (1 mg total) by mouth 1 (one) time each day if needed for anxiety. Max Daily Amount: 1 mg 28 tablet 5 9:50 PM EDT 07/28/19 25 Active predniSONE (DELTASONE) 5 mg tabletIndication s:Kidney transplant recipient (HCC) Take 1 tablet (5 mg total) by mouth daily. 30 tablet 5 9:50 PM EDT 09/01/19 25 026 Active allopurinoL (ZYLOPRIM) 100 mg tablet Take 1 tablet (100 mg total) by mouth 1 (one) time each day. 30 tablet 5 9:50 PM EDT 08/31/19 25 Active alendronate (FOSAMAX) 70 mg tablet Take 1 tablet (70 mg total) by mouth every 7 (seven) days. 12 tablet 1 08/31/19 25 Active omeprazole (PriLOSEC) 20 mg capsule Take 1 capsule (20 mg total) by mouth daily. 30 capsule 5 5 9:50 PM EDT 08/31/19 25 Active NIFEdipine XL (PROCARDIA XL) 60 mg tabletIndication s:Essential hypertension Take 1 tablet (60 mg total) by mouth 2 times a day. 60 tablet 11 10/26/19 25 026 Active famotidine (PEPCID) 20 mg tablet Take [...] Information: The UNOS donor ID number is [id number]. The match run ID number is [id number]. The donor ABO is O. The donor [...] Encounters Date Type Department Care Team Description 10/25/2024 Refill [facility] Renal Transplant [address] [place] [address] Gurjit Olsen MD Essential hypertension 10/09/2024 Telephone [facility] Transplant Department [address] [place] [address] Renée Sahu RN 10/06/2024 Telephone [facility] Transplant Department [address] [place] [address] Renée Sahu, MISA 08/31/2024 Orders Only [facility] Transplant Department [address] [place] [phone] Mayela Arita, MISA Kidney transplant recipient (HCC) (Primary Dx) 08/30/2024 Refill [facility] Renal Transplant [address] [place] [address] Gianluca Saleem MD Kidney transplant recipient (HCC) 08/23/2024 Telephone [facility] Transplant Department [address] [place] [phone] Renée Sahu RN 08/23/2024 Telephone [facility] Transplant Department [address] [place] [phone] Renée Sahu, MISA 08/22/2024 Telephone [facility] Transplant Department [address] [place] [phone] Renée Sahu, MISA from Last 3 Months Immunizations Immunization Administration Dates Next Due Hepatitis B Vaccine, Dialysis Patient Dosage Influenza, High Dose Seasona l, Preservative Free (FLUZONE HIGH-DOSE) 11/20/2018,11/24/2017 Influenza, Injectable, Quadrivalent Preservative Free 12/12/2020,10/29/2019 [...] Info) Description 01/16/2025 11:20 AM EST Follow-Up [facility] Renal Transplant [address] [place] [address] Gurjit Olsen MD [address] [place], [place] [phone] Health Maintenance Due Date Last Done Comments [...] Vaccine (9 - Modern a risk ) 10/23/2024 11/29/2023, 05/26/2023, 05/26/2023, Additional history exists Influenza Vaccine (#1) 2024 , 10/03/2022, 10/28/2021, Additional history exists Basic Metabolic Panel 10/27/2025 10/27/2024 , 10/03/2024, 08/31/2024, Additional history exists Hepatitis C Screening Completed 10/27/2017 , 10/27/2017, 12/30/2016, Additional history exists Pneumococcal Vaccine: 50+ Years Completed 01/15/2021, 02/21/2016, 11/27/2014, Additional history exists RSV Vaccine (60+ years old a nd patients) Completed 11/11/2022 Alcohol/Substance Use Screening Completed 5 Procedures * Due to [place] state law, this organization might not be sharing negative HIV tests. Procedure Name Priority Date/Time Associated Diagnosis Comments COMPREHENSIVE METABOLIC PANEL Routine 10/27/2024 9:09 AM EDT Kidney transplant recipient (HCC) TACROLIMUS LEVEL Routine 10/03/2024 8:58 AM EDT Kidney transplant recipient (HCC) CBC AUTO DIFFERENTIAL Routine 10/03/2024 8:58 AM EDT Kidney transplant recipient (HCC) PHOSPHORUS Routine 10/03/2024 8:58 AM EDT Kidney transplant recipient (HCC) MAGNESIUM Routine 10/03/2024 8:58 AM EDT Kidney transplant recipient (HCC) COMPREHENSIVE METABOLIC PANEL Routine 10/03/2024 8:58 AM EDT Kidney transplant recipient (HCC) TACROLIMUS LEVEL Routine 08/31/2024 8:55 AM EDT Kidney transplant recipient (HCC) Immunosuppression (HCC) CBC AUTO DIFFERENTIAL Routine 08/31/2024 8:55 AM EDT Kidney transplant recipient (HCC) Immunosuppression (HCC) PHOSPHORUS Routine 08/31/2024 8:55 AM EDT Kidney transplant recipient (HCC) Immunosuppression (HCC) MAGNESIUM Routine 08/31/2024 8:55 AM EDT Kidney transplant recipient (HCC) Immunosuppression (HCC) COMPREHENSIVE METABOLIC PANEL Routine 08/31/2024 8:55 AM EDT Kidney transplant recipient (HCC) Immunosuppression (HCC) TACROLIMUS LEVEL Routine 08/03/2024 8:57 AM EDT Kidney transplant recipient (HCC) CBC AUTO DIFFERENTIAL Routine 08/03/2024 8:57 AM EDT Kidney transplant recipient (HCC) PHOSPHORUS Routine 08/03/2024 8:57 AM EDT Kidney transplant recipient (HCC) MAGNESIUM Routine 08/03/2024 8:57 AM EDT Kidney transplant recipient (HCC) COMPREHENSIVE METABOLIC PANEL Routine 08/03/2024 8:57 AM EDT Kidney transplant recipient (HCC) HEPATITIS C RNA, QUANTITATIVE, PCR Routine 10/27/2017 2:34 PM EDT Increased infection risk status post immunosuppressive therapy from Last 3 Months or Most Recently Relevant to Health Maintenance Results * Due to [place] state law, this organization might not be sharing negative HIV tests. * (ABNORMAL) Comprehensive Metabolic Panel (10/27/2024 9:09 AM EDT) Only the most recent of4 resultswithin the time period is included. Glucose 91 65 - 99 mg/dL 10/28/2024 3:19 AM [employer] Comment: Fasting reference interval BUN 25 7 - 25 mg/dL 10/28/2024 3:19 AM [employer] [facility] Creatinine 0.94 0.70 - 1.28 mg/dL 10/28/2024 3:19 AM [employer] [facility] eGFR 85 > OR = 60 mL/min/1. 73m2 10/28/2024 3:19 AM [employer] [facility] Bun/Creatinine Ratio SEE NOTE: 6 - 22 (calc) 10/28/2024 3:19 AM [employer] [facility] Comment: Not Reported: BUN and Creatinine are within reference range. Sodium 136 135 - 146 mmol/L 10/28/2024 3:19 AM [employer] Potassium 3.7 3.5 - 5.3 mmol/L 10/28/2024 3:19 AM EDT [employer] Chloride 105 98 - 110 mmol/L 10/28/2024 3:19 AM EDT [employer] Carbon Dioxide 23 20 - 32 mmol/L 10/28/2024 3:19 AM EDT [facility] Calcium 8.9 8.6 - 10.3 mg/dL 10/28/2024 3:19 AM EDT [facility] Protein, Total 5.9(L) 6.1 - 8.1 g/dL 10/28/2024 3:19 AM EDT [employer] [facility] Albumin 4.1 3.6 - 5.1 g/dL 10/28/2024 3:19 AM [employer] [facility] Globulin 1.8(L) 1.9 - 3.7 g/dL (calc) 10/28/2024 3:19 AM EDT [facility] [facility] Albumin/Globuli n Ratio 2.3 1.0 - 2.5 (calc) 10/28/2024 3:19 AM [employer] [facility] Bilirubin, Total 1.1 0.2 - 1.2 mg/dL 10/28/2024 3:19 AM [employer] [facility] Alkaline Phosphatase 49 35 - 144 U/L 10/28/2024 3:19 AM [employer] [facility] AST 15 10 - 35 U/L 10/28/2024 3:19 AM [employer] [facility] ALT 6(L) 9 - 46 U/L 10/28/2024 3:19 AM [employer] [facility] Blood Structure of peripheral vein / Unknown 10/27/2024 9:09 AM EDT 10/28/2024 2:10 AM EDT Narrative [facility] - 10/28/2024 3:20 AM EDT FASTING:YES PATIENT REFUSED SOME TESTING; PATIENT ENCOURAGED TO RETURN. Your request to have a duplicate copy faxed has been acknowledged. Queued to: [id number] us Gurjit Olsen MD LAB BLOOD ORDERABLES Chiqui jarvis Result [facility] [address] [facility] 3rd Floor, [place] [address], [place] [phone] [facility] [address] [place] [phone] * (ABNORMAL) CBC Auto Differential (10/03/2024 8:58 AM EDT) Only the most recent of3 resultswithin the time period is included. White Blood Cell Count 3.3(L) 3.8 - 10.8 Thousand/ uL 10/04/2024 12:44 AM EDT [facility] Red Blood Cell Count 4.15(L) 4.20 - 5.80 Million/u L 10/04/2024 12:44 AM EDT [employer] Hemoglobin 11.7(L) 13.2 - 17.1 g/dL 10/04/2024 12:44 AM [employer] [facility] Hematocrit 38.0(L) 38.5 - 50.0 % 10/04/2024 12:44 AM EDT [employer] MCV 91.6 80.0 - 100.0 fL 10/04/2024 12:44 AM EDT [employer] MCH 28.2 27.0 - 33.0 pg 10/04/2024 12:44 AM EDT [employer] MCHC 30.8(L) 32.0 - 36.0 g/dL 10/04/2024 12:44 AM [employer] [facility] Comment: For adults, a slight decrease in the calculated MCHC value (in the range of 30 to 32 g/dL) is most likely not clinically significant; however, it should be interpreted with caution in correlation with other red cell parameters and the patient's clinical condition. RDW 12.6 11.0 - 15.0 % 10/04/2024 12:44 AM EDT [employer] Platelet Count 131(L) 140 - 400 Thousand/ uL 10/04/2024 12:44 AM EDT [facility] MPV 11.4 7.5 - 12.5 fL 10/04/2024 12:44 AM [employer] [facility] Absolute Neutrophils 1,389(L) 1,500 - 7,800 cells/uL 10/04/2024 12:44 AM [employer] [facility] Absolute Lymphocytes 1,115 850 - 3,900 cells/uL 10/04/2024 12:44 AM [employer] [facility] Absolute Monocytes 637 200 - 950 cells/uL 10/04/2024 12:44 AM EDT [employer] [facility] Absolute Eosinophils 99 15 - 500 cells/uL 10/04/2024 12:44 AM EDT [employer] [facility] Absolute Basophils 59 0 - 200 cells/uL 10/04/2024 12:44 AM EDT [employer] [facility] Neutrophils 42.1 % 10/04/2024 12:44 AM EDT [employer] Lymphocytes 33.8 % 10/04/2024 12:44 AM EDT [employer] [facility] Monocytes 19.3 % 10/04/2024 12:44 AM EDT [employer] Eosinophils 3.0 % 10/04/2024 12:44 AM EDT [employer] Basophils 1.8 % 10/04/2024 12:44 AM EDT [employer] [facility] Blood Structure of peripheral vein / Unknown 10/03/2024 8:58 AM EDT 10/04/2024 12:01 AM EDT Narrative [facility] - 10/04/2024 10:13 AM EDT FASTING:YES Gurjit Olsen MD LAB BLOOD ORDERABLES Chiqui l Result [facility] [address] [facility] [address], [place] [address], [employer] [facility] [address] [place] [address] * (ABNORMAL) Tacrolimus Level (10/03/2024 8:58 AM EDT) Only the most recent of3 resultswithin the time period is included. [facility] Tacrolimus, Highly Sensitive 4.7(L) mcg/L 10/04/2024 10:13 AM EDT [employer] [facility] Comment: No definitive therapeutic or toxic ranges have been established. Optimal blood drug levels are influenced by type of transplant, patient response, time post- transplant, co-administration of other drugs, and drug formulation. The following trough range is a suggested guideline: 5.0-20.0 mcg/L. This test was developed and its analytical performance characteristics have been determined by [employer]. It has not been cleared or approved by the FDA. This assay has been validated pursuant to the CLIA regulations and is used for clinical purposes. Blood Structure of peripheral vein / Unknown 10/03/2024 8:58 AM EDT 10/03/2024 11:59 PM EDT Narrative [facility] - 10/04/2024 10:13 AM EDT FASTING:YES Gurjit Olsen MD LAB BLOOD ORDERABLES Chiqui l Result Performing Organization Address [facility] de Phone Number [facility] [address], [place] [address], [employer] [address] [phone] * Phosphorus (10/03/2024 8:58 AM EDT) Only the most recent of3 resultswithin the time period is included. Phosphate 2.9 2.1 - 4.3 mg/dL 10/04/2024 3:22 AM EDT [employer] Blood Structure of peripheral vein / Unknown 10/03/2024 8:58 AM EDT 10/04/2024 1:25 AM EDT Narrative [facility] - 10/04/2024 10:13 AM EDT FASTING:YES Gurjit Olsen MD LAB BLOOD ORDERABLES Chiqui l Result Performing Organization Address [facility] de Phone Number [facility] [address] [place] [phone], [employer] [address] [phone] * Magnesium (10/03/2024 8:58 AM EDT) Only the most recent of3 resultswithin the time period is included. Magnesium 2.0 1.5 - 2.5 mg/dL 10/04/2024 3:22 AM EDT [employer] [facility] Blood Structure of peripheral vein / Unknown 10/03/2024 8:58 AM EDT 10/04/2024 1:25 AM EDT Narrative [facility] - 10/04/2024 10:13 AM EDT FASTING:YES Gurjit Olsen MD LAB BLOOD ORDERABLES Chiqui l Result [facility] [address], [place] [address], [employer] [address] [phone] * Hepatitis C RNA, quantitative, PCR (10/27/2017 2:34 PM EDT) [facility] Hcv RNA, Quantitative Real Time PCR <15 NOT DETECTED NOT DETECTED IU/mL 10/28/2017 12:53 PM EDT [facility] Hepatitis C Quantitative PCR Log IU/mL <1.18 NOT DETECTED NOT DETECTED Log IU/mL 10/28/2017 12:53 PM EDT [employer] [facility] Comment: This test was performed using Real-Time Polymerase Chain Reaction. Reportable Range: 15 IU/mL to 100,000,000 IU/mL (1.18 Log IU/mL to 8.00 Log IU/mL). The analytical performance characteristics of this assay have been determined by [employer]. The modifications have not been cleared or approved by the FDA. This assay has been validated pursuant to the CLIA regulations and is used for clinical purposes. For more information on this test, go to: http://education.[employer]/faq/RTM73w6 (This link is being provided for informational/ educational purposes only.) Blood specimen (specimen) Structure of peripheral vein / Unknown Venipuncture / Unknown 10/27/2017 2:34 PM EDT 10/27/2017 2:44 PM EDT Narrative [facility] - 10/28/2017 12:53 PM EDT [facility] Received Date: Destiny Noel MD LAB BLOOD ORDERABLES Final R esult Performing Organization Address City/[facility]/ZIP Co de Phone Number [facility] [address] [place] [address], [place] [phone] [employer] [address], [place] [address], [place] [phone] from Last 3 Months or Most Recently Relevant to Health Maintenance Insurance MEDICARE BC OUT OF STATE PPO MEDICARE Advance Directives Documents on File Type Date Recorded Patient Vp Data Expl anation Advance Directive 02/07/2014 12:00 AM sf Medical Dec Making (Adv.Dir) Advance Directive 06/30/2010 12:00 AM sf Me dical Dec Making (Adv.Dir) Care Teams Various Exceptionalities Teacher Relationship Specialty Start Date End Date Maria D Mccray [address] [place] [address] PCP - General Internal Medicine 05/05/17
--- OUTSIDE RECORDS SUMMARY | 2024-10-31 14:30 | XMS_ITS | Encounter Summary ---
Author Organization [facility] Address [address] [place] [address] Care Team Providers Care Freight Breaker Name Role Phone Maria D Mccray MD Primary Care Provider [phone] Encounter Details Date Type Department Care Team (Late st Contact Info) Description 01/14/2024 Lab Requisition [facility] - Main Lab [address] [facility] [place] [address] Keri Cuevas MD [address] [place] [id number] Encounter for other general examination Social History [...] Department Care Team (Late Contact Info) Description 2025 11:30 AM EST Office Visit Internal Medicine - [place] [address] [phone] Amado Morgan NP 175 [facility] 200 [place] [address] documented as of this encounter Procedures Procedure [...] CBC auto differential (01/14/2024 5:23 AM EST) [facility] WBC 3.0(L) 4.8 - 10.8 K/mcL LAB HEMETOLOGY METHOD 01/14/2024 8:36 AM [facility] RBC 4.50 4.50 - 5.50 M/mcL LAB HEMETOLOGY METHOD 01/14/2024 8:36 AM [facility] Hemoglobin 12.9(L) 13.5 - 17.5 g/dL LAB HEMETOLOGY METHOD 01/14/2024 8:36 AM [facility] Hematocrit 40.2(L) 42.0 - 54.0 % LAB HEMETOLOGY METHOD 01/14/2024 8:36 AM [facility] MCV 89.1 79.0 - 98.0 FL LAB HEMETOLOGY METHOD 01/14/2024 8:36 AM [facility] MCH 28.6 27.0 - 32.0 pcg LAB HEMETOLOGY METHOD 01/14/2024 8:36 AM [facility] MCHC 32.1 32.0 - 37.0 g/dL LAB HEMETOLOGY METHOD 01/14/2024 8:36 AM [facility] RDW 13.7 11.0 - 15.0 % LAB HEMETOLOGY METHOD 01/14/2024 8:36 AM [facility] Platelets 129(L) 130 - 400 K/mcL LAB HEMETOLOGY METHOD 01/14/2024 8:36 AM [facility] MPV 11.3(H) 7.0 - 11.0 FL LAB HEMETOLOGY METHOD 01/14/2024 8:36 AM [facility] NRBC 0.0 <1.0 % LAB HEMETOLOGY METHOD 01/14/2024 8:36 AM [facility] NRBC Absolute 0.00 <0.10 K/mcL LAB HEMETOLOGY METHOD 01/14/2024 8:36 AM [facility] Neutrophils Relative 48.6 % LAB HEMETOLOGY METHOD 01/14/2024 8:36 AM [facility] Lymphocytes Relative 23.2 % LAB HEMETOLOGY METHOD 01/14/2024 8:36 AM [facility] Monocytes Relative 20.9 % LAB HEMETOLOGY METHOD 01/14/2024 8:36 AM [facility] Eosinophils Relative 5.6 % LAB HEMETOLOGY METHOD 01/14/2024 8:36 AM [facility] Basophils Relative 1.0 % LAB HEMETOLOGY METHOD 01/14/2024 8:36 AM [facility] Immature Granulocytes Relative 0.7 % LAB HEMETOLOGY METHOD 01/14/2024 8:36 AM [facility] Neutrophils Absolute 1.47(L) 1.50 - 7.00 K/mcL LAB HEMETOLOGY METHOD 01/14/2024 8:36 AM [facility] Lymphocytes Absolute 0.70(L) 1.00 - 5.00 K/mcL LAB HEMETOLOGY METHOD 01/14/2024 8:36 AM [facility] Monocytes Absolute 0.63 0.20 - 1.00 K/mcL LAB HEMETOLOGY METHOD 01/14/2024 8:36 AM EST [facility] Eosinophils Absolute 0.17 0.00 - 0.50 K/mcL LAB HEMETOLOGY METHOD 01/14/2024 8:36 AM EST [facility] Basophils Absolute 0.03 0.00 - 0.20 K/[facility] LAB HEMETOLOGY METHOD 01/14/2024 8:36 AM EST [facility] Immature Granulocytes Absolute 0.02 0.00 - 0.03 K/[facility] LAB HEMETOLOGY METHOD 01/14/2024 8:36 AM EST [facility] Blood Venous blood specimen / Unknown Venipuncture / Unknown 01/14/2024 5:23 AM EST 01/14/2024 7:39 AM EST us Keri Cuevas MD LAB BLOOD ORDERABLES Final Res ult [facility] [address] [place] [address], * (ABNORMAL) Mycophenolic acid and metabolite (01/14/2024 5:23 AM EST) Mycophenolic Acid 0.8(L) 1.0 - 3.5 ug/mL 01/18/2024 5:50 AM EST [facility] Mycophenolic Acid Glucuronide 11(L) 35 - 100 ug/mL 01/18/2024 5:50 AM EST [facility] Comment: Combined Therapy with Trough Level (ug/mL) Mycophenolic Acid Cyclosporine 1.0 - 3.5 Tacrolimus 1.9 - 4.0 Toxic Level >25 ng/mL Mycophenolic Acid Glucuronide 35 - 100 Toxic level Not established Mycophenolic acid and mycophenolic acid glucuronide determined by a LC-MS/MS procedure. If applicable, any drug confirmation testing reported here was developed and the performance characteristics determined by [facility]. This confirmation testing has not been cleared or approved by the FDA. The laboratory is regulated under CLIA as qualified to perform high-complexity testing. This test is used for patient testing purposes. It should not be regarded as investigational or for research. Test performed at [facility], [address], [place] [address] Cassie Aguiar MD, PhD - Social Service Coordinator Blood Venous blood specimen / Unknown Venipuncture / Unknown 01/14/2024 5:23 AM EST 01/14/2024 7:39 AM EST Keri Cuevas MD LAB BLOOD ORDERABLES Final Res ult [facility] [address] [place] [place] [address] * Tacrolimus level (01/14/2024 5:23 AM EST) Tacrolimus Level 6.1 5.0 - 20.0 ng/mL 01/17/2024 12:22 PM EST [facility] Comment: Additional Information: Toxic Level > 26 [...] developed and the performance characteristics determined by [facility]. This confirmation testing has not been cleared or approved by the FDA. The laboratory is regulated under CLIA as qualified to perform high-complexity testing. This test is used for patient testing purposes. It should not be regarded as investigational or for research. Test performed at [facility], [address] , [place] [address] Cassie Aguiar MD, PhD - Social Service Coordinator Blood Venous blood specimen / Unknown Venipuncture / Unknown 01/14/2024 5:23 AM EST 01/14/2024 7:39 AM EST us Keri Cuevas MD LAB BLOOD ORDERABLES Final Res ult [facility] [address] [place] [address] * Magnesium (01/14/2024 5:23 AM EST) Magnesium 1.9 1.9 - 2.6 mg/dL LAB CHEMISTRY METHOD 01/14/2024 9:45 AM EST [facility] Blood Venous blood specimen / Unknown Venipuncture / Unknown 01/14/2024 5:23 AM EST 01/14/2024 7:39 AM EST us Keri Cuevas MD LAB BLOOD ORDERABLES Final Res ult [facility] [address] [place] [address], * (ABNORMAL) Comprehensive metabolic panel (01/14/2024 5:23 AM EST) Pathologist [facility] Sodium 140 133 - 145 mmol/L LAB CHEMISTRY METHOD 01/14/2024 9:46 AM [facility] Potassium 3.8 3.5 - 5.5 mmol/L LAB CHEMISTRY METHOD 01/14/2024 9:46 AM [facility] Chloride 111(H) 96 - 110 mmol/L LAB CHEMISTRY METHOD 01/14/2024 9:46 AM [facility] CO2 22 21 - 32 mmol/L LAB CHEMISTRY METHOD 01/14/2024 9:46 AM [facility] Anion Gap 7 3 - 11 LAB CHEMISTRY METHOD 01/14/2024 9:46 AM [facility] Glucose 77 70 - 100 mg/dL LAB CHEMISTRY METHOD 01/14/2024 9:46 AM [facility] BUN 16 5 - 25 mg/dL LAB CHEMISTRY METHOD 01/14/2024 9:46 AM [facility] Creatinine 0.84 0.70 - 1.30 mg/dL LAB CHEMISTRY METHOD 01/14/2024 9:46 AM [facility] eGFR 91 >=60 mL/min/1. 73m2 LAB CHEMISTRY METHOD 01/14/2024 9:46 AM [facility] Comment:Calculation based on the Chronic Kidney Disease Epidemiology Collaboration (CKD-EPI) equation refit without adjustment for race. BUN/Creatinine Ratio 19.0 LAB CHEMISTRY METHOD 01/14/2024 9:46 AM [facility] Calcium 8.6 8.5 - 10.5 mg/dL LAB CHEMISTRY METHOD 01/14/2024 9:46 AM [facility] AST (SGOT) 19 10 - 42 unit/L LAB CHEMISTRY METHOD 01/14/2024 9:46 AM [facility] ALT (SGPT) 16 10 - 60 unit/L LAB CHEMISTRY METHOD 01/14/2024 9:46 AM [facility] Alkaline Phosphatase 59 42 - 121 unit/L LAB CHEMISTRY METHOD 01/14/2024 9:46 AM [facility] Total Protein 5.8(L) 6.0 - 8.0 g/dL LAB CHEMISTRY METHOD 01/14/2024 9:46 AM [facility] Albumin 3.5 3.2 - 5.0 g/dL LAB CHEMISTRY METHOD 01/14/2024 9:46 AM [facility] Total Bilirubin 1.1 0.0 - 1.4 mg/dL LAB CHEMISTRY METHOD 01/14/2024 9:46 AM [facility] Blood Venous blood specimen / Unknown Venipuncture / Unknown 01/14/2024 5:23 AM EST 01/14/2024 7:39 AM EST us Keri Cuevas MD LAB BLOOD ORDERABLES Final Res ult [facility] [address] [place], [place] [address] [phone] documented in this encounter Visit Diagnoses Diagnosis Encounter for other general examination documented in this encounter Additional Health Concerns Assessment Noted Time PHQ-9 Depression Total Score: 0 01/10/20 24 2:13 PM EST A fall risk assessment has been complete d for the patient 01/10/2024 2:13 PM EST documented as of this encounter Care Teams Freight Breaker Relationship Specialty Start Date End Date Maria D Mccray MD [address] [phone] PCP - General Internal Medicine 02/01/12 documented as of this encounter
--- OUTSIDE RECORDS SUMMARY | 2024-10-31 14:30 | XMS_ITS | Encounter Summary ---
Author Organization [facility] Address [address] [place] [address] Care Team Providers Care Gang Pusher Name Role Phone Maria D Mccray Primary Care Provider [phone] Encounter Details Date Type Department Care Team (Late st Contact Info) Description 07/25/2021 Documentation [facility] [address] [place] [address] Whitney Moon RN Social History Tobacco Use [...] Info) Description 01/16/2025 11:20 AM EST Follow-Up [facility] Renal Transplant [address] [place] [address] Gurjit Olsen MD [address] [place] [address] documented as of this encounter Visit Diagnoses [...] documented as of this encounter Care Teams Gang Pusher Relationship Specialty Start Date End Date Maria D Mccray [address] [place] [id number] PCP - General Internal Medicine 05/05/17 documented as of this encounter
--- OUTSIDE RECORDS SUMMARY | 2024-10-31 14:30 | XMS_ITS | Encounter Summary ---
Author Organization [facility] Address [address] [place] [address] Care Team Providers Care Woods Overseer Name Role Phone Maria D Mccray MD Primary Care Provider Encounter Details Date Type Department Care Team (Late Contact Info) Description 01/19/2024 Lab Requisition [facility] - Main Lab 299 [facility] [place] [address] Keri Cuevas MD [address] [place] [id number] Encounter for other general examination Social History [...] AM EST Office Visit Internal Medicine - [place] [address] [phone] Amado Morgan NP 175 [facility] 200 [place] [address] documented as of this encounter Procedures Procedure [...] acid and metabolite (01/19/2024 7:17 AM EST) [facility] Mycophenolic Acid 1.1 1.0 - 3.5 ug/mL 01/25/2024 7:[address] [facility] Mycophenolic Acid Glucuronide 13(L) 35 - 100 ug/mL 01/25/2024 7:[address] [facility] Comment: Combined Therapy with Trough Level (ug/mL) Mycophenolic Acid Cyclosporine 1.0 - 3.5 Tacrolimus 1.9 - 4.0 Toxic Level >25 ng/mL Mycophenolic Acid Glucuronide 35 - 100 Toxic level Not established Mycophenolic acid and mycophenolic acid glucuronide determined by a LC-MS/MS procedure. If applicable, any drug confirmation testing reported here was developed and the performance characteristics determined by [facility]. This confirmation testing has not been cleared or approved by the FDA. The laboratory is regulated under CLIA as qualified to perform high-complexity testing. This test is used for patient testing purposes. It should not be regarded as investigational or for research. Test performed at [facility], [address], [place] [address] Cassie Aguiar MD, PhD - Engine Monitor Blood Venous blood specimen / Unknown Venipuncture / Unknown 01/19/2024 7:17 AM EST 01/19/2024 10:47 AM EST us Keri Cuevas MD LAB BLOOD ORDERABLES Final Res ult [facility] [address] [place] [address] * Tacrolimus level (01/19/2024 7:17 AM EST) Tacrolimus Level 5.9 5.0 - 20.0 ng/mL 01/24/2024 12:27 PM EST [facility] Comment: Additional Information: Toxic Level > [...] developed and the performance characteristics determined by [facility]. This confirmation testing has not been cleared or approved by the FDA. The laboratory is regulated under CLIA as qualified to perform high-complexity testing. This test is used for patient testing purposes. It should not be regarded as investigational or for research. Test performed at [facility], [address] , [place] [address] Cassie Aguiar MD, PhD - Engine Monitor Blood Venous blood specimen / Unknown Venipuncture / Unknown 01/19/2024 7:17 AM EST 01/19/2024 10:47 AM EST us Keri Cuevas MD LAB BLOOD ORDERABLES Final Res ult [facility] [address] [place] [address] * (ABNORMAL) Complete blood count (01/19/2024 7:17 AM EST) WBC 3.4(L) 4.8 - 10.8 K/mcL LAB HEMETOLOGY METHOD 01/19/2024 2:45 PM EST [facility] RBC 4.70 4.50 - 5.50 M/mcL LAB HEMETOLOGY METHOD 01/19/2024 2:45 PM EST [facility] Hemoglobin 13.4(L) 13.5 - 17.5 g/dL LAB HEMETOLOGY METHOD 01/19/2024 2:45 PM EST [facility] Hematocrit 41.3(L) 42.0 - 54.0 % LAB HEMETOLOGY METHOD 01/19/2024 2:45 PM [facility] MCV 88.4 79.0 - 98.0 FL LAB HEMETOLOGY METHOD 01/19/2024 2:45 PM EST [facility] MCH 28.7 27.0 - 32.0 pcg LAB HEMETOLOGY METHOD 01/19/2024 2:45 PM EST [facility] MCHC 32.4 32.0 - 37.0 g/dL LAB HEMETOLOGY METHOD 01/19/2024 2:45 PM [facility] RDW 13.6 11.0 - 15.0 % LAB HEMETOLOGY METHOD 01/19/2024 2:45 PM [facility] Platelets 150 130 - 400 K/mcL LAB HEMETOLOGY METHOD 01/19/2024 2:45 PM [facility] MPV 11.6(H) 7.0 - 11.0 FL LAB HEMETOLOGY METHOD 01/19/2024 2:45 PM [facility] NRBC 0.0 <1.0 % LAB HEMETOLOGY METHOD 01/19/2024 2:45 PM EST [facility] NRBC Absolute 0.00 <0.10 K/mcL LAB HEMETOLOGY METHOD 01/19/2024 2:45 PM [facility] Blood Venous blood specimen / Unknown Venipuncture / Unknown 01/19/2024 7:17 AM EST 01/19/2024 10:47 AM EST us Keri Cuevas MD LAB BLOOD ORDERABLES Final Res ult [facility] [address] [place] [address], * Comprehensive metabolic panel (01/19/2024 7:17 AM EST) [facility] Signature Sodium 141 133 - 145 mmol/L LAB CHEMISTRY METHOD 01/19/2024 1:42 PM [facility] Potassium 3.7 3.5 - 5.5 mmol/L LAB CHEMISTRY METHOD 01/19/2024 1:42 PM [facility] Chloride 110 96 - 110 mmol/L LAB CHEMISTRY METHOD 01/19/2024 1:42 PM [facility] CO2 22 21 - 32 mmol/L LAB CHEMISTRY METHOD 01/19/2024 1:42 PM [facility] Anion Gap 9 3 - 11 LAB CHEMISTRY METHOD 01/19/2024 1:42 PM [facility] Glucose 77 70 - 100 mg/dL LAB CHEMISTRY METHOD 01/19/2024 1:42 PM [facility] BUN 13 5 - 25 mg/dL LAB CHEMISTRY METHOD 01/19/2024 1:42 PM [facility] Creatinine 0.82 0.70 - 1.30 mg/dL LAB CHEMISTRY METHOD 01/19/2024 1:42 PM [facility] eGFR 92 >=60 mL/min/1. 73m2 LAB CHEMISTRY METHOD 01/19/2024 1:42 PM [facility] Comment:Calculation based on the Chronic Kidney Disease Epidemiology Collaboration (CKD-EPI) equation refit without adjustment for race. BUN/Creatinine Ratio 15.9 LAB CHEMISTRY METHOD 01/19/2024 1:42 PM [facility] Calcium 9.1 8.5 - 10.5 mg/dL LAB CHEMISTRY METHOD 01/19/2024 1:42 PM [facility] AST (SGOT) 30 10 - 42 unit/L LAB CHEMISTRY METHOD 01/19/2024 1:42 PM [facility] ALT (SGPT) 29 10 - 60 unit/L LAB CHEMISTRY METHOD 01/19/2024 1:42 PM EST [facility] Alkaline Phosphatase 59 42 - 121 unit/L LAB CHEMISTRY METHOD 01/19/2024 1:42 PM EST [facility] Total Protein 6.1 6.0 - 8.0 g/dL LAB CHEMISTRY METHOD 01/19/2024 1:42 PM [facility] Albumin 3.8 3.2 - 5.0 g/dL LAB CHEMISTRY METHOD 01/19/2024 1:42 PM [facility] Total Bilirubin 1.2 0.0 - 1.4 mg/dL LAB CHEMISTRY METHOD 01/19/2024 1:42 PM [facility] Blood Venous blood specimen / Unknown Venipuncture / Unknown 01/19/2024 7:17 AM EST 01/19/2024 10:47 AM EST us Keri Cuevas MD LAB BLOOD ORDERABLES Final Res ult [facility] [address] [place] [address], documented in this encounter Visit Diagnoses Diagnosis Encounter for other general examination documented in this encounter Additional Health Concerns Assessment Noted Time PHQ-9 Depression Total Score: 0 01/10/20 24 2:13 PM EST A fall risk assessment has been complete d for the patient 01/10/2024 2:13 PM EST documented as of this encounter Care Teams Woods Overseer Relationship Specialty Start Date End Date Maria D Mccray MD [address] [phone] PCP - General Internal Medicine 02/01/12 documented as of this encounter
--- OUTSIDE RECORDS SUMMARY | 2024-10-31 14:30 | XMS_ITS | Clinical Summary ---
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
--- OUTSIDE RECORDS SUMMARY | 2024-10-31 14:31 | XMS_ITS | Clinical Summary ---
Author Organization [facility] Address [address] [place] [address] Care Team Providers Care Boilermaker Helper Name Role Phone Maria D Mccray MD Primary Care Provider [phone] Allergies Active Allergy Reactions Criticality Noted Date [...] tongue. Only if needed 0 09/11/2011 Active Cascade-3 300 MG CAPS Take 1 capsule by [...] this topic Medical Devices Implanted Type Area Stove Tender Device Identifier Shelf Expiration Date Model / Serial / Lot Cement Bone Surg Simplex Radiopq Stry-Howm 6522-2-209-114 092 - [id number] Implanted:Qty: 1 on 05/07/2022 by Matthew Ley MD at [facility] [place] [place] [facility] Right: Knee [employer] 08/21/2024 6191-1-010 / / [id number] Cement Bone Surg Simplex Radiopq Stry-Howm [id number] 092 - [id number] Implanted:Qty: 1 on 05/07/2022 by Matthew Ley MD at [facility] [place] [place] [facility] Right: Knee [employer] 08/21/2024 6191-1-010 / / [id number] Knee Fem Joao Ps Trthln Rt #5 Stry-Howm 7526-[id number] 749 - [id number] Implanted:Qty: 1 on 05/07/2022 by Matthew Ley MD at [facility] [place] [place] and [facility] Right: Knee [employer] [id number] 11/13/2026 5515-F-502 / / [id number] Knee Baseplt Tib Cmnt Sz5 Stry-Howm 5996-C-[id number] 191 - [id number] Implanted:Qty: 1 on 05/07/2022 by Matthew Ley MD at [facility] [place] [place] and [facility] Right: Knee [employer] [id number] 01/07/2027 5520-B-500 / / [id number] Peg Fix Femoral Distal Stry-Howm 7656-[id number] 704 - [id number] Implanted:Qty: 1 on 05/07/2022 by Matthew Ley MD at [facility] [place] [place] and [facility] Right: Knee [employer] [id number] 12/21/2026 5575-X-000 / / [id number] Knee Tib Insrt Ps-X3 [id number] Stry-Howm 9989-[id number] 751 - [id number] Implanted:Qty: 1 on 05/07/2022 by Matthew Ley MD at [facility] [place] [place] and [facility] Right: Knee [employer] [id number] 12/09/2026 5532-G-513 / / [id number] Knee Pat Asymmetric X3 [id number] Stry-Howm 3147-[id number]-178-E-[id number] [id number] - [id number] Implanted:Qty: 1 on 05/07/2022 by Matthew Ley MD at [facility] [place] [place] and [facility] Right: Knee [employer] [id number] 01/20/2027 5551-G-320 -E / / [id number] Advance Directives For more information, please contact: [phone] Documents on File Type Date Recorded Patient Winery Cellar Hand Expl anation Advance Directive and Living Will [...] way: discussion with patient . Care Teams Boilermaker Helper Relationship Specialty Start Date End Date Maria D Mccray MD 175 [facility] [address] [place] [phone] PCP - General Internal Medicine 07/07/21
--- OUTSIDE RECORDS SUMMARY | 2024-10-31 14:31 | XMS_ITS | Encounter Summary ---
Author Organization [facility] Address [address] [place] [address] Care Team Providers Care Oyster Culturist Name Role Phone Maria D Mccray Primary Care Provider [phone] Encounter Details Date Type Department Care Team (Late st Contact Info) Description 07/25/2021 Orders Only [facility] [address] [place] [address] Nancy Ovalle NP [address] [place] [address] Social History Tobacco Use Types Packs/Day Years [...] Info) Description 01/16/2025 11:20 AM EST Follow-Up [facility] Renal Transplant [address] [place] [address] Gurjit Olsen MD [address] [place] [address] documented as of this encounter [...] documented as of this encounter Care Teams Oyster Culturist Relationship Specialty Start Date End Date Maria D Mccray [address] [place] [address] PCP - General Internal Medicine 05/05/17 documented as of this encounter
--- OUTSIDE RECORDS SUMMARY | 2024-10-31 14:31 | XMS_ITS | Clinical Summary ---
Author Organization 175 [facility] Address [address] [place] [address] Phone Care Team Providers Care Boatwright Name Role Phone Maria D Mccray MD Primary Care Provider [phone] Allergies Active Allergy Reactions Criticality Noted Date Comments Adhesive Tape-Silicones Rash Low 12/31/2017 rash Lisinopril Unknown Medium 05/13/2020 Other reaction(s): cough Nsaids (Non-Steroidal Anti-Inflammatory Drug) Unknown 12/31/2017 Medications nitroglycerin (NITROSTAT) 0.[address] 1 Tablet under the tongue every 5 minutes as needed for Chest pain (take every 5 min for 3 doses for chest pain). 3 Active NIFEdipine CC (ADALAT CC) 60 mg 24 hr tablet Take 1 Tablet by mouth 2 times daily for 360 days. 2 Active acetaminophen (TYLENOL) 500 mg tablet Take 1 Tablet by mouth every 6 hours as needed (Take 1 tablet every 6 hours as neeeded for pain.). Active mycophenolate (CELLCEPT) 250 mg capsule Take 1 capsule (250 mg total) by mouth 2 (two) times a day. 2 caps in the morning & 1 cap in the evening 2 Active tacrolimus (PROGRAF) 1 mg capsule Take 1 capsule (1 mg total) by mouth 2 (two) times a day. 3 caps in the morning & 2 caps in the afternoon 2 Active predniSONE (DELTASONE) 5 mg tablet Take 1 tablet (5 mg total) by mouth 1 (one) time each day. Active furosemide (LASIX) 20 mg tablet Take 1 tablet (20 mg total) by mouth 1 (one) time each day. 5 Active hydrALAZINE (APRESOLINE) 50 mg tablet Take 2 tablets (100 mg total) by mouth 3 (three) times a day. Active doxazosin (CARDURA) 2 mg tablet Take 1 tablet (2 mg total) by mouth at bedtime. 30 tablet 1 5 Active coenzyme Q-10 30 mg capsule Take by mouth 1 (one) time each day. Active omega-3 acid ethyl esters (LOVAZA) 1 gram capsule Take 1,000 mg by mouth 1 (one) time each day. Active losartan (COZAAR) 100 mg tablet Take 1 tablet (100 mg total) by mouth daily. 30 tablet 5 5 Active rosuvastatin (CRESTOR) 20 mg tablet Take 1 tablet (20 mg total) by mouth 1 (one) time each day. 30 tablet 5 5 Active LORazepam (ATIVAN) 1 mg tablet Take 1 tablet (1 mg total) by mouth 1 (one) time each day if needed for anxiety. Max Daily Amount: 1 mg 28 tablet 4 5 Active cyanocobalamin (VITAMIN B-12) 500 mcg tablet Take 1 tablet (500 mcg total) by mouth 1 (one) time each day. Active clopidogreL (PLAVIX) 75 mg tablet TAKE 1 TABLET BY MOUTH 1 TIME EACH DAY. 90 tablet 1 5 Active chlorproMAZINE (THORAZINE) 10 mg tablet Take 1 tablet (10 mg total) by mouth 3 (three) times a day. 90 each 5 Active omeprazole (PriLOSEC) [address] capsule Take 1 capsule (40 mg total) by mouth 2 (two) times a day before meals. Do not crush or chew. 60 each 2 5 11/21/19 25 Active allopurinoL (ZYLOPRIM) 100 mg tablet Take 1 tablet (100 mg total) by mouth 1 (one) time each day. 30 tablet 5 5 Active alendronate (FOSAMAX) 70 mg tablet Take 1 tablet (70 mg total) by mouth every 7 (seven) days. 12 tablet 1 5 Active omeprazole (PriLOSEC) [address] capsule Take 1 capsule (20 mg total) by mouth daily. 30 capsule 5 5 Active Active Problems Problem Noted Date Diagnosed Date Hemiplga following cerebral infrc aff right dominant side (CMS/HCC V24, CMS/HCC V28) 02/18/2024 Assessment & Plan (07/03/2024 3:48 PM EDT): Waxing and waning progress after significant motor deficit. Orders: ECG 12 lead Dysarthria following cerebral infarction 024 Facial weakness following cerebral infarction Hypertensive chronic kidney disease with stage 1 through stage 4 chronic kidney disease, or unspecified chronic kidney disease 02/18/2024 Kidney transplant status 02/18/2024 Atherosclerotic heart diseas e of tazlina coronary artery without angina pectoris 02/18/2024 Nonrheumatic aortic valve stenosis 04/21/2022 Assessment & Plan (07/03/2024 3:48 PM EDT): The patient has preserved left ventricular systolic function. There is evidence of inferior hypokinesis due to remote limited infarction. He has mild aortic stenosis. His examination is consistent with hemodynamically insignificant aortic stenosis as well as mild aortic regurgitation. Orders: ECG 12 lead Aneurysm of ascending aorta without rupture (CMS /HCC V24) 04/21/2022 Hypertension 05/14/2017 Assessment & Plan (01/10/2024 2:15 PM EST): Hyperlipidemia 05/14/2017 Assessment & Plan (07/03/2024 3:48 PM EDT): On high dose atorvastatin, Hx SC and CVA. Goal LDL less than 70, lower is better. Orders: ECG 12 lead Assessment & Plan (01/10/2024 2:15 PM EST): Renal transplant, status post 05/14/2017 Assessment & Plan (07/03/2024 3:48 PM EDT): Renal parameters. Orders: ECG 12 lead Edema 01/29/2017 Assessment & Plan (07/03/2024 3:48 PM EDT): There is evidence of localized edema in the right lower extremity secondary stroke and decreased muscle movement and aggravated by dependent positioning. We reviewed a series of conservative strategies to improve edema including compression stockings with a zipper as well as exercises to engage calf muscles. End stage renal disease on d ialysis ([facility] V24, [facility] V28) 11/27/2016 GERD (gastroesophageal reflux disease) 7 Assessment & Plan (01/10/2024 2:15 PM EST): Coronary artery disease invo lving tazlina heart without angina pectoris 07/26/2016 Overview (07/01/2024): Randy Birch is a 74 y.o. old male with past medical history of coronary artery disease. He sustained a myocardial infraction with drug eluting stenting of his proximal RCA in 2005. He represented with late stent thrombosis requiring thrombectomy. Eventually he underwent revascularization in April 2010 with coronary artery bypass grafting. Assessment & Plan (07/03/2024 3:48 PM EDT): Randy has a history of remote inferior wall myocardial infarction with stenting of the right coronary artery in 2005 and again in 2010. He subsequently underwent coronary bypass grafting. He is not having active coronary insufficiency. He is on high-dose lipid-lowering therapy. There is no clinical evidence of congestive heart failure. Orders: ECG 12 lead Anemia 02/21/2016 Leukopenia 02/04/2016 Thrombocytopenia ([facility] V24) 02/04/2016 Anxiety 11/27/2014 Erectile dysfunction 05/17/2013 Internal hemorrhoids 10/27/2012 Benign colonic polyp 10/27/2012 Diverticulosis 10/27/2012 Gouty arthropathy 09/09/2010 Assessment & Plan (01/10/2024 2:15 PM EST): Encounters Date Type Department Care Team Description 09/01/2024 11:00 AM EDT Office Visit [facility] Hematology Oncology [address] [place] [address] Priscilla Duenas MD Anemia of chronic disease (Primary Dx) 08/22/2024 3:45 PM EDT Office Visit Internal Medicine [facility] 175 [facility] [address] [place] [address] Claudine Keith MD Hiccoughs (Primary Dx); Madan 08/22/2024 Telephone Orthopedic Surgery [facility] [address] [facility] [address] [place] [address] Evan Lilibeth M 08/21/2024 Telephone Internal Medicine [facility] 175 [facility] [address] [place] [phone] Maria D Mccray MD 08/21/2024 Telephone Internal Medicine [facility] 175 [facility] [address] [place] [phone] Maria D Mccray MD 08/21/2024 [place] Internal Medicine [facility] [address] [phone] Maria D Mccray MD 08/20/2024 1:30 PM EDT Office Visit Walk-In Clinic - [address] [phone] Eric Preston PA Singultus (Primary Dx) 08/16/2024 2:00 PM EDT Office Visit Orthopedic Surgery [facility] 175 [facility] [address] [place] [phone] Estevan Alvarado PA Left rotator cuff tear arthropathy (Primary Dx); Chronic left shoulder pain; Neuritis of left ulnar nerve 08/07/2024 10:56 AM EDT - 08/07/2024 11:59 PM EDT Hospital Encounter [facility] Ultrasound [address] [place] [phone] Right lateral abdominal pain Discharge Disposition: Home or Self Care 08/03/2024 1:00 PM EDT Office Visit [facility] Hematology Oncology [address] [place] [phone] Priscilla Duenas MD Anemia due to stage 3 chronic kidney disease, unspecified whether stage 3a or 3b CKD (CMS/HCC V24, CMS/HCC V28) from Last 3 Months Immunizations Name Administration [...] PROCEDURE: HISTORICAL CABG OTHER SURGICAL HISTORY PROCEDURE: KY RENAL ALTRNSPLJ IMPLTJ GRF W/O BRIDGES SUPERVISOR NEPHRECTOMY HERNIA REPAIR PROCEDURE: KY REPAIR FIRST ABDOMINAL WALL HERNIA Medical History Medical History Date Comments Anemia 02/21/2016 DX:Anemia Anxiety 11/27/2014 DX:Anxiety Benign colonic polyp 10/27/2012 DX:Benign c olonic polyp Coronary artery disease 07/26/2016 DX:Coron maxwell artery disease Diverticulosis 10/27/2012 DX:Diverticulosi s Edema 01/29/2017 DX:Edema End stage renal disease on d ialysis (CMS/HCC V24, CMS/HCC V28) 11/27/2016 DX:End stage renal disease on dialysis ([facility]) Erectile dysfunction 05/17/2013 DX:Erectile dysfunction GERD (gastroesophageal reflux disease) 09/23/2016 DX:GERD (gastroesophageal reflux disease) Gouty arthropathy 09/09/2010 DX:Gouty arthr opathy History of prostate cancer 02/08/2012 DX:Hi story of prostate cancer Hyperlipidemia 05/14/2017 DX:Hyperlipidemi a Hypertension 05/14/2017 DX:Hypertension Internal hemorrhoids 10/27/2012 DX:Internal hemorrhoids Kidney transplant recipient 05/14/2017 DX:K idney transplant recipient Leukopenia 02/04/2016 DX:Leukopenia Thrombocytopenia (CMS/HCC V24) 02/04/2016 D X:Thrombocytopenia ([facility]) Social History Tobacco Use Types Packs/Day Years Used Date Smoking Tobacco: Former Cigarettes Smokeless Tobacco: Never Tobacco Cessation:Counseling Given: Not Answered Alcohol Use Standard Drinks/Week Comments Not Currently 0 (1 standard drink = 0.6 oz pur e alcohol) Sex and Gender Information Value Date Recorded Sex Assigned at Not on file Legal Sex Male 4:23 AM EST Gender Identity Not on file Sexual Orientation Not on file Obstetrics History Last Filed Vital Signs Vital Sign Reading Time Taken Comments Blood Pressure 150/51 09/01/2024 11:12 AM EDT Pulse 57 09/01/2024 11:12 AM EDT Temperature 36.8 C (98.3 F) 09/01/2024 11:12 AM EDT Respiratory Rate 16 08/16/2024 2:01 PM EDT Oxygen Saturation 100% 09/01/2024 11:12 AM EDT Inhaled Oxygen Concentration - - Weight 75.3 kg (166 lb) 09/01/2024 11:12 AM EDT Height 172.7 cm (5' 8 ) 08/16/2024 2:01 PM EDT Body Mass Index 25.24 08/16/2024 2:01 PM EDT Plan of Treatment Upcoming Encounters Date Type Department Care Team (Late st Contact Info) Description 2025 11:30 AM EST Office Visit Internal Medicine - [place] 175 [facility] [address] [place] [address] Amado Morgan NP 175 [facility] [address] [place] [address] Health Maintenance Due Date Last Done Comments Hepatitis B Vaccines (2 of 3 - 19+ 3-dose series) 08/11/2013 07/14/2013 Zoster Vaccines (1 of 2) 11/05/2013 09/10/2013, 07/24 Abdominal Aortic Aneurysm (AAA) Screen 01/31/2022 Colorectal Cancer Screening: Colonoscopy 01/31/2022 Social Influencers of Health Screening 01/31/2022 DTaP,Tdap,and Td Vaccines (2 - Td or Tdap) 05/18/2023 05/17/2013, 05/17/2013 Depression Screening 02/23/2024 01/10/2024 COVID-19 Vaccine (9 - Moderna risk season) 2024 11/29/2023, 05/26/2023, 11/16/2022, Additional history exists Influenza Vaccine (#1) 2024 , 10/03/2022, 10/28/2021, Additional history exists Falls Risk Assessment 01/09/2025 01/10/2024 Medicare Annual Wellness Visit 01/09/2025 01/10/2024 Hypertension/CHF/CAD Annual BMP Blood Test 08/31/2025 08/31/2024, 08/03/2024, 08/03/2024, Additional history exists Cholesterol Screening (Lipid Panel) 05/16/2028 05/17/2023 Hepatitis C Screening Completed 10/27/2017 Pneumococcal Vaccine: 50+ Years Completed 01/15/2021, 02/21/2016, 11/27/2014, Additional history exists RSV Immunization Adult Patients Completed 11/11/2022 HIB Vaccines Aged Out No longer eligi [...] this topic Medical Devices Implanted Type Area Field Seismologist Device Identifier Shelf Expiration Date Model / Serial / Lot Cement Bone [facility]urg [facility] [id number] Implanted:Qty: 1 on 05/07/2022 by Matthew Ley MD Right: Knee [employer] 08/21/2024 [id number] / / [id number] Cement Bone Surg Simplex Radiopq [facility] [id number] Implanted:Qty: 1 on 05/07/2022 by Matthew Ley MD Right: Knee [employer] 08/21/2024 6191-1-010 / / [id number] Knee Fem Joao Ps Trthln Rt #[address] [facility] [address] [id number] Implanted:Qty: 1 on 05/07/2022 by Matthew Ley MD Right: Knee [employer] [id number] 11/13/2026 5515-F-502 / / [id number] Knee Baseplt Tib Cmnt Sz5 Stry-Howm [id number] Implanted:Qty: 1 on 05/07/2022 by Matthew Ley MD Right: Knee [employer] [id number] 01/07/2027 5520-B-500 / / [id number] Peg Fix Femoral Distal Stry-Howm [id number] Implanted:Qty: 1 on 05/07/2022 by Matthew Ley MD Right: Knee [employer] [id number] 12/21/2026 5575-X-000 / / [id number] Knee Tib Insrt Ps-X3 [id number] Stry-Howm [id number] Implanted:Qty: 1 on 05/07/2022 by Matthew Ley MD Right: Knee [employer] [id number] 12/09/2026 5532-G-513 / / [id number] Knee Pat Asymmetric X3 [id number] Stry-Howm [id number] Implanted:Qty: 1 on 05/07/2022 by Matthew Ley MD Right: Knee [employer] [id number] 01/20/2027 5551-G-320 -[id number] / / [id number] Procedures Procedure Name Priority Date/Time Associated Diagnosis Comments KY ARTHROCENTESIS/ASPIRATI ON/INJECTION MAJOR JOINT/BURSA W/O U/S GUIDANCE Routine 08/16/2024 2:00 PM EDT Left rotator cuff tear arthropathy US ABDOMEN LIMITED Routine 08/07/2024 11 :52 AM EDT Right lateral abdominal pain KY PROTEIN ELECTROPHORETIC FRACTIONATION & QUANTITATION SERUM Routine 08/03/2024 1:52 PM EDT Anemia due to stage 3 chronic kidney disease, unspecified whether stage 3a or 3b CKD (CMS/HCC V24, CMS/HCC V28) PROTEIN, TOTAL Routine 08/03/2024 1:52 PM EDT Anemia due to stage 3 chronic kidney disease, unspecified whether stage 3a or 3b CKD (CMS/HCC V24, CMS/HCC V28) CBC WITH AUTO DIFFERENTIAL Routine 08/03/2024 1:52 PM EDT Anemia due to stage 3 chronic kidney disease, unspecified whether stage 3a or 3b CKD (CMS/HCC V24, CMS/HCC V28) IRON AND TIBC Routine 08/03/2024 1:52 PM EDT Anemia due to stage 3 chronic kidney disease, unspecified whether stage 3a or 3b CKD (CMS/HCC V24, CMS/HCC V28) VITAMIN B12 AND FOLATE Routine 1:52 PM EDT Anemia due to stage 3 chronic kidney disease, unspecified whether stage 3a or 3b CKD (CMS/HCC V24, CMS/HCC V28) FERRITIN Routine 08/03/2024 1:52 PM EDT Anemia due to stage 3 chronic kidney disease, unspecified whether stage 3a or 3b CKD (CMS/HCC V24, CMS/HCC V28) PROTEIN ELECTROPHORESIS, SERUM Routine 08/03/2024 1:52 PM EDT Anemia due to stage 3 chronic kidney disease, unspecified whether stage 3a or 3b CKD (CMS/HCC V24, CMS/HCC V28) BASIC METABOLIC PANEL Routine 08/03/2024 1:52 PM EDT Anemia due to stage 3 chronic kidney disease, unspecified whether stage 3a or 3b CKD (CMS/HCC V24, CMS/HCC V28) CBC AND DIFFERENTIAL Routine 08/03/2024 1:52 PM EDT Anemia due to stage 3 chronic kidney disease, unspecified whether stage 3a or 3b CKD (CMS/HCC V24, CMS/HCC V28) LIPID PANEL Routine 05/17/2023 from Last 3 Months or Most Recently Relevant to Health Maintenance Results * KY ARTHROCENTESIS/ASPIRATION/INJECTION MAJOR JOINT/BURSA W/O U/S GUIDANCE (08/16/2024 2:00 PM EDT) Narrative Estevan Alvarado PA - 08/16/2024 2:00 PM EDT SAHARA Clement 08/16/2024 3:31 PM L Inj/Asp: L subacromial bursa Indications: pain Details: 22 G needle, posterior approach Medications: 40 mg triamcinolone acetonide 40 mg/mL Outcome: tolerated well, no immediate complications Site was prepped in standard fashion using alcohol swab, sterile technique was used to perform the injection, the patient tolerated the procedure well and a band-aid dressing was applied Informed Consent: Site: Left subacromial Laterality: Left Relevant images/test results available and reviewed: yes Health status cleared: Yes Procedure/treatment, purpose, treatment alternatives, risks/potential complications and benefits explained: yes Risk/complications/benefits details: Risk/complications/benefits details: Risks and benefits of corticosteroid injection were discussed, including risk of pain, bleeding, infection, tissue attenuation, tendon rupture, changes in skin color, and injury to surrounding structures such as arteries, veins and nerves. We also discussed the patient may develop worsening pain for a few days before having improvement in their symptoms. Patient questions answered: yes Patient agrees, verbalizes understanding, and wants to proceed: yes Consent given by: Patient Informed consent discussion completed by Physician/CARLA with patient: Verbal Pre-procedure timeout performed: yes us Estevan SHOEMAKER IN CLINIC/BEDSIDE ORDERABLES Fi nal Result * US Abdomen Limited (08/07/2024 11:52 AM EDT) Anatomical Region Laterality Modality Body Ultrasound 08/08/2024 2:39 PM EDT Impressions 08/08/2024 2:49 PM EDT There is a 0.7 cm nonmobile nonshadowing bright reflector associated with the gallbladder wall. Possibilities include a small polyp or a nonshadowing adherent calculus. Polyps of this size are extremely unlikely to harbor malignancy. No biliary dilation. No tenderness to transducer pressure over the gallbladder. Atrophic echogenic tazlina right kidney. Right iliac fossa renal transplant. The hepatic echotexture is somewhat heterogeneous. -------- FINAL REPORT -------- Dictated By: Luis Winter Dictated Date: 08/08/2024 14:39 ET Assigned Physician: Luis Winter Reviewed and Electronically Signed By: Luis Winter Signed Date: 08/08/2024 14:49 ET Workstation ID: [id number] Transcribed By: Self Edit Transcribed Date: 08/08/2024 14:41 ET Narrative 08/08/2024 2:49 PM EDT EXAMINATION: ABDOMEN ULTRASOUND, LIMITED CLINICAL INFORMATION: Right-sided pain COMPARISON: None. TECHNIQUE: Ultrasound of the right upper quadrant FINDINGS: QUALITY: The study is limited. Some of the pancreas was obscured. Portions of the liver are not optimally evaluated due to intercostal acoustical access. LI - RADS visualization score = Visualization B: Moderate limitations FIELDS for visualization scoring: A - Minimal limitations-unlikely to meaningfully affect sensitivity B - Moderate limitations-limitations may obscure small masses C - Severe limitations-limitations significantly lowers sensitivity for focal liver lesions PANCREAS: Most of the pancreas is obscured. No large abnormality. ABDOMINAL AORTA/IVC: Portions of the IVC are visualized without a suspicious abnormality. LIVER: The right lobe of the liver measures 13.5 cm. The liver contour appears smooth. The background hepatic echotexture appears somewhat heterogeneous. The portal tracts are visualized. The diaphragm is visualized. No suspicious focal liver lesion. BILIARY: There is an approximately 0.7 cm bright reflector involving the neck of the gallbladder. This did not move during the exam and there is no shadowing. No suspicious color signal. COMMON BILE DUCT: The common duct measures 0.5 cm which is within normal limits. GALLBLADDER TENDERNESS: There is no reported tenderness to transducer pressure over the gallbladder. KIDNEYS: Right renal length: The tazlina right renal length is approximately 5.7 cm. The t[place] right renal cortex is echogenic. There may be an approximately 3 cm cyst in the tazlina right kidney. The patient reportedly underwent transplant 2017. The right iliac fossa renal transplant measures at least 11.6 cm. There is an anechoic space in the central aspect of the transplant. Whether this represents a prominent renal pelvis or a cyst is uncertain. No fluid collection around the transplant. Left renal length: Not examined. There is no dilation of the intrarenal collecting system in the tazlina right kidney. There is no suspicious focal lesion demonstrated in the tazlina right kidney. There is no shadowing calculus demonstrated in the tazlina right kidney. FLUID: No intraperitoneal fluid demonstrated in the upper abdomen Procedure Note Luis Winter MD - 08/08/2024 EXAMINATION: ABDOMEN ULTRASOUND, LIMITED CLINICAL INFORMATION: Right-sided pain COMPARISON: None. TECHNIQUE: Ultrasound of the right upper quadrant FINDINGS: QUALITY: The study is limited. Some of the pancreas was obscured. Portionsof the liver are not optimally evaluated due to intercostal acousticalaccess. LI - RADS visualization score = Visualization B: Moderate limitations FIELDS for visualization scoring: A - Minimal limitations-unlikely to meaningfully affect sensitivity B - Moderate limitations-limitations may obscure small masses C - Severe limitations-limitations significantly lowers sensitivity forfocal liver lesions PANCREAS: Most of the pancreas is obscured. No large abnormality. ABDOMINAL AORTA/IVC: Portions of the IVC are visualized without asuspicious abnormality. LIVER: The right lobe of the liver measures 13.5 cm. The liver contourappears smooth. The background hepatic echotexture appears somewhatheterogeneous. The portal tracts are visualized. The diaphragm isvisualized. No suspicious focal liver lesion. BILIARY: There is an approximately 0.7 cm bright reflector involving theneck of the gallbladder. This did not move during the exam and there is noshadowing. No suspicious color signal. COMMON BILE DUCT: The common duct measures 0.5 cm which is within normallimits. GALLBLADDER TENDERNESS: There is no reported tenderness to transducerpressure over the gallbladder. KIDNEYS: Right renal length: The tazl[place] right renal length is approximately 5.7cm. The tazl[place] right renal cortex is echogenic. There may be anapproximately 3 cm cyst in the tazl[place] right kidney. The patient reportedly underwent transplant 2016. The right iliac fossarenal transplant measures at least 11.6 cm. There is an anechoic space inthe central aspect of the transplant. Whether this represents a prominentrenal pelvis or a cyst is uncertain. No fluid collection around thetransplant. Left renal length: Not examined. There is no dilation of the intrarenal collecting system in the nativeright kidney. There is no suspicious focal lesion demonstrated in the tazlina rightkidney. There is no shadowing calculus demonstrated in the tazl[place] right kidney. FLUID: No intraperitoneal fluid demonstrated in the upper abdomen IMPRESSION: There is a 0.7 cm nonmobile nonshadowing bright reflector associated withthe gallbladder wall. Possibilities include a small polyp or anonshadowing adherent calculus. Polyps of this size are extremely unlikelyto harbor malignancy. No biliary dilation. No tenderness to transducer pressure over thegallbladder. Atrophic echogenic tazlina right kidney. Right iliac fossa renal transplant. The hepatic echotexture is somewhat heterogeneous. -------- FINAL REPORT -------- Dictated By: Luis Winter Dictated Date: 08/08/2024 14:39 ET Assigned Physician: Luis Winter Reviewed and Electronically Signed By: Luis Winter Signed Date: 08/08/2024 14:49 ET Workstation ID: [id number] Transcribed By: Self Edit Transcribed Date: 08/08/2024 14:41 ET Amado Morgan DRILL RUNNER IMG US PROCEDURES Final Result * PATHOLOGIST REVIEW PROTEIN ELECTROPHORESIS (08/03/2024 1:52 PM EDT) Pathologist [facility] Pathologist Interpretation Reviewed by Angeline Del Cid MD 08/07/2024 11:48 AM EDT [facility] Blood Venous blood specimen / Unknown Venipuncture / Unknown 08/03/2024 1:52 PM EDT 08/03/2024 5:09 PM EDT Priscilla Duenas MD LAB BLOOD ORDERABLES Final R esult [facility]) [facility] [address] [place] [address], [place] [phone] * (ABNORMAL) Vitamin B12 and folate (08/03/2024 1:52 PM EDT) Pathologist [facility] Vitamin B-12 1,435(H) 250 - 900 pcg/mL LAB CHEMISTRY METHOD 08/03/2024 6:06 PM [facility] Folate >20.0(H) 2.8 - 17.0 ng/ml LAB CHEMISTRY METHOD 08/03/2024 6:06 PM EDT [facility] Blood Venous blood specimen / Unknown Venipuncture / Unknown 08/03/2024 1:52 PM EDT 08/03/2024 5:09 PM EDT Priscilla Duenas MD LAB BLOOD ORDERABLES Final R esult [facility] [address] [place] [address], * (ABNORMAL) CBC auto differential (08/03/2024 1:52 PM EDT) WBC 3.4(L) 4.8 - 10.8 K/mcL LAB HEMETOLOGY METHOD 08/03[facility]2024 5[facility] RBC 3.90(L) 4.50 - 5.50 M/mcL LAB HEMETOLOGY METHOD 08/03/2024 5:24 PM [facility] Hemoglobin 10.8(L) 13.5 - 17.5 g/dL LAB HEMETOLOGY METHOD 08/03/2024 5:24 PM [facility] Hematocrit 34.0(L) 42.0 - 54.0 % LAB HEMETOLOGY METHOD 08/03/2024 5:24 PM EDT [facility] MCV 87.2 79.0 - 98.0 FL LAB HEMETOLOGY METHOD 08/03/2024 5:24 PM EDT [facility] MCH 27.7 27.0 - 32.0 pcg LAB HEMETOLOGY METHOD 08/03/2024 5:24 PM [facility] MCHC 31.8(L) 32.0 - 37.0 g/dL LAB HEMETOLOGY METHOD 08/03/2024 5:24 PM EDT [facility] RDW 14.4 11.0 - 15.0 % LAB HEMETOLOGY METHOD 08/03/2024 5:24 PM [facility] Platelets 118(L) 130 - 400 K/mcL LAB HEMETOLOGY METHOD 08/03/2024 5:24 PM [facility] MPV 11.8(H) 7.0 - 11.0 FL LAB HEMETOLOGY METHOD 08/03/2024 5:24 PM EDT [facility] NRBC 0.0 <1.0 % LAB HEMETOLOGY METHOD 08/03/2024 5:24 PM [facility] NRBC Absolute 0.00 <0.10 K/mcL LAB HEMETOLOGY METHOD 08/03/2024 5:24 PM [facility] Neutrophils Relative 69.3 % LAB HEMETOLOGY METHOD 08/03/2024 5:24 PM [facility] Lymphocytes Relative 12.5 % LAB HEMETOLOGY METHOD 08/03/2024 5:24 PM [facility] Monocytes Relative 15.2 % LAB HEMETOLOGY METHOD 08/03/2024 5:24 PM [facility] Eosinophils Relative 1.8 % LAB HEMETOLOGY METHOD 08/03/2024 5:24 PM [facility] Basophils Relative 0.9 % LAB HEMETOLOGY METHOD 08/03/2024 5:24 PM [facility] Immature Granulocytes Relative 0.3 % LAB HEMETOLOGY METHOD 08/03/2024 5:24 PM [facility] Neutrophils Absolute 2.32 1.50 - 7.00 K/mcL LAB HEMETOLOGY METHOD 08/03/2024 5:24 PM [facility] Lymphocytes Absolute 0.42(L) 1.00 - 5.00 K/mcL LAB HEMETOLOGY METHOD 08/03/2024 5:24 PM EDT [facility] Monocytes Absolute 0.51 0.20 - 1.00 K/mcL LAB HEMETOLOGY METHOD 08/03/2024 5:24 PM EDT [facility] Eosinophils Absolute 0.06 0.00 - 0.50 K/mcL LAB HEMETOLOGY METHOD 08/03/2024 5:24 PM EDT [facility] Basophils Absolute 0.03 0.00 - 0.20 K/mcL LAB HEMETOLOGY METHOD 08/03/2024 5:24 PM EDT [facility] Immature Granulocytes Absolute 0.01 0.00 - 0.03 K/mcL LAB HEMETOLOGY METHOD 08/03/2024 5:24 PM EDT [facility] Blood Venous blood specimen / Unknown Venipuncture / Unknown 08/03/2024 1:52 PM EDT 08/03/2024 5:09 PM EDT us Priscilla Duenas MD LAB BLOOD ORDERABLES Final R esult [facility] [address] [place] [address], * (ABNORMAL) Iron and TIBC (08/03/2024 1:52 PM EDT) Iron 60 50 - 160 mcg/dL LAB CHEMISTRY METHOD 08/03/2024 5:43 PM EDT [facility] TIBC 177(L) 250 - 450 mcg/dL LAB CHEMISTRY METHOD 08/03/2024 5:43 PM EDT [facility] Iron Saturation 34 20 - 50 % LAB CHEMISTRY METHOD 08/03/2024 5:43 PM EDT [facility] Blood Venous blood specimen / Unknown Venipuncture / Unknown 08/03/2024 1:52 PM EDT 08/03/2024 5:09 PM EDT Priscilla Duenas MD LAB BLOOD ORDERABLES Final R esult [facility] [address] [place] [address], [place] [phone] * (ABNORMAL) Protein electrophoresis, serum (08/03/2024 1:52 PM EDT) Total Protein 6.0 6.0 - 8.0 g/dL LAB CHEMISTRY METHOD 08/07/2024 11:48 AM EDT [facility] Albumin, Serum 3.8 2.9 - 4.1 g/dL LAB CHEMISTRY METHOD 08/07/2024 11:48 AM EDT [facility] Alpha 1 Globulin (g/dL) 0.2 0.1 - 0.5 g/dL LAB CHEMISTRY METHOD 08/07/2024 11:48 AM EDT [facility] Alpha 2 Globulin (g/dL) 0.7 0.7 - 1.5 g/dL LAB CHEMISTRY METHOD 08/07/2024 11:48 AM EDT [facility] Beta (g/dL) 0.5(L) 0.7 - 1.5 g/dL LAB CHEMISTRY METHOD 08/07/2024 11:48 AM EDT [facility] Gamma Globulin (g/dL) 0.8 0.7 - 1.9 g/dL LAB CHEMISTRY METHOD 08/07/2024 11:48 AM EDT [facility] SPEP Interpretation No M-Sabino seen. Decreased beta globulins. LAB CHEMISTRY METHOD 08/07/2024 11:48 AM T [facility] Blood Venous blood specimen / Unknown Venipuncture / Unknown 08/03/2024 1:52 PM EDT 08/03/2024 5:09 PM EDT us Priscilla Duenas MD LAB BLOOD ORDERABLES Final R esult [facility] [address] [place] [address], [place] [phone] * Protein, total (08/03/2024 1:52 PM EDT) [facility] [place] Total Protein 6.0 6.0 - 8.0 g/dL LAB CHEMISTRY METHOD 08/03/2024 5:50 PM EDT [facility] Blood Venous blood specimen / Unknown Venipuncture / Unknown 08/03/2024 1:52 PM EDT 08/03/2024 5:09 PM EDT us Priscilla Duenas MD LAB BLOOD ORDERABLES Final R esult Performing Organization Address [facility] Co de Phone Number [facility] [address] [place] [address], [place] [phone] * Ferritin (08/03/2024 1:52 PM EDT) [facility] [place] Ferritin 153 26 - 388 ng/mL LAB CHEMISTRY METHOD 08/03/2024 6:06 PM EDT [facility] Blood Venous blood specimen / Unknown Venipuncture / Unknown 08/03/2024 1:52 PM EDT 08/03/2024 5:09 PM EDT Priscilla Duenas MD LAB BLOOD ORDERABLES Final R esult Performing Organization Address City/[facility]/ZIP Co de Phone Number [facility] [address] [place] [address], [place] [phone] * (ABNORMAL) Basic metabolic panel (08/03/2024 1:52 PM EDT) [facility] Sodium 139 133 - 145 mmol/L LAB CHEMISTRY METHOD 08/03/2024 5:47 PM EDT [facility] Potassium 4.0 3.5 - 5.5 mmol/L LAB CHEMISTRY METHOD 08/03/2024 5:47 PM [facility] Chloride 108 96 - 110 mmol/L LAB CHEMISTRY METHOD 08/03/2024 5:47 PM [facility] CO2 23 21 - 32 mmol/L LAB CHEMISTRY METHOD 08/03/2024 5:47 PM [facility] Anion Gap 8 3 - 11 LAB CHEMISTRY METHOD 08/03/2024 5:47 PM [facility] Glucose 112(H) 70 - 100 mg/dL LAB CHEMISTRY METHOD 08/03/2024 5:47 PM [facility] BUN 23 5 - 25 mg/dL LAB CHEMISTRY METHOD 08/03/2024 5:47 PM [facility] Creatinine 0.96 0.70 - 1.30 mg/dL LAB CHEMISTRY METHOD 08/03/2024 5:47 PM [facility] eGFR 82 >=60 mL/min/1. 73m2 LAB CHEMISTRY METHOD 08/03/2024 5:47 PM [facility] Comment:Calculation based on the Chronic Kidney Disease Epidemiology Collaboration (CKD-EPI) equation refit without adjustment for race. BUN/Creatinine Ratio 24.0 LAB CHEMISTRY METHOD 08/03/2024 5:47 PM [facility] Calcium 8.6 8.5 - 10.5 mg/dL LAB CHEMISTRY METHOD 08/03/2024 5:47 PM [facility] Blood Venous blood specimen / Unknown Venipuncture / Unknown 08/03/2024 1:52 PM EDT 08/03/2024 5:09 PM EDT us Priscilla Duenas MD LAB BLOOD ORDERABLES Final R esult [facility] [address] [place] [address], * Lipid panel (05/17/2023) Triglycerides 0 mg/dL Comment:no interpretation Cholesterol 0 mg/dL Comment:no interpretation HDL 0 mg/dL Comment:no interpretation LDL Cholesterol 0 mg/dL Comment:no interpretation Blood Venous blood specimen / Unknown Historical Provider LAB BLOOD ORDERABLES Chiqui l Result from Last 3 Months or Most Recently Relevant to Health Maintenance Insurance MEDICARE [facility]) Advance Directives Documents on File Type Date Recorded 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
--- OUTSIDE RECORDS SUMMARY | 2024-10-31 14:31 | XMS_ITS | Encounter Summary ---
Author Organization [facility] Address [address] [place] [address] Care Team Providers Care Clinical Informatics Spec Name Role Phone Maria D Mccray Primary Care Provider Encounter Details Date Type Department Care Team (Late st Contact Info) Description 11/25/2016 Transplant Conversio n Encounter [facility] Health Information Management [address] [place] [address] Provider, Historical [facility] Social History Tobacco Use Types Packs/Day [...] Info) Description 01/16/2025 11:20 AM EST Follow-Up [facility] Renal Transplant [address] [place] [address] Gurjit Olsen MD [address] [place] [address] documented as of this encounter Visit Diagnoses [...] documented as of this encounter Care Teams Clinical Informatics Spec Relationship Specialty Start Date End Date Maria D Mccray [address] [place] [address] PCP - General Internal Medicine 05/05/17 documented as of this encounter
--- OUTSIDE RECORDS SUMMARY | 2024-10-31 14:31 | XMS_ITS ---
Author Organization [facility] Address [address] [place] [address] Care Team Providers Care Scalper Operator Name Role Phone Maria D Mccray Primary Care Provider [phone] Transplant Episode Kidney Recipient [facility] ([place], [place]) - [facility] Organ Received: Right Kidney Transplanted on 11/07/2016 Marked as Active Follow-up on 11/07/2016 Kidney CoordinatorRenée Sahu RN Phone: N/A Fax: N/A Email: N/A [facility]ot Organ Diagnosis Organ Primary Contributory Kidney Hypertensive [...] Coordinator N/A N/A N/A Gurjit Olsen MD Sheet Folder [phone] [email or web address] [email or web address] Ibrahim Referring Physician [phone] N/A Events Post-Transplant Pre-Transplant Admitted: 11/07/2016 Referred: 06/13/2010 Transplanted: 11/07/2016 Evaluation began: 1 Discharged: 11/16/2016 Committee: 07/30/2010 Center waitlisted: 1 Dialysis History Dialysis History Start End Type Comments Center 02/20/2016 11/06/2016 Maintenance (Type Unknown)
== END 2024-10-31 12:33 | disposition home or self-care (01) ==
LOC: HO.HKAS 12:01
PROVIDERS: PCP Internal Medicine; Visit Provider Internal Medicine Nephrology
DX: I10 Essential (primary) hypertension (principal); Z94.0 Kidney transplant status
CPT/HCPCS: 99214

== ENCOUNTER → 2024-10-31 12:00 | Outpatient (BNVA) | payer MEDICARE, BC, SELFPAY | PROVIDERS: PCP Internal Medicine; Visit Provider Internal Medicine Nephrology | DX: I10 Essential (primary) hypertension (principal); Z94.0 Kidney transplant status | CPT/HCPCS: 99212 ==